=== PATIENT | male | born 1945 | race Caucasian/White ===

== ENCOUNTER 2023-08-30 08:31 | Outpatient (CLI) | payer OTHER, SELFPAY ==
--- OUTSIDE RECORDS SUMMARY | 2023-08-30 08:44 | XMS_ITS | Clinical Summary ---
Author Name Unknown Organization [facility] Address [address] [place] [address] Care Team Providers Care Boating Safety Officer Name Role Phone Ely Jones MD Primary Care Provider [phone] Ronny Gallo MD Unavailable [phone] Janine Cruz Unavailable [phone] Rodriguez Waters MD Unavailable [phone] Allergies Active Allergy Reactions Criticality Noted Date Comments Egg White (Egg Protein) Shortness Of Breath High Influenza Vaccines Hives High 03/27/2016 Metoprolol Other (See Comments) 07/04/2021 Low heart rate Medications Medication Sig Dispensed Refills Start Date End Date Status famotidine (PEPCID) 20 MG tablet Take 20 mg by mouth daily 0 Active finasteride (PROSCAR) 5 MG tablet Take 5 mg by mouth daily 0 Active sertraline (ZOLOFT) 100 MG tablet Take 100 mg by mouth daily 0 Active aspirin (ASA) 81 MG chewable tablet Take 81 mg by mouth daily 0 Active fish oil-omega-3 fatty acids 1000 MG capsule Take 1 g by mouth daily 0 Active multivitamin w/minerals (THERA-VIT-M) tablet Take 1 tablet by mouth daily 0 Active nitroGLYcerin (NITROSTAT) 0.4 MG sublingual tabletIndications:Pe rcutaneous transluminal coronary angioplasty status For chest pain place 1 tablet under the tongue every 5 minutes for 3 doses. If symptoms persist 5 minutes after 1st dose call 911. 25 tablet 1 07/04/2021 Active Additional Information Patient not taking.Reported on 03/25/2023 rosuvastatin (CRESTOR) 40 MG tabletIndications:Hy percholesteremia Take 1 tablet (40 mg) by mouth daily 90 tablet 3 07/04/2021 Active losartan (COZAAR) 50 MG tablet 25 mg 0 08/06/2021 Active Cholecalciferol 100 MCG (4000 UT) TABS TAKE ONE TABLET BY MOUTH EVERY DAY THIS IS VITAMIN DROP 0 09/01/2021 Active clopidogrel (PLAVIX) 300 MG TABS tabletIndications:At herosclerosis of council coronary artery of council heart without angina pectoris Take 2 tablets (600 mg) by mouth once for 1 dose 2 tablet 0 07/06/2022 Active clopidogrel (PLAVIX) 75 MG tabletIndications:At herosclerosis of council coronary artery of council heart without angina pectoris Take 1 tablet (75 mg) by mouth daily 90 tablet 3 07/06/2022 Active Active Problems Problem Noted Date Diagnosed Date Carpal tunnel syndrome of right wrist 10/30/2021 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 Overview: Jan 26, 2012 Entered By: GIDEON MARIEE Comment: Day time/Night time urinary urgency - no Voiding complaintsJul 2011 Entered By: GIDOEN MARIEE Comment: Over-Active Bladder Inguinal hernia 10/30/2021 Overview: Mar 07, 2013 Entered By: NAT MIR Comment: s/p repair, Personal history of tobacco use, presenting hazards to health 10/30/2021 Overview: Mar 07, 2013 Entered By: NAT MIR Comment: 10 pack year hxAug 2012 Entered By: NAT MIR Comment: Quit 1982 Presence of prosthetic heart valve 10/30/2021 Tinnitus 10/30/2021 Vitamin D deficiency 10/30/2021 Status post coronary angiogram 06/25/2021 S/P TAVR (transcatheter aortic valve replacement ) 03/11/2021 Overview: March 05, 2021 - right TF approach, #26 MILES 3 valve, + sentinel Aortic stenosis, severe 03/11/2021 Percutaneous transluminal coronary angioplasty s tatus 02/11/2021 Gastroesophageal reflux disease 2020 Irritability 2020 Nonrheumatic aortic valve stenosis 09/11/2019 Bilateral asymmetric sensorineural hearing loss 09/18/2015 CAD S/P percutaneous coronary angioplasty 2008 Overview: CAD S/p CO Hypertrophy of prostate without urinary obstruct ion 11/25/2007 Overview: BPH w/o Obstruction Osteoarthrosis 10/06/2004 Overview: LW Modifier: neck LW Onset: ; DJD 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/2004 Overview: LW Modifier: Left IOL LW Onset: 1999 ; Cataract Traumatic NOS Dyslipidemia, goal LDL below 70 Overview: Created by Conversion Hypertension Overview: Created by Conversion Replacement Utility updated for latest IMO load Coronary Artery Disease Overview: Created by Conversion Replacement Utility updated for latest IMO load Resolved Problems Problem Noted Date Diagnosed Date Resolved Date Obesity due to excess calories 02/24/2021 Overview: Created by Conversion Paroxysmal Atrial Fibrillation 06/11/2017 Overview: Created by Conversion Immunizations Name Administration Dates Next Due COVID-19 MONOVALENT 12+ (Pfizer) 05/12/2021,08/19,08/15/2020 Flu, Unspecified 05/08/2009 Influenza, seasonal, injectable, PF 05/08/2009 Pneumo Conj 13-V (2010&after) 03/18/2015 Pneumococcal 23 valent 04/17/2016,05/09/2009 Pneumococcal, Unspecified 10/17/2010 TDAP (Adacel,Boostrix) 04/19/2021,03/07/2013,04/2008 Td (Adult), Adsorbed 08/31/2002 Tdap (Adult) Unspecified Formulation 07/19/2007 Zoster recombinant adjuvanted (SHINGRIX) 022 Zoster vaccine, live 07/19/2013,01/26/2012 Family History Medical History Relation Comments Heart Disease Father Relation Status Comments Father Social History Tobacco Use Types Packs/Day Years Used Date Smoking Tobacco: Former Cigarettes Q uit: 07/19/1979 Smokeless Tobacco: Never Tobacco Cessation:Counseling Given: Not Answered Alcohol Use Standard Drinks/Week Comments Yes 0 (1 standard drink = 0.6 oz pur e alcohol) Alcoholic Drinks/day: rare PHQ-2 Answer Date Recorded PHQ-2 Score 0 10/30/2021 Adolescent Education Answer Date Record ed Getting School Help Needed Not on file 05/03 Sex and Gender Information Value Date Recorded Sex Assigned at Not on file Gender Identity Not on file Sexual Orientation Not on file Last Filed Vital Signs Vital Sign Reading Time Taken Comments Blood Pressure 148/80 03/25/2023 1:31 PM CDT Pulse 60 03/25/2023 1:31 PM CDT Temperature 36.6 ??C (97.9 ??F) 10/30/2021 9:51 AM CD T Respiratory Rate 16 03/25/2023 1:31 PM CDT Oxygen Saturation 98% 10/30/2021 9:51 AM CDT Inhaled Oxygen Concentration - - Weight 80.2 kg (176 lb 12.8 oz) 03/25/2023 1:31 PM CDT Height 174.8 cm (5' 8.8) 02/27/2022 1:17 PM CDT Body Mass Index 26.26 02/27/2022 1:17 PM CDT Plan of Treatment Health Maintenance Due Date Last Done Comments ADVANCE CARE PLANNING 1945 HF ACTION PLAN 1946 TSH W/FREE T4 REFLEX 1946 HEPATITIS C SCREENING 1964 RSV VACCINE ( & 60+) (1 - 1-dose 60+ series) 2006 FALL RISK ASSESSMENT 2011 MEDICARE ANNUAL WELLNESS VISIT 09/06/2021 09/06/2020, 08/30/2018, 03/27/2016, Additional history exists BMP 01/02/2022 07/04/2021, 12/0 02/2021, 04/18/2021, Additional history exists ALT 03/11/2022 03/11/2021, 02/17, 10/30/2020 CBC 06/25/2022 06/25/2021, 07/2020, 03/12/2021, Additional history exists LIPID 06/25/2022 06/25/2021, 01/17, 04/23/2009 ANNUAL REVIEW OF HM ORDERS 10/30/2022 10/30/2021 COVID-19 Vaccine ( season) 2023 06/08/2022, 05/12/2021, 09/05/2020, Additional history exists INFLUENZA VACCINE (#1) 2023 05/08/2009, 2008 PHQ-2 (once per calendar year) 2023 10/30/2021 GLUCOSE 07/04/2024 07/04/2021, 02/2021, 04/18/2021, Additional history exists DTAP/TDAP/TD IMMUNIZATION (5 - Td or Tdap) 04/19/2031 04/19/2021, 03/07/2013, 10/27/2007, Additional history exists Pneumococcal Vaccine: 65+ Years Completed 04/17/2016, 03/18/2015, 10/17/2010, Additional history exists LUNG CANCER SCREENING Discontinued 11/15/2020 ZOSTER IMMUNIZATION Completed 12/30/2021, 07/22/2021, 07/19/2013, Additional history exists HPV IMMUNIZATION Aged Out No longer e ligible based on patient's age to complete this topic IPV IMMUNIZATION Aged Out No longer e ligible based on patient's age to complete this topic MENINGITIS IMMUNIZATION Aged Out No l onger eligible based on patient's age to complete this topic RSV MONOCLONAL ANTIBODY Aged Out No l onger eligible based on patient's age to complete this topic Medical Devices Implanted Type Area Deputy Director Of Public Works Device Identifier Shelf Expiration Date Model / Serial / Lot Device Closure Vascular Manta 18fr 2115 - [id number] Implanted:Qty : 1 on 03/11/2021 by Ivett Arreguin MD at [facility] Occlusion Device Right: Groin [employer] 05/02/2022 [id number] / / [id number] Stent Coronary Lester Synergy Xd Mr Us [id number] - [id number] Implanted:Qty : 1 on 02/11/2021 by Rodriguez Waters MD at [facility] Stent Drug Eluting (LESTER) N/A: Coronary [employer] 09/24/2022 [id number] / / [id number] Stent Coronary Lester Synergy Xd Mr Us [id number] - [id number] Implanted:Qty : 1 on 06/25/2021 by Rodriguez Waters MD at [facility] Stent Drug Eluting (LESTER) [employer] 01/28/2023 [id number] / / [id number] Valve Aortic Sapein 3 Utlra Tavr 26mm [id number] - [id number] Implanted:Qty : 1 on 03/11/2021 by Ivett Arreguin MD at [facility] Valve N/A: Aorta [employer] 11/23/2022 [id number] / [id number] / Advance Directives For more information, please contact: [phone] Latest Code Status on File Code Status Date Activated Date Inactivated Comments Full Code 06/25/2021 9:19 AM 06/25/2021 4:13 PM All b asic and advanced life-sustaining interventions are performed as appropriate Question Answer Comments Code status determined by: Discussion with patient/ legal decision maker Code Status History Code Status Date Activated Date Inactivated Comments Full Code 03/11/2021 8:23 PM 03/12/2021 1:10 PM All b asic and advanced life-sustaining interventions are performed as appropriate Question Answer Comments Code status determined by: Discussion with patient/ legal decision maker Care Teams Boating Safety Officer Relationship Specialty Start Date End Date Ely Jones MD [facility] [place] [address] PCP - General Internal Medicine 02/24/21 Ronny Gallo MD [address] [place] [address] Assigned PCP 10/02/21 Janine Cruz AuD [address] [place] [phone] Garment Form Assembler Audiology 11/04/22 Rodriguez Waters MD [address] [facility] [address] [place], [place] [id number] Assigned Heart and Vascular Provider 12/19/22
--- OUTSIDE RECORDS SUMMARY | 2023-08-30 08:44 | XMS_ITS | Encounter Summary ---
Author Name Unknown Organization [facility] Address [address] [place] [address] Care Team Providers Care Pretzel Packer Name Role Phone Ely Jones MD Primary Care Provider [phone] Ronny Gallo MD Unavailable [phone] Janine Cruz Unavailable [phone] Rodriguez Waters MD Unavailable [phone] Encounter Details Date Type Department Care Team (Latest Contact Info) Description 03/25/2023 Travel Social History Tobacco Use Types Packs/Day Years Used Date Smoking Tobacco: Former Cigarettes Q uit: 07/19/1979 Smokeless Tobacco: Never Alcohol Use Standard Drinks/Week Comments Yes 0 (1 standard drink = 0.6 oz pur e alcohol) Alcoholic Drinks/day: rare PHQ-2 Answer Date Recorded PHQ-2 Score 0 10/30/2021 Sex and Gender Information Value Date Recorded Sex Assigned at Not on file Gender Identity Not on file Sexual Orientation Not on file COVID-19 Exposure Response Date Recorded In the last 10 days, have yo u been in contact with someone who was confirmed or suspected to have Coronavirus/COVID-19? No / Unsure 03/25/2023 12:43 PM CDT documented as of this encounter Plan of Treatment Not on file documented as of this encounter Visit Diagnoses Not on filedocumented in this encounter Care Teams Pretzel Packer Relationship Specialty Start Date End Date Ely Jones MD [facility] [address] [place] [address] PCP - General Internal Medicine 02/24/21 Ronny Gallo MD [address] [place] [address] Assigned PCP 10/02/21 Janine Cruz AuD [address] [place], [place] [id number] Dump Grounds Checker Audiology 11/04/22 Rodriguez Waters MD [address] [facility] [address] [place], [place] [id number] Assigned Heart and Vascular Provider 12/19/22 documented as of this encounter
--- OUTSIDE RECORDS SUMMARY | 2023-08-30 08:44 | XMS_ITS | Encounter Summary ---
Author Name Unknown Organization [facility] Address [address] [place] [address] Care Team Providers Care Collar Pointer Name Role Phone Ely Jones MD Primary Care Provider [phone] Ronny Gallo MD Unavailable [phone] Janine Cruz Unavailable [phone] Rodriguez Waters MD Unavailable Reason for Referral * Consultation (Routine: Next available opening) - Pending Review Specialty Diagnoses / Procedures Referred By Contac t Referred To Contact Cardiovascular Disease Diagnoses S/P TAVR (transcatheter aortic valve replacement) Rodriguez Waters MD [address] [facility] [address] [place] [address] Referral ID Status Reason Start Date Expiration Date V isits Requested Visits Authorized [id number] Pending Review 03/25/2023 03/24/2024 1 1 Question Answer Follow-up with: Self Scheduling Instructions: [employer] will call you to coordinate your care as prescribed by your provider. If you have concerns about scheduling, please call [phone]. Comments [employer] [facility] will call you to coordinate your care as prescribed by your provider. If you have concerns about scheduling, please call [phone]. Reason for Visit * Reason Comments Follow Up Encounter Details Date Type Department Care Team ([facility] st Contact Info) Description 03/25/2023 1:20 PM CDT Office Visit [facility] Heart [facility] [address] [facility] [address] [place] [phone] Rodriguez Waters MD [address] [facility] [address] [place] [address] S/P TAVR (transcatheter aortic valve replacement) (Primary Dx) Social History Tobacco Use Types Packs/Day Years [...] PM CDT documented as of this encounter Last Filed Vital Signs Vital Sign Reading Time Taken Comments Blood Pressure 148/80 03/25/2023 1:31 PM CDT Pulse 60 03/25/2023 1:31 PM CDT Temperature - - Respiratory Rate 16 03/25/2023 1:31 PM CDT Oxygen Saturation - - Inhaled Oxygen Concentration - - Weight 80.2 kg (176 lb 12.8 oz) 03/25/2023 1:31 PM CDT Height - - Body Mass Index 26.26 02/27/2022 1:17 PM CDT documented in this encounter Progress Notes * Rodriguez Waters MD - 03/25/2023 1:20 PM CDT Images from the original note were not included. HEART CARE ENCOUNTER CONSULTATON NOTE [facility] Heart [facility] [phone] Assessment/Recommendations Assessment/Plan: 77M w/ aortic stenosis s/p TAVR , CAD s/p PCI for STEMI in ' and known residual LAD/dRCA disease, HTN, HL, prior smoking, here for post- TAVR f/u. # Aortic stenosis - s/p # 26 S3 ', mean gradient still 13, no PVL - continue ASA/losartan # CAD - severe disease in mLAD s/p DESx1, then staged PCI to dRCA in the next 2- 3 weeks - continue ASA 81mg daily indefinitely, clopidogrel after re-load and continue indefinitely - continue rosuva 40 - continue aggressive risk factor modification Follow up in 1 years or as needed w/ annual TTE History of Present Illness/Subjective HPI: Lev Leon is a 77 year old male w/ aortic stenosis s/p TAVR , CAD s/p PCI for STEMIin and known residual LAD/dRCA disease, HTN, HL, prior smoking, here for post-TAVR f/u. He continues to do very well, still works. Denies CP/SOB/JACBOSEN/orthopnea/PND/edema/syncope/N/V/D/F/C/wt.changes. Recent Echocardiogram Results: Normal left ventricular size. Mild left ventricular hypertrophy. Normal left ventricular function. Left ventricular ejection fraction estimated 55 to 60%. Diastolic Doppler findings (E/E' ratio and/or other parameters) suggest left ventricular filling pressures are increased Normal right ventricular size with normal right ventricular systolic function. Mild left atrial enlargement Mild to moderate mitral regurgitation Mild tricuspid regurgitation. Estimate of RV systolic pressure is mildly elevated at 33 mmHg plus right atrial pressure Bioprosthetic valve in the aortic position. By report 26 mm ALLYSON 3 valve. Valve appears well-seated. Peak velocity of 2.4 m/s, mean gradient 13 mmHg no significant valvular insufficiency Mild enlargement of the ascending aorta Compared to the study dated August 2021 the peak velocity and mean gradient are similar across the prosthetic valve Recent Coronary Angiogram Results '07/08: tita Leon is a 75 year old old male with aortic stenosis s/p TAVR , CAD s/p PCI for STEMIin and known residual LAD/dRCA disease w/ LAD intervention pre-TAVR, HTN, HL, prior smoking, here for direct PCI to dRCA. - s/p DESx1 to dRCA today - continue ASA 81mg daily indefinitely, ticagrelor 90mg once now, then continue 90mg bid for 12 mos. After 12 mos go to ASA/clopidogrel after re-load and continue indefinitely - add losartan for BP control, re-check BMP in 3 days, f//u w/ JULISA in 1 week and possibly titrate anti-HTN agents. Did not start BB yet due to borderine low resting HR - continue rosuva 40 - continue aggressive risk factor modification Physical Examination Review of Systems Vitals: BP (!) 148/80 (BP Location: Left arm, Patient Position: Sitting, Cuff Size: Adult Large) Pulse 60 Resp 16 Wt 80.2 kg (176 lb 12.8 oz) BMI 26.26 kg/m?? BMI= Body mass index is 26.26 kg/m??. Wt Readings from Last 3 Encounters: 03/25/23 80.2 kg (176 lb 12.8 oz) 02/27/22 79.2 kg (174 lb 8 oz) 10/30/21 81.2 kg (179 lb) General Appearance: no distress, normal body habitus ENT/Mouth: membranes moist, no oral lesions or bleeding gums. EYES: no scleral icterus, normal conjunctivae Neck: no carotid bruits or thyromegaly Chest/Lungs: lungs are clear to auscultation, no rales or wheezing, no sternal scar, equal chest wall expansion Cardiovascular: Regular. Normal first and second heart sounds with no systolic murmurs, rubs, or gallops; the carotid, radial and posterior tibial pulses are intact, Jugular venous pressure 6, no edema bilaterally Abdomen: no organomegaly, masses, bruits, or tenderness; bowel sounds are present Extremities: no cyanosis or clubbing Skin: no xanthelasma, warm. Neurologic: normal associate loan officer bilateral, no tremors Psychiatric: alert and oriented x3, calm Please refer above for cardiac ROS details. Medical History Surgical History Family History Social History Past Medical History: Diagnosis Date Aortic valve stenosis Coronary artery disease Diverticulitis Hyperlipidemia Hypertension Past Surgical History: Procedure Laterality Date CARDIAC CATHETERIZATION 3 STENTS CATARACT EXTRACTION, BILATERAL CORONARY STENT PLACEMENT CV CORONARY ANGIOGRAM N/A 12/19/2020 Procedure: Coronary Angiogram; Surgeon: Rodriguez Waters MD; Location: [facility] Cardiac Claims Collector; Service: Cardiology CV LEFT HEART CATHETERIZATION WITHOUT LEFT VENTRICULOGRAM Left 12/19/2020 Procedure: Left Heart Catheterization Without Left Ventriculogram; Surgeon: Rodriguez Waters MD; Location: [facility] Cardiac Claims Collector; Service: Cardiology CV PCI N/A 02/11/2021 Procedure: Percutaneous Coronary Intervention; Surgeon: Rodriguez Waters MD; Location: [facility] DATABASE ENGINEER CV CV PCI N/A 06/25/2021 Procedure: Percutaneous Coronary Intervention; Surgeon: Rodriguez Waters MD; Location: [facility] DATABASE ENGINEER CV CV TRANSCATHETER AORTIC VALVE REPLACEMENT N/A 03/11/2021 Procedure: Transfemoral TRANSCATHETER AORTIC VALVE REPLACEMENT with 26 mm Cortez Allyson 3 Ultra Transcatheter Heart Valve, transthoracic echocardiogram per cardiology; Surgeon: Ivett Arreguin MD; Location: [facility] CARDIAC DATABASE ENGINEER HEART CATH FEMORAL CANNULIZATION WITH OPEN STANDBY REPAIR AORTIC VALVE N/A 03/11/2021 Procedure: cardiopulmonary bypass standby; Surgeon: Clive Plasencia MD; Location: [facility] CARDIAC DATABASE ENGINEER HERNIA REPAIR OPEN REDUCTION INTERNAL FIXATION RODDING INTRAMEDULLARY TIBIA ZZHC CORONARY STENT PERCUT, INITIAL VESSEL Description: Cath Stent Placement; Proc Date: 04/18/2009; Comments: x3 Family History Problem Relation Age of Onset Heart Disease Father Social History Socioeconomic History Marital status: Spouse name: Not on file Number of children: Not on file Years of education: Not on file Highest education level: Not on file Occupational History Not on file Tobacco Use Smoking status: Former Types: Cigarettes Quit date: 07/19/1979 Years since quittin.7 Smokeless tobacco: Never Vaping Use Vaping Use: Not on file Substance and Sexual Activity Alcohol use: Yes Comment: Alcoholic Drinks/day: rare Drug use: Not Currently Sexual activity: Not on file Other Topics Concern Not on file Social History Narrative Not on file Social Determinants of Health Financial Resource Strain: Not on file Food Insecurity: Not on file Transportation Needs: Not on file Physical Activity: Not on file Stress: Not on file Social Connections: Not on file Intimate Partner Violence: Not on file Housing Stability: Not on file Medications Allergies Current Outpatient Medications Medication Sig Dispense Refill aspirin (ASA) 81 MG chewable tablet Take 81 mg by mouth daily Cholecalciferol 100 MCG (4000 UT) TABS TAKE ONE TABLET BY MOUTH EVERY DAY THIS IS VITAMIN DROP clopidogrel (PLAVIX) 75 MG tablet Take 1 tablet (75 mg) by mouth daily 90 tablet 3 famotidine (PEPCID) 20 MG tablet Take 20 mg by mouth daily finasteride (PROSCAR) 5 MG tablet Take 5 mg by mouth daily fish oil-omega-3 fatty acids 1000 MG capsule Take 1 g by mouth daily losartan (COZAAR) 50 MG tablet 25 mg multivitamin w/minerals (THERA-VIT-M) tablet Take 1 tablet by mouth daily rosuvastatin (CRESTOR) 40 MG tablet Take 1 tablet (40 mg) by mouth daily 90 tablet 3 sertraline (ZOLOFT) 100 MG tablet Take 100 mg by mouth daily clopidogrel (PLAVIX) 300 MG TABS tablet Take 2 tablets (600 mg) by mouth once for 1 dose 2 tablet 0 nitroGLYcerin (NITROSTAT) 0.4 MG sublingual tablet For chest pain place 1 tablet under the tongue every 5 minutes for 3 doses. If symptoms persist 5 minutes after 1st dose call 911. (Patient not taking: Reported on 03/25/2023) 25 tablet 1 Allergies Allergen Reactions Egg White [Egg White (Egg Protein)] Shortness Of Breath Influenza Vaccines Hives Metoprolol Other (See Comments) Low heart rate Lab Results Chemistry/lipid CBC Cardiac Enzymes/BNP/TSH/INR Recent Labs Lab Test 06/25/21 1016 CHOL 131 HDL 56 LDL 68 TRIG 34 Recent Labs Lab Test 06/25/21 1016 02/11/21 0757 LDL 68 62 Recent Labs Lab Test 07/04/21 0829 NA 140 POTASSIUM 4.2 CHLORIDE 106 CO2 24 GLC 81 BUN 15 CR 0.79 GFRESTIMATED 88 XU 9.6 Recent Labs Lab Test 07/04/21 0829 06/25/21 0707 04/18/21 1012 CR 0.79 0.76 0.77 No results for input(s): A1C in the last 31953 hours. Recent Labs Lab Test 06/25/21 0707 WBC 6.2 HGB 13.5 HCT 40.6 MCV 91 PLT 207 Recent Labs Lab Test 06/25/21 0707 04/18/21 1012 03/12/21 0623 HGB 13.5 13.5 12.4* No results for input(s): TROPONINI in the last 39185 hours. Recent Labs Lab Test 03/10/21 0916 BNP 92* No results for input(s): TSH in the last 58111 hours. Recent Labs Lab Test 03/10/21 0916 INR 1.02 Rodriguez Waters MD documented in this encounter Plan of Treatment Scheduled Referrals Name Type Priority Associated Diagnoses Orde r Schedule Follow-Up with Cardiology Referral Routine: Next available opening S/P TAVR (transcatheter aortic valve replacement) Expected: 03/25/2024 (Approximate), Expires: 03/25/2024 documented as of this encounter Visit Diagnoses Diagnosis S/P TAVR (transcatheter aortic valve replacement)- Primary documented in this encounter Care Teams Collar Pointer Relationship Specialty Start Date End Date Ely Jones MD [facility] [address] PCP - General Internal Medicine 02/24/21 Ronny Gallo MD [address] [place] [address] Assigned PCP 10/02/21 Janine Cruz AuD [facility] [place] [address] Director On Air Audiology 11/04/22 Rodriguez Wtaers MD [address] [facility] [address] [place] [address] Assigned Heart and Vascular Provider 12/19/22 documented as of this encounter
--- OUTSIDE RECORDS SUMMARY | 2023-08-30 08:44 | XMS_ITS | Referral Summary ---
Author Name Unknown Organization [facility] Address [address] [place] [address] Care Team Providers Care Net Finisher Name Role Phone Ely Jones MD Primary Care Provider [phone] Ronny Gallo MD Unavailable [phone] Janine Cruz Unavailable [phone] Rodriguez Waters MD Unavailable [phone] Allergies Active Allergy Reactions Criticality Noted Date [...] (PLAVIX) 300 MG TABS tabletIndications:At herosclerosis of [place] 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 angina pectoris Take 2 tablets (600 mg) by mouth once for 1 dose 2 tablet 0 07/06/2022 Active clopidogrel (PLAVIX) 75 MG tabletIndications:At herosclerosis of [place] 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 angina pectoris Take 1 tablet (75 mg) by mouth daily 90 tablet 3 07/06/2022 Active Active Problems Problem Noted Date Diagnosed Date Carpal tunnel syndrome of right wrist 10/30/2021 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 Overview: Jan 26, 2012 Entered By: GIDEON MARIEE Comment: Day time/Night time urinary urgency - no Voiding complaintsJul 2011 Entered By: GIDEON MARIEE Comment: Over-Active Bladder Inguinal hernia 10/30/2021 [...] percutaneous coronary angioplasty 2008 Overview: CAD S/p [place] Hypertrophy of prostate without urinary obstruct ion [...] adjuvanted (SHINGRIX) 022 Zoster vaccine, live 07/19/2013,01/26/2012 Social History Tobacco Use Types Packs/Day Years [...] 02/27/2022 1:17 PM CDT Plan of Treatment Not on file Medical Devices Implanted Type Area Bed Operator Device Identifier Shelf Expiration Date Model / Serial / Lot Device Closure Vascular Manta 18fr 2115 - [id number] Implanted:Qty : 1 on 03/11/2021 by Ivett Arreguin MD at [facility] Occlusion Device Right: Groin [employer] 05/02/20225 / / [id number] Stent Coronary Lester Synergy Xd Mr Us [id number] - [id number] Implanted:Qty : 1 on 02/11/2021 by Rodriguez Waters MD at [facility] Stent Drug Eluting (LESTER) N/A: Coronary [employer] 09/24/2022 [id number] / / [id number] Stent Coronary Lester Synergy Xd Mr Us [id number] - [id number] Implanted:Qty : 1 on 06/25/2021 by Rodriguez Waters MD at [facility] Stent Drug Eluting (LESTER) [employer] 01/28/2023 [id number] / / [id number] Valve Aortic Sapein 3 Utlra Tavr 26mm [id number] - [id number] Implanted:Qty : 1 on 03/11/2021 by Ivett Arreguin MD at [facility] Valve N/A: Aorta [employer] 11/23/2022 [id number] / [id number] / Advance Directives For more information, please contact: [phone] Latest Code Status on File Code Status [...] with patient/ legal decision maker Care Teams Net Finisher Relationship Specialty Start Date End Date Ely Jones MD [facility] [place] [address] PCP - General Internal Medicine 02/24/21 Ronny Gallo MD [address] [place] [address] Assigned PCP 10/02/21 Janine Cruz, Tabitha [address] [place] [address] [phone] Mold Forms Builder Audiology 11/04/22 Rodriguez Waters MD [address] [facility] [address] [place] [address] Assigned Heart and Vascular Provider 12/19/22
--- OUTSIDE RECORDS SUMMARY | 2023-08-30 08:45 | XMS_ITS | Encounter Summary ---
Author Name [facility] Address [address] [place] [address] Support Name Relationship Address Phone ALYSSA HARDY Next of Kin [address] [place] [address] ALYSSA HARDY Emergency Contact [address] [place] [address] Insurance Providers: All historical and current Section Date Range: From patient's date of to the date document was created. This section includes the names of all active insurance providers for the patient. Insurance Provider Type of Coverage Plan Name Start of Policy Coverage End of Policy Coverage Group Number Member ID Insurance Provider's Telephone Number Policy Butts's Name Patient's Relationship to Policy Butts [facility] MEDICARE SUPPLEMEN NARCISA LISA R GOLD INDIV IDU Jul 19, 2016 [id number] Estrella HARDY PATIENT [facility] MEDICARE SUPPLEMEN NARCISA SENRUTH R GOLD INDIV IDU Jul 19, 2016 [id number] HAYLEY,R ICHARD PATIENT MEDICARE (WNR) MEDICARE (M) PART A Aug 19, 2011 PART A [id number] [phone] HAYLEYR ICHARD PATIENT MEDICARE (WNR) MEDICARE (M) PART B Aug 19, 2011 PART B [id number] [phone] Estrella HARDY PATIENT Selected Encounter This section includes the information on record at [facility] for the Encounter. Date/Time Encounter Type Encounter Description Reason Pro vider Source Feb 26, 2023 02:00 PM PSYTX W PT 45 MINUTES PSYCHOGERIATRIC - INDIVIDUAL ICD-10-CM F43.12 Post-traumati c stress disorder, chronic ALEJANDRO CANHI IHShelia Encounter Template Text not used by [facility] Assessments - Encounter Diagnoses This section includes the primary and secondary diagnoses documented for the Encounter. Date/Time Primary/Secondary Diagnosis Diagnosis Name Provider Source Mar 08, 2023 01:49 PM PRIMARY Post-traumatic stress disorder, chronic ALEJANDRO CANHI [facility] Plan of Treatment: Future Appointments (+ 6 months) and Future Tests (+/- 45 days) The Plan of Treatment section includes future care activities for the patient [facility] This section includes future appointments and future orders which are active, pending or scheduled. Future Appointments This section includes appointments that were scheduled to occur 6 months from the date of the Encounter, up to a maximum of 20 appointments. The data comes from all [place] treatment facilities. Appointment Date/Time Appointment Type Appointme nt Facility Name Mar 11, 2023 02:30 PM AMBULATORY - SURGERY [facility] Apr 01, 2023 01:45 PM AMBULATORY - MEDICINE [facility] Apr 15, 2023 02:30 PM AMBULATORY - SURGERY [facility] Apr 20, 2023 02:30 PM AMBULATORY - SURGERY [facility] May 25, 2023 09:40 AM AMBULATORY - SURGERY [facility] Aug 17, 2023 09:00 AM AMBULATORY - NONE [facility] Aug 17, 2023 10:00 AM AMBULATORY - MEDICINE [facility] Social History: Smoking Status (Most current) and Tobacco Use (All prior to encounter date) This section includes the most current, and the historical, smoking and tobacco- related health factors from the [facility] facility where the Encounter took place. Current Smoking Status This section includes the most current smoking, or tobacco-related health factor, from the [facility] facility where the Encounter took place. Date/Time Current Smoking Status Comment Armando ity Aug 20, 2022 03:30 PM VA-TOBACCO FORMER USER [facility] Tobacco Use History This section includes a history of the smoking, or tobacco-related health factors, that were collected on or before the date of the Encounter. The data comes from the [place] facility where the Encounter took place. Date/Time Smoking Status/Tobacco Use Comment F acility Aug 20, 2022 03:30 PM VA-TOBACCO QUIT [address] [facility] Jul 22, 2021 02:00 PM VA-TOBACCO FORMER USER [facility] Jul 22, 2021 02:00 PM VA-TOBACCO QUIT [address] [facility] Apr 05, 2019 09:50 AM VA-TOBACCO FORMER USER [facility] Apr 05, 2019 09:50 AM VA-TOBACCO QUIT [address] [facility] Apr 12, 2018 09:36 AM VA-TOBACCO FORMER USER [facility] Apr 12, 2018 09:36 AM VA-TOBACCO QUIT [address] [facility] Apr 19, 2017 01:40 PM FORMER TOBACCO USER 7Y OR GREATE R [facility] Apr 17, 2016 10:49 AM FORMER TOBACCO USER 7Y OR [facility] [facility] Mar 18, 2015 09:40 AM FORMER TOBACCO USER 7Y OR [facility] [facility] Mar 07, 2014 09:45 AM FORMER TOBACCO USER 7Y OR GRE[facility] R [facility] Jan 26, 2012 03:48 PM FORMER TOBACCO USER 7Y OR [facility] [facility] Encounter Notes: All associated encounter notes This section contains the clinical notes associated to the Encounter. Date/Time Encounter Note(s) Provider Source Feb 26, 2023 02:00 PM MENTAL HEALTH NOTE : LOCAL TITLE: MH PROGRESS NOTE STANDARD TITLE: MENTAL HEALTH NOTE DATE OF NOTE: FEB 26, 2023@14:00 ENTRY DATE: FEB 26, 2023@17:06:05 AUTHOR: ALEXANDER MILLER: URGENCY: STATUS: COMPLETED Team A Psychotherapy Session 4 Date/time: 02/26/2023; 1400 Visit Length: 50 minutes S/O: [place] returned for follow-up psychotherapy to address concerns regarding PAP adherence, PTSD, mood, and sleep, in context of the following treatment goals: 1. Optimize sleep, including wearing PAP more regularly 2. Manage reactions to intrusive thoughts, memories, and nightmares more effectively (less anger) 3. Enjoy more peace within myself Reviewed self-report measures and discussed interim changes and contributors. [place] reported stable interval, with improvements in managing anger (e.g., taking a moment to pause/reflect before expressing anger/frustration with family). Introduced abdominal breathing as additional strategy for regulating emotions and responding effectively. Engaged in in-session practice and discussed strategies for pairing abdominal breathing with reminders to pause. Revisited 's interest in individual CBT-based PAP adherence work, with eventual plan to transition to trauma processing. Reviewed PAP handout and PAP psychoeducation. Reviewed 's thoughts, including pros/cons, around either continuing with PAP nonadherence or taking steps toward wearing PAP. Reviewed cognitive-behavioral model and cognitive, emotional, physiological, and behavioral factors in the context of PAP adherence. Revisited thoughts around PAP adherence (e.g., Wearing a PAP will restrict me, I won't be able to keep myself safe, This isn't going to work, I can do it,) and connection with emotions, physiological sensations, and behaviors. Used Socratic Questioning to explore validity/helpfulness of thoughts, as well as alternative perspectives. Reviewed 's progress toward PAP adherence Behavioral Step 1 (wearing PAP during daytime, disconnected from machine) and associated thoughts/emotions. [place] reported attempting Step 1 several times between sessions but encountered interference from thoughts about being restricted and associated emotions/sensations. Collaboratively broke Step 1 into micro-step: Hold mask to face, not attached to machine, not strapped to face for up to 5 mins. Used SMART goals framework to further specify goals to include frequency of x2/week (more if tolerated). Invited [place] to practice behavioral Step 1A as described above, guided imagery, and monitoring of PAP- related thoughts between sessions. Invited to track progress between sessions and to bring mask with him to next session for in-session practice. Channel Account Manager and debriefed at conclusion of session, discussing 's reactions to session and next steps. asked clarifying questions, expressed willingness to proceed, and expressed commitment between-sessions practice. A: experiences posttraumatic stress characterized by intrusive thoughts, memories, and dreams of past stressful experiences, angry and depressed mood, and internal avoidance by distraction, in context of hx stressful experiences and life phase transitions. MSE: Grooming: WNL, good Dress: WNL, appropriate for weather Motor: WNL Eye contact: WNL, good Speech: rate/rhythm/volume WNL Affect: Euthymic, Full-range, mood-congruent Thought process: Goal Directed, grossly linear Thought content: Normal, absent evidence of paranoia/delusions/halluci nations; no Suicidal Ideation/Homicidal Ideation Insight: good Judgment: good Impulse control: good SELF-REPORT MEASURES: PHQ-9: 01/12 (mild depression symptoms) FALGUNI-7: 02/05 (mild anxiety symptoms) ALISTAIR: 8 (subthreshold clinical insomnia symptoms) PCL-5: 30 (moderate PTSD symptoms) PATIENT EDUCATION: [place] indicated readiness to learn for the education provided during this session as noted above. also indicated understanding by asking questions and making appropriate comments. DIAGNOSES treated in current encounter: Posttraumatic stress disorder, chronic RISK ASSESSMENT: Factors that may increase the risk of homicidal acts or suicidal acts/self- harm: Recent psychosocial stressors; Psychological conditions or symptoms; Medical conditions and health-related problems; Access to lethal means (firearms; stored unloaded in cabinets); Member of a group at increased risk for suicide (older White male/ status) Protective factors: Access to and engagement with health care; Reports motivation for medical treatment; Access to and engagement with mental health care; Reports motivation for mental health treatment; Meaningful family relationships; Significant other; Hope for the future; Protective personal traits or beliefs; Mandaeism or spiritual beliefs/connections; Connections to cultural group(s); Social support system; Strong desire to live/reasons for living; Coping skills Overall Assessment: Based on risk and protective factors, the patient is considered to be at low acute risk for committing harm-related acts and at low chronic/long-term risk. MH TREATMENT PLAN: Next RTC entered for approx. 4 weeks ([place]'s preference, due to schedule) in-clinic ([place]'s preferred modality). Treatment will target improving sleep, MH symptoms, and functioning via PAP adherence with eventual plan to shift to trauma processing. ++++++++++ Informed consent procedures reviewed at inception of psychotherapy course, including discussing the limits of confidentiality, expectations for therapy, graduate psychologist status, and associated supervision requirements, as well as potential risks, benefits, and complications associated with services. expressed understanding and consented to services. In today's session, indicated readiness to learn for the education provided during this session and indicated understanding by asking questions and making appropriate comments. ++++++++++ /yolande/ HI CAN PHD, Staff Psychologist Signed: 02/26/2023 17:[address] [facility]
--- OUTSIDE RECORDS SUMMARY | 2023-08-30 08:45 | XMS_ITS | Encounter Summary ---
Author Name Unknown Organization [facility] Address [address] [place] [address] Care Team Providers Care C Java Developer Name Role Phone Joel Lyle MD Unavailable [phone] Ely Jones MD Primary Care Provider [phone] Chinyere Faust APRN IRRIGATION TEACHER Unavailable [phone] Joel Lyle MD Unavailable [phone] Ronny Gallo MD Unavailable [phone] Chinyere Faust APRN IRRIGATION TEACHER Unavailable [phone] Rodriguez Waters MD Unavailable [phone] Janine Cruz AuD Unavailable [phone] Chinyere Faust APRN IRRIGATION TEACHER Unavailable [phone] Rodriguez Waters MD Unavailable [phone] Encounter Details Date Type Department Care Team (Late st Contact Info) Description 07/05/2021 Documentation Only INTERFACED REPORT Unknown, Provider Social History Tobacco Use Types Packs/Day Years Used Date Smoking Tobacco: Former Cigarettes Q uit: 07/19/1979 Smokeless Tobacco: Never Alcohol Use Standard Drinks/Week Comments Yes 0 (1 standard drink = 0.6 oz pur e alcohol) Alcoholic Drinks/day: rare Sex and Gender Information Value Date Recorded Sex Assigned at Not on file Gender Identity Not on file Sexual Orientation Not on file COVID-19 Exposure Response Date Recorded In the last month, have you been in contact with someone who was confirmed or suspected to have Coronavirus / COVID-19? No / Unsure 07/05/2021 12:53 AM TEACHER'S ASSISTANT documented as of this encounter Plan of Treatment Not on file documented as of this encounter Visit Diagnoses Not on filedocumented in this encounter Care Teams C Java Developer Relationship Specialty Start Date End Date Ely Jones MD [facility] [address] [facility] [place] [address] PCP - General Internal Medicine 02/24/21 Joel Lyle MD [address] [address] Assigned Heart and Vascular Provider 01/31/21 07/05/21 Chinyere Faust APRN IRRIGATION TEACHER [address] [place] [address] Assigned Heart and Vascular Provider 07/06/21 08/09/21 Joel Lyle MD [address] [address] Assigned Heart and Vascular Provider 08/10/21 02/13/22 Ronny Gallo MD [address] [place] [address] Assigned PCP 10/02/21 Chinyere Faust APRN IRRIGATION TEACHER [address] [address] Assigned Heart and Vascular Provider 02/14/22 08/28/22 Rodriguez Waters MD [address] [place] [address] Assigned Heart and Vascular Provider 08/29/22 10/16/22 Janine Cruz AuD [address] [place] [address] [facility] 11/04/22 Chinyere Faust APRN IRRIGATION TEACHER [address] [facility] [address] [place] [address] Assigned Heart and Vascular Provider 10/17/22 12/18/22 Rodriguez Waters MD [address] [facility] [address] [place] [address] Assigned Heart and Vascular Provider 12/19/22 documented as of this encounter
--- OUTSIDE RECORDS SUMMARY | 2023-08-30 08:45 | XMS_ITS | Continuity of Care Document ---
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 It does not include entries that were removed or entered in error. Problem Status Onset Date Problem Type Date of Resolution Comments Source Aortic stenosis Active Condition Jul 13, 2017 Entered By: SILVESTRE EDMONDS Comment: Echo (01/2017) EF 55-60%, JESÚS 1.1cm2, grad 24.7mmHgJan 2021 Entered By: LAI NGUYEN Comment: s/p TAVR done locally summer 2020 [facility] Arthritis * (ICD-9-CM 716.90) Active Condition [facility] Carpal tunnel syndrome Active Condition [facility] Carpal tunnel syndrome of right wrist Active Condition [facility] Co-managed Care Active Condition Mar 07, 2013 Entered By: NORM MIR Comment: Dr. Adan Eppersonlette [facility] Coronary arteriosclerosis (SNOMED CT 16270187) Active Condition Jul 13, 2017 Entered By: SILVESTRE EDMONDS Comment: S/P [place] in 2008.Jul 13, 2017 Entered By: SILVESTRE EDMONDS Comment: S/P PCI x 3 in 2008. 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 Jan 25 Entered By: GIDEON MARIEE Comment: Day time/Night time urinary urgency - no Voiding complaintsJul 2011 Entered By: GIDEON MARIEE Comment: Over-Active Bladder [facility] Irritability Active Condition [facility] Personal History of Tobacco Use Active Condition Mar 07, 2013 Entered By: NORM MIR Comment: 10 pack year hxAug 2012 Entered By: NORM MIR Comment: Quit 1982 [facility] Posttraumatic stress disorder Active Condition [facility] Prosthetic heart valve in situ Active Condition [facility] Right Inguinal Hernia Active Condition Mar 07, 2013 Entered By: NORM MIR Comment: s/p repair, [facility] Sensorineural hearing loss Active Condition [facility] Tinea corporis Active Condition [facility] Tinnitus Active Condition [facility] Vitamin D deficiency Active Condition [facility] Diagnosis: ICD-10-CM L82.1 Other seborrheic keratosis Active Diagnosis [facility] Diagnosis: ICD-10-CM L98.9 Disorder of the skin and subcutaneous tissue, unspecified Active Diagnosis [facility] BISHOPLILeigh Ann [facility] Diagnosis: ICD-10-CM I10 Essential (primary) hypertension Active Diagnosis [facility] Diagnosis: ICD-10-CM Z23 Encounter for immunization Active Diagnosis [facility] Diagnosis: ICD-10-CM L91.8 Other hypertrophic disorders of the skin Active Diagnosis [facility] Diagnosis: ICD-10-CM Z46.1 Encounter for fitting and adjustment of hearing aid Active Diagnosis [facility] Diagnosis: ICD-10-CM Z02.89 Encounter for other administrative examinations Active Diagnosis JENNIFER Buckner [facility] Diagnosis: ICD-10-CM D48.5 Neoplasm of uncertain behavior of skin Active Diagnosis [facility] Diagnosis: ICD-10-CM L98.491 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 Active Diagnosis [facility] Diagnosis: ICD-10-CM F43.12 Post-traumatic stress disorder, chronic Active Diagnosis [facility] Diagnosis: ICD-10-CM Z77.29 Contact with and exposure to other hazardous substances Active Diagnosis JENNIFER JOEL [facility] Diagnosis: ICD-10-CM G56.01 Carpal tunnel syndrome, right upper limb Active Diagnosis [facility] Diagnosis: ICD-10-CM Z71.81 Spiritual or evangelical counseling Active Diagnosis [facility] Diagnosis: ICD-10-CM F43.10 Post-traumatic stress disorder, unspecified Active Diagnosis [facility] Diagnosis: ICD-10-CM G47.33 Obstructive sleep apnea (adult) (pediatric) Active Diagnosis [facility] Diagnosis: ICD-10-CM 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.232 Symblepharon, left eye Active Diagnosis [facility] Diagnosis: ICD-10-CM M21.619 Bunion of unspecified foot Active Diagnosis [facility] Diagnosis: ICD-10-CM M21.612 Bunion of left foot Active Diagnosis [facility] Diagnosis: ICD-10-CM F32.9 Major depressive disorder, single episode, unspecified Active Diagnosis [facility] Diagnosis: ICD-10-CM I25.10 Athscl heart disease of [place] coronary artery w/o ang pctrs Active Diagnosis [facility] Medications Combined list of outpatient medications from Department of Defense and Veterans Affairs facilities.Medications provided include 1) outpatient medications from the last 15 months, and 2) patient-reported medications. Medication Details Route Status Patient Instructions Prescription Expires Prescription Number Last Dispense Date Ordering Provider Order Date Source AMLODIPINE BESYLATE 5MG TAB TAKE ONE TABLET BY MOUTH EVERY DAY FOR BLOOD PRESSURE ORALLY ACTIVE 11/15/2023 [id number] MARLA JEROME CO A 2023 [facility] ASPIRIN 81MG TAB,EC TAKE ONE TABLET BY MOUTH ORALLY ACTIVE Tino NGUYEN E 2022 [facility] CETIRIZINE HCL 10MG TAB TAKE ONE TABLET BY MOUTH EVERY DAY ALLERGIC CONJUNCT IVITIS ORALLY ACTIVE 10/01/2023 [id number] 3 SHERIF VANEGAS ITMINANN V 2022 [facility] CHOLECALCIF CAT 10MCG (400UNIT) TAB TAKE ONE TABLET BY MOUTH EVERY DAY THIS IS VITAMIN DROP ORALLY ACTIVE 10/04/2023 [id number] Tino NGUYEN E 2022 [facility] CHOLECALCIF CAT 10MCG (400UNIT) TAB TAKE ONE TABLET BY MOUTH EVERY DAY THIS IS VITAMIN DROP ORALLY DISCONT INUED 09/02/2022 [id number] 3 Tino NGUYEN E 2021 [facility] CHOLECALCIF CAT 10MCG (400UNIT) TAB TAKE ONE TABLET BY MOUTH EVERY DAY THIS IS VITAMIN DROP ORALLY DISCONT INUED (EDIT) 10/04/2023 [id number] 3 Tino NGUYEN E 2022 [facility] CLOPIDOGREL BISULFATE 75MG TAB TAKE ONE TABLET BY MOUTH EVERY DAY FOR HEART DISEASE ORALLY ACTIVE 07/21/2024 [id number] 4 [facility] A 2023 [facility] CLOPIDOGREL BISULFATE 75MG TAB TAKE EIGHT TABLETS BY MOUTH ONCE FOR 1 DAY, THEN TAKE ONE TABLET EVERY DAY FOR HEART DISEASE START LOADING DOSE OF 600MG THE FOLLOWIN G DAY AFTER FINISHIN G TICAGREL OR, THEN FOLLOWED BY 75MG DAILY INDEFINI TELY START LOADING DOSE OF 600MG THE FOLLOWIN G DAY AFTER FINISHIN G TICAGREL OR, THEN FOLLOWED BY 75MG DAILY INDEFINI TELY ORALLY DISCONT INUED 07/08/2023 [id number] JENNIFER BENITEZ T H 2021 [facility] CLOPIDOGREL BISULFATE 75MG TAB TAKE ONE TABLET BY MOUTH EVERY DAY FOR HEART DISEASE INDEFINI TELY ORALLY 07/08/2023 [id number] 3 ELISENAITShelia T H 2022 [facility] FAMOTIDINE 20MG TAB TAKE ONE TABLET BY MOUTH TWICE A DAY TO DECREASE STOMACH ACID ORALLY ACTIVE 07/21/2024 [id number] 4 [facility] A 2023 [facility] FAMOTIDINE 20MG TAB TAKE ONE TABLET BY MOUTH TWICE A DAY TO DECREASE STOMACH ACID ORALLY DISCONT INUED 04/29/2024 [id number] 3 [facility] A 2022 [facility] FAMOTIDINE 20MG TAB TAKE ONE TABLET BY MOUTH TWICE A DAY TO DECREASE STOMACH ACID ORALLY DISCONT INUED 04/27/2024 [id number] 3 [facility] A 2022 [facility] FAMOTIDINE 20MG TAB TAKE ONE TABLET BY MOUTH TWICE A DAY TO DECREASE STOMACH ACID ORALLY DISCONT INUED 04/21/2024 [id number] 3 [facility] A 2022 [facility] FAMOTIDINE 20MG TAB TAKE ONE TABLET BY MOUTH TWICE A DAY TO DECREASE STOMACH ACID ORALLY DISCONT INUED 02/22/2024 [id number] 3 TURNER POWER ON W 2022 [facility] FAMOTIDINE 20MG TAB TAKE ONE TABLET BY MOUTH TWICE A DAY TO DECREASE STOMACH ACID ORALLY DISCONT INUED 12/08/2023 [id number] STOCK,TYS ON W 2022 [facility] FAMOTIDINE 20MG TAB TAKE ONE TABLET BY MOUTH TWICE A DAY TO DECREASE STOMACH ACID ORALLY DISCONT INUED 10/04/2023 [id number] 3 Tino NGUYEN E 2022 [facility] FAMOTIDINE 20MG TAB TAKE ONE TABLET BY MOUTH TWICE A DAY TO DECREASE STOMACH ACID ORALLY DISCONT INUED 08/30/2023 [id number] 3 Tino NGUYEN E 2022 [facility] FAMOTIDINE 20MG TAB TAKE ONE TABLET BY MOUTH TWICE A DAY TO DECREASE STOMACH ACID ORALLY DISCONT INUED 06/29/2023 [id number] 3 Tino NGUYEN E 2021 [facility] FINASTERIDE 5MG TAB TAKE ONE TABLET BY MOUTH EVERY DAY FOR PROSTATE ORALLY ACTIVE 12/22/2023 [id number] 4 FANNY DHALIWAL E 2022 [facility] FINASTERIDE 5MG TAB TAKE ONE TABLET BY MOUTH EVERY DAY FOR PROSTATE ORALLY DISCONT INUED 11/27/2022 [id number] 3 Tino NGUYEN E 2022 [facility] FINASTERIDE 5MG TAB TAKE ONE TABLET BY MOUTH EVERY DAY FOR PROSTATE ORALLY DISCONT INUED 08/22/2022 [id number] 2 Tino NGUYEN E 2021 [facility] FLUOROMETHO LONE 0.1% SUSP,OPH INSTILL 1 DROP IN BOTH EYES FOUR TIMES A DAY FOR INFLAMMA TION BOTH EYES ACTIVE 2023 [id number] JESSICA OROZCO 2022 [facility] FLUTICASONE PROPIONATE 50MCG/SPRAY SOLN,NASAL, 16GM SPRAY 1 SPRAY IN EACH NOSTRIL AT BEDTIME NEEDED FOR NASAL CONGESTI ON NEEDED NASAL CONGESTI ON NASAL 11/12/2022 [id number] 3 CINTIA HARRISON ICA J 2022 [facility] KETOTIFEN 0.025% SOLN,OPH INSTILL 1 DROP IN BOTH EYES TWICE A DAY ALLERGIC CONJUNCT IVITIS BOTH EYES ACTIVE 10/01/2023 [id number] 3 SHERIF VANEGAS ITLYNN V 2022 [facility] MELATONIN 3MG CAP/TAB TAKE 1 TABLET BY MOUTH EVERY EVENING FOR RESTFUL SLEEP ONE HOUR BEFORE BEDTIME. MAY INCREASE TO 2 TABLETS AFTER ONE WEEK IF STILL HAVING RESTLESS SLEEP. ONE HOUR BEFORE BEDTIME. MAY INCREASE TO 2 TABLETS AFTER ONE WEEK IF STILL HAVING RESTLESS SLEEP. ORALLY ACTIVE 09/12/2023 [id number] 3 ALFIE VILLALTA 2022 [facility] MULTIVITAMI N/MINERALS SENIOR FORMULA TAB TAKE ONE TABLET BY MOUTH EVERY DAY ORALLY ACTIVE PAULA MARIEE 2011 [facility] ROSUVASTATI N CA 40MG TAB TAKE ONE TABLET BY MOUTH EVERY DAY FOR CHOLESTE ROL ORALLY ACTIVE 12/22/2023 [id number] 4 FANNY DHALIWAL E 2022 [facility] ROSUVASTATI N CA 40MG TAB TAKE ONE TABLET BY MOUTH EVERY DAY F CHOLESTE ROL ORALLY DISCONT INUED 02/18/2023 [id number] 3 MIGUEL ANGEL PERDOMO 2021 [facility] SERTRALINE HCL 100MG TAB TAKE ONE TABLET BY MOUTH EVERY DAY FOR ANGER/IR RITABILI TY ORALLY DISCONT INUED (EDIT) 04/21/2023 [id number] 3 Tino NGUYEN E 2021 [facility] SERTRALINE HCL 50MG TAB TAKE THREE TABLETS BY MOUTH EVERY DAY FOR ANGER/IR RITABILI TY NOTE CHANGE IN PILL STRENGTH /INSTRUC TIONS ORALLY ACTIVE 11/17/2023 [id number] 4 ALFIE VILLALTA 2022 [facility] Allergies, Adverse Reactions, Alerts Combined list of allergies from Department of Defense and Veterans Affairs facilities. It does not include entries that were removed or entered in error. Substance Category Reaction Severity Reaction type Status Date Reported Comments Source EGGS Propensity to adverse reactions to substance (finding) Eruption, Apnea active 6 [facility] Immunizations Combined list of available immunizations from the Department of Defense and Veterans Affairs facilities. Immunization Series Date Given Administered By Site Reaction Lot Number CVX Code Drug Pulp Drier Firer Status Comments Source COVID-19 (Chalkboard), MRNA, LNP-S, PF, ROSAS-SUCROSE, 30 MCG/0.3 ML (AGES 12+ YEARS) 1 2022 HASEEB DAVIES IE ZION LEFT DELTO ID [id number] 309 complet ed [facility] COVID-19 (PFIZER), MRNA, LNP-S, BIVALENT BOOSTER, PF, 30 MCG/0.3 ML DOSE 1 2021 300 complet ed PFR; [id number]; 3 [facility] ZOSTER RECOMBINANT 2 2021 187 complet ed [facility] ZOSTER RECOMBINANT 1 2021 187 complet ed [facility] COVID-19 (PFIZER), MRNA, LNP-S, PF, 30 MCG/0.3 ML DOSE 3 2020 208 complet ed PFR; [id number]; 2 [facility] TDAP 2020 115 complet ed [facility] COVID-19 (PFIZER), MRNA, LNP-S, PF, 30 MCG/0.3 ML DOSE 2 2020 208 complet ed PFR; [id number]; 1 [facility] COVID-19 (PFIZER), MRNA, LNP-S, PF, 30 MCG/0.3 ML DOSE 1 2020 208 complet ed PFR; [id number]; 1 [facility] PNEUMOCOCCAL POLYSACCHARID E PPV23 2015 33 complet ed [employer],[id number] 17 [facility] PNEUMOCOCCAL CONJUGATE PCV 13 2014 133 complet ed wyeth, [id number], [facility] ZOSTER LIVE 2013 121 complet ed [facility] TDAP 2012 115 complet ed [id number]/04/02 [facility] ZOSTER LIVE 2011 121 complet ed [employer], [id number], [id number] [facility] PNEUMOCOCCAL, UNSPECIFIED FORMULATION 2010 109 complet ed [facility] PNEUMOCOCCAL POLYSACCHARID E PPV23 2008 33 complet ed [facility] INFLUENZA, UNSPECIFIED FORMULATION 2008 88 complet ed [facility] TDAP 2007 115 complet ed [facility] TD(ADULT) UNSPECIFIED FORMULATION 2007 139 complet ed [facility] TD (ADULT), 2 LF TETANUS TOXOID, PRESERVATIVE FREE, ADSORBED 2002 09 complet ed [facility] Results Combined list of recent chemistry, hematology and other laboratory results from Department of Defense and Veterans Affairs, ranging from 15 months to all on record, depending upon the facility. Order Name Results Value Reference Range Date Interpretation Specimen Comments Source GLUCOSE GLUCOSE [MASS/VOLU ME] IN SERUM OR PLASMA 105 70 - 100 08/16 H Specimen Type: PLASMA No comment entered. Ordering Provider: LEIGHA NGUYEN Report Released Date/Time: Aug 23, 2022 03:30 PM Reporting Lab: [facility] [address] Performing Lab: [facility] [address] [facility] HEMOGLOB IN A1C HEMOGLOBIN A1C/HEMOGL OBIN.TOTAL IN BLOOD 5.4 4.0 - 6.0 08/16 Specimen Type: BLOOD Comment: Values obtained from A1C measurement s can vary. For typical A1C assays, a reported value of 7.0 could actually be between 6.7 and 7.3 if measured by a reference method. A reported value of 9.0 could actually be between 8.7 and 9.3. Ref: http://www. ngsp.org/[place] Pdata.asp Ordering Provider: LEIGHA NGUYEN Report Released Date/Time: Aug 23, 2022 03:30 PM Reporting Lab: [facility] [address] Performing Lab: [facility] [address] [facility] CBC LEUKOCYTES [#/VOLUME] IN BLOOD BY AUTOMATED COUNT 6.97 4.0 - 11.0 08/16 Specimen Type: BLOOD No comment entered. Ordering Provider: LEIGHA NGUYEN Report Released Date/Time: Aug 23, 2022 03:30 PM Reporting Lab: [facility] [address] Performing Lab: [facility] [address] [place] [facility] CBC ERYTHROCYT ES [#/VOLUME] IN BLOOD BY AUTOMATED COUNT 4.65 4.6 - 6.2 08/16 Specimen Type: BLOOD No comment entered. Ordering Provider: LEIGHA NGUYEN Report Released Date/Time: Aug 23, 2022 03:30 PM Reporting Lab: [facility] [address] Performing Lab: [facility] [address] [place] [facility] CBC HEMOGLOBIN [MASS/VOLU ME] IN BLOOD 14.3 13.5 - 17.9 08/16 Specimen Type: BLOOD No comment entered. Ordering Provider: LEIGHA NGUYEN Report Released Date/Time: Aug 23, 2022 03:30 PM Reporting Lab: [facility] [address] Performing Lab: [facility] [address] [place] [facility] CBC HEMATOCRIT [VOLUME FRACTION] OF BLOOD BY AUTOMATED COUNT 41.8 41 - 54 08/16 Specimen Type: BLOOD No comment entered. Ordering Provider: LEIGHA NGUYEN Report Released Date/Time: Aug 23, 2022 03:30 PM Reporting Lab: [facility] [address] Performing Lab: [facility] [address] [place] [facility] CBC MCV [ENTITIC VOLUME] BY AUTOMATED COUNT 89.9 80 - 100 08/16 Specimen Type: BLOOD No comment entered. Ordering Provider: LEIGHA NGUYEN Report Released Date/Time: Aug 23, 2022 03:30 PM Reporting Lab: [facility] [address] Performing Lab: [facility] [address] [place] [facility] CBC MCH [ENTITIC MASS] BY AUTOMATED COUNT 30.8 27 - 33 08/16 Specimen Type: BLOOD No comment entered. Ordering Provider: LEIGHA NGUYEN Report Released Date/Time: Aug 23, 2022 03:30 PM Reporting Lab: [facility] [address] Performing Lab: [facility] [address] [place] [facility] CBC MCHC [MASS/VOLU ME] BY AUTOMATED COUNT 34.2 32.0 - 37.5 08/16 Specimen Type: BLOOD No comment entered. Ordering Provider: LEIGHA NGUYEN Report Released Date/Time: Aug 23, 2022 03:30 PM Reporting Lab: [facility] [address] Performing Lab: [facility] [address] [place] [facility] CBC PLATELETS [#/VOLUME] IN BLOOD BY AUTOMATED COUNT 214 150 - 400 08/16 Specimen Type: BLOOD No comment entered. Ordering Provider: LEIGHA NGUYEN Report Released Date/Time: Aug 23, 2022 03:30 PM Reporting Lab: [facility] [address] Performing Lab: [facility] [address] [place] [facility] CBC PLATELET MEAN VOLUME [ENTITIC VOLUME] IN BLOOD BY AUTOMATED COUNT 9.4 7.4 - 10.4 08/16 Specimen Type: BLOOD No comment entered. Ordering Provider: LEIGHA NGUYEN Report Released Date/Time: Aug 23, 2022 03:30 PM Reporting Lab: [facility] [address] Performing Lab: [facility] [address] [place] [facility] CBC ERYTHROCYT E DISTRIBUTI ON WIDTH [RATIO] BY AUTOMATED COUNT 13.6 11.5 - 14.5 08/16 Specimen Type: BLOOD No comment entered. Ordering Provider: LEIGHA NGUYEN Report Released Date/Time: Aug 23, 2022 03:30 PM Reporting Lab: [facility] [address] Performing Lab: [facility] [address] [place] [facility] AST/SGOT ASPARTATE AMINOTRANS FERASE [ENZYMATIC ACTIVITY/V OLUME] IN SERUM OR PLASMA 22 <34 - 34 08/16 Specimen Type: PLASMA No comment entered. Ordering Provider: LEIGHA NGUYEN Report Released Date/Time: Aug 23, 2022 03:30 PM Reporting Lab: [facility] [address] Performing Lab: [facility] [address] [facility] ALT/SGPT ALANINE AMINOTRANS FERASE [ENZYMATIC ACTIVITY/V OLUME] IN SERUM OR PLASMA 24 <55 - 55 08/16 Specimen Type: PLASMA No comment entered. Ordering Provider: LEIGHA NGUYEN Report Released Date/Time: Aug 23, 2022 03:30 PM Reporting Lab: [facility] [address] Performing Lab: [facility] [address] [facility] TSH W/REFLEX TO FREE T4 THYROTROPI N [UNITS/VOL UME] IN SERUM OR PLASMA 1.09 0.35 - 4.94 08/16 Specimen Type: PLASMA No comment entered. Ordering Provider: LEIGHA NGUYEN Report Released Date/Time: Aug 23, 2022 03:30 PM Reporting Lab: [facility] [address] Performing Lab: [facility] [address] [facility] ANCA NEUTROPHIL CYTOPLASMI C AB.CLASSIC [PRESENCE] IN SERUM NEGATIVE 09/09 Specimen Type: SERUM No comment entered. Ordering Provider: Josefa OROZCO Report Released Date/Time: Sep 09, 2022 09:55 AM Reporting Lab: [facility] [address] Performing Lab: [facility] [address] [facility] ANCA NEUTROPHIL CYTOPLASMI C AB.PERINUC LEAR [PRESENCE] IN SERUM BY IMMUNOFLUO RESCENCE NEGATIVE 09/09 Specimen Type: SERUM No comment entered. Ordering Provider: Josefa OROZCO Report Released Date/Time: Sep 09, 2022 09:55 AM Reporting Lab: [facility] [address] Performing Lab: [facility] [address] [facility] Vital Signs Combined list of inpatient and outpatient Vital Signs from Department of Defense and Veterans Affairs, ranging from 12 months to all on record, depending upon the facility. Vital Sign Value Date Comments Source SYSTOLIC BLOOD PRESSURE 167 08/17/2023 10:02:31 [facility] DIASTOLIC BLOOD PRESSURE 89 08/17/2023 10:02:31 [facility] PULSE OXIMETRY 96% 08/17/2023 10:02:31 [place] [facility] WEIGHT 181.5 08/17/2023 10:02:31 [facility] [place] [facility] BMI 26kg/m2 08/17/2023 10:02:31 [facility] [place] [facility] PAIN 0 08/17/2023 10:02:31 [facility] [place] [facility] TEMPERATURE 98 08/17/2023 10:02:31 [place] [facility] PULSE 84 08/17/2023 10:02:31 [facility] [place] [facility] RESPIRATION 18 08/17/2023 10:02:31 [place] [facility] SYSTOLIC BLOOD PRESSURE 131 04/01/2023 13:40:37 [facility] DIASTOLIC BLOOD PRESSURE 83 04/01/2023 13:40:37 [facility] PULSE OXIMETRY 96% 04/01/2023 13:40:37 [facility] WEIGHT 174.5 04/01/2023 13:40:37 [facility] [place] [facility] BMI 25kg/m2 04/01/2023 13:40:37 [facility] [place] [facility] PAIN 5 04/01/2023 13:40:37 [facility] [place] [facility] TEMPERATURE 98.8 04/01/2023 13:40:37 [place] [facility] PULSE 91 04/01/2023 13:40:37 [facility] [place] [facility] RESPIRATION 16 04/01/2023 13:40:37 [place] [facility] SYSTOLIC BLOOD PRESSURE 151 10/12/2022 14:27:01 [facility] DIASTOLIC BLOOD PRESSURE 82 10/12/2022 14:27:01 [facility] PULSE OXIMETRY 96% 10/12/2022 14:27:01 [place] [facility] WEIGHT 181.9 10/12/2022 14:27:01 [facility] [place] [facility] BMI 27kg/m2 10/12/2022 14:27:01 [facility] PULSE 75 10/12/2022 14:27:01 [facility] RESPIRATION 18 10/12/2022 14:27:01 ARIEL MENDE[facility] Encounters Combined list of: 1) Encounters from Department of Veterans Affairs facilities going back up to thelast 18 months. 2) Encounters from the Department of Defense facilities going back up to 280 months. Location Location Details Encounter Type Encounter Number Reason For Visit Attending Provider ADM Date DC Date Status [facility] Outpatient Encounter [id number] 05/07 [facility] OFFICE O/P EST MINIMAL PROB [id number] Diagnos is: ICD-10- CM I10 Essenti al (primar y) hyperte nsion<b r/> Marcos ARAUJO 05/08 [facility] [place]IZAT[place] ADMIN [id number] Diagnos is: ICD-10- CM Z23 Encount er for immuniz ation<b r/> ALKA BIGGS 06/08 [facility] [place] [facility] Outpatient Encounter [id number] Diagnos is: ICD-10- CM I25.10 Athscl heart disease of [place] coronar y artery w/o ang pctrs<b r/> WENDY,LA INE E 06/17 [facility] [place] [facility] Outpatient Encounter [id number] 06/22 [facility] [place] [facility] Outpatient Encounter [id number] Diagnos is: ICD-10- CM I25.10 Athscl heart disease of [place] coronar y artery w/o ang pctrs<b r/> WENDY,LA INE E 07/01 [facility] [place] [facility] Outpatient Encounter [id number] 07/06 [facility] QNHP OL DIG ASSMT&MGMT 5-10 [id number] Diagnos is: ICD-10- CM I25.10 Athscl heart disease of [place] coronar y artery w/o ang pctrs<b r/> JUNITO SELLERS 07/10 [facility] [facility] Out[facility] Encounter [id number] Diagnos is: ICD-10- CM I25.10 Athscl heart disease of [place] coronar y artery w/o ang pctrs<b r/> WENDY,LA INE E 07/22 [place] [facility] ORTHOTIC MGMT&TRAIN G 1ST ENC [id number] Diagnos is: ICD-10- CM M21.612 Bunion of left foot
NUCKELS,LA URA JOSE FRANCISCO 07/31 [place] [facility] ORTH[facility]IC MGMT&TRAIN G 1ST ENC 02141-861 [id number] Diagnos is: ICD-10- CM M21.619 Bunion of unspeci fied foot
NUCKELS,LA URA JOSE FRANCISCO 08/20 [facility] OFFICE O/P EST MOD 30-39 MIN [id number] Diagnos is: ICD-10- CM I10 Essenti al (primar y) hyperte nsion<b r/> WENDY,LA INE E 08/20 [facility] Outpatient Encounter [id number] BREANA SALES 08/27 [place] [facility] Outpatient Encounter [id number] 08/28 [facility] PSYTX W PT 30 MINUTES [id number] Diagnos is: ICD-10- CM F32.9 Major depress kymberly disorde r, single episode , unspeci fied
HERMELINDA ROLDAN 09/01 [facility] Outpatient Encounter [id number] 09/02 [facility] OFFICE O/P EST MOD 30-39 MIN [id number] Diagnos is: ICD-10- CM H11.232 Symblep haron, left eye<br/ > COLIN SINCLAIR A 09/09 [facility] OFF/OP CNSLTJ NEW/EST LOW 30 [id number] Diagnos is: ICD-10- CM G56.01 Carpal tunnel syndrom e, right upper limb
GENE GONZALES H 09/09 [facility] Outpatient Encounter [id number] Diagnos is: ICD-10- CM F43.12 Post-tr aumatic stress disorde r, chronic
Rosamaria VILLALTA 09/11 [facility] ORTHC/PROS TC MGMT SBSQ ENC [id number] Diagnos is: ICD-10- CM M21.612 Bunion of left foot
YASIR ALMAZAN 09/11 [facility] Outpatient Encounter [id number] 09/11 [facility] ORTHC/PROS TC MGMT SBSQ ENC [id number] [id number] Diagnos is: ICD-10- CM M21.619 Bunion of unspeci fied foot
YASIR ALMAZAN 09/30 [facility] OFFICE O/P EST LOW 20-29 MIN [id number] Diagnos is: ICD-10- CM H11.232 Symblep haron, left eye<br/ > RAMIREZNORM Ladd AIXA L 09/30 [facility] OFF/OP CNSLTJ NEW/EST MOD 40 [id number] Diagnos is: ICD-10- CM G47.33 Obstruc tive sleep apnea (adult) (pediat josue)
EMI HARRISON 10/12 [facility] Outpatient Encounter [id number] 10/12 [facility] Outpatient Encounter [id number] [facility] 11/16 [facility] OFFICE O/P EST MOD 30-39 MIN [id number] Diagnos is: ICD-10- CM F43.10 Post-tr aumatic stress disorde r, unspeci fied
Ros[facility] 11/16 [facility] Outpatient Encounter [id number] 11/16 [facility] Outpatient Encounter [id number] 11/19 [facility] Outpatient Encounter [id number] 11/26 [facility] PSYTX W PT 45 MINUTES [id number] [id number] Diagnos is: ICD-10- CM F43.12 Post-tr aumatic stress disorde r, chronic
SOPHIE VALLE 11/27 [facility] Outpatient Encounter [id number] JASWANT MILLER EA 11/27 [facility] PSYTX W PT 45 MINUTES [id number] [id number] Diagnos is: ICD-10- CM F43.12 Post-tr aumatic stress disorde r, chronic
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<br/ > Marcos ARNETT 12/16 [facility] 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
Shelia CARUSO 12/29 [facility] Outpatient Encounter [id number] 12/29 [facility] Outpatient Encounter [id number] 01/01 [facility] Outpatient Encounter [id number] Diagnos is: ICD-10- CM Z77.29 Contact with and exposur e to other hazardo us substan mame<br/ > ANTONIATEAGAN 01/14 [facility] Outpatient Encounter [id number] Diagnos is: ICD-10- CM Z77.29 Contact with and exposur e to other hazardo us substan mame<br/ > ANTONIATEAGAN 01/14 [facility] PSYTX W PT 45 MINUTES [id number] [id number] Diagnos is: ICD-10- CM F43.12 Post-tr aumatic stress disorde r, chronic
ALEJANDRO CAN,ANDR EA E 01/14 [facility] Outpatient Encounter [id number] ALEJANDRO CANANDR EA E 01/14 [facility] OFFICE O/P EST MOD 30-39 MIN [id number] [id number] Diagnos is: ICD-10- CM F43.12 Post-tr aumatic stress disorde r, chronic
Rosamaria VILLALTA 02/03 [facility] Outpatient Encounter [id number] 02/04 [facility] PSYTX W PT 45 MINUTES [id number] [id number] Diagnos is: ICD-10- CM F43.12 Post-tr aumatic stress disorde r, chronic
ALEJANDRO CANANDR EA E 02/26 [facility] Outpatient Encounter [id number] ALEJANDRO CANANDR EA E 02/26 [facility] HEARING AID FITTING/CH ECKING [id number] Diagnos is: ICD-10- CM Z46.1 Encount er for fitting and adjustm ent of hearing aid<br/ > Zelalem PURVIS 03/11 [facility] Outpatient Encounter [id number] 03/26 [facility] Outpatient Encounter [id number] ALFIE INGRAM 03/31 [facility] OFFICE O/P EST LOW 20-29 MIN [id number] Diagnos is: ICD-10- CM L98.9 Disorde r of the skin and subcuta neous tissue, unspeci fied
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
MARLA FRANK 04/01 [facility] Outpatient Encounter [id number] Diagnos is: ICD-10- CM D48.5 Neoplas m of uncerta in behavio r of skin
Randall LUONG 04/02 [facility] Outpatient Encounter [id number] 04/06 [facility] Outpatient Encounter [id number] Diagnos is: ICD-10- CM Z02.89 Encount er for other adminis trative examina tions<b r/> Randall MAYO 04/15 [facility] CONFORMITY EVALUATION [id number] Diagnos is: ICD-10- CM Z46.1 Encount er for fitting and adjustm ent of hearing aid<br/ > Zelalem PURVIS 04/20 [facility] OFFICE O/P EST SF 10-19 MIN [id number] [id number] Diagnos is: ICD-10- CM L91.8 Other hypertr ophic disorde rs of the skin
ALISHA GARCÍA S 05/25 [facility] ADMN SARSCOV2 VACC 1 DOSE [id number] Diagnos is: ICD-10- CM Z23 Encount er for immuniz ation<b r/> YAMILMOIRAGLENN THOMAS ANN 05/25 [facility] Outpatient Encounter [id number] 05/27 [facility] OFFICE O/P EST HI 40 MIN [id number] Diagnos is: ICD-10- CM I10 Essenti al (primar y) hyperte nsion<b r/> JED JEROME O A 08/17 [facility] UNLISTED SPEC DERM SVC/PX [id number] Diagnos is: ICD-10- CM L98.9 Disorde r of the skin and subcuta neous tissue, unspeci fied
MARLA FRANK A 08/17 [facility] Outpatient Encounter [id number] Diagnos is: ICD-10- CM L82.1 Other seborrh eic keratos is
BERSHOW,AN HILARIO L 08/18 [facility] Social History Combined list of available smoking, tobacco, and other social history from Department of Defense and [facility] Affairs facilities. Social History Type Response Date Comment Sourc e Tobacco smoking status FLIS SD-TOBACCO FORMER USER 08/17/2023 [facility] History of tobacco use SD-TOBACCO QUIT 1 5 YRS OR MORE 08/17/2023 [facility] History of tobacco use SD-TOBACCO FORMER USER 08/20/2022 [facility] History of tobacco use SD-TOBACCO FORMER USER 07/22/2021 [facility] History of tobacco use VA-TOBACCO QUIT 1 5 YRS OR MORE 04/05/2019 [facility] History of tobacco use VA-TOBACCO QUIT 1 5 YRS OR MORE 04/12/2018 [facility] History of tobacco use FORMER TOBACCO US ER 7Y OR GREATER 04/19/2017 [facility] History of tobacco use FORMER TOBACCO US ER 7Y OR GREATER 04/17/2016 [facility] History of tobacco use FORMER TOBACCO US ER 7Y OR GREATER 03/18/2015 [facility] History of tobacco use FORMER TOBACCO US ER 7Y OR GREATER 03/07/2014 [facility] History of tobacco use FORMER TOBACCO US ER 7Y OR GREATER 01/26/2012 [facility] Plan of Care List of future care activities from Department of Veterans Affairs facilities. Additional future care activities may be listed in the Assessment and Plan section. Date/Time Care Activity Care Activity Detail Facili ty 09/27/2023 AMBULATORY - SURGERY AMBULATORY - SURGERY [facility]
--- OUTSIDE RECORDS SUMMARY | 2023-08-30 08:45 | XMS_ITS | Encounter Summary ---
Author Name Unknown Organization [facility] Address [address] [place] [address] Care Team Providers Care Reticle Printer Name Role Phone Cyril Mayo MD Primary Care Provider Unavail able Joel Lyle MD Unavailable [phone] Ely Jones MD Primary Care Provider [phone] Chinyere Faust APRN PRIMARY MONTESSORI TEACHER Unavailable +1-3 Joel Lyle MD Unavailable [phone] Ronny Gallo MD Unavailable [phone] Chinyere Faust APRN PRIMARY MONTESSORI TEACHER Unavailable +1-3 Rodriguez Waters MD Unavailable [phone] Janine Cruz Unavailable [phone] Chinyere Faust APRN PRIMARY MONTESSORI TEACHER Unavailable +-[phone] Rodriguez Waters MD Unavailable [phone] Encounter Details Date Type Department Care Team (Late st Contact Info) Description 12/19/2020 Records - [facility] CONVERSION Scan, Non-Provider Social History Tobacco Use Types Packs/Day Years Used Date Smoking Tobacco: Never Assessed Sex and Gender Information Value Date Recorded Sex Assigned at Not on file Gender Identity Not on file Sexual Orientation Not on file documented as of this encounter Plan of Treatment Not on file documented as of this encounter Visit Diagnoses Not on filedocumented in this encounter Care Teams Reticle Printer Relationship Specialty Start Date End Date Cyril Mayo MD PCP - General 02/11/15 02/23/21 Ely Jones MD [facility] [place] [address] PCP - General Internal Medicine 02/24/21 Joel Lyle MD [address] [facility] [address] [place] [address] Assigned Heart and Vascular Provider 01/31/21 07/05/21 Chinyere Faust APRN PRIMARY MONTESSORI TEACHER [address] [address] Assigned Heart and Vascular Provider 07/06/21 08/09/21 Joel Lyle MD [address] [address] Assigned Heart and Vascular Provider 08/10/21 02/13/22 Ronny Gallo MD [address] [place] [address] Assigned PCP 10/02/21 Chinyere Faust APRN PRIMARY MONTESSORI TEACHER [address] [place] [address] Assigned Heart and Vascular Provider 02/14/22 08/28/22 Rodriguez Waters MD [address] [place] [address] Assigned Heart and Vascular Provider 08/29/22 10/16/22 Janine Cruz, Tabitha [address] [place] [address] Cushion Installer Audiology 11/04/22 Chinyere Faust APRN CNP [address] [facility] [address] [place] [address] Assigned Heart and Vascular Provider 10/17/22 12/18/22 Rodriguez Waters MD [address] [facility] [address] [place] [address] Assigned Heart and Vascular Provider 12/19/22 documented as of this encounter
--- OUTSIDE RECORDS SUMMARY | 2023-08-30 08:45 | XMS_ITS | Encounter Summary ---
Author Name Unknown Organization [place] Address [address] [place] [address] Care Team Providers Care Personnel Placement Specialist Name Role Phone Ely Jones MD Primary Care Provider [phone] Ronny Gallo MD Unavailable [phone] Janine Cruz AuD Unavailable [phone] Chinyere Faust APRN REAL ESTATE ASSOCIATE ATTORNEY Unavailable [phone] Encounter Details Date Type Department Care Team (Latest Contact Info) Description 11/04/2022 Travel Social History Tobacco Use Types Packs/Day [...] was confirmed or suspected to have Coronavirus/COVID-19? Unable to assess 11/04/2022 1:14 PM CDT documented as of this encounter Plan of Treatment Not on file documented as of this encounter Visit Diagnoses Not on filedocumented in this encounter Care Teams Personnel Placement Specialist Relationship Specialty Start Date End Date Ely Jones MD [facility] [address] [place] [address] PCP - General Internal Medicine 02/24/21 Ronny Gallo MD [address] [place] [address] Assigned PCP 10/02/21 Janine Cruz AuD [address] [place], [place] [id number] Brewery Representative Audiology 11/04/22 Chinyere Faust APRN REAL ESTATE ASSOCIATE ATTORNEY [address] [facility] [address] [place], [place] [id number] Assigned Heart and Vascular Provider 10/17/22 12/18/22 documented as of this encounter
--- OUTSIDE RECORDS SUMMARY | 2023-08-30 08:45 | XMS_ITS | Encounter Summary ---
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 Address [address] [place] [address] Support Name Relationship Address Phone ALYSSA HARDY Next of Kin [address] [place] [address] ALYSSA HARDY Emergency Contact [address] [place] [address] Insurance Providers: All historical and [...] Butts's Name Patient's Relationship to Policy Butts [facility] MEDICARE SUPPLEMEN NARCISA TONIIO R GOLD INDIV IDU Jul 19, 2016 [id number] [phone] HAYLEYEstrella AYALA PATIENT [facility] MEDICARE SUPPLEMEN NARCISA SENIO R GOLD INDIV IDU Jul 19, 2016 [id number] [phone] HAYLEY,R ICHARD PATIENT MEDICARE (WNR) MEDICARE (M) PART A Aug 19, 2011 PART A [id number] [phone] HAYLEY,R ICHARD PATIENT MEDICARE (WNR) MEDICARE (M) PART B Aug 19, 2011 PART B [id number] [phone] HAYLEYR BREANNAARD PATIENT Selected Encounter This section includes the information on record at [place] for the Encounter. Date/Time Encounter Type Encounter Description Reason Pro vider Source Feb 26, 2023 02:28 PM Outpatient Encounter PSYCHOGERIATRIC - INDIVIDUAL REX HANSEN Encounter Template Text not used by [place] Plan of Treatment: Future Appointments (+ 6 months) and Future Tests (+/- 45 days) The Plan of Treatment section includes future care activities for the patient from all [place] [facility]. This section includes future appointments and future orders which are active, pending or scheduled. Future Appointments This section includes appointments that were scheduled to occur 6 months from the date of the Encounter, up to a maximum of 20 appointments. The data comes from all [place] treatment facilities. Appointment Date/Time Appointment Type Appointme nt Facility Name Mar 11, 2023 02:30 PM AMBULATORY - SURGERY [facility] Apr 01, 2023 01:45 PM AMBULATORY - MEDICINE [facility] Apr 15, 2023 02:30 PM AMBULATORY - SURGERY [facility] Apr 20, 2023 02:30 PM AMBULATORY - SURGERY [facility] May 25, 2023 09:40 AM AMBULATORY - SURGERY [facility] Aug 17, 2023 09:00 AM AMBULATORY - NONE [facility] Aug 17, 2023 10:00 AM AMBULATORY - MEDICINE [facility] Social History: Smoking Status (Most current) and Tobacco Use (All prior to encounter date) This section includes the most current, and the historical, smoking and tobacco- related health factors from the [place] facility where the Encounter took place. Current Smoking Status This section includes the most current smoking, or tobacco-related health factor, from the [place] facility where the Encounter took place. Date/Time Current Smoking Status Comment Armando ity Aug 20, 2022 03:30 PM VA-TOBACCO FORMER USER [facility] Tobacco Use History This section includes a history of the smoking, or tobacco-related health factors, that were collected on or before the date of the Encounter. The data comes from the [place] facility where the Encounter took place. Date/Time Smoking Status/Tobacco Use Comment F acility Aug 20, 2022 03:30 PM VA-TOBACCO QUIT 15 YRS OR MORE [facility] Jul 22, 2021 02:00 PM VA-TOBACCO FORMER USER [facility] Jul 22, 2021 02:00 PM VA-TOBACCO QUIT 15 YRS OR MORE [facility] Apr 05, 2019 09:50 AM VA-TOBACCO FORMER USER [facility] Apr 05, 2019 09:50 AM VA-TOBACCO QUIT 15 YRS OR MORE [facility] Apr 12, 2018 09:36 AM VA-TOBACCO FORMER USER [facility] Apr 12, 2018 09:36 AM VA-TOBACCO QUIT 15 YRS OR MORE [facility] Apr 19, 2017 01:40 PM FORMER TOBACCO USER 7Y OR GREATE R [facility] Apr 17, 2016 10:49 AM FORMER TOBACCO USER 7Y OR GREATE R [facility] Mar 18, 2015 09:40 AM FORMER TOBACCO USER 7Y OR GREATE R [facility] Mar 07, 2014 09:45 AM FORMER TOBACCO USER 7Y OR GREATE R [facility] Jan 26, 2012 03:48 PM FORMER TOBACCO USER 7Y OR GREATE R [facility] Encounter Notes: All associated encounter notes This section contains the clinical notes associated to the Encounter. Date/Time Encounter Note(s) Provider Source Feb 26, 2023 02:29 PM MENTAL HEALTH DIAG NOSTIC STUDY NOTE: LOCAL TITLE: MENTAL HEALTH DIAGNOSTIC STUDY NOTE STANDARD TITLE: MENTAL HEALTH DIAGNOSTIC STUDY NOTE DATE OF NOTE: FEB 26, 2023@14:29:16 ENTRY DATE: FEB 26, 2023@14:29:02 AUTHOR: ALEXANDER HANSEN COSIGNER: URGENCY: STATUS: COMPLETED PCL-5 WEEKLY Date Given: 02/26/2023 Clinician: Rex Hansen Location: [facility] [place] 1Z911e [place]: Lev Hardy SSN: [id number] : [birth year] ([birth year]) Gender: Male PCL-5 Weekly Score: 30 This measure assesses an individual's perception of the distress associated with possible PTSD symptoms. It is not used to diagnose PTSD. Symptoms are rated from 0-4 in terms of distress they cause the individual. Scores that are greater than or equal to 31-33 suggest that the may meet the criteria for a PTSD diagnosis. However, it is important to use caution when using this cutoff since it is possible for some Veterans with scores lower than 31-33 to meet criteria for PTSD. Additional testing using a structured diagnostic interview, such as the Clinician Administered PTSD Scale for DSM-5, is recommended to confirm diagnostic status. Values range from 0 to 80 with higher scores indicating more probable PTSD. Questions and Answers: 1. Repeated, disturbing, and unwanted memories of the stressful experience? Moderately 2. Repeated, disturbing dreams of the stressful experience? Moderately 3. Suddenly feeling or acting as if the stressful experience were actually happening again (as if you were actually back there reliving it)? Moderately 4. Feeling very upset when something reminded you of the stressful experience? Moderately 5. Having strong physical reactions when something reminded you of the stressful experience (for example, heart pounding, trouble breathing, sweating)? Moderately 6. Avoiding memories, thoughts, or feelings related to the stressful experience? Moderately 7. Avoiding external reminders of the stressful experience (for example, people, places, conversations, activities, objects, or situations)? Moderately 8. Trouble remembering important parts of the stressful experience? Moderately 9. Having strong negative beliefs about yourself, other people, or the world (for example, having thoughts such as: I am bad, there is something seriously wrong with me, no one can be trusted, the world is completely dangerous)? A little bit 10. Blaming yourself or someone else for the stressful experience or what happened after it? A little bit 11. Having strong negative feelings such as fear, horror, anger, guilt, or shame? Moderately 12. Loss of interest in activities that you used to enjoy? A little bit 13. Feeling distant or cut off from other people? A little bit 14. Trouble experiencing positive feelings (for example, being unable to feel happiness or have loving feelings for people close to you)? A little bit 15. Irritable behavior, angry outbursts, or acting aggressively? A little bit 16. Taking too many risks or doing things that could cause you harm? A little bit 17. Being superalert or watchful or on guard? Moderately 18. Feeling jumpy or easily startled? A little bit 19. Having difficulty concentrating? A little bit 20. Trouble falling or staying asleep? A little bit Information contained in this note is based on a self-report assessment and is not sufficient to use alone for diagnostic purposes. Assessment results should be verified for accuracy and used in conjunction with other diagnostic activities and procedures. Insomnia Severity Index Date Given: 02/26/2023 Clinician: Rex Hansen Location: [facility] [place] [id number] : Lev Hardy N: [id number] : [birth year] ([birth year]) Gender: Male ALISTAIR score: 8 Score categories: 0 - 7 No clinically significant insomnia 8 - 14 Subthreshold insomnia 15 - 21 Clinical insomnia (moderate severity) 22 - 28 Clinical insomnia (severe) Questions and Answers 1. Difficulty falling asleep. Mild 2. Difficulty staying asleep. Mild 3. Problems waking up too early. Mild 4. How SATISFIED/DISSATISFIED are you with your CURRENT sleep pattern? Moderately satisfied 5. How NOTICEABLE to others do you think your sleep problem is in terms of impairing the quality of your life? A little 6. How WORRIED/DISTRESSED are you about your current sleep problem? A little 7. To what extent do you consider your sleep problem to INTERFERE with your daily functioning (e.g. daytime fatigue, mood, ability to function at work/daily chores, concentration, memory, mood, etc.) CURRENTLY? A little Information contained in this note is based on a self-report assessment and is not sufficient to use alone for diagnostic purposes. Assessment results should be verified for accuracy and used in conjunction with other diagnostic activities and procedures. Generalized Anxiety Disorder, 7 items Date Given: 02/26/2023 Clinician: Rex Hansen Location: [facility] [place] [id number] : Lev Hardy N: [id number] : [birth year] ([birth year]) Gender: Male FALGUNI-7 score: 7 A low score indicates the absence of anxiety, a high score indicates the presence of anxiety symptoms; the range is 0 to 21. A score of 15 or greater is considered clinically significant, meriting active treatment for anxiety. A score of 10 to 14 indicates a condition that should be carefully evaluated. Questions and Answers 1. Feeling nervous, anxious or on edge Several days 2. Not being able to stop or control worrying Several days 3. Worrying too much about different things Several days 4. Trouble relaxing Several days 5. Being so restless that it is hard to sit still Several days 6. Becoming easily annoyed or irritable Several days 7. Feeling afraid as if something awful might happen Several days Information contained in this note is based on a self-report assessment and is not sufficient to use alone for diagnostic purposes. Assessment results should be verified for accuracy and used in conjunction with other diagnostic activities and procedures. Patient Health Questionnaire - 9 (PHQ-9) Date Given: 02/26/2023 Clinician: Rex Hansen Location: [facility] [place] [id number] : Lev Hardy Nazanin SSN: [id number] : [birth year] ([birth year]) Gender: Male PHQ-9 Depression Scale Score: 6 The total score may range from 0 to 27. Total Score Depression Severity 1-4 Minimal depression 5-9 Mild depression 10-14 Moderate depression 15-19 Moderately severe depression 20-27 Severe depression Questions and Answers Over the last 2 weeks, how often have you been bothered by any of the following problems? 1. Little interest or pleasure in doing things Not at all 2. Feeling down, depressed, or hopeless Several days 3. Trouble falling or staying asleep, or sleeping too much Several days 4. Feeling tired or having little energy Several days 5. Poor appetite or overeating Several days 6. Feeling bad about yourself or that you are a failure or have let yourself or your family down Not at all 7. Trouble concentrating on things, such as reading the newspaper or watching television Several days 8. Moving or speaking so slowly that other people could have noticed. Or the opposite being so fidgety or restless that you have been moving around a lot more than usual Several days 9. Thoughts that you would be better off or of hurting yourself in some way Not at all 10. If you checked off any problems, how DIFFICULT have these problems made it for you to do your work, take care of things at home or get along with other people? Somewhat difficult Information contained in this note is based on a self report assessment and is not sufficient to use alone for diagnostic purposes. Assessment results should be verified for accuracy and used in conjunction with other diagnostic activities. Copyright 2001 [employer] All rights reserved. Reproduced with permission of [employer]. YOVANI is a trademark of [employer] /yolande/ R[place]S PHD, Staff Psychologist Signed: 02/26/2023 17:07 REX HANSEN [facility]
--- OUTSIDE RECORDS SUMMARY | 2023-08-30 08:45 | XMS_ITS | Encounter Summary ---
Author Name Unknown Organization [facility] Address [address], [place] [address] Care Team Providers Care Solutions Delivery Consultant Name Role Phone Margarita Malone MD Primary Care Provider [phone] Reason for Visit * Procedure/Equipment (Routine) - Incomplete Specialty Diagnoses / Procedures Referred By Contac t Referred To Contact Diagnoses Injury of head, initial encounter Procedures CT Head WO IV Cont Margarita Malone MD [address] [place] [address] Referral ID Status Reason Start Date Expiration Date V isits Requested Visits Authorized [id number] Incomplete 08/02/2023 10/31/2024 1 1 Encounter Details Date Type Department Care Team Description 08/02/2023 1:00 PM DIE KEEPER Ancillary Procedure [place] [address] [address] Scan [address] [place] [address] Margarita Malone MD [address] [place] [address] Injury of head, initial encounter Social History Tobacco Use Types Packs/Day Years Used Date Smoking Tobacco: Former Smokeless Tobacco: Never Comments:Quit smoking: Alcohol Use Standard Drinks/Week Comments Yes 1 (1 standard drink = 0.6 oz pur e alcohol) PHQ-2 Answer Date Recorded PHQ-2 Score 0 09/06/2020 Sex and Gender Information Value Date Recorded Sex Assigned at Not on file Gender Identity Not on file Sexual Orientation Not on file documented as of this encounter Plan of Treatment Not on file documented as of this encounter Procedures Procedure Name Priority Date/Time Associated Diagnosis Comments CT HEAD WO IV CONT Routine 08/02/2023 12 :57 PM DIE KEEPER Injury of head, initial encounter documented in this encounter Results * CT Head WO IV Cont (08/02/2023 12:57 PM DIE KEEPER) Anatomical Region Laterality Modality Head Computed Tomogra phy 08/02/2023 12:4 2 PM DIE KEEPER Impressions 08/02/2023 1:21 PM DIE KEEPER CLINICAL HISTORY: ??head injury on 07/26; fell in garage and hit head on left forehead ? COMPARISON: ??None. ? TECHNIQUE: Images of the head were obtained without contrast. ? FINDINGS: ??There is no mass lesion, mass effect or midline shift. Volume loss and increase in ventricles and sulci. Minimal decreased attenuation of the periventricular white matter bilaterally. ??There is no abnormal extra-axial or intra-axial fluid collection. ??Coulter-white differentiation is intact throughout both cerebral hemispheres. ??The bony calvaria and the bones of the skull base are grossly unremarkable. ??The visualized paranasal sinuses and mastoid air cells are clear. ? IMPRESSION: ??No acute intracranial pathology. ?? Narrative Procedure Note Sam Stephens MD - 08/02/2023 IMPRESSION CLINICAL HISTORY: head injury on 07/26; fell in garage and hit head on leftforehead COMPARISON: None. TECHNIQUE: Images of the head were obtained without contrast. FINDINGS: There is no mass lesion, mass effect or midline shift. Volumeloss and increase in ventricles and sulci. Minimal decreased attenuationof the periventricular white matter bilaterally. There is no abnormalextra-axial or intra-axial fluid collection. Coulter-white differentiationis intact throughout both cerebral hemispheres. The bony calvaria and thebones of the skull base are grossly unremarkable. The visualizedparanasal sinuses and mastoid air cells are clear. IMPRESSION: No acute intracranial pathology. Margarita Malone MD RAD CT documented in this encounter Visit Diagnoses Diagnosis Injury of head, initial encounter documented in this encounter Care Teams Solutions Delivery Consultant Relationship Specialty Start Date End Date Margarita Malone MD [address] [place] [address] PCP - General Internal Medicine 08/02/23 documented as of this encounter
--- OUTSIDE RECORDS SUMMARY | 2023-08-30 08:45 | XMS_ITS | Encounter Summary ---
Author Name Unknown Organization [facility] Address [address], [place] [address] Care Team Providers Care Milk Drying Machine Operator Name Role Phone Margarita Malone MD Primary Care Provider [phone] Reason for Visit * Reason Comments FALL Head Injury INJURY, CHEST Encounter Details Date Type Department Care Team Description 08/02/2023 Nurse Triage [place] [address] [facility] [place] [address] Needs Pcp, [place] [address] FALL; Head Injury; INJURY, CHEST Social History Tobacco Use Types Packs/Day Years [...] on file documented as of this encounter Nursing Notes * Emerald Denny LPN - 08/02/2023 1:57 PM CST Pt notified of below info and understands SE AND RECYCLING WORKER * Emerald Denny LPN - 08/02/2023 1:57 PM CST ----- Message from Margarita Malone MD sent at 08/02/2023 1:34 PM REFUSE AND RECYCLING WORKER ----- Please call patient: The head CT looks fine - no fractures and no bleeding. No further testing is needed at this point; the head pain should resolve over the next several days. SE AND RECYCLING WORKER * Kennedi Henderson RN - 08/02/2023 8:30 AM CST Patient calling through the ER line with 2 falls with head strikes with both and continues to have a headache. One fall he strike the right side of his head two weeks ago 07/24, he broke the fall with his hand. He has slight pain on the right side of his chest in the rib area. When he broke his fall with his hand his elbow went into his rib area. He was walking back from the mail box and slipped on the ice. He fell again on 07/26, he was on the garage working, tripped on object and hit his head on the garage floor, he has a bruise above his left eye and there is an small laceration in the 1 by 1 inch bruise. Patient mild headache in the bruise area of his forehead Since covid hit patient has not been seen since here but [facility] Denies LOC, vision change, dizziness, weakness Reason for Disposition After 3 days and headache persists Protocols used: Head [id number] Problem list reviewed as related to this call. SE AND RECYCLING WORKER documented in this encounter Plan of Treatment Not on file documented as of this encounter Visit Diagnoses Not on filedocumented in this encounter Care Teams Milk Drying Machine Operator Relationship Specialty Start Date End Date Margarita Malone MD [address] [place], [place] [id number] PCP - General Internal Medicine 08/02/23 documented as of this encounter
--- OUTSIDE RECORDS SUMMARY | 2023-08-30 08:45 | XMS_ITS | Encounter Summary ---
Author Name Unknown Organization [facility] Address [address] [place] [address] Care Team Providers Care Lead Web Developer Name Role Phone Joel Lyle MD Unavailable [phone] Ely Jones MD Primary Care Provider [phone] Chinyere Faust APRN ONION FARMER Unavailable [phone] Joel Lyle MD Unavailable [phone] Ronny Gallo MD Unavailable [phone] Chinyere Faust APRN ONION FARMER Unavailable [phone] Rodriguez Waters MD Unavailable [phone] Janine Cruz AuD Unavailable [phone] Chinyere Faust APRN ONION FARMER Unavailable [phone] Rodriguez Waters MD Unavailable [phone] Encounter Details Date Type Department Care Team (Late st Contact Info) Description 04/19/2021 Documentation Only INTERFACED REPORT Unknown, Provider Social [...] have Coronavirus / COVID-19? No / Unsure 04/18/2021 9:47 AM CDT documented as of this encounter Plan of Treatment Not on file documented as of this encounter Visit Diagnoses Not on filedocumented in this encounter Care Teams Lead Web Developer Relationship Specialty Start Date End Date Ely Jones MD [facility] [address] [facility] [place] [address] PCP - General Internal Medicine 02/24/21 Joel Lyle MD [address] [address] Assigned Heart and Vascular Provider 01/31/21 07/05/21 Chinyere Faust APRN ONION FARMER [address] [place] [address] Assigned Heart and Vascular Provider 07/06/21 08/09/21 Joel Lyle MD [address] [address] Assigned Heart and Vascular Provider 08/10/21 02/13/22 Ronny Gallo MD [address] [place] [address] Assigned PCP 10/02/21 Chinyere Faust APRN ONION FARMER [address] [address] Assigned Heart and Vascular Provider 02/14/22 08/28/22 Rodriguez Waters MD [address] [place] [address] Assigned Heart and Vascular Provider 08/29/22 10/16/22 Janine Cruz AuD [address] [place] [address] [facility] 11/04/22 Chinyere Faust APRN ONION FARMER [address] [facility] [address] [place] [address] Assigned Heart and Vascular Provider 10/17/22 12/18/22 Rodriguez Waters MD [address] [facility] [address] [place] [address] Assigned Heart and Vascular Provider 12/19/22 documented as of this encounter
--- OUTSIDE RECORDS SUMMARY | 2023-08-30 08:45 | XMS_ITS | Encounter Summary ---
Author Name Unknown Organization [facility] Address [address], [place] [address] Care Team Providers Care End User Consultant Name Role Phone Margarita Malone MD Primary Care Provider Reason for Referral * Procedure/Equipment (Routine) - Incomplete Specialty Diagnoses / Procedures Referred By Contac t Referred To Contact Diagnoses Injury of head, initial encounter Procedures CT Head WO IV Cont Margarita Malone MD [address] [place] [address] Referral ID Status Reason Start Date Expiration Date V isits Requested Visits Authorized [id number] Incomplete 08/02/2023 10/31/2024 1 1 SSING TOOL SETTER Reason for Visit * Reason Comments FALL 07/24/23 & 07/26/23 Medicare Annual Wellness Encounter Details Date Type Department Care Team Description 08/02/2023 9:30 AM EMBOSSING TOOL SETTER Office Visit [facility] [address] [address] Margarita Malone MD [address] [phone] Encounter for Medicare annual wellness exam (Primary Dx); Injury of head, initial encounter Social History [...] on file documented as of this encounter Last Filed Vital Signs Vital Sign Reading Time Taken Comments Blood Pressure 147/86 08/02/2023 9:35 AM EMBOSSING TOOL SETTER Pulse 67 08/02/2023 9:34 AM EMBOSSING TOOL SETTER Temperature - - Respiratory Rate - - Oxygen Saturation - - Inhaled Oxygen Concentration - - Weight 82.1 kg (181 lb) 08/02/2023 9:34 AM EMBOSSING TOOL SETTER Height 176 cm (5' 9.29) 08/02/2023 9:34 AM EMBOSSING TOOL SETTER Body Mass Index 26.5 08/02/2023 9:34 AM EMBOSSING TOOL SETTER documented in this encounter Patient Instructions * Patient Instructions* Margarita Malone MD - 08/02/2023 9:30 AM EMBOSSING TOOL SETTER Annual Wellness Visit Summary Your care team is recommending the following tests, procedures or services. Some of these recommendations may not be fully covered by Medicare or your insurance. If you have questions, check with your insurance to determine coverage before completing these services. Health Maintenance Due Health Maintenance Due Topic Date Due ??? Hep C Screening (Preventive Services) Never done ??? Zoster/Shingles (3 of 3) 09/16/2021 ??? Influenza (1) 03/19/2023 If your Medicare Welcome or Annual Wellness Visit is showing you are due in the above list, this will be updated after this visit. You had this completed today and are not due for another year. SSING TOOL SETTER documented in this encounter Progress Notes * Margarita Malone MD - 08/02/2023 9:30 AM CST Medicare Annual Wellness Visit Subjective/Historical: Lev Leon is a 77 y.o. old male Chief Complaint Patient presents with FALL 07/24/23 & 07/26/23 Medicare Annual Wellness Current Concerns: Lev Leon is a 77 y.o. male here for evaluation after two falls that occurred last week. On 07/24, he was walking back from the mailbox and slipped on a little patch of snow and ice. He felland caught his fall with his left hand; his elbow went into his ribcage. He may have lightly bumpedhis head. No residual symptoms from that afll. On 07/26, he was working out in the garage. He had boots on, and they caught on a rug and he landed on his left side, striking his head. He has a bruise on the left side of his forehead. He has a mild headache in the back of the head and a little pain/tenderness over the forehead. He's on aspirin. No dizziness, no weakness in the arms or legs, no difficultly with speech. He gets most of his care through the [facility] (will be seeing them within the next couple of weeks for labs and meds) and through cardiology at [facility]. Advance Directives: No advance directives are on file. Plan future discussion of advance directives. Observed Vitals: BP (!) 147/86 (BP Location: Left Arm, BP Cuff Size: Regular) Pulse 67 Ht 1.76 m (5' 9.29) Wt 82.1 kg (181 lb) BMI 26.50 kg/m?? General: Alert, pleasant, no didstress HEENT: Bruising left forehead PERRL, EOMI, no nystagmus, no icterus or injection. Bilateral TMs, external canals, oropharynx normal. Neuro: CN II-XII grossly intact. Strength normal in upper and lower extremities. Normal gait. Skin: Warm, well-perfused, no rashes or lesions noted. Psychiatric: Alert with normal affect and insight. Assessment/Plan Encounter for Medicare annual wellness exam: Overall doing well despite recent falls; discussed fall prevention. He gets his routine care through the [facility] and [facility] cardiology. Injury of head, initial encounter: Given age and aspirin, will get head CT to rule out occult bleed. - CT Head WO IV Cont; Future Counseling and education provided today includes proper nutrition and health habits, fall prevention, and for those items ordered above. See plan for future preventive services in Patient Instructions. Margarita Malone MD 08/02/2023, 9:35 AM SSING TOOL SETTER documented in this encounter Plan of Treatment Not on file documented as of this encounter Results * CT Head WO IV Cont (08/02/2023 12:57 PM EMBOSSING TOOL SETTER) Anatomical Region Laterality Modality Head Computed Tomogra phy 08/02/2023 12:4 2 PM EMBOSSING TOOL SETTER Impressions 08/02/2023 1:21 PM EMBOSSING TOOL SETTER CLINICAL HISTORY: ??head injury on 07/26; fell [...] documented in this encounter Visit Diagnoses Diagnosis Encounter for Medicare annual wellness exam- Primary Injury of head, initial encounter Injury of head, initial encounter documented in this encounter Care Teams End User Consultant Relationship Specialty Start Date End Date Margarita Malone MD [address] [place] [address] PCP - General Internal Medicine 08/02/23 documented as of this encounter
--- OUTSIDE RECORDS SUMMARY | 2023-08-30 08:45 | XMS_ITS | Clinical Summary ---
Author Name Unknown Organization [facility] Address [address] [place] [address] Care Team Providers Care Dragline Mechanic Name Role Phone Margarita Malone MD Primary Care Provider [phone] Source Comments You are receiving this document as you are listed as the primary care provider,follow-up provider, or the patient has been referred to you for consultation.This is in compliance with the Medicare and[facility] EHR Incentive Program,which states Providers who transition their patient to another setting of careor provider of care or refers their patient to another provider of care shouldprovide summary care record for each transition of care or referral. [facility] Allergies Active Allergy Reactions Criticality Noted Date Comments Egg White (Egg Protein) Wheezing,Hives,R espira tory Distress High 06/19/2003 Egg Yolk Unknown,Hives,Wheezing High 05/04/2014 Influenza Vaccines Hives High 03/27/2016 Metoprolol Other, see comments 07/04/2021 Low heart rate Medications Medication Sig Dispensed Refills Start Date End Date Status Multiple Vitamins-Minerals (CENTRUM SILVER) Take 1 tablet by mouth daily (every 24 hours). 3 11/10/2010 Active Watrous-3 Fatty Acids ([employer] FISH OIL) 1200 MG CAPS Indications: PN: 0 11/10/2010 Active rosuvastatin (AKA CRESTOR) 40 MG tabletIndications:Other and unspecified hyperlipidemia (HRC),Coronary atherosclerosis of unspecified type of vessel, grindstone or graft (HRC) Take 1 tablet by mouth daily (every 24 hours). 90 tablet 2 06/22/2013 Active aspirin 81 MG tabletIndications:Other and unspecified hyperlipidemia (HRC),Coronary atherosclerosis of unspecified type of vessel, grindstone or graft (HRC) Take 1 tablet by mouth daily (every 24 hours). 3 06/22/2013 Active finasteride (AKA PROSCAR) 5 MG tablet TAKE ONE TABLET BY MOUTH NIGHTLY AT BEDTIME 90 tablet 2 09/26/2013 Active isosorbide mononitrate (AKA IMDUR) 30 MG 24 hour release tablet Take 30 mg by mouth daily (every 24 hours). 0 03/27/2014 Active cholecalciferol (VITAMIN D3) 1000 units tablet Take 1 Tablet (1,000 Units) by mouth daily. 0 Active guaiFENesin-codeine (ROBITUSSINAC) 100-10 MG/5ML solution Take 5 mL by mouth every 4 hours as needed for Other (cough). 118 mL 0 03/26/2021 Active sertraline (ZOLOFT) 100 MG tablet Take 1 Tablet (100 mg) by mouth. 0 Active famotidine (PEPCID) 20 MG tablet Take 1 Tablet (20 mg) by mouth. 0 Active finasteride (PROSCAR) 5 MG tablet Take 1 Tablet (5 mg) by mouth. 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 Overview: March 05, 2021 - right TF approach, #26 MILES 3 valve, + sentinel Gastroesophageal reflux disease 2020 Nonrheumatic aortic valve stenosis 09/11/2019 Bilateral asymmetric sensorineural hearing loss 09/18/2015 CAD S/P percutaneous coronary angioplasty 2008 Overview: PCI for STEMI in 2008, known residual LAD/dRCA disease Hypertrophy of prostate without urinary obstruct ion 11/25/2007 Overview: BPH w/o Obstruction Essential hypertension 12/23/2002 Hyperlipidemia 12/23/2002 Resolved Problems Problem Noted Date Diagnosed Date Resolved Date Inguinal hernia 10/13/2005 08/09/2014 Overview: LW Modifier: Right, asymptomatic LW Onset: ; Hernia Inguinal NOS Malignant neoplasm of skin 10/06/2004 0 08/09/2014 Overview: LW Modifier: Left Nasolabial fold LW Onset: 1994 ; Basal Cell Ca Skin NOS Carpal tunnel syndrome 10/06/200408/09 Overview: LW Modifier: Right LW Onset: 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, 1999 Closed fracture of tibia and fibula 10/06/2004 08/09/2014 Overview: LW Modifier: No sequellae LW Onset: 1967 ; Fx Fibula & Tibia NOS Closed Osteoarthritis 10/06/2004 08/05/2023 Overview: LW Modifier: neck LW Onset: ; DJD Encounters Date Type Department Care Team Description 08/10/2023 1:00 PM PULVERIZER FEEDER Office Visit [facility] [address] [place] [address] Chance Carson MD Excessive cerumen in right ear canal (Primary Dx) 08/02/2023 1:00 PM PULVERIZER FEEDER Ancillary Procedure [facility] [address] [address] Scan [address] [place] [id number] Margarita Malone MD Injury of head, initial encounter 08/02/2023 9:30 AM PULVERIZER FEEDER Office Visit [facility] [address] [place] [address] Margarita Malone MD Encounter for Medicare annual wellness exam (Primary Dx); Injury of head, initial encounter 08/02/2023 Nurse Triage [facility] [address] [facility] [place] [address] Needs Pcp, Assignment FALL; Head Injury; INJURY, CHEST from Last 3 Months Immunizations Name Administration Dates Next Due Flu Vac Preserv Free (3+yrs) 05/08/2009 Influenza, Unspecified Formulation 05/08/2009 PCV13 (Prevnar) 03/18/2015 PPSV23 (Pneumovax) 04/17/2016,05/09/2009 Pfizer 12+ 05/25/2023 Pfizer Monovalent 12+ Purple Top 05/12/2021,08/19,08/15/2020 Pneumococcal, Unspecified Formulation 10/17/2010 Refusal To Vaccinate 05/05/2006 TDAP (ADACEL) 10/27/2007 Td 08/31/2002 Td (7+ yrs) 07/19/2007 Tdap 04/19/2021,03/07/2013 Zoster (Zostavax) 07/19/2013,01/26/2012 Zoster RZV (Shingrix) 07/22/2021 Family History Medical History Relation Name Comments Heart Disease Father Cataract Mother Amblyopia/Strabismus Negative Family History Blindness Negative Family History Diabetes Negative Family History Glaucoma Negative Family History Macular Degeneration Negative Family History Retinal Detachment Negative Family History Relation Name Status Comments Father Mother Social History Tobacco Use Types Packs/Day Years [...] Sign Reading Time Taken Comments Blood Pressure 164/88 08/10/2023 1:11 PM PULVERIZER FEEDER Pulse 80 08/10/2023 1:11 PM PULVERIZER FEEDER Temperature 36.7 ??C (98 ??F) 03/26/2021 4:12 PM CDT Respiratory Rate 20 03/26/2021 4:12 PM CDT Oxygen Saturation 100% 03/26/2021 4:12 PM CDT Inhaled Oxygen Concentration - - Weight 81 kg (178 lb 9.6 oz) 08/10/2023 1:11 PM PULVERIZER FEEDER Height 175.3 cm (5' 9) 08/10/2023 1:11 PM PULVERIZER FEEDER Body Mass Index 26.37 08/10/2023 1:11 PM PULVERIZER FEEDER Plan of Treatment Health Maintenance Due Date Last Done Comments Hep C Screening (Preventive Services) 1945 Zoster/Shingles (3 of 3) 09/16/2021 022, 07/19/2013, 01/26/2012 Influenza (#1) 2023 05/08/2009, 05/08/2009 Medicare Annual Wellness Visit 08/02/2024 08/02/2023, 09/06/2020, 08/30/2018, Additional history exists DTaP/Tdap/Td (4 - Tdap) 04/19/2031 04/19/20 21, 03/07/2013, 10/27/2007, Additional history exists Abdominal Aortic Aneurysm (AAA) Screening Discontinued 10/15/2011 Cholesterol Discontinued 03/27/2016, 11/17, 10/19/2013, Additional history exists Pneumococcal 65+ Yrs Completed 04/17/2016, 03/18/2015, 06/01/2011 (Completed), Additional history exists COVID-19 Vaccine Completed 05/25/2023, , 09/05/2020, Additional history exists HepA Aged Out No longer eligi ble based on patient's age to complete this topic HepB Aged Out No longer eligi ble based on patient's age to complete this topic Hib Aged Out No longer eligi ble based on patient's age to complete this topic IPV (Polio) Aged Out No longer eligi ble based on patient's age to complete this topic MCV4 Aged Out No longer eligi ble based on patient's age to complete this topic Procedures Procedure Name Priority Date/Time Associated Diagnosis Comments CT HEAD WO IV CONT Routine 08/02/2023 12 :57 PM PULVERIZER FEEDER Injury of head, initial encounter from Last 3 Months Results * CT Head WO IV Cont (08/02/2023 12:57 PM PULVERIZER FEEDER) Anatomical Region Laterality Modality Head Computed Tomogra phy 08/02/2023 12:4 2 PM PULVERIZER FEEDER Impressions 08/02/2023 1:21 PM PULVERIZER FEEDER CLINICAL HISTORY: ??head injury on 07/26; fell [...] intracranial pathology. Margarita Malone MD RAD CT from Last 3 Months Care Teams Dragline Mechanic Relationship Specialty Start Date End Date Margarita Malone MD [address], [place] [id number] PCP - General Internal Medicine 08/02/23
--- OUTSIDE RECORDS SUMMARY | 2023-08-30 08:45 | XMS_ITS | Encounter Summary ---
Author Name Unknown Organization [facility] Address [address] [address] Care Team Providers Care Real Estate Management Specialist Name Role Phone Margarita Malone MD Primary Care Provider [phone] Reason for Visit * Reason Comments EAR,PLUGGED Encounter Details Date Type Department Care Team Description 08/10/2023 1:00 PM RANGE SCIENTIST Office Visit [facility] [address] [place], [place] [phone] Chance Carson MD [address] [place], [place] [phone] Excessive cerumen in right ear canal (Primary Dx) Social History Tobacco Use Types [...] Comments Blood Pressure 164/88 08/10/2023 1:11 PM RANGE SCIENTIST Pulse 80 08/10/2023 1:11 PM RANGE SCIENTIST Temperature - - Respiratory Rate - - Oxygen Saturation - - Inhaled Oxygen Concentration - - Weight 81 kg (178 lb 9.6 oz) 08/10/2023 1:11 PM RANGE SCIENTIST Height 175.3 cm (5' 9) 08/10/2023 1:11 PM RANGE SCIENTIST Body Mass Index 26.37 08/10/2023 1:11 PM RANGE SCIENTIST documented in this encounter Progress Notes * Chance Carson MD - 08/10/2023 1:00 PM CST CLINIC NOTE DATE: 08/10/2023 Chief Complaint: Ear check HPI: Comes in today mainly to get his ears checked to make sure there is not wax them as he has an appointment tomorrow at a hearing clinic. He goes to the [place] but they resource out there hearing assessments and hearing aids. Last time he went to a audiology clinic he had ear wax in his ears and they would not see him until it was cleared out. This time he came in preemptively. He has not having any problems. He wears hearing aids in both ears. PMH: As reviewed and noted in EPIC MEDS: As reviewed and noted in [facility] EXAM: BP (!) 164/88 (BP Location: Left Arm, BP Cuff Size: Regular) Pulse 80 Ht 1.753 m (5' 9) Wt 81 kg (178 lb 9.6 oz) BMI 26.37 kg/m?? His left auditory canal is clear of any cerumen and TM appears normal. His right auditory canal hada small amount of cerumen near the periphery which I removed with a ear cerumen loop. Rest of the canal was clear of any cerumen and TM was normal ASSESSMENT: Mild right ear cerumen PLAN: Removed as above Chance Carson MD INTERNAL MEDICINE [facility] E SCIENTIST documented in this encounter Plan of Treatment Not on file documented as of this encounter Visit Diagnoses Diagnosis Excessive cerumen in right ear canal- Primary documented in this encounter Care Teams Real Estate Management Specialist Relationship Specialty Start Date End Date Margarita Malone MD [address] [place] [address] PCP - General Internal Medicine 08/02/23 documented as of this encounter
--- OUTSIDE RECORDS SUMMARY | 2023-08-30 08:45 | XMS_ITS | Encounter Summary ---
Author Name Unknown Organization [facility] Address [address] [place] [address] Care Team Providers Care Integrated Specialist Name Role Phone Cyril Mayo MD Primary Care Provider Unavail able Joel Lyle MD Unavailable [phone] Ely Jones MD Primary Care Provider [phone] Chinyere Faust APRN GAS TRANSFER OPERATOR Unavailable +1-3 Joel Lyle MD Unavailable [phone] Ronny Gallo MD Unavailable [phone] Chinyere Faust APRN GAS TRANSFER OPERATOR Unavailable +1-3 Rodriguez Waters MD Unavailable [phone] Janine Cruz Unavailable [phone] Chinyere Faust APRN GAS TRANSFER OPERATOR Unavailable +-[phone] Rodriguez Waters MD Unavailable [phone] Encounter Details Date Type Department Care Team (Late st Contact Info) Description 10/31/2020 Records - [facility] CONVERSION Scan, Non-Provider [...] on filedocumented in this encounter Care Teams Integrated Specialist Relationship Specialty Start Date End Date Cyril Mayo MD PCP - General 02/11/15 02/23/21 Ely Jones MD [facility] [place] [address] PCP - General Internal Medicine 02/24/21 Joel Lyle MD [address] [facility] [address] [place] [address] Assigned Heart and Vascular Provider 01/31/21 07/05/21 Chinyere Faust APRN GAS TRANSFER OPERATOR [address] [address] Assigned Heart and Vascular Provider 07/06/21 08/09/21 Joel Lyle MD [address] [address] Assigned Heart and Vascular Provider 08/10/21 02/13/22 Ronny Gallo MD [address] [place] [address] Assigned PCP 10/02/21 Chinyere Faust APRN GAS TRANSFER OPERATOR [address] [place] [address] Assigned Heart and Vascular Provider 02/14/22 08/28/22 Rodriguez Waters MD [address] [place] [address] Assigned Heart and Vascular Provider 08/29/22 10/16/22 Janine Cruz, Tabitha [address] [place] [address] [facility] 11/04/22 Chinyere Faust APRN CNP [address] [facility] [address] [place] [address] Assigned Heart and Vascular Provider 10/17/22 12/18/22 Rodriguez Waters MD [address] [facility] [address] [place] [address] Assigned Heart and Vascular Provider 12/19/22 documented as of this encounter
--- OUTSIDE RECORDS SUMMARY | 2023-08-30 08:46 | XMS_ITS | Encounter Summary ---
Author Name Department of Vetera ns Affairs Organization Department of Veter[facility] ns Affairs Address [address] [place] [address] Support Name Relationship Address Phone ALYSSA HARDY Next of [place] [address] [place] [address] ALYSSA HARDY Emergency Contact [address] [place] [address] Insurance Providers: All historical and [...] Butts's Name Patient's Relationship to Policy Butts [facility] MEDICARE SUPPLEMEN NARCISA GONZALEZ R HIGINIO INDIV IDU Jul 19, 2016 [id number] [id number] [phone] Estrella HARDY PATIENT [facility] MEDICARE SUPPLEMEN NARCISA GONZALEZ R HIGINIO INDIV IDU Jul 19, 2016 [id number] [phone] Estrella HARDY PATIENT MEDICARE (WNR) MEDICARE (M) PART A Aug 19, 2011 PART A [id number] [phone] Estrella HARDY PATIENT MEDICARE (WNR) MEDICARE (M) PART B Aug 19, 2011 PART B [id number] [id number] [phone] Estrella HARDY PATIENT Selected Encounter This section includes the information on record at [place] for the Encounter. Date/Time Encounter Type Encounter Description Reason Provider Source Sep 09, 2022 10:40 AM OFF/OP CNSLTJ NEW/EST LOW 30 ORTHO/JOINT SURG ICD-10-CM G56.01 Carpal tunnel syndrome, right upper limb ALEJANDRA GONZALES [facility] Encounter Template Text not used by [facility] Assessments - Encounter Diagnoses This section includes the primary and secondary diagnoses documented for the Encounter. Date/Time Primary/Secondary Diagnosis Diagnosis Name Provider Source Sep 09, 2022 10:58 AM PRIMARY Carpal tunnel syndrome, right upper limb ALEJANDRA GONZALES [facility] Plan of Treatment: Future Appointments (+ 6 months) and Future Tests (+/- 45 days) The Plan of Treatment section includes future care activities for the patient from all [place] [facility]. This section includes future appointments and future orders which are active, pending or scheduled. Future Appointments This section includes appointments that were scheduled to occur 6 months from the date of the Encounter, up to a maximum of 20 appointments. The data comes from all [place] treatment facilities. Appointment Date/Time Appointment Type Appointme nt Facility Name Sep 11, 2022 10:00 AM [facility] [place] [facility] Sep 11, 2022 03:00 PM [facility] NONE [facility] Sep 30, 2022 11:30 AM AMBULATORY - [facility]UROLOGY [place] [facility] Sep 30, 2022 12:40 PM [facility] SURGERY [facility] Oct 12, 2022 02:30 PM [facility] Oct 12, 2022 03:30 PM [facility] [place] [facility] November 16, 2022 08:00 AM [facility] November 16, 2022 08:30 AM [facility] November 27, 2022 02:00 PM [facility] December 11, 2022 02:00 PM [facility] Dec 29, 2022 12:30 PM AMBULATORY - REHAB [facility]IC[facility] Jan 14, 2023 09:00 AM AMBULATORY - MEDICINE [facility] Jan 14, 2023 01:00 PM [facility] [place] [facility] Feb 03, 2023 02:00 PM [facility] [place] [facility] Feb 26, 2023 02:00 PM [place] [place] [facility] Lab Results: +/- 30 days of the encounter This section includes the Chemistry and Hematology Lab Results on record with [place] for the patient. Radiology Reports and Pathology Reports are provided separately, in subsequent sections. Lab Results This section contains the Chemistry/Hematology Results that were resulted 30 days before or 30 daysafter the date of the Encounter. Date/Time Source Result Type Result - Unit Interpretation Reference Range Comment Sep 09, 2022 10:15 AM [facility] ANCA Specimen Type: SERUM No comment entered. Ordering Provider: SAMIR OROZCO Report Released Date/Time: Sep 09, 2022 09:55 AM Reporting Lab: [facility] [id number] Performing Lab: [facility] [address] .CYTOPLASMIC ANCA NEGATIVE -neg .PERINUCLEAR ANCA NEGATIVE -neg Sep 09, 2022 10:15 AM [facility] MURAMIDASE,SERUM Specimen Type: SERUM Comment: This test was developed and its analytical performance characteristics have been determined by [facility], [place]. It has not been cleared or approved by the FDA. This assay has been validated pursuant to the CLIA regulations and is used for clinical purposes. Test Performed by [employer] [facility], [address] [place] [address] Joel Woodard M.D., Ph.D., Director of Laboratories , CLIA [id number] Ordering Provider: SAMIR OROZCO Report Released Date/Time: Sep 09, 2022 09:55 AM Reporting Lab: [facility] [id number] Performing Lab: [address] MURAMIDASE,S GEMINI 6.1 5.0-11.0 Sep 09, 2022 10:15 AM [facility] ANGIOTENSIN CONVERTING ENZYME Specimen Type: SERUM Comment: Test Performed by [facility] [place], [address] [place] [address] Joel Woodard M.D., Ph.D., Director of Laboratories , CLIA [id number] Ordering Provider: SAMIR OROZCO Report Released Date/Time: Sep 09, 2022 09:55 AM Reporting Lab: [facility] [id number] Performing Lab: [facility] [address] [facility] ANGIOTENSIN CONVERTING ENZYME 39.0 9-67 Aug 20, 2022 04:26 PM [facility] URINALYSIS Specimen Type: URINE No comment entered. Ordering Provider: LAI NGUYEN Report Released Date/Time: Aug 20, 2022 03:56 PM Reporting Lab: [facility] [id number] Performing Lab: [facility] [address] URINE COLOR LIGHT-YELLOW SPECIFIC GRAVITY 1.023 1.003-1.03 5 URINE BILIRUBIN NEGATIVE NEGATIVE URINE KETONES NEGATIVE NEGATIVE URINE GLUCOSE NEGATIVE <30 URINE PROTEIN NEGATIVE <20 URINE PH 5.5 5.0-8.0 URINE WBC/HPF 1 0-7 URINE BACTERIA NONE SEEN URINE RBC/HPF NONE SEEN 0-3 APPEARANCE CLEAR SQUAMOUS EPITHELIAL NONE SEEN URINE BLOOD NEGATIVE NEGATIVE URINE NITRITE NEGATIVE NEGATIVE LEUKOCYTE ESTERASE NEGATIVE NEGATIVE Social History: Smoking Status (Most current) and Tobacco Use (All prior to encounter date) This section includes the most current, and the historical, smoking and tobacco- related health factors from the [place] facility where the Encounter took place. Current Smoking Status This section includes the most current smoking, or tobacco-related health factor, from the [place] facility where the Encounter took place. Date/Time Current Smoking Status Comment Armando ity Aug 20, 2022 03:30 PM VA-TOBACCO FORMER USER [facility] Tobacco Use History This section includes a history of the smoking, or tobacco-related health factors, that were collected on or before the date of the Encounter. The data comes from the [place] facility where the Encounter took place. Date/Time Smoking Status/Tobacco Use Comment F acility Aug 20, 2022 03:30 PM VA-TOBACCO QUIT 15 YRS OR MORE [facility] Jul 22, 2021 02:00 PM VA-TOBACCO FORMER USER [facility] Jul 22, 2021 02:00 PM VA-TOBACCO QUIT 15 YRS OR MORE [facility] Apr 05, 2019 09:50 AM VA-TOBACCO FORMER USER [facility] Apr 05, 2019 09:50 AM VA-TOBACCO QUIT 15 YRS OR MORE [facility] Apr 12, 2018 09:36 AM VA-TOBACCO FORMER USER [facility] Apr 12, 2018 09:36 AM VA-TOBACCO QUIT 15 YRS OR MORE [facility] Apr 19, 2017 01:40 PM FORMER TOBACCO USER 7Y OR GREATE R [facility] Apr 17, 2016 10:49 AM FORMER TOBACCO USER 7Y OR GREATE R [facility] Mar 18, 2015 09:40 AM FORMER TOBACCO USER 7Y OR GREATE R [facility] Mar 07, 2014 09:45 AM FORMER TOBACCO USER 7Y OR GREATE R [facility] Jan 26, 2012 03:48 PM FORMER TOBACCO USER 7Y OR GREATE R [facility] Pathology Reports: +/- 30 days of the encounter Pathology Reports For cases when an order for pathology services may have been completed prior to the date of the Encounter, the report list includes the Pathology Reports that were completed up to 30 days before dateof the Encounter. For cases when an order for pathology services may have been completed after the date of the Encounter, the report list also includes the Pathology Reports that were completed up to30 days after date of the Encounter. The data comes from all [facility] facilities. Date/Time Pathology Report Provider Source Aug 20, 2022 06:23 PM LR MICROBIOLOGY RE PORT: Reporting Lab: [facility] [CLIA# [id number]] [place] [address] Accession [UID]: [id number] [[id number]] Received: Aug 20, 2022@18:23 Collection sample: URINE Collection date: Aug 20, 2022 18:23 Provider: LAI NGUYEN Comment on specimen: RECEIVED IN URINE PRESERVATIVE TUBE Test(s) ordered: CULTURE & SUSCEPTIBILITY...... completed: Aug 22, 2022 * BACTERIOLOGY FINAL REPORT => Aug 22, 2022 08:26 TECH CODE: [id number] CULTURE RESULTS: NO GROWTH 24 HOURS Bacteriology Remark(s): THIS REPORT IS FINAL =--=--=--=--=--=--=--=--=--=--=--=- -=--=--=--=--=--=--=--=--=--=--=--= --=--=-- Performing Laboratory: Bacteriology Report Performed By: [facility] [CLIA# [id number]] [place] [address] [facility] Encounter Notes: All associated encounter notes This section contains the clinical notes associated to the Encounter. Date/Time Encounter Note(s) Provider Source Sep 09, 2022 10:54 AM ORTHOPEDIC SURGERY CONSULT: LOCAL TITLE: ORTHOPEDIC CONSULT STANDARD TITLE: ORTHOPEDIC SURGERY CONSULT DATE OF NOTE: SEP 09, 2022@10:54 ENTRY DATE: SEP 09, 2022@10:54:35 AUTHOR: ALEJANDRA GONZALES COSIGNER: URGENCY: STATUS: COMPLETED CHIEF COMPLAINT: Numbness and tingling in the right hand. HPI: The patient has been dealing with numbness and tingling in his right hand for numerous years. The patient really denies much pain. He feels he is losing dexterity and fine motor skills. Mostly, the problem is with numbness and tingling. Distribution is all the digits of his hand. The patient has tried wearing wrist splints which really do not help anymore. No previous cortisone injection in his carpal tunnel. The patient is looking at any further intervention that may help. PAST MEDICAL HISTORY/ACTIVE PROBLEMS: Active Problems: Active problems - Computerized Problem List is the source for the followin. Hypertension 2. Hyperlipidemia (SNOMED CT 35275011) 3. Arthritis * 4. Coronary arteriosclerosis (SNOMED CT 87862718) - S/P [place] in 2008. - S/P PCI x 3 in 2008. 5. Hypertonicity of the Bladder - Day time/Night time urinary urgency - no Voiding complaints - Over-Active Bladder 6. Right Inguinal Hernia - s/p repair, 7. Personal History of Tobacco Use - 10 pack year hx - Quit 1982 8. Co-managed Care - Dr. Adan Vazquez 9. Sensorineural hearing loss 10. Tinnitus 11. Carpal tunnel syndrome 12. Aortic stenosis - Echo (01/2017) EF 55-60%, JESÚS 1.1cm2, grad 24.7mmHg - s/p TAVR done locally summer 2020 13. Irritability 14. Vitamin D deficiency 15. Gastroesophageal reflux disease 16. Tinea corporis 17. Carpal tunnel syndrome of right wrist 18. Prosthetic heart valve in situ ALLERGIES: EGGS (May 01, 2016) Active Outpatient Medications (including Supplies): Active Outpatient Medications Status 1) CLOPIDOGREL BISULFATE 75MG TAB TAKE EIGHT TABLETS BY ACTIVE MOUTH ONCE FOR 1 DAY, THEN TAKE ONE TABLET EVERY DAY FOR HEART DISEASE START LOADING DOSE OF 600MG THE FOLLOWING DAY AFTER FINISHING TICAGRELOR, THEN FOLLOWED BY 75MG DAILY INDEFINITELY 2) FAMOTIDINE 20MG TAB TAKE ONE TABLET BY MOUTH TWICE A ACTIVE DAY TO DECREASE STOMACH ACID 3) FINASTERIDE 5MG TAB TAKE ONE TABLET BY MOUTH EVERY ACTIVE DAY FOR PROSTATE 4) FLUOROMETHOLONE 0.1% OPH SUSP INSTILL 1 DROP IN BOTH ACTIVE EYES FOUR TIMES A DAY FOR INFLAMMATION 5) ROSUVASTATIN CA 40MG TAB TAKE ONE TABLET BY MOUTH ACTIVE EVERY DAY F CHOLESTEROL 6) SERTRALINE HCL 100MG TAB TAKE ONE TABLET BY MOUTH ACTIVE EVERY DAY FOR ANGER/IRRITABILITY Active Non-VA Medications Status 1) Non-VA ASPIRIN 81MG EC TAB 81MG MOUTH ACTIVE 2) Non-VA MULTIVITAMIN/MINERALS SENIOR FORMULA TAB 1 ACTIVE TABLET MOUTH EVERY DAY 8 Total Medications SOCIAL HISTORY: Current nicotine use -non-smoker REVIEW OF SYSTEMS: Constitutional: denies, fever Musculoskeletal: joint pain right hand PHYSICAL EXAM: General Appearance: Well Developed, Well Nourished Musculoskeletal: Exam of the right hand shows there is noted atrophy on the thenar eminence area. No interosseous muscle atrophy. Somewhat positive Tinel's sign. Positive scratch test. Road Mechanic strength is 5 out of 5. Slightly weaker on the right compared to the left. EMG: EMG of the right upper extremity shows moderate carpal tunnel syndrome. DIAGNOSIS/TREATMENT PLAN: Right-sided carpal tunnel syndrome. EMG was reviewed with the patient. Overall, there is a concern that the patient may have some type of ulnar neuropathy as well. This was not done when he had his EMG back in June 2018. After further discussion, recommendation is to get in a new EMG of his right upper extremity. When the results come in I will call the patient and we will go over surgery whether it would be a carpal tunnel release and/or an ulnar nerve decompression. The patient stated if he would be having surgery he would like to wait till next fall. I will call the patient when the results come in. /yolande/ ALEJANDRA GONZALES NP NURSE PRACTITIONER Signed: 09/09/2022 10:58 ALEJANDRA GONZALES [facility]
--- OUTSIDE RECORDS SUMMARY | 2023-08-30 08:46 | XMS_ITS | Encounter Summary ---
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 Address [address] [place] [address] Support Name Relationship Address Phone ALYSSA HARDY Next of Kin [address] [place] [address] ALYSSA HARDY Emergency Contact [address] [place] [address] Insurance Providers: All historical and [...] Name Patient's Relationship to Policy Butts [facility] MEDICARE SUPPLEMEN NARCISA GONZALEZ R GOLD INDIV IDU Jul 19, 2016 [id number] [phone] Estrella HARDY PATIENT [facility] MEDICARE SUPPLEMEN NARCISA LISA R GOLD INDIV IDU Jul 19, 2016 [id number] [phone] Estrella HARDYARD PATIENT MEDICARE (WNR) MEDICARE (M) PART A Aug 19, 2011 PART A [id number] Estrella HARDYARD PATIENT MEDICARE (WNR) MEDICARE (M) PART B Aug 19, 2011 PART B [id number] [id number] [phone] Estrella HARDY PATIENT Selected Encounter This section includes the information on record at [place] for the Encounter. Date/Time Encounter Type Encounter Description Reason Pro vider Source Sep 02, 2022 12:46 PM Outpatient Encounter TELEPHONE TRIAGE IHE Encounter Template Text not used by [place] Plan of Treatment: Future Appointments (+ 6 months) and Future Tests (+/- 45 days) The Plan of Treatment section includes future care activities for the patient [facility] [place] [facility]. This section includes future appointments and future orders which are active, pending or scheduled. Future Appointments This section includes appointments that were scheduled to occur 6 months from the date of the Encounter, up to a maximum of 20 appointments. The data comes from all [facility]. Appointment Date/Time Appointment Type Appointme nt Facility Name Sep 09, 2022 08:40 AM AMBULATORY - [facility] [place] [facility] [facility] Sep 09, 2022 10:30 AM [facility] Sep 09, 2022 10:40 AM AMBULATORY - SURGERY [facility] Sep 11, 2022 10:00 AM [place] [facility] Sep 11, 2022 03:00 PM [facility] - [facility] Sep 30, 2022 11:30 AM AMBULATORY - NEUROLOGY [facility] Sep 30, 2022 12:40 PM AMBULATORY - SURGERY [facility] Oct 12, 2022 02:30 PM [place] [facility] Oct 12, 2022 03:30 PM [facility] November 16, 2022 08:00 AM [place] [facility] November 16, 2022 08:30 AM [place] [facility] November 27, 2022 02:00 PM [facility] December 11, 2022 02:00 PM [facility] Dec 29, 2022 12:30 PM AMBULATORY - RE[facility]AB [facility] Jan 14, 2023 09:00 AM AMBULATORY - MEDICINE [facility] Jan 14, 2023 01:00 PM AMBUL[place] [facility] Feb 03, 2023 02:00 PM AM[place] [facility] Feb 26, 2023 02:00 PM [facility] Lab Results: +/- 30 days of the encounter This section includes the Chemistry and Hematology Lab Results on record with [place] for the patient. Radiology Reports and Pathology Reports are provided separately, in subsequent sections. Lab Results This section contains the Chemistry/Hematology Results that were resulted 30 days before or 30 daysafter the date of the Encounter. Date/Time Source Result Type Result - Unit Interpretation Reference Range Comment Sep 09, 2022 10:15 AM [facility] ANCA Specimen Type: SERUM No comment entered. Ordering Provider: SAMIR OROZCO Report Released Date/Time: Sep 09, 2022 09:55 AM Reporting Lab: [facility] [address] Performing Lab: [address] .CYTOPLASMIC ANCA NEGATIVE -neg .PERINUCLEAR ANCA NEGATIVE -neg Sep 09, 2022 10:15 AM [facility] MURAMIDASE,SERUM Specimen Type: SERUM Comment: This test was developed and its analytical performance characteristics have been determined by [employer] [place], [place]. It has not been cleared or approved by the FDA. This assay has been validated pursuant to the CLIA regulations and is used for clinical purposes. Test Performed by [employer], [address] [place] [address] Joel Woodard M.D., Ph.D., Director of Laboratories , CLIA [id number] Ordering Provider: SAMIR OROZCO Report Released Date/Time: Sep 09, 2022 09:55 AM Reporting Lab: [place] [id number] Performing Lab: [address] MURAMIDASE,S GEMINI 6.1 5.0-11.0 Sep 09, 2022 10:15 AM [facility] ANGIOTENSIN CONVERTING ENZYME Specimen Type: SERUM Comment: Test Performed by [facility], [employer] [facility], [address] [place] [address] Joel Woodard M.D., Ph.D., Director of Laboratories , CLIA [id number] Ordering Provider: SAMIR OROZCO Report Released Date/Time: Sep 09, 2022 09:55 AM Reporting Lab: [facility] [address] Performing Lab: [address] ANGIOTENSIN CONVERTING ENZYME 39.0 9-67 Aug 20, 2022 04:26 PM [facility] URINALYSIS Specimen Type: URINE No comment entered. Ordering Provider: LAI NGUYEN Report Released Date/Time: Aug 20, 2022 03:56 PM Reporting Lab: [facility] [address] Performing Lab: [facility] [address] URINE COLOR LIGHT-YELLOW SPECIFIC GRAVITY 1.023 1.003-1.03 [...] and tobacco- related health factors from the [place] facility where the Encounter took place. Current Smoking Status This section includes the most current smoking, or tobacco-related health factor, from the [place] facility where the Encounter took place. Date/Time Current Smoking Status Comment Armando itcarlos Aug 20, 2022 03:30 PM VA-TOBACCO FORMER USER [facility] Tobacco Use History This section includes a history of the smoking, or tobacco-related health factors, that were collected on or before the date of the Encounter. The data comes from the [place] facility where the Encounter took place. Date/Time Smoking Status/Tobacco Use Comment F acility Aug 20, 2022 03:30 PM VA-TOBACCO QUIT 15 YRS OR MORE [facility] Jul 22, 2021 02:00 PM VA-TOBACCO FORMER USER [facility] Jul 22, 2021 02:00 PM VA-TOBACCO QUIT 15 YRS OR MORE [facility] Apr 05, 2019 09:50 AM VA-TOBACCO FORMER USER [facility] Apr 05, 2019 09:50 AM VA-TOBACCO QUIT 15 YRS OR MORE [facility] Apr 12, 2018 09:36 AM VA-TOBACCO FORMER USER [facility] Apr 12, 2018 09:36 AM VA-TOBACCO QUIT 15 YRS OR MORE [facility] Apr 19, 2017 01:40 PM FORMER TOBACCO USER 7Y OR GREATE R [facility] Apr 17, 2016 10:49 AM FORMER TOBACCO USER 7Y OR GREATE R [facility] Mar 18, 2015 09:40 AM FORMER TOBACCO USER 7Y OR GREATE R [facility] Mar 07, 2014 09:45 AM FORMER TOBACCO USER 7Y OR GREATE R [facility] Jan 26, 2012 03:48 PM FORMER TOBACCO USER 7Y OR GREATE R [facility] Pathology Reports: +/- 30 days of [...] the Encounter. The data comes from all [facility] facilities. Date/Time Pathology Report Provider Source Aug 20, 2022 06:23 PM LR MICROBIOLOGY RE PORT: Reporting Lab: [facility] [CLIA# [id number]] [place] [address] Accession [UID]: [id number] [[id number]] Received: Aug 20, 2022@18:23 Collection sample: URINE Collection date: Aug 20, 2022 18:23 Provider: LAI NGUYEN Comment on specimen: RECEIVED IN URINE PRESERVATIVE TUBE Test(s) ordered: CULTURE & SUSCEPTIBILITY...... completed: Aug 22, 2022 * BACTERIOLOGY FINAL REPORT => Aug 22, 2022 08:26 TECH CODE: [id number] CULTURE RESULTS: NO GROWTH 24 HOURS Bacteriology Remark(s): THIS REPORT IS FINAL =--=--=--=--=--=--=--=--=--=--=--=- -=--=--=--=--=--=--=--=--=--=--=--= --=--=-- Performing Laboratory: Bacteriology Report Performed By: [facility] [CLIA# [id number]] [place] [address] [facility] Encounter Notes: All associated encounter notes This section contains the clinical notes associated to the Encounter. Date/Time Encounter Note(s) Provider Source Sep 02, 2022 12:46 PM REPORT OF CONTACT: LOCAL TITLE: PATIENT CONTACT NOTE STANDARD TITLE: REPORT OF CONTACT DATE OF NOTE: SEP 02, 2022@12:46 ENTRY DATE: SEP 02, 2022@12:46:36 AUTHOR: JUANITO BARAJAS EXP COSIGNER: URGENCY: STATUS: COMPLETED PATIENT CONTACT NOTE Has ADDENDA Primary Care Call Center Primary Care Provider Call. Patient/family called to discuss medical care. Please contact at the following number: [phone] [place] states he would like an increase of his SERTRALINE TAB 100MG. would like a call regarding this. /yolande/ JUANITO BARAJAS VISN23 [facility] Signed: 09/02/2022 12:50 Receipt Acknowledged By: 09/04/2022 15:22 /yolande/ LAI NGUYEN MD STAFF PHYSICIAN 09/04/2022 ADDENDUM STATUS: COMPLETED This engineering writer discussed above situation with Dr. Conner of [facility], who then spoke with patient and placed consult requesting psychiatric management of medications. Patient seems to have complex psychiatric needs - PTSD/anger/irritability and hoarding/potentially unrealistic expectations regarding his treasures. Patient was previously managed by psychiatry, appears lost to follow up during pandemic with PCP continuing rx of sertraline at stable dose. At this point seems prudent to reconnect with psychiatry; Dr. Conner in agreement and has placed consult. This engineering writer is appreciative. /yolande/ LAI NGUYEN MD STAFF PHYSICIAN Signed: 09/04/2022 15:25 Receipt Acknowledged By: 09/04/2022 15:31 /yolande/ LUCIO CONNER CONSUMER LOAN PROCESSOR JUANITO BARAJAS [facility]
--- OUTSIDE RECORDS SUMMARY | 2023-08-30 08:46 | XMS_ITS | Encounter Summary ---
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 Address [address] [place] [address] Support Name Relationship Address Phone ALYSSA HARDY Next of Kin [address] [place] [address] ALYSSA HARDY Emergency Contact [address] [place] [address] Insurance Providers: All historical and [...] Butts's Name Patient's Relationship to Policy Butts [facility] SUPPLEMEN NARCISA GONZALEZ R HIGINIO INDIV IDU Jul 19, 2016 [id number] Estrella HARDY PATIENT [facility]IC[facility] SUPPLEMEN NARCISA LISA R GOLD INDIV IDU Jul 19, 2016 [id number] [phone] Estrella HARDY PATIENT MEDICARE (WNR) MEDICARE (M) PART A Aug 19, 2011 PART A [id number] [phone] Estrella HARDY PATIENT MEDICARE (WNR) MEDICARE (M) PART B Aug 19, 2011 PART B [id number] [phone] Estrella HARDY PATIENT Selected Encounter This section includes the information on record at [place] for the Encounter. Date/Time Encounter Type Encounter Description Reason Provider Source Sep 11, 2022 10:00 AM Outpatient Encounter TELEPHONE/PSYCHOGE RIATRICS ICD-10-CM F43.12 Post-traumati c stress disorder, chronic ALFIE VILLALTA [facility] Encounter Template Text not used by [place] Assessments - Encounter Diagnoses This section includes the primary and secondary diagnoses documented for the Encounter. Date/Time Primary/Secondary Diagnosis Diagnosis Name Provider Source Sep 11, 2022 10:00 AM PRIMARY Post-traumatic stress disorder, chronic ALFIE VILLALTA [facility] Sep 11, 2022 10:00 AM SECONDARY Anxiety disorder, unspecified ALFIE VILLALTA [facility] Sep 11, 2022 10:00 AM SECONDARY Major depressive disorder, recurrent, moderate ALFIE VILLALTA [facility] Sep 11, 2022 10:00 AM SECONDARY Obstructive sleep apnea (adult) (pediatric) ALFIE VILLALTA [facility] Plan of Treatment: Future Appointments (+ 6 months) and Future Tests (+/- 45 days) The Plan of Treatment section includes future care activities for the patient [facility] [place] [facility] This section includes future appointments and future orders which are active, pending or scheduled. Future Appointments This section includes appointments that were scheduled to occur 6 months from the date of the Encounter, up to a maximum of 20 appointments. The data comes from all [place] treatment [facility]. Appointment Date/Time Appointment Type Appointme nt Facility Name Sep 30, 2022 11:30 AM AMBULATORY - NEUROLOGY [facility] Sep 30, 2022 12:40 PM [facility] Oct 12, 2022 02:30 PM [facility] - [facility] Oct 12, 2022 03:30 PM AMBULATORY [place]CHIATRY [facility] November 16, 2022 08:00 AM AMBULAT[facility] [place]IAT[place] [facility] November 16, 2022 08:30 AM AMBULAT[facility] [place]IAT[place] [facility] November 27, 2022 02:00 PM AMBULAT[facility] [place]IATRY [facility] December 11, 2022 02:00 PM AMBULATORY [place] [facility]IATRY [facility] Dec 29, 2022 12:30 PM AMBULATORY - REHAB MEDICIN [facility] Jan 14, 2023 09:00 AM AMBULATORY - MEDICINE [facility] Jan 14, 2023 01:00 PM AMBULATORY [place]IATRY [facility] Feb 03, 2023 02:00 PM AMBULATORY - PS[place]CHIATRY [facility] Feb 26, 2023 02:00 PM AMBULATORY - [facility]IATRY [facility] Mar 11, 2023 02:30 PM AMBULATORY - SURGERY [facility] Lab Results: +/- 30 days of the encounter This section includes the Chemistry and Hematology Lab Results on record with [place] for the patient. Radiology Reports and Pathology Reports are provided separately, in subsequent sections. Lab Results This section contains the Chemistry/Hematology Results that were resulted 30 days before or 30 daysafter the date of the Encounter. Date/Time Source Result Type Result - Unit Interpretation Reference Range Comment Sep 09, 2022 10:15 AM [facility] ANCA Specimen Type: SERUM No comment entered. Ordering Provider: SAMIR OROZCO Report Released Date/Time: Sep 09, 2022 09:55 AM Reporting Lab: [facility] [id number] Performing Lab: [facility] [id number] .CYTOPLASMIC ANCA NEGATIVE -neg .PERINUCLEAR ANCA NEGATIVE -neg Sep 09, 2022 10:15 AM [facility] MURAMIDASE,SERUM Specimen Type: SERUM Comment: This test was developed and its analytical performance characteristics have been determined by [employer] [place], [place]. It has not been cleared or approved by the FDA. This assay has been validated pursuant to the CLIA regulations and is used for clinical purposes. Test Performed by [employer] [place], [facility] [place], [address] [place] [address] Joel Woodard M.D., Ph.D., Director of Laboratories , CLIA [id number] Ordering Provider: SAMIR OROZCO Report Released Date/Time: Sep 09, 2022 09:55 AM Reporting Lab: [facility] [id number] Performing Lab: [address] MURAMIDASE,S GEMINI 6.1 5.0-11.0 Sep 09, 2022 10:15 AM [facility] ANGIOTENSIN CONVERTING ENZYME Specimen Type: SERUM Comment: [facility] Performed by [facility] [place], [address] [place] [address] Joel Woodard M.D., Ph.D., Director of Laboratories , [facility] [id number] Ordering Provider: SAMIR OROZCO Report Released Date/Time: Sep 09, 2022 09:55 AM Reporting Lab: [facility] [id number] Performing Lab: [facility] [id number] [facility] ANGIOTENSIN CONVERTING ENZYME 39.0 9-67 Aug 20, 2022 04:26 PM [facility] URINALYSIS Specimen Type: URINE No comment entered. Ordering Provider: LAI NGUYEN Report Released Date/Time: Aug 20, 2022 03:56 PM Reporting Lab: [facility] [id number] Performing Lab: [facility] [id number] URINE COLOR LIGHT-YELLOW SPECIFIC GRAVITY 1.023 1.003-1.03 [...] and tobacco- related health factors from the [place] facility where the Encounter took place. Current Smoking Status This section includes the most current smoking, or tobacco-related health factor, from the [place] facility where the Encounter took place. Date/Time Current Smoking Status Comment Armando lutz Aug 20, 2022 03:30 PM VA-TOBACCO FORMER USER [facility] Tobacco Use History This section includes a history of the smoking, or tobacco-related health factors, that were collected on or before the date of the Encounter. The data comes from the [place] facility where the Encounter took place. Date/Time Smoking Status/Tobacco Use Comment Masha actg Aug 20, 2022 03:30 PM VA-TOBACCO QUIT 15 YRS OR MORE [facility] Jul 22, 2021 02:00 PM VA-TOBACCO FORMER USER [facility] Jul 22, 2021 02:00 PM VA-TOBACCO QUIT 15 YRS OR MORE [facility] Apr 05, 2019 09:50 AM VA-TOBACCO FORMER USER [facility] Apr 05, 2019 09:50 AM VA-TOBACCO QUIT 15 YRS OR MORE [facility] Apr 12, 2018 09:36 AM VA-TOBACCO FORMER USER [facility] Apr 12, 2018 09:36 AM VA-TOBACCO QUIT 15 YRS OR MORE [facility] Apr 19, 2017 01:40 PM FORMER TOBACCO USER 7Y OR GREATE R [facility] Apr 17, 2016 10:49 AM FORMER TOBACCO USER 7Y OR GREATE R [facility] Mar 18, 2015 09:40 AM FORMER TOBACCO USER 7Y OR GREATE R [facility] Mar 07, 2014 09:45 AM FORMER TOBACCO USER 7Y OR GREATE R [facility] Jan 26, 2012 03:48 PM FORMER TOBACCO USER 7Y OR GREATE R [facility] Pathology Reports: +/- 30 days of the [...] the Encounter. The data comes from all [facility] facilities. Date/Time Pathology Report Provider Source Aug 20, 2022 06:23 PM LR MICROBIOLOGY RE PORT: Reporting Lab: [facility] [CLIA# [id number]] [place] [address] Accession [UID]: [id number] [[id number]] Received: Aug 20, 2022@18:23 Collection sample: URINE Collection date: Aug 20, 2022 18:23 Provider: LAI NGUYEN Comment on specimen: RECEIVED IN URINE PRESERVATIVE TUBE Test(s) ordered: CULTURE & SUSCEPTIBILITY...... completed: Aug 22, 2022 * BACTERIOLOGY FINAL REPORT => Aug 22, 2022 08:26 TECH CODE: [id number] CULTURE RESULTS: NO GROWTH 24 HOURS Bacteriology Remark(s): THIS REPORT IS FINAL =--=--=--=--=--=--=--=--=--=--=--=- -=--=--=--=--=--=--=--=--=--=--=--= --=--=-- Performing Laboratory: Bacteriology Report Performed By: [facility] [CLIA# [id number]] [place] [address] [facility] Encounter Notes: All associated encounter notes This section contains the clinical notes associated to the Encounter. Date/Time Encounter Note(s) Provider Source Sep 11, 2022 11:30 AM SUICIDE PREVENTION RISK ASSESSMENT SCREENING NOTE: LOCAL TITLE: COLUMBIA SCREENING NOTE STANDARD TITLE: SUICIDE PREVENTION RISK ASSESSMENT SCREENING NOT DATE OF NOTE: SEP 11, 2022@11:30 ENTRY DATE: SEP 12, 2022@06:29:43 AUTHOR: ALFIE VILLALTA EXP COSIGNER: URGENCY: STATUS: COMPLETED C-SSRS Screening [place]-Suicide Severity Rating Scale (C-SSRS Screener) 1. Over the past month, have you wished you were or wished you could go to sleep and not wake up? No 2. Over the past month, have you had any actual thoughts of killing yourself? No 3. Over the past month, have you been thinking about how you might do this? Response not required due to responses to other questions. 4. Over the past month, have you had these thoughts and had some intention of acting on them? Response not required due to responses to other questions. 5. Over the past month, have you started to work out or worked out the details of how to kill yourself? Response not required due to responses to other questions. 6. If yes, at any time in the past month did you intend to carry out this plan? Response not required due to responses to other questions. 7. In your lifetime, have you ever done anything, started to do anything, or prepared to do anything to end your life (for example, collected pills, obtained a gun, gave away valuables, went to the roof but didn't jump)? No 8. If YES, was this within the past 3 months? Response not required due to responses to other questions. /yolande/ ALFIE VILLALTA MD Staff Psychiatrist Signed: 09/12/2022 06:30 ALFIE VILLALTA [facility] Sep 11, 2022 11:30 AM MENTAL HEALTH CONS ULT: LOCAL TITLE: MH CONSULT STANDARD TITLE: MENTAL HEALTH CONSULT DATE OF NOTE: SEP 11, 2022@11:30 ENTRY DATE: SEP 12, 2022@06:30:36 AUTHOR: ALFIE VILLALTA EXP COSIGNER: URGENCY: STATUS: COMPLETED See 09/11/22 MH notes for details of this completed consult. /yolande/ ALFIE VILLALTA MD Staff Psychiatrist Signed: 09/12/2022 06:30 ALFIE VILLALTA [facility] Sep 11, 2022 10:49 AM MENTAL HEALTH ADMINISTRATIVE NOTE: LOCAL TITLE: MHTC ASSIGNMENT/REASSIGNMENT NOTE STANDARD TITLE: MENTAL HEALTH ADMINISTRATIVE NOTE DATE OF NOTE: SEP 11, 2022@10:49 ENTRY DATE: SEP 11, 2022@10:50:04 AUTHOR: ALFIE VILLALTA EXP COSIGNER: URGENCY: STATUS: COMPLETED MHTC Initial Assignment This note documents the initial assignment of the 's Mental Health Property Custodian (MHTC) on Aug. The 's new Mental Health Property Custodian is: MHTC Name: Alfie Villalta MHTC Contact information: Office Other contact: The assignment of the MHTC and education on the role of the MHTC in the 's mental health care was discussed with the [place], who verbally concurred with the new assignment. The MHTC's contact information was provided to the . The [place]'s CPRS chart (i.e., PCMM) and MH Treatment Plan have been updated to reflect the new MHTC Assignment. The [place]'s new MHTC, along with the previous MHTC if applicable, are included as additional signers on this note. /yolande/ ALFIE VILLALTA MD Staff Psychiatrist Signed: 09/11/2022 10:53 Receipt Acknowledged By: * AWAITING SIGNATURE * EMMETT MAC DAVID KRUNAL [facility] Sep 11, 2022 10:36 AM MENTAL HEALTH NOTE : LOCAL TITLE: MH DATA BASE UPDATE STANDARD TITLE: MENTAL HEALTH NOTE DATE OF NOTE: SEP 11, 2022@10:36 ENTRY DATE: SEP 11, 2022@10:36:18 AUTHOR: NIURKA GOLDMAN EXP COSIGNER: URGENCY: STATUS: COMPLETED MH DATA BASE UPDATE Has ADDENDA Mental Health (MH) Data Base Update Total length of session: 65 minutes, with >20 minutes spent in psychotherapy, including psychoeducation. Identifying Information/Reason for Appearin yo [employer] [place] with history of MDD, anxiety, MAE, c/f PTSD, nightmares, hoarding, and agent orange exposure presenting via phone visit today for ongoing chronic PTSD symptoms causing impairment in his daily functioning and relationships. Goals for treatment as identified by patient today: 1) Irritability/angry outbursts, open to increasing sertraline or other medication changes 2) Psychologically wants help with more cognitive flexibility/distress tolerance 3) Nightmares, overall are better than they were 50 years ago, but continue to disrupt his sleep on a daily to weekly basis MH Data Base report by resident Ayleen Dickinson and staff psychiatrist Dr. Margarita Lemon, dated 06/23/2022 was reviewed in preparation for today's visit. Interval History: Mr. Hardy presents to [facility] for ongoing issues with hypervigilance, anger/irritability outbursts, and ongoing nightmares. These symptoms have been longstanding since he discharged from the in 1971 at the age of 26. Reports these symptoms were much worse for the first 20 years after the service, but have marginally improved over the last 30 years. However, these symptoms continue to disrupt his daily functioning and negatively impact his interpersonal relationships, specifically with family members. 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 This helps keep him occuppied during the day and he enjoys his work. Expresses distress about symptoms and desire to be less emotionally reactive and on edge. [place] reports Sertraline 100mg daily has significantly helped irritability, depression, and anxiety since 04/2017. No proffered adverse side effects to Sertraline. He has done some group therapy in the past but never individual psychotherapy. ROS: Positives: He endorses hypervigilance at all times, increased startle response, checking the locks on the home once every night before bed, checking out the windows periodically during the day to make sure there is no one suspicious around the house. Endorses nightmares that awaken him a few times a week, but may be having more fragmented sleep than he realizes. Sleeps 9-10 hours/night and shares the bed with him. Does wake to use the bathroom 2 times per night. 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 Does report occasional unsteadiness on his feet/wooziness that occurs primarily in the mornings consistent with likely orthostasis. Reports significant agent orange exposure in [place]. Negatives: Denies obsessions/compulsions consistent with OCD, any recent dream enactments or accidental harm to self or others while dreaming (had 2 episodes last year, last occurred 6-8 months ago), SH/SI, HI/, AVH. Denies anosmia, hypomimia, tremors, gait disturbance, psychomotor slowing, constipation, vision changes, or memory issues consistent with Parkinson's disease symptoms. Safety: Collects guns and has multiple in the home, but denies having ammunition and has not shot a gun for the last 20 years. Denies he would use a gun as a modality for SH/SA. Has [employer] crisis numbers, knows to call 911 if feeling unsafe, would tell his if feeling unsafe, and has the clinic phone #. Updated Psychosocial Information:(be sure to include relevant changes) Employment: Continues to work as a [employer] load dispatcher local. Does not work in the winter months. Is his own boss. Financial: stable. Living Situation/Housing: [place], [place]. Lives in a house with his , Alyssa, of 53 years. Family/Support System: , Alyssa, children, and grandchildren. [employer] at [employer]. Recreation/Leisure: Collecting varoius items including rifles/guns; member of the [employer] in [place] Current Stressors: ongoing PTSD symptoms, needing to clean out basement Strengths: Open to different modalities of treatment, help-seeking. CURRENT MEDICATIONS: Active Outpatient Medications (excluding Supplies): Outpatient Medications Status 1) CLOPIDOGREL BISULFATE 75MG [...] FOUR TIMES A DAY FOR INFLAMMATION 5) MELATONIN 3MG CAP/TAB TAKE 1 TABLET BY MOUTH EVERY PENDING EVENING 6) ROSUVASTATIN CA 40MG TAB TAKE ONE TABLET BY MOUTH ACTIVE EVERY DAY F CHOLESTEROL 7) SERTRALINE HCL 100MG TAB TAKE ONE TABLET BY MOUTH ACTIVE EVERY DAY FOR ANGER/IRRITABILITY Non-VA Medications Status 1) Non-VA ASPIRIN 81MG EC TAB 81MG MOUTH ACTIVE 2) Non-VA MULTIVITAMIN/MINERALS SENIOR FORMULA TAB 1 ACTIVE TABLET MOUTH EVERY DAY 9 Total Medications ALLERGIES: EGGS (May 01, 2016) VITALS: Blood Pressure: 128/66 (08/20/2022 15:51) Weight: 176 lb [79.83 kg] (08/20/2022 15:51) BMI: 25.7 MENTAL STATUS EXAM: MSE for phone encounter: cooperative, animated, engaged, polite, and appropriately socially reactive throughout the interview. No acute distress discernable. Language is fluent and intact to Indonesian with speech regular in manjit, rhythm, volume, rate. No abnormal pauses in speech or appreciable word finding difficulties. No vocal tics noted. Mood noted to be okay and affect is mood congruent, neutral, appropriate, full in range and normal motility. Thought process overall was linear and goal-oriented, however he was perseverative/repetitive about past service often. Thought content without SI/SH/HI/. Did often divert from the topic at hand to discuss past experiences. No expressed delusional content evidence and denied hallucinations. [place] was able to maintain concentration/attention for the duration of the 60 minute interview. LABS: LAB RESULTS LAST 48 HRS - NONE FOUND SCREENING: Laura Cognitive Assessment (MoCA) Performed on 06/07/19 Total Score: 21/30 Visuospatial/Executive: 5/5 Comment: Namin/3 Comment: Memory: No Points Words correct on 1st trial: 4 Words correct on 2nd trial: 5 Attention: Digit Span: 2/2 Comment: Vigilance: 1/1 Number of errors: 0 Serial 7s: 2/3 Number of errors: 2 Language Repetition: 1/2 Fluency: 0/1 Number of words: 8 Number of intrusions/repetitions: 0/2 Abstraction: 0/2 Comment: have wheels, have numbers Delayed Recall: 05 Additional recall with semantic cue: 2 (08/23) Additional recall with multiple choice cue: 3 (11/20) Orientation: 12/22 Comment: Education: 11th grade (point added for </= 12 years education) Diagnoses: - PTSD, chronic - History of MDD, moderate, recurrent - History of anxiety - Obstructive sleep apnea, not currently on CPAP Assessment/Plan/Dispositio n: DOMINGA HARDY is a 77 y/o [employer] with a past psychiatric history significant for MDD, anxiety, MAE, c/f PTSD, nightmares, hoarding, and agent orange exposure presenting today to re-establish MH care. Primary symptoms at this time include marked hypervigilence, disrupted sleep related to nightmares 1-3x per week, and emotional reactivity impairing daily functioning and relationships. Primary MH diagnosis at this time seems most appriopriate and consistent with chronic PTSD. Currently, his nighttime symptoms do not seem consistent with REM sleep behavior d/o given last dream enactments were isolated to 2 episodes 6-8 months ago. and him are back to sharing their bed without issues. Also, given his h/o agent orange exposure, a brief screening for Parkinson's symptoms was performed today and was negative. No obvious deficits in memory were apparent during interview today, thus MOCA/SLUMS deferred for now. Discussed starting individual psychotherapy to help with tolerance to wearing CPAP, mitigating emotional reactivity, and distress tolerance/coping skills. [place] is open to trying individual psychotherapy. He is also open to starting melatonin 3mg HS for sleep. deferred prazosin for nightmares at this time due to concern for potential lowered BP as a side effect given he experiences some orthostasis in the mornings. [place] is happy with current Sertraline dose and its effect on his mood. Provided psychoeducation about PTSD, psythotherapy, orthostasis counselling, and medications. Emphasized importance of sleep medicine referral and treating his MAE. Currently denies concerns with his memory and deferred NPT in the past. Last MOCA in 05/2019 (has GED). Discussed repeating a MOCA or SLUMS at his next visit. Medications: - Continue Sertraline 100mg daily for mood. Discussed increasing the dose can worsen agitation/insomnia. - START Melatonin 3mg HS for sleep (take one hour before bed). Counselled he may take 2 tablets (6mg) if he tolerates the 3mg. Non-pharmacologic treatments: - [facility] Psychotherapy referral for emotional reactivity, distress tolerance, and CPAP tolerance. - Sleep medicine referral; discussed importance of this appointment Return to Clinic: 2 months; consider in-person visit to assess for motor/gait disturbance and consider performing MOCA/SLUMS. INFORMED MED CONSENT & COLLABORATIVE DECISION MAKING: We have discussed the risks/ benefits/ side effects of above treatment plan including alternative treatments and no treatment, and answered the questions of and family. [place] participated in the discussion and agreed to the treatment plan as above. Provided contact information, and crisis information, instructing [place] to call with any interim concerns. SUICIDE RISK ASSESSMENT: Risk factors: Age, race, chronic MH diagnoses, medical comorbidities, ongoing mental health symptoms, disrupted sleep. Protective factors: to of 53yrs, taking medications, help-seeking, no prior SA/SH, no current SH/SI, is able to make a plan for safety, no problematic substance use, employed/financially stable, adequate social support. Suicide Risk Level Impression: Acute Risk: ( ) High - unlikely to survive as outpatient. Immediate intervention is needed. ( ) Intermediate - has identified many risk factors but protective factors have influence to keep from imminent risk. (X) Low - can survive and function as outpatient. Protective factors and coping strategies are present. *[facility] [place] Screening Note is being completed on intake [place] was seen by this provider, (Niurka Goldman MD, PGY2), and plan discussed with Dr. Villalta. /es/ NIURKA GOLDMAN Signed: 09/11/2022 12:23 Receipt Acknowledged By: 09/11/2022 17:15 /yolande/ ALFIE VILLALTA MD Staff Psychiatrist 09/11/2022 ADDENDUM STATUS: COMPLETED I reviewed the above note by Dr. Goldman, provided supervision, evaluated patient via phone and agree with assessment and plan EDUCATION / SAFETY / MH TREATMENT PLAN: Treatment goals include minimizing and managing medication side effects, decreasing problematic symptoms and optimizing wellness. Patient's overall Mental Health Treatment reviewed. Patient continues to benefit from psychiatric medications as documented. Medication reconciliation for all medications managed by this prescriber was conducted at current visit. The patient has been told the purpose and side effects of the prescribed psychiatric medications. Informed consent obtained from patient and/or substitute medical decision maker where appropriate. Supportive therapy to optimize wellness, including medications, will be done as indicated during visits by MD, and RN. Patient agrees to contact this clinic with any concerns prior to next appointment. Patient is aware of additional MH services that are available, including emergency room and [facility] options. This plan will be reviewed yearly with patient, or sooner if needs change. This plan was discussed with the patient who acknowledges agreement and understanding. Total time, including time spent preparing to see patient, performing appropriate examination/evaluation, counseling and education of patient/family/caregiver, documenting clinical information in medical record, and care coordination: 60 min. = Alerting Aug 2022 Team A therapy treatment coordinator for discussion at next team meeting. /yolande/ ALFIE VILLALTA MD Staff Psychiatrist Signed: 09/12/2022 06:26 Receipt Acknowledged By: 09/15/2022 11:43 /es/ KEYUR GARCIA, [facility] TEAM A ENVIRONMENTAL TECHNICIAN 09/15/2022 ADDENDUM STATUS: COMPLETED Case discussed in team meeting. Clarified with patient that he prefers in- person individual therapy to focus on PTSD. Consult entered. He also elects to hold off improving CPAP adherence at this time. If down the road he is interested, could consider CPAP group. /yolande/ ALFIE VILLALTA MD Staff Psychiatrist Signed: 09/15/2022 16:07 NIURKA GOLDMAN [facility]
--- OUTSIDE RECORDS SUMMARY | 2023-08-30 08:46 | XMS_ITS | Encounter Summary ---
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 Address [address] [place] [address] Support Name Relationship Address Phone ALYSSA HARDY Next of Kin [address] [place] [address] ALYSSA HARDY Emergency Contact [address] [place] [address] Insurance Providers: All historical and [...] Butts's Name Patient's Relationship to Policy Butts [facility] MEDICARE SUPPLEMEN NARCISA SENIO R GOLD INDIV IDU Jul 19, 2016 [id number] Estrella HARDY PATIENT [facility] MEDICARE SUPPLEMEN NARCISA SENIO R GOLD INDIV IDU Jul 19, 2016 [id number] [phone] Estrella HARDYARD PATIENT MEDICARE (WNR) MEDICARE (M) PART B Aug 19, 2011 PART B [id number] Estrella HARDY PATIENT MEDICARE (WNR) MEDICARE (M) PART A Aug 19, 2011 PART A [id number] [phone] Estrella HARDY PATIENT Selected Encounter This section includes the information on record at [place] for the Encounter. Date/Time Encounter Type Encounter Description Reason Provider Source Sep 01, 2022 02:00 PM PSYTX W PT 30 MINUTES MH INTGRTD CARE IND ICD-10-CM F32.9 Major depressive disorder, single episode, unspecified HERMELINDA FLOYD IHShelia Encounter Template Text not used by [place] Assessments - Encounter Diagnoses This section includes the primary and secondary diagnoses documented for the Encounter. Date/Time Primary/Secondary Diagnosis Diagnosis Name Provider Source Sep 09, 2022 11:12 AM PRIMARY Major depressive disorder, single episode, unspecified NELSON CANAS [facility] Sep 09, 2022 11:12 AM SECONDARY Obstructive sleep apnea (adult) (pediatric) NELSON CANAS [facility] Plan of Treatment: Future Appointments (+ 6 months) and Future Tests (+/- 45 days) The Plan of Treatment section includes future care activities for the [facility] This section includes future appointments and future orders which are active, pending or scheduled. Future Appointments This section includes appointments that were scheduled to occur 6 months from the date of the Encounter, up to a maximum of 20 appointments. The data comes from all [facility]. Appointment Date/Time Appointment Type Appointme nt Facility Name Sep 09, 2022 08:40 AM AMBULATORY - SURGERY [facility] Sep 09, 2022 10:30 AM AMBULATORY - NONE [facility] Sep 09, 2022 10:40 AM AMBULATORY - SURGERY [facility] Sep 11, 2022 10:00 AM AMBULATORY - PSYCHIATRY [facility] Sep 11, 2022 03:00 PM AMBULATORY - NONE [facility] Sep 30, 2022 11:30 AM AMBULATORY - NEUROLOGY [facility] Sep 30, 2022 12:40 PM AMBULATORY - SURGERY [facility] Oct 12, 2022 02:30 PM [facility] Oct 12, 2022 03:30 PM AMBULATORY - PSYCHIATRY [facility] November 16, 2022 08:00 AM AMBULATORY - PSYCHIATRY [facility] November 16, 2022 08:30 AM AMBULATORY - PSYCHIATRY [facility] November 27, 2022 02:00 PM AMBULATORY - PSYCHIATRY [facility] December 11, 2022 02:00 PM AMBULATORY - PSYCHIATRY [facility] Dec 29, 2022 12:30 PM [facility] Jan 14, 2023 09:00 AM AM[facility]ULAT[facility] - MEDICINE [facility] Jan 14, 2023 01:00 PM AMBULATORY - PSYCHIATRY [facility] Feb 03, 2023 02:00 PM AMBULATORY - PSYCHIATRY [facility] Feb 26, 2023 02:00 PM AMBULATORY - PSYCHIATRY [facility] Lab Results: +/- 30 days of the encounter This section includes the Chemistry and Hematology Lab Results on record with MA for the patient. Radiology Reports and Pathology Reports are provided separately, in subsequent sections. Lab Results This section contains the Chemistry/Hematology Results that were resulted 30 days before or 30 daysafter the date of the Encounter. Date/Time Source Result Type Result - Unit Interpretation Reference Range Comment Sep 09, 2022 10:15 AM [facility] ANCA Specimen Type: SERUM No comment entered. Ordering Provider: SAMIR OROZCO Report Released Date/Time: Sep 09, 2022 09:55 AM Reporting Lab: [facility] [id number] Performing Lab: [facility] [id number] .CYTOPLASMIC ANCA NEGATIVE See_Commen t .PERINUCLEAR ANCA NEGATIVE See_Commen t Sep 09, 2022 10:15 AM [facility] MURAMIDASE,SERUM Specimen Type: SERUM Comment: This test was developed and its analytical performance characteristics have been determined by [employer] [place], [place]. It has not been cleared or approved by the FDA. This assay has been validated pursuant to the CLIA regulations and is used for clinical purposes. Test Performed by [employer] [place], [address] [place] [address] Joel Woodard M.D., Ph.D., Director of Laboratories , CLIA [id number] Ordering Provider: SAMIR OROZCO Report Released Date/Time: Sep 09, 2022 09:55 AM Reporting Lab: [facility] [id number] Performing Lab: [address] MURAMIDASE,S GEMINI 6.1 5.0-11.0 Sep 09, 2022 10:15 AM [facility] ANGIOTENSIN CONVERTING ENZYME Specimen Type: SERUM Comment: Test Performed by [employer] [facility], [address] [place], [place] Joel Woodard M.D., Ph.D., Director of Laboratories , [facility] [id number] Ordering Provider: SAMIR OROZCO Report Released Date/Time: Sep 09, 2022 09:55 AM Reporting Lab: [facility] [id number] Performing Lab: [address] ANGIOTENSIN CONVERTING ENZYME 39.0 9-67 Aug 20, 2022 04:26 PM [facility] URINALYSIS Specimen Type: URINE No comment entered. Ordering Provider: LAI NGUYEN Report Released Date/Time: Aug 20, 2022 03:56 PM Reporting Lab: [facility] [id number] Performing Lab: [facility] [id number] URINE COLOR LIGHT-YELLOW SPECIFIC GRAVITY 1.023 1.003-1.03 [...] and tobacco- related health factors from the [place] facility where the Encounter took place. Current Smoking Status This section includes the most current smoking, or tobacco-related health factor, from the [place] facility where the Encounter took place. Date/Time Current Smoking Status Comment Facil ity Aug 20, 2022 03:30 PM VA-TOBACCO FORMER USER [facility] Tobacco Use History This section includes a history of the smoking, or tobacco-related health factors, that were collected on or before the date of the Encounter. The data comes from the [place] facility where the Encounter took place. Date/Time Smoking Status/Tobacco Use Comment F acility Aug 20, 2022 03:30 PM VA-TOBACCO QUIT 15 YRS OR MORE [facility] Jul 22, 2021 02:00 PM VA-TOBACCO FORMER USER [facility] Jul 22, 2021 02:00 PM VA-TOBACCO QUIT 15 YRS OR MORE [facility] Apr 05, 2019 09:50 AM VA-TOBACCO FORMER USER [facility] Apr 05, 2019 09:50 AM VA-TOBACCO QUIT 15 YRS OR MORE [facility] Apr 12, 2018 09:36 AM VA-TOBACCO FORMER USER [facility] Apr 12, 2018 09:36 AM VA-TOBACCO QUIT 15 YRS OR MORE [facility] Apr 19, 2017 01:40 PM FORMER TOBACCO USER 7Y OR GREATE R [facility] Apr 17, 2016 10:49 AM FORMER TOBACCO USER 7Y OR GREATE R [facility] Mar 18, 2015 09:40 AM FORMER TOBACCO USER 7Y OR GREATE R [facility] Mar 07, 2014 09:45 AM FORMER TOBACCO USER 7Y OR GREATE R [facility] Jan 26, 2012 03:48 PM FORMER TOBACCO USER 7Y OR GREATE R [facility] Pathology Reports: +/- 30 days of the [...] the Encounter. The data comes from all [facility] facilities. Date/Time Pathology Report Provider Source Aug 20, 2022 06:23 PM LR MICROBIOLOGY RE PORT: Reporting Lab: [facility] [CLIA# [id number]] [place] [address] Accession [UID]: [id number] [[id number]] Received: Aug 20, 2022@18:23 Collection sample: URINE Collection date: Aug 20, 2022 18:23 Provider: LAI NGUYEN Comment on specimen: RECEIVED IN URINE PRESERVATIVE TUBE Test(s) ordered: CULTURE & SUSCEPTIBILITY...... completed: Aug 22, 2022 * BACTERIOLOGY FINAL REPORT => Aug 22, 2022 08:26 TECH CODE: [id number] CULTURE RESULTS: NO GROWTH 24 HOURS Bacteriology Remark(s): THIS REPORT IS FINAL =--=--=--=--=--=--=--=--=--=--=--=- -=--=--=--=--=--=--=--=--=--=--=--= --=--=-- Performing Laboratory: Bacteriology Report Performed By: [facility] [CLIA# [id number]] [place] [address] [facility] Encounter Notes: All associated encounter notes This section contains the clinical notes associated to the Encounter. Date/Time Encounter Note(s) Provider Source Sep 01, 2022 02:00 PM MENTAL HEALTH CONS ULT: LOCAL TITLE: PRIMARY CARE-MH INTEGRATION CONSULT STANDARD TITLE: MENTAL HEALTH CONSULT DATE OF NOTE: SEP 01, 2022@14:00 ENTRY DATE: SEP 02, 2022@11:57:16 AUTHOR: LUCIO CANAS EXP COSIGNER: HERMELINDA FLOYD URGENCY: STATUS: COMPLETED PRIMARY CARE-MH INTEGRATION CONSULT Has ADDENDA PRIMARY CARE-MENTAL HEALTH INTEGRATION (PCMHI) PROGRESS NOTE Name: jaswinder Ohara (he/him) PROCEDURES: 30-minute behavioral health provider evaluation and treatment for irritability/anger, and nightmares Date and time of intake: 09/01/22, 14:00 SELF-REPORT/REASON FOR REFERRAL: problems with anger and nightmares TREATMENT PLAN: 1. Sleep medicine consult for movement during nightmares and untreated MAE (not using C-Pap). 2. Medication management with PCP, Dr. Lia Nguyen to increase dose of Sertraline or consider other medication changes. 3. PCMHI follow-up with following sleep medicine consult and medication management to consider behavioral interventions if problems do not improve. Treatment goals negotiated with patient include: 1. Follow-up with PCP for medication management. 2. Sleep Medicine consult & CPAP adherence. INTEGRATED SUMMARY: [place] is 76-year-old white, , cisgender male [place]. Presented with a history of hypervigilance, anger/irritability, and nightmares since discharged from the in 1967. Reported two instances of acting out dreams in last two months and hit his once. Diagnosis of MAE, which is untreated. Subthreshold insomnia, moderate depression and anxiety symptoms endorsed. [place] reported Sertraline has significantly helped irritability, depression, and anxiety. Discussed following up with PCP to consider dosage/medication changes. Nightmares and recent movement at night may be exacerbated by untreated MAE or other sleep disorder. Consult to sleep medicine for further evaluation. was given direct line and encouraged to explore behavioral therapy if problems do not improve with medication and sleep medicine evaluation. [place]ant may benefit from IRT for nightmares or trauma-informed therapy if he decides to engage in behavioral therapy. DIAGNOSTIC IMPRESSIONS: Obstructive sleep apnea (adult) (pediatric) (ICD-10-CM G47.33) Major depressive disorder, single episode, unspecified (ICD-10-CM F32.9) R/O Posttraumatic Stress Disorder Presenting Problem History (Duration/Frequency/Intens ity): Reported nightmares have occurred for many years at least once a month and have intensified in severity/frequency over time (now once a week). Stated he has dreams that the enemy is trying to kill, him and his . Reported he woke up and hit his after having one very distressing nightmare and has woken up screaming. now does not sleep in the same bed. Reported concern that he would act out in more violence in the middle of the night. Reported a history of anger outbursts in which he tells people things [he] shouldn't be saying, hypervigilance, and hyperarousal since 1967. Reported these problems were worse many years ago, but wants to address these problems now with medication changes if possible. Treatment History of Presenting Problem: In 2017, had 3 [facility] follow-up sessions. Then prescribed Sertraline, which he reported helped with depression, anger/irritability, and anxiety. Still on medication. Sleep medicine- diagnosed with MAE. Untreated due to physical discomfort of CPAP. IMPACT OF PRESENTING PROBLEM ON FUNCTIONING/DAILY LIFE Sleep: Nightmares at least once a week, occasionally wakes up in the middle of the night with nightmares and can go back to sleep, sometimes has difficulty going back to sleep. Gets up 3x a night to go to the bathroom and can go back to sleep easily. Denied excessive daytime sleepiness, though he reported hypervigilance and hyperarousal often. Physical/Nutrition/Exercis e: Diet is good. Exercises most mornings. 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 Alcohol: occasional, no dependence issues Tobacco: none Drugs: none Caffeine: A couple cups in the morning Risk Assessment: Pt denied current passive wishes, hopelessness, suicidal ideation, suicidal plan, or suicidal intent. Pt denied h/o suicidal ideation or self-directed violence. Pt denied current homicidal ideation. Pt denied recent impulsivity or violence toward others. Pt endorsed access to firearms. Pt reported they are safely stored. Pt denied concern of having access to weapons. Risk Factors: anxiety; chronic pain; some sleep difficulty; race; gender. Protective Factors: spiritual connection; absence of suicidal/homicidal ideation, plan, intent, or behaviors; absence of current substance use problems; connected to strong support system; perceived social support/connection; responsibility for family; future oriented/hopeful for the future; help-seeking. Based on risk and protective factors, pt is considered to be at lower risk for committing suicidal acts/self-harm at this time (i.e., pt can survive and function as an outpatient, protective factors and coping strategies are present). ADDITIONAL ASSESSMENT: PHQ-9: 11 (moderate depression) FALGUNI-7: 13 (moderate anxiety) Insomnia severity index: 11 (subthreshold insomnia) AUDIT-C: 2 Pain Screen: (0=none; 10=bad as you can imagine) Pain on the average past week= 8 Pain interference with enjoyment in life= 7 Pain inference with general activity= 5 PCL-5: 46 Criterion A Event: Witnessing killings in [place] (Could not identify single event that elicits the most distress) Informed Consent: Information was reviewed with the patient regarding the role and services of the behavioral health provider, documentation procedures, and limits to confidentiality; consent obtained. If email or [facility] were utilized, use and confidentiality were discussed; consent obtained. My status as a trainee under the supervision of Dr. Hermelinda Floyd was also reviewed at onset of care and patient provided consent. Patient was provided with the show card writer's contact information in addition to instructions on how to access emergency services if the symptoms escalate: Mental health crisis [phone], National suicide prevention hotline: , Life threatening emergency: 911. STATEMENT OF SUPERVISION: During the initial appointment the [place] was informed of show card writer's training status and was informed that the writers work is being supervised by Hermelinda Floyd Psy.D., L.P. Dr. Floyd was not present during today's appointment but was available for immediate consultation. /yolande/ LUCIO CANAS SOIL CONSERVATIONIST Signed: 09/03/2022 08:38 /yolande/ Hermelinda Floyd Psy.D., L.P. [facility] Psychologist Cosigned: 09/03/2022 08:47 Receipt Acknowledged By: * AWAITING SIGNATURE * LAI NGUYEN 09/03/2022 ADDENDUM STATUS: COMPLETED Level of Supervision: Available supervision Nature of encounter: [facility] intake for treatment and recommendations for anger/irritability and disordered sleep. [employer] Math Teacher Concurrence: I have reviewed and concur with Splitter Hand Henry Canas note above. I meet weekly for supervision with the trainee to review cases. I was not present for the session, but was available for consultation. /yolande/ Hermelinda Floyd Psy.D., LLeeannPLeeann [facility] Psychologist Signed: 09/03/2022 08:49 LUCIO CANAS [facility]
--- OUTSIDE RECORDS SUMMARY | 2023-08-30 08:46 | XMS_ITS | Encounter Summary ---
Author Name [facility] Organization [facility] Address [address] [place] [address] Support Name Relationship Address Phone ALYSSA HARDY Next of Kin [address] [place] [address] ALYSSA HARDY Emergency Contact [phone] [place] [address] Insurance Providers: All historical and [...] Butts's Name Patient's Relationship to Policy Butts [facility] MEDICARE SUPPLEMEN NARCISA GONZALEZ R GOLD INDIV IDU Jul 19, 2016 [id number] P [id number] Estrella HARDY PATIENT [facility] MEDICARE SUPPLEMEN NARCISA LISA R GOLD INDIV IDU Jul 19, 2016 [id number] [phone] Estrella HARDY PATIENT MEDICARE (WNR) MEDICARE (M) PART A Aug 19, 2011 PART A [id number] [phone] Estrella HARDY PATIENT MEDICARE (WN) MEDICARE (M) PART B Aug 19, 2011 PART B [id number] [phone] Estrella HARDY PATIENT Selected Encounter This section includes the information on record at [place] for the Encounter. Date/Time Encounter Type Encounter Description Reason Provider Source Sep 11, 2022 03:00 PM ORTHC/PROSTC MGMT SBSQ ENC PROSTHETICS/ORTHOT ICS ICD-10-CM M21.612 Bunion of left foot THA,CHARL YOLANDE PHILLIPS E Encounter Template Text not used by ND Assessments - Encounter Diagnoses This section includes the primary and secondary diagnoses documented for the Encounter. Date/Time Primary/Secondary Diagnosis Diagnosis Name Provider Source Sep 14, 2022 09:07 AM PRIMARY Bunion of left foot THA,JOSH DANTE PHILLIPS [facility] Plan of Treatment: Future Appointments (+ 6 months) and Future Tests (+/- 45 days) The Plan of Treatment section includes future care activities for the patient from [facility] This section includes future appointments and future orders which are active, pending or scheduled. Future Appointments This section includes appointments that were scheduled to occur 6 months from the date of the Encounter, up to a maximum of 20 appointments. The data comes from all [place] treatment facilities. Appointment Date/Time Appointment Type Appointme nt Facility Name Sep 30, 2022 11:30 AM AMBULATORY [facility]Y [facility] Sep 30, 2022 12:40 PM AMBULATORY - SURGERY [facility] Oct 12, 2022 02:30 PM [facility] Oct 12, 2022 03:30 PM AMBULAT[facility] November 16, 2022 08:00 AM AMBULATORY [facility] November 16, 2022 08:30 AM AMBULATORY - PS[facility]ATRY [facility] November 27, 2022 02:00 PM AMBULATORY - PS[facility]CHIATRY [facility] December 11, 2022 02:00 PM AMBULATORY - [facility]RY [facility] Dec 29, 2022 12:30 PM AMBULATORY - REHAB [facility] Jan 14, 2023 09:00 AM AMBULATORY - MEDICINE [facility] Jan 14, 2023 01:00 PM AMBULATORY - [facility]RY [facility] Feb 03, 2023 02:00 PM AMBULATORY - PS[facility]CHIATRY [facility] Feb 26, 2023 02:00 PM AMBULATORY - PS[facility]CHIATRY [facility] Mar 11, 2023 02:30 PM AMBULATORY - SURGERY [facility] Lab Results: +/- 30 days of the encounter This section includes the Chemistry and Hematology Lab Results on record with ND for the patient. Radiology Reports and Pathology Reports are provided separately, in subsequent sections. Lab Results This section contains the Chemistry/Hematology Results that were resulted 30 days before or 30 daysafter the date of the Encounter. Date/Time Source Result Type Result - Unit Interpretation Reference Range Comment Sep 09, 2022 10:15 AM [facility] ANCA Specimen Type: SERUM No comment entered. Ordering Provider: SAMIR OROZCO Report Released Date/Time: Sep 09, 2022 09:55 AM Reporting Lab: [facility] [id number] Performing Lab: [address] .CYTOPLASMIC ANCA NEGATIVE -neg .PERINUCLEAR ANCA NEGATIVE -neg Sep 09, 2022 10:15 AM [facility] MURAMIDASE,SERUM Specimen Type: SERUM Comment: This test was developed and its analytical performance characteristics have been determined by [facility]. It has not been cleared or approved by the FDA. This assay has been validated pursuant to the CLIA regulations and is used for clinical purposes. Test Performed by [facility], [address] [place] [address] Joel Woodard M.D., Ph.D., Director of Laboratories , CLIA [id number] Ordering Provider: SAMIR OROZCO Report Released Date/Time: Sep 09, 2022 09:55 AM Reporting Lab: [facility] [id number] Performing Lab: [address] MURAMIDASE,S GEMINI 6.1 5.0-11.0 Sep 09, 2022 10:15 AM [facility] ANGIOTENSIN CONVERTING ENZYME Specimen Type: SERUM Comment: Test Performed by [facility], [address] [place] [address] Joel Woodard M.D., Ph.D., Director of Laboratories , CLIA [id number] Ordering Provider: SAMIR OROZCO Report Released Date/Time: Sep 09, 2022 09:55 AM Reporting Lab: [facility] [id number] Performing Lab: [address] ANGIOTENSIN CONVERTING ENZYME 39.0 9-67 Aug 20, 2022 04:26 PM [facility] URINALYSIS Specimen Type: URINE No comment entered. Ordering Provider: LAI NGUYEN Report Released Date/Time: Aug 20, 2022 03:56 PM Reporting Lab: [facility] [address] [facility] [address] Performing Lab: [facility] [address] URINE COLOR LIGHT-YELLOW SPECIFIC GRAVITY 1.023 1.003-1.03 [...] and tobacco- related health factors from the [place] facility where the Encounter took place. Current Smoking Status This section includes the most current smoking, or tobacco-related health factor, from the [place] facility where the Encounter took place. Date/Time Current Smoking Status Comment Facil ity Aug 20, 2022 03:30 PM VA-TOBACCO FORMER USER [facility] Tobacco Use History This section includes a history of the smoking, or tobacco-related health factors, that were collected on or before the date of the Encounter. The data comes from the [place] facility where the Encounter took place. Date/Time Smoking Status/Tobacco Use Comment F acility Aug 20, 2022 03:30 PM VA-TOBACCO QUIT 15 YRS OR MORE [facility] Jul 22, 2021 02:00 PM VA-TOBACCO FORMER USER [facility] Jul 22, 2021 02:00 PM VA-TOBACCO QUIT 15 YRS OR MORE [facility] Apr 05, 2019 09:50 AM VA-TOBACCO FORMER USER [facility] Apr 05, 2019 09:50 AM VA-TOBACCO QUIT 15 YRS OR MORE [facility] Apr 12, 2018 09:36 AM VA-TOBACCO FORMER USER [facility] Apr 12, 2018 09:36 AM VA-TOBACCO QUIT 15 YRS OR MORE [facility] Apr 19, 2017 01:40 PM FORMER TOBACCO USER 7Y OR GREATE R [facility] Apr 17, 2016 10:49 AM FORMER TOBACCO USER 7Y OR GREATE R [facility] Mar 18, 2015 09:40 AM FORMER TOBACCO USER 7Y OR GREATE R [facility] Mar 07, 2014 09:45 AM FORMER TOBACCO USER 7Y OR GREATE R [facility] Jan 26, 2012 03:48 PM FORMER TOBACCO USER 7Y OR GREATE R [facility] Pathology Reports: +/- 30 days of the [...] the Encounter. The data comes from all [facility] facilities. Date/Time Pathology Report Provider Source Aug 20, 2022 06:23 PM LR MICROBIOLOGY RE PORT: Reporting Lab: [facility] [CLIA# [id number]] [place] [address] Accession [UID]: [id number] [[id number]] Received: Aug 20, 2022@18:23 Collection sample: URINE Collection date: Aug 20, 2022 18:23 Provider: LAI NGUYEN Comment on specimen: RECEIVED IN URINE PRESERVATIVE TUBE Test(s) ordered: CULTURE & SUSCEPTIBILITY...... completed: Aug 22, 2022 * BACTERIOLOGY FINAL REPORT => Aug 22, 2022 08:26 TECH CODE: [id number] CULTURE RESULTS: NO GROWTH 24 HOURS Bacteriology Remark(s): THIS REPORT IS FINAL =--=--=--=--=--=--=--=--=--=--=--=- -=--=--=--=--=--=--=--=--=--=--=--= --=--=-- Performing Laboratory: Bacteriology Report Performed By: [facility] [CLIA# [id number]] [place] [address] [facility] Encounter Notes: All associated encounter notes This section contains the clinical notes associated to the Encounter. Date/Time Encounter Note(s) Provider Source Sep 11, 2022 03:44 PM ORTHOTICS PROSTHET ICS CONSULT: LOCAL TITLE: PROSTHETICS CONSULT STANDARD TITLE: ORTHOTICS PROSTHETICS CONSULT DATE OF NOTE: SEP 11, 2022@15:44 ENTRY DATE: SEP 11, 2022@15:44:36 AUTHOR: SIENA KING EXP COSIGNER: URGENCY: STATUS: COMPLETED Provisional Diagnosis: Bunion of unspecified foot (ICD-10-CM M21.619) Custom functional foot EDS: DELIVERY The insert is to provide uniform plantar surface contact and support of the foot within appropriate footwear. Patient was seen in the prosthetics department for delivery of EDS. Patient donned pair of 9.5 D New Balance walking sneakers. Fit of shoes were too tight, patient will require 9.5 wide to be ordered, requested same style. Return to [facility]: [id number] x 2 1 pair of EDS New Balance 928 9.5 D Lace Black [id number] Please create PO and order from [facility]: [id number] x 2 1 pair of EDS New Balance 928 9.5 W Lace Black [id number] Deliver to: [facility]/Prosthetics Department [phone] Call patient when New Balance shoes are in. EDUCATION: Education was provided to patient during this encounter. Patient indicated readiness to learn about educational information re: the following topics: donning/doffing, wash/care instructions, how to report a concern. Additional education training is not indicated. Patient denies further questions. /yolande/ SIENA KING MYSQL DEVELOPER Signed: 09/11/2022 15:53 Receipt Acknowledged By: * AWAITING SIGNATURE * YASIR ALMAZAN KARISSA P [facility]
--- OUTSIDE RECORDS SUMMARY | 2023-08-30 08:46 | XMS_ITS | Encounter Summary ---
Author Name [facility] Organization Department of Veter[facility] Affairs Address [address] [place] [address] Support Name Relationship Address Phone ALYSSA HARDY Next of Kin [address] [place] [address] ALYSSA HARDY Emergency Contact [phone] [place] [address] Insurance Providers: All historical and [...] Butts's Name Patient's Relationship to Policy Butts [facility] MEDICARE SUPPLEMEN NARCISA LISA R GOLD INDIV IDU Jul 19, 2016 [id number] Estrella HARDY PATIENT [facility] MEDICARE SUPPLEMEN NARCISA SENIO R GOLD INDIV IDU Jul 19, 2016 [id number] [phone] HAYLEYR ICHARD PATIENT MEDICARE (WNR) MEDICARE (M) PART B Aug 19, 2011 PART B [id number] [phone] Estrella HARDYARD PATIENT MEDICARE (WNR) MEDICARE (M) PART A Aug 19, 2011 PART A [id number] Estrella HARDY PATIENT Selected Encounter This section includes the information on record at [place] for the Encounter. Date/Time Encounter Type Encounter Description Reason Pro vider Source Sep 11, 2022 03:34 PM Outpatient Encounter CLINICAL PHARMACY IHE Encounter Template Text not used by ND Plan of Treatment: Future Appointments (+ 6 months) and Future Tests (+/- 45 days) The Plan of Treatment section includes future care activities for the patient [facility] This section includes future appointments and future orders which are active, pending or scheduled. Future Appointments This section includes appointments that were scheduled to occur 6 months from the date of the Encounter, up to a maximum of 20 appointments. The data comes from all [facility] facilities. Appointment Date/Time Appointment Type Appointme nt Facility Name Sep 30, 2022 11:30 AM AMBULATORY - NEUROLOGY [facility] Sep 30, 2022 12:40 PM AMBULATORY - SURGERY [facility] Oct 12, 2022 02:30 PM AMBULATORY - MEDICINE [facility] Oct 12, 2022 03:30 PM AMB[facility]ATORY [facility] [place] [facility] November 16, 2022 08:00 AM AMBULATORY [place] [facility] November 16, 2022 08:30 AM AMBULATORY [place] [facility] November 27, 2022 02:00 PM AMBULATORY [place] [facility] December 11, 2022 02:00 PM AMBULATORY [facility] [place] [facility] Dec 29, 2022 12:30 PM AMBULATORY - REHAB MEDICIN [facility] Jan 14, 2023 09:00 AM AMBULATORY - MEDICINE [facility] Jan 14, 2023 01:00 PM AMBULATORY [place] [facility] Feb 03, 2023 02:00 PM AMBULATORY [place] [facility] Feb 26, 2023 02:00 PM AMBULATORY [place] [facility] Mar 11, 2023 02:30 PM AMBULATORY - SURGERY [facility] Lab Results: +/- 30 days [...] Sep 09, 2022 09:55 AM Reporting Lab: [facility] [id number] Performing Lab: [facility] [address] .CYTOPLASMIC ANCA NEGATIVE -neg .PERINUCLEAR ANCA NEGATIVE -neg Sep 09, 2022 10:15 AM [facility] MURAMIDASE,SERUM Specimen Type: SERUM Comment: This test was developed and its analytical performance characteristics have been determined by [employer] [place]. It has not been cleared or approved by the FDA. This assay has been validated pursuant to the CLIA regulations and is used for clinical purposes. Test Performed by [facility], [employer] [place], [address] [place] [address] Joel Woodard M.D., Ph.D., Director of Laboratories , CLIA [id number] Ordering Provider: SAMIR OROZCO Report Released Date/Time: Sep 09, 2022 09:55 AM Reporting Lab: [facility] [id number] Performing Lab: [address] MURAMIDASE,S GEMINI 6.1 5.0-11.0 Sep 09, 2022 10:15 AM [facility] ANGIOTENSIN CONVERTING ENZYME Specimen Type: SERUM Comment: Test Performed by [facility], [address] [place] [address] Joel Woodard M.D., Ph.D., Director of Laboratories , CLIA [id number] Ordering Provider: SAMIR OROZCO Report Released Date/Time: Sep 09, 2022 09:55 AM Reporting Lab: [facility] [id number] Performing Lab: [address] ANGIOTENSIN CONVERTING ENZYME 39.0 9-67 Aug 20, 2022 04:26 PM [facility] URINALYSIS Specimen Type: URINE No comment entered. Ordering Provider: LAI NGUYEN Report Released Date/Time: Aug 20, 2022 03:56 PM Reporting Lab: [facility] [address] Performing Lab: [facility] [address] URINE COLOR LIGHT-YELLOW SPECIFIC GRAVITY 1.023 1.003-1.03 5 URINE BILIRUBIN NEGATIVE See_Commen t URINE KETONES NEGATIVE See_Commen t URINE GLUCOSE NEGATIVE See_Commen t URINE PROTEIN NEGATIVE See_Commen t URINE PH 5.5 5.0-8.0 URINE WBC/HPF 1 0-7 URINE BACTERIA NONE SEEN URINE RBC/HPF NONE SEEN 0-3 APPEARANCE CLEAR SQUAMOUS EPITHELIAL NONE SEEN URINE BLOOD NEGATIVE See_Comm en t URINE NITRITE NEGATIVE See_Commen t LEUKOCYTE ESTERASE NEGATIVE See_Commen t Social History: Smoking Status (Most current) and [...] ity Aug 20, 2022 03:30 PM VA-TOBACCO QUIT 15 YRS OR MORE [facility] Tobacco Use History [...] the Encounter. The data comes from all [place] treatment facilities. Date/Time Pathology Report Provider Source Aug 20, 2022 06:23 PM LR MICROBIOLOGY RE PORT: Reporting Lab: [facility] [CLIA# [id number]] [place] [address] Accession [UID]: [id number] [[id number]] Received: Aug 20, 2022@18:23 Collection sample: URINE Collection date: Aug 20, 2022 18:23 Provider: LAI NGUYEN Comment on specimen: RECEIVED IN URINE PRESERVATIVE TUBE Test(s) ordered: CULTURE & SUSCEPTIBILITY...... completed: Aug 22, 2022 * BACTERIOLOGY FINAL REPORT => Aug 22, 2022 08:26 TECH CODE: [id number] CULTURE RESULTS: NO GROWTH 24 HOURS Bacteriology Remark(s): THIS REPORT IS FINAL =--=--=--=--=--=--=--=--=--=--=--=- -=--=--=--=--=--=--=--=--=--=--=--= --=--=-- Performing Laboratory: Bacteriology Report Performed By: [facility] [CLIA# [id number]] [place] [address] [facility] Encounter Notes: All associated encounter notes This section contains the clinical notes associated to the Encounter. Date/Time Encounter Note(s) Provider Source Sep 11, 2022 03:34 PM EDUCATION NOTE: LOCAL TITLE: EDUCATION MEDICATION INSTRUCTION STANDARD TITLE: EDUCATION NOTE DATE OF NOTE: SEP 11, 2022@15:34 ENTRY DATE: SEP 11, 2022@15:34:08 AUTHOR: ADRIÁN LEÓN COSIGNER: URGENCY: STATUS: COMPLETED MEDICATION EDUCATION PARTICIPANTS: Patient TEACHING STRATEGY: Face to Face READINESS TO LEARN: No barriers identified LEARNING NEEDS/OBJECTIVES Participant(s) indicates readiness to learn and has been instructed on indications, side effects, and directions for use. Participant(s) will receive medication information sheets for medications filled. Education included discussion of the following: New medication(s): melatonin PATIENT/FAMILY RESPONSE (OUTCOME): Verbalizes critical information about the topic FOLLOW-UP RECOMMENDED: None needed /es/ ADRIÁN LEÓN Pharmacist Signed: 09/11/2022 15:34 ADRIÁN LEÓN [facility]
--- OUTSIDE RECORDS SUMMARY | 2023-08-30 08:46 | XMS_ITS | Encounter Summary ---
Author Name [facility] Organization [facility] Address [address] [place] [address] Support Name Relationship Address Phone ALYSSA HARDY Next of Kin [address] [place] [address] ALYSSA HARDY Emergency Contact [address] [place] [address] Insurance Providers: All historical and [...] Butts [facility] MEDICARE SUPPLEMEN NARCISA GONZALEZ R HIGINIO INDIV IDU Jul 19, 2016 [id number] Estrella HARDY PATIENT [facility] MEDICARE SUPPLEMEN NARCISA MUÑOZRUTH R GOLD INDIV IDU Jul 19, 2016 [id number] Estrella HARDY PATIENT MEDICARE (WNR) MEDICARE (M) PART B Aug 19, 2011 PART B [id number] [phone] Estrella HARDY PATIENT MEDICARE (WNR) MEDICARE (M) PART A Aug 19, 2011 PART A [id number] [phone] Estrella HARDY PATIENT Selected Encounter This section includes the information on record at [place] for the Encounter. 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 Date/Time Primary/Secondary Diagnosis Diagnosis Name Provider Source Sep 09, 2022 11:46 AM PRIMARY Symblepharon, left eye [place] Sep 09, 2022 11:46 AM SECONDARY Meibomian gland dysfunction of unsp, unspecified eyelid [facility] Sep 09, 2022 11:46 AM SECONDARY Presence of intraocular lens [facility] Sep 09, 2022 11:46 AM SECONDARY Unspecified blepharitis left eye, unspecified eyelid [facility] Sep 09, 2022 11:46 AM SECONDARY Unspecified blepharitis right eye, unspecified eyelid [facility] Plan of Treatment: Future Appointments (+ 6 months) and Future Tests (+/- 45 days) The Plan of Treatment section includes future care activities for the [facility] [place] [facility] This section includes future appointments and future orders which are active, pending or scheduled. Future Appointments This section includes appointments that were scheduled to occur 6 months from the date of the Encounter, up to a maximum of 20 appointments. The data comes from all [place] treatment facilities. Appointment Date/Time Appointment Type Appointme nt Facility Name Sep 11, 2022 10:00 AM [facility] Sep 11, 2022 03:00 PM [facility]ONE [place] [facility] Sep 30, 2022 11:30 AM [place] [facility] Sep 30, 2022 12:40 PM [place] [place] [facility] Oct 12, 2022 02:30 PM [place] [place]IC[place] [facility] Oct 12, 2022 03:30 PM [facility] November 16, 2022 08:00 AM [facility] [place] [facility] November 16, 2022 08:30 AM [facility] November 27, 2022 02:00 PM [facility] December 11, 2022 02:00 PM AMBULATORY - PSYCHIATRY [facility] Dec 29, 2022 12:30 PM AMBULATORY - REHAB MEDICIN E [facility] Jan 14, 2023 09:00 AM AMBULATORY - MEDICINE [facility] Jan 14, 2023 01:00 PM AMBULATORY - PSYCHIATRY [facility] Feb 03, 2023 02:00 PM AMBULATORY - PSYCHIATRY [facility] Feb 26, 2023 02:00 PM AMBULATORY - PSYCHIATRY [facility] Lab Results: +/- 30 days of the encounter This section includes the Chemistry and Hematology Lab Results on record with [place] for the patient. Radiology Reports and Pathology Reports are provided separately, in subsequent sections. Lab Results This section contains the Chemistry/Hematology Results that were resulted 30 days before or 30 daysafter the date of the Encounter. Date/Time Source Result Type Result - Unit Interpretation Reference Range Comment Sep 09, 2022 10:15 AM [facility] ANCA Specimen Type: SERUM No comment entered. Ordering Provider: SAMIR OROZCO Report Released Date/Time: Sep 09, 2022 09:55 AM Reporting Lab: [facility] [address] Performing Lab: [facility] [address] .CYTOPLASMIC ANCA NEGATIVE -neg .PERINUCLEAR ANCA NEGATIVE -neg Sep 09, 2022 10:15 AM [facility] MURAMIDASE,SERUM Specimen Type: SERUM Comment: This test was developed and its analytical performance characteristics have been determined by [facility] [place], [place]. It has not been cleared or approved by the FDA. This assay has been validated pursuant to the CLIA regulations and is used for clinical purposes. Test Performed by [facility], [facility], [address] [place] [address] Joel Woodard M.D., Ph.D., Director of [employer] , CLIA [id number] Ordering Provider: SAMIR OROZCO Report Released Date/Time: Sep 09, 2022 09:55 AM Reporting Lab: [facility] [address] Performing Lab: [address] MURAMIDASE,S GEMINI 6.1 5.0-11.0 Sep 09, 2022 10:15 AM [facility] ANGIOTENSIN CONVERTING ENZYME Specimen Type: SERUM Comment: Test Performed by [facility], [facility], [address] [place] [address] Joel Woodard M.D., Ph.D., Director of Laboratories , [place] [id number] Ordering Provider: SAMIR OROZCO Report Released Date/Time: Sep 09, 2022 09:55 AM Reporting Lab: [facility] [address] Performing Lab: [address] ANGIOTENSIN CONVERTING ENZYME 39.0 9-67 Aug 20, 2022 04:26 PM [facility] URINALYSIS Specimen Type: URINE No comment entered. Ordering Provider: LAI NGUYEN Report Released Date/Time: Aug 20, 2022 03:56 PM Reporting Lab: [facility] [address] Performing Lab: [facility] [address] URINE COLOR LIGHT-YELLOW SPECIFIC GRAVITY 1.023 1.003-1.03 [...] and tobacco- related health factors from the [facility] where the Encounter took place. Current Smoking Status This section includes the most current smoking, or tobacco-related health factor, from the [facility] where the Encounter took place. Date/Time Current Smoking Status Comment Armando lutz Aug 20, 2022 03:30 PM VA-TOBACCO FORMER USER [facility] Tobacco Use History This section includes a history of the smoking, or tobacco-related health factors, that were collected on or before the date of the Encounter. The data comes from the [place] facility where the Encounter took place. Date/Time Smoking Status/Tobacco Use Comment F acility Aug 20, 2022 03:30 PM VA-TOBACCO QUIT 15 YRS OR MORE [facility] Jul 22, 2021 02:00 PM VA-TOBACCO FORMER USER [facility] Jul 22, 2021 02:00 PM VA-TOBACCO QUIT 15 YRS OR MORE [facility] Apr 05, 2019 09:50 AM VA-TOBACCO FORMER USER [facility] Apr 05, 2019 09:50 AM VA-TOBACCO QUIT 15 YRS OR MORE [facility] Apr 12, 2018 09:36 AM VA-TOBACCO FORMER USER [facility] Apr 12, 2018 09:36 AM VA-TOBACCO QUIT 15 YRS OR MORE [facility] Apr 19, 2017 01:40 PM FORMER TOBACCO USER 7Y OR GREATE R [facility] Apr 17, 2016 10:49 AM FORMER TOBACCO USER 7Y OR GREATE R [facility] Mar 18, 2015 09:40 AM FORMER TOBACCO USER 7Y OR GREATE R [facility] Mar 07, 2014 09:45 AM FORMER TOBACCO USER 7Y OR GREATE R [facility] Jan 26, 2012 03:48 PM FORMER TOBACCO USER 7Y OR GREATE R [facility] Pathology Reports: +/- 30 days of the [...] Encounter. The data comes from all [facility] facilities. Date/Time Pathology Report Provider Source Aug 20, 2022 06:23 PM LR MICROBIOLOGY RE PORT: Reporting Lab: [facility] [CLIA# [id number]] [place] [address] Accession [UID]: [id number] [[id number]] Received: Aug 20, 2022@18:23 Collection sample: URINE Collection date: Aug 20, 2022 18:23 Provider: LAI NGUYEN Comment on specimen: RECEIVED IN URINE PRESERVATIVE TUBE Test(s) ordered: CULTURE & SUSCEPTIBILITY...... completed: Aug 22, 2022 * BACTERIOLOGY FINAL REPORT => Aug 22, 2022 08:26 TECH CODE: [id number] CULTURE RESULTS: NO GROWTH 24 HOURS Bacteriology Remark(s): THIS REPORT IS FINAL =--=--=--=--=--=--=--=--=--=--=--=- -=--=--=--=--=--=--=--=--=--=--=--= --=--=-- Performing Laboratory: Bacteriology Report Performed By: [facility] [CLIA# [id number]] [place] [address] [facility] Encounter Notes: All associated encounter notes This section contains the clinical notes associated to the Encounter. Date/Time Encounter Note(s) Provider Source Sep 09, 2022 10:26 AM OPHTHALMOLOGY CONSULT: LOCAL TITLE: OPHTHALMOLOGY IMAGING [facility] OUTPT CONSULT STANDARD TITLE: OPHTHALMOLOGY CONSULT DATE OF NOTE: SEP 09, 2022@10:26 ENTRY DATE: SEP 09, 2022@10:26:51 AUTHOR: VANESA HAIRSTON EXP COSIGNER: URGENCY: STATUS: COMPLETED Requested test(s) done, slitlamp photos taken OU results uploaded to gravity prospecting observer helper for review. /yolande/ ESTHELA KRUEGER CRA Architectural Inspector Signed: 09/09/2022 10:27 VANESA HAIRSTON [facility] Sep 09, 2022 09:20 AM OPHTHALMOLOGY ATTENDING NOTE: LOCAL TITLE: OPHTHALMOLOGY CLINIC NOTE STANDARD TITLE: OPHTHALMOLOGY ATTENDING NOTE DATE OF NOTE: SEP 09, 2022@09:20 ENTRY DATE: SEP 09, 2022@09:20:19 AUTHOR: JESSICA OROZCO EXP COSIGNER: URGENCY: STATUS: COMPLETED Eye Clinic Progress Note HPI: Presents with 6 months of watery eyes, burning, foreign body sensation and on and off itching. Using artificial tears without much improvement, and a hot compress washcloth in the morning. ROS negative for mouth sores or sores elsewhere. No history of SJS, chemical/thermal burn, no history of BMT. Had some surgery in right eye when he was a child, does not remember what it was for. POH: See Impression -- Tech exam today: Vision: OD:CC(with glasses) OD: 20/25+2 Pinhole: 20/ Vision: OS:CC(with glasses) 0S: 20/25-3 Pinhole: 20/ IOP: 15/16 [facility] Pupils: see tech note I have reviewed the greenhouse technician's note and agree with their findings. -- My EXAM Patient is alert and oriented x 3. SLE, right : L/L: MGD, thickened eyelid margin and inspissated glands C/S: LL papillae, no abnormality on UL eversion K: clear AC: deep and quiet I: round and flat L: clear Ant Vit: clear SLE, left : L/L: MGD, thickened eyelid margin and inspissated glands C/S: LL papillae, no abnormality on UL eversion, nasal lower fornix with small symblepharon (not well appreciated on photos unfortunately) K: clear AC: deep and quiet I: round and flat L: clear Ant Vit: clear Impression/Plan: #Symblepharon, OS Presents with 6 months eye irritation, watering, fbs Lower eyelid papillae and small left IN symblepharon Hx: No history of SJS, chemical/thermal burn, trauma, GVH + history chronic allergy, mid-facial erythema suspicious for rosacea, hx of eye surgery thinks right eye as a kid Ddx etiology includes chronic allergic inflammation, rosacea, OCP lower on the differential given no history of other systemic symptoms but keep this in mind if patient's inflammation worsens/not improving with medical management -Start FML QID ou -Labs SCOTT, ANCA, Lysozyme -RTC 2-3 weeks -Slit lamp photos today #Blepharitis, OU #MGD, ou #Pseudophakia, ou RTC: 2 weeks VTD mrx Staff of record Dr. Newberry /yolande/ JESSICA OROZCO MD RESIDENT Signed: 09/09/2022 11:46 JESSICA OROZCO [facility] Sep 09, 2022 08:44 AM TUTORING CLINICIAN NOTE: LOCAL TITLE: TUTORING CLINICIAN NOTE STANDARD TITLE: TUTORING CLINICIAN NOTE DATE OF NOTE: SEP 09, 2022@08:44 ENTRY DATE: SEP 09, 2022@08:44:10 AUTHOR: LAST MCKEON COSIGNER: URGENCY: STATUS: COMPLETED Eye Start Exam Patient: DOMINGA HARDY Sex: MALE SSN: [id number] Birthdate: [birth year] Chief complaint: pt states that OU are watering and itchy and burn at times. For about the last 6 months and progressivly getting worse. Taking drops and thinks that they are not helping.No floaters or flashing lights. History of Present Illness: Location: Intensity: Duration: Active problems - Computerized Problem List is the source for the followin. Hypertension 2. Hyperlipidemia (SNOMED CT 51814073) 3. Arthritis * 4. Coronary arteriosclerosis (SNOMED CT 70435150) - S/P AR in 2008. - S/P PCI x 3 [...] wrist 18. Prosthetic heart valve in situ Surgeries: SURGERIES - NONE FOUND Follow Up Exam Eye Medications taking drops but not sure if they are working Allergies: EGGS (May 01, 2016) No new Allergies. Last refraction: Vision: OD:CC(with glasses) OD: 20/25+2 Pinhole: 20/ Near: 20/ Vision: OS:CC(with glasses) 0S: 20/25-3 Pinhole: 20/ Near: 20/ Confrontational Michele: Full to finger counting: Right: Left: Extra Ocular Movement: Pupils: Right: Left: Size: Right: Left: React to light: Right: Left: Afferent pupil defect: Right: Grade: Left: Grade: Note: Intra-ocular pressure (IOP): OD: 15 OS: 16 [facility] /yolande/ LAST MCKEON, OPHTHALMOL TECH OPHTHALMOLOGY TECH Signed: 09/09/2022 08:53 LAST MCKEON [facility]
--- OUTSIDE RECORDS SUMMARY | 2023-08-30 08:47 | XMS_ITS | Encounter Summary ---
Author Name Department of Veter[facility] Affairs Organization [facility] of [facility] Affairs Address [address] [place] [address] Support Name Relationship Address Phone ALYSSA HARDY Next of [place] [address] [place] [address] ALYSSA HARDY Emergency Contact [address] [place] [address] Insurance Providers: All historical and [...] Patient's Relationship to Policy Butts [facility] MEDICARE SUPPLEMEN NARCISA MUÑOZRUTH Estrella HIGINIO INDIV IDU Jul 19, 2016 [id number] [phone] Estrella HARDY PATIENT [facility] MEDICARE SUPPLEMEN NARCISA GONZALEZ Estrella HIGINIO INDIV IDU Jul 19, 2016 [id number] Estrella HARDY PATIENT MEDICARE (WNR) MEDICARE (M) PART A Aug 19, 2011 PART A [id number] Estrella HARDY PATIENT MEDICARE (WNR) MEDICARE (M) PART B Aug 19, 2011 PART B [id number] [phone] Estrella HARDY PATIENT Selected Encounter This section includes the information on record at [place] for the Encounter. Date/Time Encounter Type Encounter Description Reason Provider Source Oct 12, 2022 02:30 PM OFF/OP CNSLTJ NEW/EST MOD 40 SLEEP MEDICINE ICD-10-CM G47.33 Obstructive sleep apnea (adult) (pediatric) PEDRO HARRISON [facility] Encounter Template Text not used by [place] Assessments - Encounter Diagnoses This section includes the primary and secondary diagnoses documented for the Encounter. Date/Time Primary/Secondary Diagnosis Diagnosis Name Provider Source Oct 13, 2022 10:38 PM PRIMARY Obstructive sleep apnea (adult) (pediatric) PEDRO HARRISON [facility] Oct 13, 2022 10:38 PM SECONDARY Nasal congestion HUNTERPEDRO Marcos [facility] Oct 13, 2022 10:38 PM SECONDARY Nightmare disorder HUNTERPEDRO [facility] Oct 13, 2022 10:38 PM SECONDARY Parasomnia, unspecified HUNTERPEDRO [facility] Plan of Treatment: Future Appointments (+ 6 months) and Future Tests (+/- 45 days) The Plan of Treatment section includes future care activities for the patient from all [facility]. This section includes future appointments and future orders which are active, pending or scheduled. Future Appointments This section includes appointments that were scheduled to occur 6 months from the date of the Encounter, up to a maximum of 20 appointments. The data comes from all [place] treatment facilities. Appointment Date/Time Appointment Type Appointme nt Facility Name November 16, 2022 08:00 AM AMBULATORY - PSYCHIATRY [facility] November 16, 2022 08:30 AM AMBULATORY - PSYCHIATRY [facility] November 27, 2022 02:00 PM AMBULATORY [facility]RY [facility] December 11, 2022 02:00 PM AMBULATORY - PSYCHIATRY [facility] Dec 29, 2022 12:30 PM AMBULATORY - REHAB [facility] Jan 14, 2023 09:00 AM AMBULATORY - MEDICINE [facility] Jan 14, 2023 01:00 PM AMBULATORY - PSYCHIATRY [facility] Feb 03, 2023 02:00 PM AMBULATORY - PSYCHIATRY [facility] Feb 26, 2023 02:00 PM AMBULATORY - PSYCHIATRY [facility] Mar 11, 2023 02:30 PM AMBULATORY - SURGERY [facility] Apr 01, 2023 01:45 PM AMBULATORY - MEDICINE [facility] Vital Signs: All taken on the encounter date This section contains inpatient and outpatient Vital Signs collected on the date of the Encounter. Date/Time Temperature Pulse Blood Pressure Respiratory Rate SP02 Pain Height Weight Body Mass Index Source Oct 12, 2022 02:27 PM 75 /min 151/82 mm[Hg] 18 /min 96 % 181.9 lb 27 [facility] Social History: Smoking Status (Most current) and Tobacco Use (All prior to encounter date) This section includes the most current, and the historical, smoking and tobacco- related health factors from the [facility] where the Encounter took place. Current Smoking Status This section includes the most current smoking, or tobacco-related health factor, from the [place] facility where the Encounter took place. Date/Time Current Smoking Status Comment Facil ity Aug 20, 2022 03:30 PM VA-TOBACCO FORMER USER [facility] Tobacco Use History This section includes a history of the smoking, or tobacco-related health factors, that were collected on or before the date of the Encounter. The data comes from the [facility] where the Encounter took place. Date/Time Smoking Status/Tobacco Use Comment F acility Aug 20, 2022 03:30 PM VA-TOBACCO QUIT 15 YRS OR MORE [facility] Jul 22, 2021 02:00 PM VA-TOBACCO FORMER USER [facility] Jul 22, 2021 02:00 PM VA-TOBACCO QUIT 15 YRS OR MORE [facility] Apr 05, 2019 09:50 AM VA-TOBACCO FORMER USER [facility] Apr 05, 2019 09:50 AM VA-TOBACCO QUIT 15 YRS OR MORE [facility] Apr 12, 2018 09:36 AM VA-TOBACCO FORMER USER [facility] Apr 12, 2018 09:36 AM VA-TOBACCO QUIT 15 YRS OR MORE [facility] Apr 19, 2017 01:40 PM FORMER TOBACCO USER 7Y OR GREATE R [facility] Apr 17, 2016 10:49 AM FORMER TOBACCO USER 7Y OR GREATE R [facility] Mar 18, 2015 09:40 AM FORMER TOBACCO USER 7Y OR GREATE R [facility] Mar 07, 2014 09:45 AM FORMER TOBACCO USER 7Y OR GREATE R [facility] Jan 26, 2012 03:48 PM FORMER TOBACCO USER 7Y OR GREATE R [facility] Encounter Notes: All associated encounter notes This section contains the clinical notes associated to the Encounter. Date/Time Encounter Note(s) Provider Source Oct 12, 2022 02:33 PM SLEEP MEDICINE CON SULT: LOCAL TITLE: SLEEP MEDICINE CONSULT STANDARD TITLE: SLEEP MEDICINE CONSULT DATE OF NOTE: OCT 12, 2022@14:33 ENTRY DATE: OCT 12, 2022@14:33:13 AUTHOR: PEDRO HARRISON COSIGNER: URGENCY: STATUS: COMPLETED Sleep medicine evaluation History of Present Illness: -Lev is a 77y/o male with a significant PMH for HTN, HLD, CAD (s/p NE 2008), (s/p TAVR 2020), PTSD, and GERD. Sleep medicine was consulted for evaluation of dream enactment behavior. Lev reports symptoms started 6mo ago. He woke has he hit his as he was sleeping. He does not recall dream content at the time but his stated he was vocalizing statements in his sleep that he would have said during combat. There have been a total of three episodes in the past 6mo occurring between the hours of 12am-4am. There have been no symptoms in the past month. -Lev also has a history of sleep apnea that was diagnosed in 2019 with a pAHI: 57. He was prescribed APAP following his sleep study but never trailed the device. He also received a replacement machine and has not turned it on. He reports a history of claustrophobia and he had concerns about his ability to tolerate PAP. Nightmares -Onset: 1967 -Hasn't remembered dream content in the past 6mo -Previous content was dreams of persecution Sleep Schedule -Bedtime: 10pm -Sleep latency: <5min -Nocturnal awakenings: 2-3x (nocturia), back asleep w/in <5min -Rise time: 5:30am (takes 5min to get going) -Naps: none -Rx: melatonin 3mg (x 1mo), feels more rested Past medication trials for sleep: none 09/27/2019 - WPAT sleep study 56.9 PAT Apnea Hypopnea Index (AHI) 43.7 Oxygen Desaturation Index (ROZINA) 75.0 Supine pAHI 41.5 Non-Supine pAHI 24.7 pAHIc 30.3 % [employer] 27.8 patient's body mass index 94 mean SpO2 % 85 minimum SpO2 % 10.6 %Omega 1.1% of time SpO2 < 90% Total Study Time: 8 hours 55 minutes PAT Valid Sleep Time (PVST): 6 hours 48 minutes [place] Sleepiness Scale Using the scale: 0=Never 1=Slight chance of dozing 2=Moderate chance of dozing 3=High chance of dozing, how often are you likely to doze off in the following situations? 1. Sitting and reading 1 2. Watching TV 2 3. Sitting inactive in a public place 0 4. As a passenger in a car for an hour without a break 0 5. Lying down to rest in the afternoon as circumstances permit 0 6. Sitting and talking to someone 0 7. Sitting quietly after lunch without alcohol 0 8. In a car while stopped for a few minutes in traffic 0 TOTAL: 3 INSOMNIA SEVERITY INDEX: none: 0, mild: 1, moderate: 2, severe: 3, very: 4 1. Difficulty falling asleep (1) 2. Difficulty staying asleep (2) 3. Problem waking up too early (1) 4. How satisfied/dissatisfied are you with your current sleep (1) 5. To what extent do you consider your sleep problem to interfere with your daily functioning (1) 6. How noticeable to others do you think your sleep problem is in terms of impairing the quality of your life (1) 7. How worried/distressed are you about your current sleep problem (2) Total: 9 0-7: No clinically significant insomnia 8-14: Subthreshold insomnia 15-21: Clinical insomnia (moderate severity) 22-28: Clinical insomnia (severe) Review of Systems: The confirms or denies the following symptoms as noted: Non-restorative sleep: + Snoring: + Witnessed apneas: - Gasping: - Nocturia: + Morning headaches: - Difficulty initiating sleep: - Difficulty maintaining sleep: + Sleep Walking: - Somniloquy: - Sleep paralysis: - Hypnagogic hallucinations: - Hypnopompic hallucinations: + (visual 2x/mo) Dry mouth: + Nocturnal limb movements: Nightmares: + RLS: - Nasal congestion: + Past Medical History Active problems - Computerized Problem List is the source for the followin. Hypertension 2. Hyperlipidemia 3. Arthritis 4. Coronary arteriosclerosis - S/P NE in 2008. - S/P PCI x 3 [...] Aortic stenosis - Echo (01/2017) EF 55-60%, JESSÚ 1.1cm2, grad 24.7mmHg - s/p TAVR done locally summer 2020 13. Irritability 14. Vitamin D deficiency 15. Gastroesophageal reflux disease 16. Tinea corporis 17. Carpal tunnel syndrome of right wrist 18. Prosthetic heart valve in situ 19. Posttraumatic stress disorder Medications: Active Outpatient Medications (including Supplies): Outpatient Medications Status 1) CETIRIZINE HCL 10MG TAB TAKE ONE TABLET BY MOUTH ACTIVE EVERY DAY ALLERGIC CONJUNCTIVITIS 2) CHOLECALCIF 10MCG (D3-400UNIT) TAB TAKE ONE TABLET BY ACTIVE MOUTH EVERY DAY THIS IS VITAMIN DROP 3) CLOPIDOGREL BISULFATE 75MG TAB TAKE ONE TABLET BY ACTIVE (S) MOUTH EVERY DAY FOR HEART DISEASE INDEFINITELY 4) FAMOTIDINE 20MG TAB TAKE ONE TABLET BY MOUTH TWICE A ACTIVE DAY TO DECREASE STOMACH ACID 5) FINASTERIDE 5MG TAB TAKE ONE TABLET BY MOUTH EVERY ACTIVE DAY FOR PROSTATE 6) FLUOROMETHOLONE 0.1% OPH SUSP INSTILL 1 DROP IN BOTH ACTIVE EYES FOUR TIMES A DAY FOR INFLAMMATION 7) KETOTIFEN 0.025% OPH SOLN INSTILL 1 DROP IN BOTH EYES ACTIVE TWICE A DAY ALLERGIC CONJUNCTIVITIS 8) MELATONIN 3MG CAP/TAB TAKE 1 TABLET BY MOUTH EVERY ACTIVE EVENING FOR RESTFUL SLEEP ONE HOUR BEFORE BEDTIME. MAY INCREASE TO 2 TABLETS AFTER ONE WEEK IF STILL HAVING RESTLESS SLEEP. 9) ROSUVASTATIN CA 40MG TAB TAKE ONE TABLET BY MOUTH ACTIVE EVERY DAY F CHOLESTEROL 10) SERTRALINE HCL 100MG TAB TAKE ONE TABLET BY MOUTH ACTIVE EVERY DAY FOR ANGER/IRRITABILITY Non-VA Medications Status 1) Non-VA ASPIRIN 81MG EC TAB 81MG MOUTH ACTIVE 2) Non-VA MULTIVITAMIN/MINERALS SENIOR FORMULA TAB 1 ACTIVE TABLET MOUTH EVERY DAY 12 Total Medications Allergies: EGGS (May 01, 2016) Physical Exam: Vitals: BP: 151/82 (10/12/2022 14:27) P: 75 (10/12/2022 14:27) R: 18 (10/12/2022 14:) T: 98.3 F [36.8 C] (08/20/2022 15:51) WT: 181.9 lb [82.51 kg] (10/12/2022 14:27) Pain: 0 (08/20/2022 15:51) ECHO 01/22/2017 1. Normal left ventricular size and systolic function with an estimated ejection fraction between 55%-65% and no regional wall motion abnormalities. 2. Moderate aortic valve stenosis. Impression: 1. Sleep apnea: risks of untreated MAE discussed with 2. 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 Nasal congestion 4. Nightmares: improved in the past 6mo Recommendation: 1. is willing to trial PAP. Rx set in care rn bariatric for APAP 6- [id number]. Okay would like to trial the N30i nasal mask. Alerting RN to mail to . 2. Reassessment of symptoms of RBD once MAE treatment has been optimized 3. Flonase to take as needed for nasal congestion 4. RTC in 2-3mo 60 minutes spent on chart review, examining the , and documentation of the note /es/ GREG HARRIS PHYSICIAN HYPERBARIC NURSE Signed: 10/13/2022 22:40 Receipt Acknowledged By: * AWAITING SIGNATURE * AALIYAH PINA JESSICA J [facility] Oct 12, 2022 02:28 PM INTERNAL MEDICINE OUTPATIENT NOTE: LOCAL TITLE: MEDICINE CLINIC NURSING NOTE STANDARD TITLE: INTERNAL MEDICINE OUTPATIENT NOTE DATE OF NOTE: OCT 12, 2022@14:28 ENTRY DATE: OCT 12, 2022@14:28:17 AUTHOR: MO HAYWOOD COSIGNER: URGENCY: STATUS: COMPLETED TYPE OF VISIT: Appointment Check In Type of appointment: In-person appointment REASON FOR VISIT: follow up ALLERGIES: WILY (May 01, 2016) VITAL SIGNS: Blood Pressure: 151/82 (10/12/2022 14:27)rechecked:143/76 no symptoms Pulse: 75 (10/12/2022 14:27) Respiration: 18 (10/12/2022 14:27) Temperature: 98.3 F [36.8 C] (08/20/2022 15:51) Weight: 181.9 lb [82.51 kg] (10/12/2022 14:) Height: 69.5 in [176.5 cm] (08/20/2022 15:51) BMI: 26.5 O2 Sat: 96% (10/12/2022 14:27) Pain: 0 (08/20/2022 15:51) PAIN SCREEN: Patient is not having significant pain that they wish to discuss with their provider today. MEDICATION Over the Counter/Herbal Medications: The patient denies taking any outside medications or herbals. Sleep Clinic C-SSRS Screening [place] Suicide Severity Rating Scale (C-SSRS) screener 1. Over the past month, have you [...] due to responses to other questions. /yolande/ MO HAYWOOD LPN LPN Signed: 10/12/2022 14:29 MO HAYWOOD [facility]
--- OUTSIDE RECORDS SUMMARY | 2023-08-30 08:47 | XMS_ITS | Encounter Summary ---
Author Name [facility] Organization Department of Veter[facility] ns Affairs Address [address] [place] [address] Support Name Relationship Address Phone ALYSSA HARDY Next of [place] [address] [place] [address] ALYSSA HARDY Emergency Contact [address] [place] [address] Insurance Providers: All historical and [...] Butts's Name Patient's Relationship to Policy Butts [facility] MEDICARE SUPPLEMEN NARCISA LISA R HIGINIO INDIV IDU Jul 19, 2016 [id number] Estrella HARDY PATIENT [facility] MEDICARE SUPPLEMEN NARCISA LISA R GOLD INDIV IDU Jul 19, 2016 [id number] [phone] Estrella HARDY PATIENT MEDICARE (WNR) MEDICARE (M) PART A Aug 19, 2011 PART A [id number] Estrella HARDY PATIENT MEDICARE (WN) MEDICARE (M) PART B Aug 19, 2011 PART B [id number] [phone] Estrella HARDY PATIENT Selected Encounter This section includes the information on record at [place] for the Encounter. Date/Time Encounter Type Encounter Description Reason Provider Source Sep 30, 2022 11:30 AM ORTHC/PROSTC MGMT SBSQ ENC PROSTHETICS/ORTHO TICS ICD-10-CM M21.619 Bunion of unspecified foot THA,JOSH LES JACQUELINE E Encounter Template Text not used by [facility] Assessments - Encounter Diagnoses This section includes the primary and secondary diagnoses documented for the Encounter. Date/Time Primary/Secondary Diagnosis Diagnosis Name Provider Source Oct 01, 2022 02:41 PM PRIMARY Bunion of unspecified foot THA,JOSH DANTE RAMN [facility] Plan of Treatment: Future Appointments (+ 6 months) and Future Tests (+/- 45 days) The Plan of Treatment section includes future care activities for the patient [facility] [place] [facility] This section includes future appointments and future orders which are active, pending or scheduled. Future Appointments This section includes appointments that were scheduled to occur 6 months from the date of the Encounter, up to a maximum of 20 appointments. The data comes from all [place] treatment facilities. Appointment Date/Time Appointment Type Appointme nt Facility Name Oct 12, 2022 02:30 PM AMBULATORY - MEDICINE [facility] Oct 12, 2022 03:30 PM AMBULATORY [facility]ATRY [facility] November 16, 2022 08:00 AM AMBULATORY [facility]AT[facility] November 16, 2022 08:30 AM AMBULATORY [facility] November 27, 2022 02:00 PM AMBULATORY [facility]ATRY [facility] December 11, 2022 02:00 PM AMBULATORY [facility]ATRY [facility] Dec 29, 2022 12:30 PM AMBULATORY - REHAB [facility] Jan 14, 2023 09:00 AM AMBULATORY - MEDICINE [facility] Jan 14, 2023 01:00 PM AMBULATORY - PS[facility]CHIATRY [facility] Feb 03, 2023 02:00 PM AMBULATORY [facility] Feb 26, 2023 02:00 PM AMBULATORY [facility]AT[facility] Mar 11, 2023 02:30 PM AMBULATORY - SURGERY [facility] Apr 01, 2023 01:45 PM AMBULATORY - MEDICINE [facility] Lab Results: +/- 30 days of the encounter This section includes the Chemistry and Hematology Lab Results on record with [place] for the patient. Radiology Reports and Pathology Reports are provided separately, in subsequent sections. Lab Results This section contains the Chemistry/Hematology Results that were resulted 30 days before or 30 daysafter the date of the Encounter. Date/Time Source Result Type Result - Unit Interpretation Reference Range Comment Sep 09, 2022 10:15 AM [facility] ANCA Specimen Type: SERUM No comment entered. Ordering Provider: SAMIR OROZCO Report Released Date/Time: Sep 09, 2022 09:55 AM Reporting Lab: [facility] [id number] Performing Lab: [address] .CYTOPLASMIC ANCA NEGATIVE -neg .PERINUCLEAR ANCA NEGATIVE -neg Sep 09, 2022 10:15 AM [facility] ANGIOTENSIN CONVERTING ENZYME Specimen Type: SERUM Comment: Test Performed by [employer] [place], [address] [place] [address] Joel Woodard M.D., Ph.D., Director of Laboratories , CLIA [id number] Ordering Provider: SAMIR OROZCO Report Released Date/Time: Sep 09, 2022 09:55 AM Reporting Lab: [facility] [id number] Performing Lab: [address] ANGIOTENSIN CONVERTING ENZYME 39.0 9-67 Sep 09, 2022 10:15 AM [facility] MURAMIDASE,SERUM Specimen Type: SERUM Comment: This test was developed and its analytical performance characteristics have been determined by [facility] [place], [place]. It has not been cleared or approved by the FDA. This assay has been validated pursuant to the CLIA regulations and is used for clinical purposes. Test Performed by [employer] [place], [address] [place] [address] Joel Woodard M.D., Ph.D., Director of Laboratories , CLIA [id number] Ordering Provider: SAMIR OROZCO Report Released Date/Time: Sep 09, 2022 09:55 AM Reporting Lab: [facility] [id number] Performing Lab: [address] MURAMIDASE,S GEMINI 6.1 5.0-11.0 Social History: Smoking Status (Most current) and Tobacco Use (All prior to encounter date) This section includes the most current, and the historical, smoking and tobacco- related health factors from the [facility] where the Encounter took place. Current Smoking Status This section includes the most current smoking, or tobacco-related health factor, from the [facility] where the Encounter took place. Date/Time Current Smoking Status Comment Facil ity Aug 20, 2022 03:30 PM VA-TOBACCO FORMER USER [facility] Tobacco Use History This section includes a history of the smoking, or tobacco-related health factors, that were collected on or before the date of the Encounter. The data comes from the [facility] where the Encounter took place. Date/Time Smoking Status/Tobacco Use Comment F acility Aug 20, 2022 03:30 PM VA-TOBACCO QUIT 15 YRS OR MORE [facility] Jul 22, 2021 02:00 PM VA-TOBACCO FORMER USER [facility] Jul 22, 2021 02:00 PM VA-TOBACCO QUIT 15 YRS OR MORE [facility] Apr 05, 2019 09:50 AM VA-TOBACCO FORMER USER [facility] Apr 05, 2019 09:50 AM VA-TOBACCO QUIT 15 YRS OR MORE [facility] Apr 12, 2018 09:36 AM VA-TOBACCO FORMER USER [facility] Apr 12, 2018 09:36 AM VA-TOBACCO QUIT 15 YRS OR MORE [facility] Apr 19, 2017 01:40 PM FORMER TOBACCO USER 7Y OR GREATE R [facility] Apr 17, 2016 10:49 AM FORMER TOBACCO USER 7Y OR GREATE R [facility] Mar 18, 2015 09:40 AM FORMER TOBACCO USER 7Y OR GREATE R [facility] Mar 07, 2014 09:45 AM FORMER TOBACCO USER 7Y OR GREATE R [facility] Jan 26, 2012 03:48 PM FORMER TOBACCO USER 7Y OR GREATE R [facility] Encounter Notes: All associated encounter notes This section contains the clinical notes associated to the Encounter. Date/Time Encounter Note(s) Provider Source Oct 01, 2022 02:33 PM ORTHOTICS PROSTHET ICS CONSULT: LOCAL TITLE: PROSTHETICS CONSULT STANDARD TITLE: ORTHOTICS PROSTHETICS CONSULT DATE OF NOTE: OCT 01, 2022@14:33 ENTRY DATE: OCT 01, 2022@14:33:31 AUTHOR: YASIR ALMAZAN COSIGNER: URGENCY: STATUS: COMPLETED Provisional Diagnosis: Bunion of unspecified Foot(ICD-10-CM M21.619) Shoe size: (9.5 (4E) Patient was seen in the prosthetics department for delivery of shoes. Patient states that he has been experiencing plantar foot pain in left 1st met head which was prominant. Depth shoes provided. EDUCATION: Education was provided to patient during this encounter. Patient indicated readiness to learn about educational information re: the following topics: donning/doffing, wash/care instructions, how to report a concern. Additional education training is not indicated. Patient denies further questions. Follow up as needed. /yolande/ YASIR PHILLIPS [employer] Signed: 10/01/2022 14:41 YASIR ALMAZAN [facility]
--- OUTSIDE RECORDS SUMMARY | 2023-08-30 08:47 | XMS_ITS | Encounter Summary ---
Author Name [facility] Organization Department of Veter[facility] Affairs Address [address] [place] [address] Support Name Relationship Address Phone ALYSSA HARDY Next of Kin [address] [place] [address] ALYSSA HARDY Emergency Contact [address] [place] [address] Insurance Providers: All historical and [...] Policy Butts [facility] MEDICARE SUPPLEMEN NARCISA TONIRUTH R GOLD INDIV IDU Jul 19, 2016 [id number] [phone] Estrella HARDY PATIENT [facility] MEDICARE SUPPLEMEN NARCISA SENIO R GOLD INDIV IDU Jul 19, 2016 [id number] Estrella HARDY ICHARD PATIENT MEDICARE (WNR) MEDICARE (M) PART A Aug 19, 2011 PART A [id number] [phone] Estrella HARDYARD PATIENT MEDICARE (WNR) MEDICARE (M) PART B Aug 19, 2011 PART B [id number] Estrella HARDY PATIENT Selected Encounter This section includes the information on record at [place] for the Encounter. Date/Time Encounter Type Encounter Description Reason Pro vider Source Oct 12, 2022 03:30 PM Outpatient Encounter PSYCHOGERIATRIC - INDIVIDUAL IHE Encounter Template Text not used by [place] Plan of Treatment: Future Appointments (+ 6 months) and Future Tests (+/- 45 days) The Plan of Treatment section includes future care activities for the patient from all [facility]. This section includes future appointments and future orders which are active, pending or scheduled. Future Appointments This section includes appointments that were scheduled to occur 6 months from the date of the Encounter, up to a maximum of 20 appointments. The data comes from all [facility] facilities. Appointment Date/Time Appointment Type Appointme nt Facility Name November 16, 2022 08:00 AM AMBULATORY [place] [facility] November 16, 2022 08:30 AM AMBULATORY - PSYCHIATRY [facility] November 27, 2022 02:00 PM AMBULATORY - PSYCHIATRY [facility] December 11, 2022 02:00 PM AMBUL[place] [facility] Dec 29, 2022 12:30 PM [facility] Jan 14, 2023 09:00 AM AMBULATORY - MEDICINE [facility] Jan 14, 2023 01:00 PM AMBULATORY - PSYCHIATRY [facility] Feb 03, 2023 02:00 PM AMBULATORY - PSYCHIATRY [facility] Feb 26, 2023 02:00 PM AMBULATORY - PSYCHIATRY [facility] Mar 11, 2023 02:30 PM AMBULATORY - SURGERY [facility] Apr 01, 2023 01:45 PM AMBULATORY - MEDICINE [facility] Vital Signs: All taken on the encounter date This section contains inpatient and outpatient Vital Signs collected on the date of the Encounter. Date/Time Temperature Pulse Blood Pressure Respiratory Rate SP02 Pain Height Weight Body Mass Index Source Oct 12, 2022 02:27 PM 75 /min 151/82 mm[Hg] 18 /min 96 % 181.[address] [facility] Social History: Smoking Status (Most current) and Tobacco Use (All prior to encounter date) This section includes the most current, and the historical, smoking and tobacco- related health factors from the [place] facility where the Encounter took place. Current Smoking Status This section includes the most current smoking, or tobacco-related health factor, from the [place] facility where the Encounter took place. Date/Time Current Smoking Status Deon lutz Aug 20, 2022 03:30 PM VA-TOBACCO FORMER USER [facility] Tobacco Use History This section includes a history of the smoking, or tobacco-related health factors, that were collected on or before the date of the Encounter. The data comes from the [place] facility where the Encounter took place. Date/Time Smoking Status/Tobacco Use Comment F acility Aug 20, 2022 03:30 PM VA-TOBACCO QUIT 15 YRS OR MORE [facility] Jul 22, 2021 02:00 PM VA-TOBACCO FORMER USER [facility] Jul 22, 2021 02:00 PM VA-TOBACCO QUIT 15 YRS OR MORE [facility] Apr 05, 2019 09:50 AM VA-TOBACCO FORMER USER [facility] Apr 05, 2019 09:50 AM VA-TOBACCO QUIT 15 YRS OR MORE [facility] Apr 12, 2018 09:36 AM VA-TOBACCO FORMER USER [facility] Apr 12, 2018 09:36 AM VA-TOBACCO QUIT 15 YRS OR MORE [facility] Apr 19, 2017 01:40 PM FORMER TOBACCO USER 7Y OR GREATE R [facility] Apr 17, 2016 10:49 AM FORMER TOBACCO USER 7Y OR GREATE R [facility] Mar 18, 2015 09:40 AM FORMER TOBACCO USER 7Y OR GREATE R [facility] Mar 07, 2014 09:45 AM FORMER TOBACCO USER 7Y OR GREATE R [facility] Jan 26, 2012 03:48 PM FORMER TOBACCO USER 7Y OR GREATE R [facility] Encounter Notes: All associated encounter notes This section contains the clinical notes associated to the Encounter. Date/Time Encounter Note(s) Provider Source Oct 12, 2022 03:30 PM NO SHOW NOTE: LOCAL TITLE: NO SHOW NOTE STANDARD TITLE: NO SHOW NOTE DATE OF NOTE: OCT 12, 2022@15:30 ENTRY DATE: OCT 12, 2022@16:29:43 AUTHOR: ALEXANDER MILLER COSIGNER: BOBBI VALLE URGENCY: STATUS: COMPLETED Patient did not appear for scheduled appointment. Risk Factors: per Data Base Update dated 09/11/2022: Age, race, chronic MH diagnoses, medical comorbidities, ongoing mental health symptoms, disrupted sleep Protective Factors: per Data Base Update dated 09/11/2022: to of 54yrs, taking medications, help-seeking, no prior SA/SH, no current SH/SI, is able to make a plan for safety, no problematic substance use, employed/financially stable, adequate social support C-SSRS Screening completed today, documented in [facility] Nursing Note dated 10/12/2022: negative Clinician Judgment of Risk: Based on risk and protective factors, the patient is considered to be at low acute risk for committing harm-related acts and at low chronic/long-term risk. Plan Based on Clinician Judgment of Risk: Based on clinical judgment of risk, is clinically appropriate to return to clinic as scheduled. [place] has contact information for food writer, outpatient MH, local emergency services, and crisis hotline. First outreach initiated 10/12/2022 by food writer via telephone; did not answer, so brief VM left with food writer's contact information and inviting return call. Will cosign air support operations operator to alert for need for additional follow-up. /yolande/ [place] CAN PHD Graduate Psychologist Signed: 10/12/2022 16:32 /yolande/ BOBBI VALLE, PHD, LP, ABPP STAFF NEUROPSYCHOLOGIST Cosigned: 10/13/2022 08:26 Receipt Acknowledged By: * AWAITING SIGNATURE * ADAMA BROWN ANDREA E [facility]
--- OUTSIDE RECORDS SUMMARY | 2023-08-30 08:48 | XMS_ITS | Encounter Summary ---
Author Name [facility] Organization Department of Vetera Affairs Address [address] [place] [address] Support Name Relationship Address Phone ALYSSA HARDY Next of Kin [address] [place] [address] ALYSSA HARDY Emergency Contact [address] [place] [address] Insurance Providers: All historical and [...] Butts's Name Patient's Relationship to Policy Butts [facility] MEDICARE SUPPLEMEN NARCISA LISA R GOLD INDIV IDU Jul 19, 2016 [id number] [phone] Estrella HARDY PATIENT [facility] MEDICARE SUPPLEMEN NARCISA SENIO R GOLD INDIV IDU Jul 19, 2016 [id number] Estrella HARDY ICHARD PATIENT MEDICARE (WNR) MEDICARE (M) PART A Aug 19, 2011 PART A [id number] [phone] Estrella HARDYARD PATIENT MEDICARE (WNR) MEDICARE (M) PART B Aug 19, 2011 PART B [id number] [phone] Estrella HARDY PATIENT Selected Encounter This section includes the information on record at [place] for the Encounter. Date/Time Encounter Type Encounter Description Reason Pro vider Source November 16, 2022 11:00 AM Outpatient Encounter PSYCHOGERIATRIC - INDIVIDUAL IHE Encounter Template Text not used by [place] Plan of Treatment: Future Appointments (+ 6 months) and Future Tests (+/- 45 days) The Plan of Treatment section includes future care activities for the patient from all [facility]. This section includes future appointments and future orders which are active, pending or scheduled. Future Appointments This section includes appointments that were scheduled to occur 6 months from the date of the Encounter, up to a maximum of 20 appointments. The data comes from all [facility]. Appointment Date/Time Appointment Type Appointme nt Facility Name November 27, 2022 02:00 PM AMBULATORY - PS[facility]CHIATRY [facility] December 11, 2022 02:00 PM AMBULATORY - PSYCHIATRY [facility] Dec 29, 2022 12:30 PM AMBULATORY - REHAB MEDICIN E [facility] Jan 14, 2023 09:00 AM AMBULATORY - MEDICINE [facility] Jan 14, 2023 01:00 PM AMBULATORY - PSYCHIATRY [facility] Feb 03, 2023 02:00 PM AMBULATORY - PSYCHIATRY [facility] Feb 26, 2023 02:00 PM AMBULATORY - PSYCHIATRY [facility] Mar 11, 2023 02:30 PM AMBULATORY - SURGERY [facility] Apr 01, 2023 01:45 PM AMBULATORY - MEDICINE [facility] Apr 15, 2023 02:30 PM AMBULATORY - SURGERY [facility] Apr 20, 2023 02:30 PM AMBULATORY - SURGERY [facility] Social History: Smoking Status (Most current) and Tobacco Use (All prior to encounter date) This section includes the most current, and the historical, smoking and tobacco- related health factors from the [place] facility where the Encounter took place. Current Smoking Status This section includes the most current smoking, or tobacco-related health factor, from the [place] facility where the Encounter took place. Date/Time Current Smoking Status Comment Facil ity Aug 20, 2022 03:30 PM VA-TOBACCO FORMER USER [facility] Tobacco Use History This section includes a history of the smoking, or tobacco-related health factors, that were collected on or before the date of the Encounter. The data comes from the [place] facility where the Encounter took place. Date/Time Smoking Status/Tobacco Use Comment F acility Aug 20, 2022 03:30 PM VA-TOBACCO QUIT 15 YRS OR MORE [facility] Jul 22, 2021 02:00 PM VA-TOBACCO FORMER USER [facility] Jul 22, 2021 02:00 PM VA-TOBACCO QUIT 15 YRS OR MORE [facility] Apr 05, 2019 09:50 AM VA-TOBACCO FORMER USER [facility] Apr 05, 2019 09:50 AM VA-TOBACCO QUIT 15 YRS OR MORE [facility] Apr 12, 2018 09:36 AM VA-TOBACCO FORMER USER [facility] Apr 12, 2018 09:36 AM VA-TOBACCO QUIT 15 YRS OR MORE [facility] Apr 19, 2017 01:40 PM FORMER TOBACCO USER 7Y OR GREATE R [facility] Apr 17, 2016 10:49 AM FORMER TOBACCO USER 7Y OR GREATE R [facility] Mar 18, 2015 09:40 AM FORMER TOBACCO USER 7Y OR GREATE R [facility] Mar 07, 2014 09:45 AM FORMER TOBACCO USER 7Y OR GREATE R [facility] Jan 26, 2012 03:48 PM FORMER TOBACCO USER 7Y OR GREATE R [facility] Encounter Notes: All associated encounter notes This section contains the clinical notes associated to the Encounter. Date/Time Encounter Note(s) Provider Source November 16, 2022 08:35 AM NO SHOW NOTE: LOCAL TITLE: NO SHOW/CANCELLATION CLINIC NOTE STANDARD TITLE: NO SHOW NOTE DATE OF NOTE: NOVEMBER 16, 2022@08:35 ENTRY DATE: NOVEMBER 16, 2022@08:51:10 AUTHOR: ALEXANDER MILLER COSIGNER: BOBBI VALLE URGENCY: STATUS: COMPLETED not seen for scheduled appointment due to: [place] cancelled seen briefly (~5 minutes) as part of a warm handoff with Team A RN Castillo Pink and Team A Psychiatrist Joaquín Rasmussen MD, in context of [place]'s request to reschedule today's session. Briefly introduced self, provided card/contact information, and assissted in canceling/rescheduling today's session. Appointment Rescheduled: Yes RTC order entered for approx 1.5 weeks, given [place]'s scheduling preferences. There were no inidcators of acute distress in current encounter. No indicators of change from previously outlined risk and protective factors, or judgments of acute and chronic risk levels. Risk Factors: older White male, chronic MH diagnoses, medical comorbidities, ongoing mental health symptoms, disrupted sleep Protective Factors: connected with physical/medical providers, expresses motivation to engage in physical/mental health care, partnered, taking medications, help-seeking, no prior SA/SH, no current SH/SI,is able to make a plan for safety, no problematic substance use, employed/financially stable, adequate social support C-SSRS Screening completed today (see [place] Screening note dated 11/16/2022): negative Clinician Judgment of Risk: Based on risk and protective factors, the patient is considered to be at low acute risk for committing harm-related acts and at low chronic/long-term risk. Plan Based on Clinician Judgment of Risk: Based on clinical judgment of risk, is clinically appropriate to return to clinic as scheduled. has contact information for magnetic tape typewriter operator, outpatient MH, local emergency services, and crisis hotline. /yolande/ [place] CAN PHD Graduate Psychologist Signed: 11/16/2022 08:57 /yolande/ BOBBI VALLE, PHD, LP, ABPP STAFF NEUROPSYCHOLOGIST Cosigned: 11/16/2022 09:01 HI MILLER [facility]
--- OUTSIDE RECORDS SUMMARY | 2023-08-30 08:48 | XMS_ITS | Encounter Summary ---
Author Name [facility] of [facility] Organization [facility] Address [address] [place] [address] Support Name Relationship Address Phone ALYSSA HARDY Next of Kin [address] [place] [address] ALYSSA HARDY Emergency Contact [address] [place] [address] Insurance Providers: All historical and [...] Name Patient's Relationship to Policy Butts [facility] MEDICARE SUPPLEMEN NARCISA MUÑOZRUTH R HIGINIO INDIV IDU Jul 19, 2016 [id number] 1A Estrella HARDY PATIENT [facility] MEDICARE SUPPLEMEN NARCISA LISA R GOLD INDIV IDU Jul 19, 2016 [id number] Estrella HARDY PATIENT MEDICARE (WNR) MEDICARE (M) PART B Aug 19, 2011 PART B [id number] [phone] Estrella HARDY PATIENT MEDICARE (WNR) MEDICARE (M) PART A Aug 19, 2011 PART A [id number] Estrella HARDY PATIENT Selected Encounter This section includes the information on record at [place] for the Encounter. Date/Time Encounter Type Encounter Description Reason Provider Source November 16, 2022 08:30 AM OFFICE O/P EST MOD 30-39 MIN PSYCHOGERIATRIC - INDIVIDUAL ICD-10-CM F43.10 Post-traumatic stress disorder, unspecified AMBARCARLEE D KRUNAL Shelia Encounter Template Text not used by [place] Assessments - Encounter Diagnoses This section includes the primary and secondary diagnoses documented for the Encounter. Date/Time Primary/Secondary Diagnosis Diagnosis Name Provider Source November 16, 2022 12:34 PM PRIMARY Post-traumatic stress disorder, unspecified ALFIE RASMUSSEN [facility] Plan of Treatment: Future Appointments (+ 6 months) and Future Tests (+/- 45 days) The Plan of Treatment section includes future care activities for the patient from all [facility] This section includes future appointments and future orders which are active, pending or scheduled. Future Appointments This section includes appointments that were scheduled to occur 6 months from the date of the Encounter, up to a maximum of 20 appointments. The data comes from all [place] treatment facilities. Appointment Date/Time Appointment Type Appointme nt Facility Name November 27, 2022 02:00 PM AMBULATORY - PSYCHIATRY [facility] December 11, 2022 02:00 PM AMBULATORY - PSYCHIATRY [facility] Dec 29, 2022 12:30 PM AMBULATORY - REHAB MEDICIN E [facility] Jan 14, 2023 09:00 AM AMBULATORY - MEDICINE [facility] Jan 14, 2023 01:00 PM AMBULATORY - PSYCHIATRY [facility] Feb 03, 2023 02:00 PM AMBULATORY - PSYCHIATRY [facility] Feb 26, 2023 02:00 PM AMBULATORY - PSYCHIATRY [facility] Mar 11, 2023 02:30 PM AMBULATORY - SURGERY [facility] Apr 01, 2023 01:45 PM AMBULATORY - MEDICINE [facility] Apr 15, 2023 02:30 PM AMBULATORY - SURGERY [facility] Apr 20, 2023 02:30 PM AMBULATORY - SURGERY [facility] Social History: Smoking Status (Most current) and Tobacco Use (All prior to encounter date) This section includes the most current, and the historical, smoking and tobacco- related health factors from the NE facility where the Encounter took place. Current Smoking Status This section includes the most current smoking, or tobacco-related health factor, from the NE facility where the Encounter took place. Date/Time Current Smoking Status Deon lutz Aug 20, 2022 03:30 PM VA-TOBACCO FORMER USER [facility] Tobacco Use History This section includes a history of the smoking, or tobacco-related health factors, that were collected on or before the date of the Encounter. The data comes from the NE facility where the Encounter took place. Date/Time Smoking Status/Tobacco Use Comment F acility Aug 20, 2022 03:30 PM VA-TOBACCO QUIT 15 YRS OR MORE [facility] Jul 22, 2021 02:00 PM VA-TOBACCO FORMER USER [facility] Jul 22, 2021 02:00 PM VA-TOBACCO QUIT 15 YRS OR MORE [facility] Apr 05, 2019 09:50 AM VA-TOBACCO FORMER USER [facility] Apr 05, 2019 09:50 AM VA-TOBACCO QUIT 15 YRS OR MORE [facility] Apr 12, 2018 09:36 AM VA-TOBACCO FORMER USER [facility] Apr 12, 2018 09:36 AM VA-TOBACCO QUIT 15 YRS OR MORE [facility] Apr 19, 2017 01:40 PM FORMER TOBACCO USER 7Y OR GREATE R [facility] Apr 17, 2016 10:49 AM FORMER TOBACCO USER 7Y OR GREATE R [facility] Mar 18, 2015 09:40 AM FORMER TOBACCO USER 7Y OR GREATE R [facility] Mar 07, 2014 09:45 AM FORMER TOBACCO USER 7Y OR GREATE R [facility] Jan 26, 2012 03:48 PM FORMER TOBACCO USER 7Y OR GREATE R [facility] Encounter Notes: All associated encounter notes This section contains the clinical notes associated to the Encounter. Date/Time Encounter Note(s) Provider Source November 16, 2022 12:18 PM PSYCHIATRY E & M N OTE: LOCAL TITLE: PSYCHIATRIC EVALUATION & MANAGEMENT STANDARD TITLE: PSYCHIATRY E & M NOTE DATE OF NOTE: NOVEMBER 16, 2022@12:18 ENTRY DATE: NOVEMBER 16, 2022@12:18:22 AUTHOR: ALFIE RASMUSSEN EXP COSIGNER: URGENCY: STATUS: COMPLETED PSYCHIATRIC EVALUATION & MANAGEMENT Has ADDENDA PSYCHIATRIC EVALUATION AND MANAGEMENT FOLLOW UP VISIT Patient presents for mental health followup, appropriate PPE worn throughout. His nightmares have decreased in frequency since our intake visit 09/11, down from 1-3x per week to just 3 total in the past month. Only one in which he was physically acting out, unintentionally hit his while asleep. Feels that during the day, he is generally getting along with and interacting well with others. At the same time, reports continued elevated startle, need for things to be a certain way, no room for error, which he associates to his training and experiences. Primary MH symptoms targets at this time: anger, be less of a boss, have better relationships with people. MENTAL STATUS EXAM: Adult male appearing recorded age. Dressed casually and appropriately for weather. Alert, attentive, well-engaged in interview. Speech is fluent with no word-finding difficulties. Comprehension intact. Mood is better, but still some anger, with pleasant, reactive, warm affect. Logical and organized. No SI or HI. No delusions or obsessions. Insight into relationship between current MH symptoms and history of experience is good. Judgment intact. 11/16/22 MoCA: (+1). 06/07/19 MoCA: SUICIDE RISK ASSESSMENT: Low acute and chronic risk. Risk factors: Age, race, chronic MH diagnoses, medical comorbidities, ongoing mental health symptoms, disrupted sleep. Protective factors: , taking medications, help-seeking, no prior SA/SH, no current SH/SI, able to make plan for safety, no problematic substance use, employed/financially stable, adequate social support. ASSESSMENT: 77 yo [employer] with PTSD, history of MDD, MAE (restarting PAP), history of Agent [place] exposure. Compared to intake visit 09/11, interval reduction in nightmare frequency and associated dream enactment, since starting Melatonin. Continues to endorse hypervigilance, elevated startle, increase emotional reactivity impacting daily interactions. Cognitively intact on basis of interview and screening eval today. No acute safety concerns. Engages in treatment planning outlined below. 1) Increase Sertraline to 150 mg po daily for mood, irritability. 2) Increase Melatonin to 6 mg po one hour before bed. helps manage meds and pt unsure if he yet made this increase; will ask RN to call and check. 3) Scheduled for individual therapy with Dr. Young. 4) Use PAP for MAE, followup with sleep clinic as needed. 5) RTC 2 months. Informed of this providers anticipated move later this year and plan to transition to new provider at that time. Call with any questions or concerns. Aware of clinic contact info and crisis/emergency services to utilize if needed. EDUCATION / SAFETY / MH TREATMENT PLAN: [...] information in medical record, and care coordination: 30min /yolande/ ALFIE RASMUSSEN MD Staff Psychiatrist Signed: 11/16/2022 12:34 11/16/2022 ADDENDUM STATUS: COMPLETED Request Mr. Wilcox please reach out to patient's to review medication changes below, as she helps manage his medications: Increase Sertraline 100 mg tablet to ONE and ONE-HALF tablets by mouth daily (for total daily dose of 150 mg). Please ask how many tabs of Melatonin he is taking at night. If he is not yet taking Melatonin 3 mg tabs at a dose of TWO tablets po one hour before bed, please increase it to this amount (total of 6 mg per night). /yolande/ ALFIE RASMUSSEN MD Staff Psychiatrist Signed: 11/16/2022 12:41 Receipt Acknowledged By: 11/16/2022 14:46 /yolande/ KATHI WILCOX RN-BSN, HIRAM RUSSELL-BSN, HIRAM 11/16/2022 ADDENDUM STATUS: COMPLETED Further regarding Sertraline: When contacting , please also clarify that when the new prescription of Sertraline arrives in the mail, it will be 50 mg (NOT 100 mg) tablets, as [place] has moved away from splitting pills. Therefore, with the new prescription, instructions will be to take THREE of the 50 mg tabs daily, for total dose of 150 mg. /yolande/ ALFIE RASMUSSEN MD Staff Psychiatrist Signed: 11/16/2022 12:43 Receipt Acknowledged By: 11/16/2022 14:45 /es/ LORRIE KERN, HIRAM ANDREW, HIRAM 11/16/2022 ADDENDUM STATUS: COMPLETED Call placed to the 's , Ms. Cardenas at phone number: [phone] to update her of the new medication increase per Dr. Rasmussen's recommendations following the 's F2F appointment today at 0830. 1) Increase Sertraline 100 mg tablet to ONE and ONE-HALF tablets by mouth daily for total daily dose of 150 mg. 2) Please ask how many tabs of Melatonin he is taking at night. If he is not yet taking Melatonin 3 mg tabs at a dose of TWO tablets po one hour before bed, please increase it to this amount (total of 6 mg per night). ASSESSMENT: 1) The reported that the is taking Melatonin 1 Tablet. She will increase the dose to 6 mg. 2) The reported that when the was started on 50 mg, he was good for a while. He was still a little easily annoyed but he was manageable. When the dose was increased to 100mg it was like a switch turned on. He started excessive spending with no control. The garage is full of stuff. She is not in agreement with increasing Sertraline. She is asking if there is a possibility of an alternate medication PLAN: 1) The is not in agreement with increasing the Sertraline dose as it would potentially increase his already bad excessive spending situation. Will wait for Dr. Rasmussen's recommendations moving forward. 2) Alert Dr. Rasmussen to the 's response regarding Sertraline increase for recommendation and then update her. /yolande/ LORRIE KERN, HIRAM ANDREW, HIRAM Signed: 11/16/2022 15:05 Receipt Acknowledged By: 11/17/2022 16:54 /es/ ALFIE RASMUSSEN MD Staff Psychiatrist 11/17/2022 ADDENDUM STATUS: COMPLETED Appreciate the above information provided by patient's . Spending concerns have not come up in my visits thus far with patient, he has not referred to any concerns along these lines in our discussion of MH treatment goals. Reviewing chart, concerns by of Sertraline contributing to excess spending were noted by PCP and MH providers back towards end of 2018, prompting referral to specialty MH at that time. However, on evaluation 06/23/19, by Drs. Lemon and Teena, It appears that it is very low liklihood of Sertraline propogating these concerns and he is not describing hypomania or mark type symptoms that could have been brought on by using an SSRI. Furthermore, with his own increased awareness by talking with his , he has been able to not spend money on such items over the last few weeks. Since he has had tremendous benefit from being on Sertraline 100 mg qd with controlling anxiety/irritability/anger , he was advised to continue on this dose. Then at at 08/21/19 visit: He is still collecting his treasures, again alluding to his childhood with few possessions, in the basement and is now enlisting the help of his grandson, promising 30% profit, to categorize it in a spreadsheet with plans to sell it once the weather gets nicer. Maybe online but not in a garage sale because thats too cheap for these items. He's hoping to finance a trip to [place] for his family with the earnings and anticipates thousands of dollars for the items. He reports that his hasn't bugged him about his spending habits or treasures lately and he spends maybe a couple minutes checking them once a day. And three years later, prior to referral back to clinic, from 09/04/22 note: Patient seems to have complex psychiatric needs - PTSD/anger/irritability and hoarding/potentially unrealistic expectations regarding his treasures. Though this was not discussed in the initial intake visit held by phone. No mention of the word spending in chart until most recent phone contact with on 11/16/22. Patient has remained on Sertraline 100 mg po daily throughout this entire time. RECOMMENDATIONS: OK to hold off on increasing Sertraline. Pt/ should be informed that new rx, however, was already written with higher dose, will come as 50 mg tabs. Instructions are to take THREE daily (for 150 mg), but if he prefers to remain at 100 mg, he can do this by taking TWO daily. If patient is open to this, I think it would be helpful for to join at our next visit, so that we can all collaboratively discuss these concerns, as they impact our treatment planning. Please call patient/ back to see if they would be open to this. Will also alert Dr. Carlos Can to the above, as FYI prior to upcoming therapy visit scheduled for 11/27/22. /es/ ALFIE RASMUSSEN MD Staff Psychiatrist Signed: 11/17/2022 17:07 Receipt Acknowledged By: 11/19/2022 14:53 /es/ KATHI WILCOX RN-BSN, HIRAM RN-BSN, MA 11/18/2022 08:30 /yolande/ HI CAN PHD Graduate Psychologist 11/19/2022 ADDENDUM STATUS: COMPLETED Darrian placed to the 's Ms. Cardenas at phone number [phone] Rasmussen's request to see if they would be open to the plan below. 1) OK to hold off on increasing Sertraline. New prescription will come as 50 mg tabs with instructions to take 3 daily for a total of 150 mg. But if he prefers to remain at 100 mg, he can do this by taking 2 daily. 2) If patient is open to this, it would be helpful for to join at the next visit, so that all can collaboratively discuss his concerns, as they impact his treatment planning. PLAN: 1) The has agreed to hold off on increasing Sertraline to 150mg until the next visit to see if needed. 2) The has agreed to attend the next visit for collaborative discussion of the 's concerns on 01/20/2023 at 13:30. 3) Alert Dr. Rasmussen to this correspondence for record. 4) Alert Dr. Gonzalez to this correspondence for continuity of care purposes. /yolande/ KATHI WILCOX RN-BSN, HIRAM RN-BSN, HIRAM Signed: 11/19/2022 15:06 Receipt Acknowledged By: * AWAITING SIGNATURE * ALFIE RASMUSSEN * AWAITING SIGNATURE * [facility]
--- OUTSIDE RECORDS SUMMARY | 2023-08-30 08:48 | XMS_ITS | Encounter Summary ---
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 Address [address] [place] [address] Support Name Relationship Address Phone ALYSSA HARDY Next of Kin [address] [place] [address] ALYSSA HARDY Emergency Contact [address] [place] [address] Insurance Providers: All historical and [...] Butts's Name Patient's Relationship to Policy Butts [facility] MEDICARE SUPPLEMEN NARCISA TONIIO R GOLD INDIV IDU Jul 19, 2016 [id number] 1A Estrella HARDY PATIENT [facility] MEDICARE SUPPLEMEN NARCISA SENIO R GOLD INDIV IDU Jul 19, 2016 [id number] [phone] HAYLEY,R ICHARD PATIENT MEDICARE (WNR) MEDICARE (M) PART A Aug 19, 2011 PART A [id number] [id number] [phone] HAYLEY,R ICHARD PATIENT MEDICARE (WNR) MEDICARE (M) PART B Aug 19, 2011 PART B [id number] [id number] [phone] Estrella HARDY PATIENT Selected Encounter This section includes the information on record at [place] for the Encounter. Date/Time Encounter Type Encounter Description Reason Pro vider Source IHE Encounter Template Text not used by [facility]
--- OUTSIDE RECORDS SUMMARY | 2023-08-30 08:48 | XMS_ITS | Encounter Summary ---
Author Name [facility] Organization Department of Vetera Affairs Address [address] [place] [address] Support Name Relationship Address Phone ALYSSA HARDY Next of Kin [address] [place] [address] ALYSSA HARDY Emergency Contact [address] [place] [address] Insurance Providers: All historical and [...] Patient's Relationship to Policy Butts [facility] MEDICARE SUPPLEMEN NARCISA LISA R GOLD INDIV IDU Jul 19, 2016 [id number] 1A Estrella HARDY PATIENT [facility] MEDICARE SUPPLEMEN NARCISA SENIO R GOLD INDIV IDU Jul 19, 2016 [id number] [phone] HAYLEYR BREANNAARD PATIENT MEDICARE (WNR) MEDICARE (M) PART A Aug 19, 2011 PART A [id number] [id number] [phone] Estrella HARDYARD PATIENT MEDICARE (WNR) MEDICARE (M) PART B Aug 19, 2011 PART B [id number] [phone] Estrella HARDY PATIENT Selected Encounter This section includes the information on record at MD for the Encounter. Date/Time Encounter Type Encounter Description Reason Pro vider Source November 16, 2022 08:15 AM Outpatient Encounter PSYCHOGERIATRIC - INDIVIDUAL ALFIE VILLALTA Shelia Encounter Template Text not used by MD Plan of Treatment: Future Appointments (+ 6 months) and Future Tests (+/- 45 days) The Plan of Treatment section includes future care activities for the patient from all [facility]. This section includes future appointments and future orders which are active, pending or scheduled. Future Appointments This section includes appointments that were scheduled to occur 6 months from the date of the Encounter, up to a maximum of 20 appointments. The data comes from all [facility] facilities. Appointment Date/Time Appointment Type Appointme nt Facility Name November 27, 2022 02:00 PM AMBULATORY - PSYCHIATRY [facility] December 11, 2022 02:00 PM AMBULATORY - PSYCHIATRY [facility] Dec 29, 2022 12:30 PM AMBULATORY - REHAB [facility] Jan 14, 2023 09:00 AM AMBULATORY - MEDICINE [facility] Jan 14, 2023 01:00 PM AMBULATORY - PSYCHIATRY [facility] Feb 03, 2023 02:00 PM AMBULATORY - PSYCHIATRY [facility] Feb 26, 2023 02:00 PM AMBULATORY - PSYCHIATRY [facility] Mar 11, 2023 02:30 PM AMBULATORY - SURGERY [facility] Apr 01, 2023 01:45 PM AMBULATORY - MEDICINE [facility] Apr 15, 2023 02:30 PM AMBULATORY - SURGERY [facility] Apr 20, 2023 02:30 PM AMBULATORY - SURGERY [facility] Social History: Smoking Status (Most current) and Tobacco Use (All prior to encounter date) This section includes the most current, and the historical, smoking and tobacco- related health factors from the MD facility where the Encounter took place. Current Smoking Status This section includes the most current smoking, or tobacco-related health factor, from the MD facility where the Encounter took place. Date/Time Current Smoking Status Comment Facil ity Aug 20, 2022 03:30 PM VA-TOBACCO QUIT 15 YRS OR MORE [facility] Tobacco Use History This section includes a history of the smoking, or tobacco-related health factors, that were collected on or before the date of the Encounter. The data comes from the MD facility where the Encounter took place. Date/Time Smoking Status/Tobacco Use Comment F acility Aug 20, 2022 03:30 PM MD-TOBACCO QUIT 15 YRS OR MORE [facility] Jul 22, 2021 02:00 PM VA-TOBACCO FORMER USER [facility] Jul 22, 2021 02:00 PM VA-TOBACCO QUIT 15 YRS OR MORE [facility] Apr 05, 2019 09:50 AM VA-TOBACCO FORMER USER [facility] Apr 05, 2019 09:50 AM VA-TOBACCO QUIT 15 YRS OR MORE [facility] Apr 12, 2018 09:36 AM VA-TOBACCO FORMER USER [facility] Apr 12, 2018 09:36 AM VA-TOBACCO QUIT 15 YRS OR MORE [facility] Apr 19, 2017 01:40 PM FORMER TOBACCO USER 7Y OR GREATE R [facility] Apr 17, 2016 10:49 AM FORMER TOBACCO USER 7Y OR GREATE R [facility] Mar 18, 2015 09:40 AM FORMER TOBACCO USER 7Y OR GREATE R [facility] Mar 07, 2014 09:45 AM FORMER TOBACCO USER 7Y OR GREATE R [facility] Jan 26, 2012 03:48 PM FORMER TOBACCO USER 7Y OR GREATE R [facility] Encounter Notes: All associated encounter notes This section contains the clinical notes associated to the Encounter. Date/Time Encounter Note(s) Provider Source November 16, 2022 08:17 AM MENTAL HEALTH NOTE : LOCAL TITLE: MH PROGRESS NOTE STANDARD TITLE: MENTAL HEALTH NOTE DATE OF NOTE: NOVEMBER 16, 2022@08:17 ENTRY DATE: NOVEMBER 16, 2022@08:17:38 AUTHOR: KATHI WILCOX COSIGNER: URGENCY: STATUS: COMPLETED SUBJECT: MOCA MoCA Total Score: 28/30 (+1). Education: One point if [place]'s education < or = to 12. One extra point added for education. Obtained a GED. MoCA Subtest Scores: Visuospatial/Executive: 5/5 Error Comments: N/A Namin/3 Error Comments: N/A Memory: No points 5/5 first trial 5/5 second trial Attention: Digit Span 2/2 Error Comments: N/A Vigilance: 1/1 Number of errors: N/A Serial 7s: 3/3 Number of errors: N/A Language: Repetition: 2/2 Error Comments: N/A Fluency: 07/19 Number of Words: 11 Number of Intrusions/Repetitions: 0 Abstraction: 2/2 Error Comments: N/A Delayed Recall: 3/5 Correct with semantic cue: 0 Correct with multiple choice: 2 Orientation: 6/6 Error Comments: N/A /es/ LORRIE KERN, HIRAM ANDREW MA Signed: 11/16/2022 08:22 Receipt Acknowledged By: * AWAITING SIGNATURE * AMBARALFIE KRUNAL BRENDENKATHI Fly [facility] November 16, 2022 08:15 AM SUICIDE PREVENTION RISK ASSESSMENT SCREENING NOTE: LOCAL TITLE: [place]UMBIA SCREENING NOTE STANDARD TITLE: SUICIDE PREVENTION RISK ASSESSMENT SCREENING NOT DATE OF NOTE: NOVEMBER 16, 2022@08:15 ENTRY DATE: NOVEMBER 16, 2022@08:15:52 AUTHOR: KATHI WILCOX EXP COSIGNER: URGENCY: STATUS: COMPLETED SUBJECT: C-SSRS Screening C-SSRS Screening [place] Suicide Severity Rating Scale (C-SSRS) screener 1. [...] due to responses to other questions. /yolande/ LORRIE KERN, HIRAM ANDREW MA Signed: 11/16/2022 08:17 KATHI WILCOX [facility]
--- OUTSIDE RECORDS SUMMARY | 2023-08-30 08:49 | XMS_ITS | Encounter Summary ---
Author Name [facility] Organization [facility] Address [address] [place] [address] Support Name Relationship Address Phone ALYSSA HARDY Next of [place] [address] [place] [address] ALYSSA HARDY Emergency Contact [address] [place] [address] Insurance Providers: All historical and [...] Patient's Relationship to Policy Butts [facility] MEDICARE SUPPLEMEN NARCISA LISA R GOLD INDIV IDU Jul 19, 2016 [id number] P [id number] [phone] Estrella HARDY PATIENT [facility] MEDICARE SUPPLEMEN NARCISA SENRUTH R GOLD INDIV IDU Jul 19, 2016 [id number] HAYLEYR ICHARD PATIENT MEDICARE (WNR) MEDICARE (M) PART A Aug 19, 2011 PART A [id number] HAYLEYR BREANNAARD PATIENT MEDICARE (WNR) MEDICARE (M) PART B Aug 19, 2011 PART B [id number] [phone] Estrella HARDY PATIENT Selected Encounter This section includes the information on record at CT for the Encounter. Date/Time Encounter Type Encounter Description Reason Pro vider Source November 27, 2022 02:00 PM PSYTX W PT 45 MINUTES PSYCHOGERIATRIC - INDIVIDUAL ICD-10-CM F43.12 Post-traumati c stress disorder, chronic BOBBI VALLE IHE Encounter Template Text not used by CT Assessments - Encounter Diagnoses This section includes the primary and secondary diagnoses documented for the Encounter. Date/Time Primary/Secondary Diagnosis Diagnosis Name Provider Source December 07, 2022 01:25 PM PRIMARY Post-traumatic stress disorder, chronic REX MILLER [facility] Plan of Treatment: Future Appointments (+ 6 months) and Future Tests (+/- 45 days) The Plan of Treatment section includes future care activities for the [facility]. This section includes future appointments and future orders which are active, pending or scheduled. Future Appointments This section includes appointments that were scheduled to occur 6 months from the date of the Encounter, up to a maximum of 20 appointments. The data comes from all [facility] facilities. Appointment Date/Time Appointment Type Appointme nt Facility Name December 11, 2022 02:00 PM AMBULATORY - [place]CHIATRY [place] [facility] Dec 29, 2022 12:30 PM AMBULATORY - REHAB MEDICIN E [facility] Jan 14, 2023 09:00 AM AMBULATORY - MEDICINE [facility] Jan 14, 2023 01:00 PM AMBULATORY - PS[place]CHIATRY [place] [facility] Feb 03, 2023 02:00 PM AMBULATORY - PSYCHIATRY [facility] Feb 26, 2023 02:00 PM AMBULATORY - PSYCHIATRY [facility] Mar 11, 2023 02:30 PM AMBULATORY - SURGERY [facility] Apr 01, 2023 01:45 PM AMBULATORY - MEDICINE [facility] Apr 15, 2023 02:30 PM AMBULATORY - SURGERY [facility] Apr 20, 2023 02:30 PM AMBULATORY - SURGERY [facility] May 25, 2023 09:40 AM AMBULATORY - SURGERY [facility] Social History: Smoking Status (Most current) and Tobacco Use (All prior to encounter date) This section includes the most current, and the historical, smoking and tobacco- related health factors from the [place] facility where the Encounter took place. Current Smoking Status This section includes the most current smoking, or tobacco-related health factor, from the [place] facility where the Encounter took place. Date/Time Current Smoking Status Deon lutz Aug 20, 2022 03:30 PM VA-TOBACCO QUIT 15 YRS OR MORE [facility] Tobacco Use History This section includes a history of the smoking, or tobacco-related health factors, that were collected on or before the date of the Encounter. The data comes from the [place] facility where the Encounter took place. Date/Time [...] Encounter. Date/Time Encounter Note(s) Provider Source November 27, 2022 02:00 PM MENTAL HEALTH CONSULT: [facility] TITLE: MH CONSULT STANDARD TITLE: MENTAL HEALTH CONSULT DATE OF NOTE: NOVEMBER 27, 2022@14:00 ENTRY DATE: NOVEMBER 27, 2022@16:35:20 AUTHOR: ALEXANDER MILLER COSIGNER: BOBBI VALLE URGENCY: STATUS: COMPLETED MH CONSULT Has ADDENDA Team A Psychotherapy Session 1 Date/time: 11/27/2022; 1400 Visit Length: 50 minutes Informed consent procedures were completed at today's session. Online Merchandiser discussed the limits of confidentiality, expectations for therapy, graduate psychologist status, and associated supervision requirements, as well as potential risks, benefits, and complications associated with services. expressed understanding and consented to services. In today's session, [place] indicated readiness to learn for the education provided during this session and indicated understanding by asking questions and making appropriate comments. [place] was seen under the supervision of Bobbi Valle, PhD, ABPP, LP, with whom I discussed the case. S/O: referred from Team A Psychiatrist Joaquín Rasmussen MD, in context of concerns regarding PTSD, mood, and sleep. At today's encounter, provided clarifying information regarding presenting problems and treatment goals. Online Merchandiser and [place] collaboratively identified the following treatment goals for current episode of care: 1. Improve management of anger 2. Manage reactions to intrusive thoughts, memories, and nightmares 3. Enjoy more peace within myself At present encounter, endorsed ongoing experience of reminders (including intrusive thoughts, memories, and nightmares) of stressful experiences, anger, and urges to react to anger. [place] reported ongoing efforts to remain busy, in part due to values-congruent activation and in part to distract from PTSD symptoms. [place] reported some improvements in mood, sleep, and management of anger, which he attributed to medication management and building rapport with providers. expressed strong interest in psychotherapy episode of care. Collaborated with [place] in generating treatment goals. Began dissecting the problem form collaboratively in session to facilitate reflection on internal experiences (e.g., anger, anxiety, frustration) and behavior (e.g., overscheduling), and monitoring between sessions. Online Merchandiser and discussed behavioral, cognitive, and values-based aspects of [place]'s presentation. Reviewed relevant psychoeducation and treatment options. Online Merchandiser and [place] collaboratively decided to initiate an episode of care comprising individual psychotherapy targeting the above goals. Collaboratively decided CPT would offer good fit for [place]'s presenting problems. Online Merchandiser oriented [place] to active, collaborative, time-limited nature of treatment, as well as the utility of between-sessions practice, to which Kimberly was agreeable. A: [place] presents with posttraumatic stress characterized by intrusive thoughts, memories, [...] linear Thought content: Normal, absent evidence of paranoia/delusions/hallucina tions; no Suicidal Ideation/Homicidal Ideation Insight: good Judgment: good Impulse control: good SELF-REPORT MEASURES: PHQ-9: 9 (mild depression symptoms) FALGUNI-7: 8 (mild anxiety symptoms) ALISTAIR: 03/15 (subthreshold clinical insomnia symptoms) PCL-5: (moderate PTSD symptoms) PATIENT EDUCATION: indicated readiness to learn for the education provided during this session as noted above. [place] also indicated understanding by asking questions and making appropriate comments. DIAGNOSES treated in current encounter: Posttraumatic stress disorder, chronic RISK ASSESSMENT: Patient reported the following factors that may increase the risk of homicidal acts or suicidal acts/self-harm: Recent psychosocial stressors; Psychological conditions or symptoms; Medical conditions and health-related problems; Access to lethal means (firearms; stored unloaded in cabinets); Member of a group at increased risk for suicide (older White male/[place] status) Patient reported the following protective factors: Access to and engagement with health care; Reports motivation for medical treatment; Access to and engagement with mental health care; Reports motivation for mental health treatment; Meaningful family relationships; Significant other; Hope for the future; Protective personal traits or beliefs; Muslim or spiritual beliefs/connections; Connections to cultural group(s); Social support system; Strong desire to live/reasons for living; Coping skills Overall Assessment: Based on risk and protective factors, the patient is considered to be at low acute risk for committing harm-related acts and at low chronic/long-term risk. Safety Plan: Based on clinical judgment of risk, is clinically appropriate to return to clinic as scheduled. [place] has contact information for procedure writer, outpatient , local emergency services, and crisis hotline and voiced understanding and willingness to contact above resources, should need arise. MH TREATMENT PLAN: CPT-oriented psychotherapy with procedure writer biweekly. Next RTC entered for approx. 2 weeks in-clinic ([place]'s preferred modality). Treatment will target balanced processing of past stressful events and effective management of intrusive thoughts/memories and strong emotions (e.g., anger). CLINICAL REMINDERS: [facility] Treatment Plan Update: Patient had [facility] Treatment Plan updated at this encounter. /yolande/ REX H[place]S PHD Graduate Psychologist Signed: 11/27/2022 16:36 /jimmy VALLE, PHD, LP, ABPP STAFF NEUROPSYCHOLOGIST Cosigned: 11/27/2022 16:47 11/27/2022 ADDENDUM STATUS: COMPLETED I have reviewed and concur with the graduate psychologist's note. I meet twice weekly with the graduate psychologist to review this and other Veterans' care. I was not present for today's session, but I was available for immediate consultation. was seen today for initial appointment in an episode of care focusing on improving PTSD, mood, and sleep symptoms. Today's session focused on completing informed consent procedures as stated above, reviewing initial treatment goals, discussing history of mental health care, measurement based care, rapport building, and additional assessment of symptoms to inform treatment planning. The [place] actively engaged in discussion in today's session and treatment planning. Initiation of CBT-oriented psychotherapy episode of care. will RTC in 2 weeks. /yolande/ BOBBI VALLE, PHD, LP, ABPP STAFF NEUROPSYCHOLOGIST Signed: 11/27/2022 16:49 REX MILLER [facility] November 27, 2022 02:00 PM MENTAL HEALTH TREATMENT PLAN NOTE: LOCAL TITLE: MH TREATMENT PLAN STANDARD TITLE: MENTAL HEALTH TREATMENT PLAN NOTE DATE OF NOTE: NOVEMBER 27, 2022@14:00 ENTRY DATE: NOVEMBER 27, 2022@16:30:54 AUTHOR: ALEXANDER MILLER COSIGNER: BOBBI VALLE URGENCY: STATUS: COMPLETED TREATMENT PLAN TYPE: Initial MENTAL HEALTH TEAM ASSIGNMENT: Team A MENTAL HEALTH ENGRAVER STEEL PLATE (MHTC): Joaquín Rasmussen MD TEAM MEMBERS & OTHER COLLABORATORS CONTRIBUTING TO THE 'S CARE AND TREATMENT PLAN: Team A Psychology/[place], (supervisor sintering plant: Bobbi Valle, PhD, ABPP, LP); Team A Psychiatry/Joaquín Rasmussen MD; Team A RN/Castillo Pink RN PARTICIPATION IN TREATMENT PLANNING: Met with provider and agreed to plan as discussed FAMILY INVOLVEMENT: Yes; family member invited as appropriate DIAGNOSIS: Posttraumatic stress disorder, chronic SUICIDE RISK ASSESSMENT: Acute low Chronic low Risk factors: Recent psychosocial stressors; Psychological conditions or symptoms; Medical conditions and health-related problems; Access to lethal means (firearms; stored unloaded in cabinets); Member of a group at increased risk for suicide (older White male/ status) Protective Factors: Access to and engagement with health care; Reports motivation for medical treatment; Access to and engagement with mental health care; Reports motivation for mental health treatment; Meaningful family relationships; Significant other; Hope for the future; Protective personal traits or beliefs; Muslim or spiritual beliefs/connections; Connections to cultural group(s); Social support system; Strong desire to live/reasons for living; Coping skills Clinician judgement of risk: Based on risk and protective factors, the patient is considered to be at low acute risk for committing harm-related acts and at low chronic/long-term risk. IDENTIFIED PROBLEMS: [place] presents with posttraumatic stress characterized by intrusive thoughts, memories, and dreams of past stressful experiences, angry and depressed mood, and internal avoidance by distraction, in context of hx stressful experiences and life phase transitions. STRENGTHS: zachary, knowledge of different things/experiences, comradery with fellow humans, support in family BARRIERS: if people dont share same beliefs, if they blow me off because of my age GOAL #1: Enjoy more peace within myself: Manage anger and other reactions to intrusive thoughts, memories, and nightmares INTERVENTION(S)/OBJECTIVE METHODS TO ACCOMPLISH GOAL #1: Individual Psychotherapy with: [place] Hills, PhD (Machine Set Up Technician: Bobbi Valle, PhD, [facility], ) The therapist will assess symptoms at each visit and provide psychoeducation regarding diagnoses and specific interventional strategies. The agrees to ask questions if they have concerns or do not fully understand content or expectations of therapy. [place] will regularly attend appointments and complete agreed upon out-of- session assignments. The frequency of individual appointments will be reassessed by the provider and with each appointment and documented in the progress note. Clinician will provide information regarding available [facility] MH treatment options. Overall MH treatment needs will be periodically assessed at visits. [place] will be encouraged to involve supportive people (e.g., family/friends) in their treatment as applicable. [place] will contact provider as needed for nonemergent MH concerns between appointments; responsible staff will return contact to in timely manner. [place] will use emergency MH options as agreed upon with provider (1, Emergency Department, [facility] Crisis Line). Different evidence-based treatment options were considered and discussed with as part of current treatment planning. Psychiatric Evaluation & Medication Management with: Joaquín Rasmussen MD (RN: Castillo Pink RN) will attend periodic MH appointments with Licensed Independent Provider and/drop forger for monitoring effectiveness of medications, assessing for side-effects, reviewing relevant labs, safety assessments, and screening exams. The frequency of appointments will be reassessed by staff and with each visit and documented in the progress note. Overall MH treatment needs will be periodically reassessed at visits. Staff will provide education regarding conditions, medications, and treatment options. The agrees to ask questions if they have concerns or do not fully understand. Staff will provide supportive therapy to optimize wellness, including education related to symptom management skills, life coping skills, general health/wellness, safety planning and the role of medications. will be encouraged to involve supportive people (e.g., family/friends) in their treatment as applicable will contact staff as needed for nonemergent MH concerns between appointments; responsible staff will return contact to in timely manner. [place] will use emergency MH options as agreed upon with provider (1, Emergency Department, [facility] Crisis Line). Different evidence-based treatment options were considered and discussed with as part of current treatment planning. PROGRESS TOWARD GOAL #1 WILL BE MEASURED BY: self-report, provider(s) observations in progress notes, medication refill history, regular attendance at MH appointments/groups, completion of [id number] assignments, and completion of measurement scale(s). DATE OF NEXT TREATMENT PLAN REVIEW: November /yolande/ REX H[place]S PHD Graduate Psychologist Signed: 11/27/2022 16:36 /yolande/ BOBBI VALLE, PHD, LP, ABPP STAFF NEUROPSYCHOLOGIST Cosigned: 11/27/2022 16:44 REX MILLER [facility]
--- OUTSIDE RECORDS SUMMARY | 2023-08-30 08:49 | XMS_ITS | Encounter Summary ---
Author Name [facility] Organization Department of Veter[facility] Affairs Address [address] [place] [address] Support Name Relationship Address Phone ALYSSA HARDY Next of [place] [address] [place] [address] ALYSSA HARDY Emergency Contact [address] [place] [address] Insurance Providers: All historical and [...] Butts [facility] MEDICARE SUPPLEMEN NARCISA GONZALEZ R HIGINIO INDIV IDU Jul 19, 2016 [id number] P [id number] [phone] Estrella HARDY PATIENT [facility] MEDICARE SUPPLEMEN NARCISA LISA R GOLD INDIV IDU Jul 19, 2016 [id number] Estrella HARDYARD PATIENT MEDICARE (WNR) MEDICARE (M) PART B Aug 19, 2011 PART B [id number] Estrella HARDY PATIENT MEDICARE (WNR) MEDICARE (M) PART A Aug 19, 2011 PART A [id number] [id number] [phone] Estrella HARDY PATIENT Selected Encounter This section includes the information on record at [place] for the Encounter. Date/Time Encounter Type Encounter Description Reason Pro vider Source November 19, 2022 10:09 AM Outpatient Encounter SLEEP MEDICINE IHE Encounter Template Text not used by [place] Plan of Treatment: Future Appointments (+ 6 months) and Future Tests (+/- 45 days) The Plan of Treatment section includes future care activities for the patient [facility] [place] [facility] This section includes future appointments and future orders which are active, pending or scheduled. Future Appointments This section includes appointments that were scheduled to occur 6 months from the date of the Encounter, up to a maximum of 20 appointments. The data comes from all [facility]. Appointment Date/Time Appointment Type Appointme nt Facility Name November 27, 2022 02:00 PM AMBULATORY [place]ATRY [place] [facility] December 11, 2022 02:00 PM AMBULATORY [place]IATRY [place] [facility] Dec 29, 2022 12:30 PM AMBULATORY - REHAB MEDICIN E [facility] Jan 14, 2023 09:00 AM AMBULATORY - MEDICINE [facility] Jan 14, 2023 01:00 PM AMBULATORY - PSYCHIATRY [facility] Feb 03, 2023 02:00 PM AMBULATORY - PSYCHIATRY [facility] Feb 26, 2023 02:00 PM AMBULATORY - PSYCHIATRY [facility] Mar 11, 2023 02:30 PM AMBULATORY - SURGERY [facility] Apr 01, 2023 01:45 PM AMBULATORY - MEDICINE [facility] Apr 15, 2023 02:30 PM AMBULATORY - SURGERY [facility] Apr 20, 2023 02:30 PM AMBULATORY - SURGERY [facility] Social History: Smoking Status (Most current) and Tobacco Use (All prior to encounter date) This section includes the most current, and the historical, smoking and tobacco- related health factors from the [place] facility where the Encounter took place. Current Smoking Status This section includes the most current smoking, or tobacco-related health factor, from the [place] facility where the Encounter took place. Date/Time Current Smoking Status Comment Facil ity Aug 20, 2022 03:30 PM VA-TOBACCO FORMER USER [facility] Tobacco Use History This section includes a history of the smoking, or tobacco-related health factors, that were collected on or before the date of the Encounter. The data comes from the [place] facility where the Encounter took place. Date/Time Smoking Status/Tobacco Use Comment F acility Aug 20, 2022 03:30 PM VA-TOBACCO QUIT 15 YRS OR MORE [facility] Jul 22, 2021 02:00 PM VA-TOBACCO FORMER USER [facility] Jul 22, 2021 02:00 PM VA-TOBACCO QUIT 15 YRS OR MORE [facility] Apr 05, 2019 09:50 AM VA-TOBACCO FORMER USER [facility] Apr 05, 2019 09:50 AM VA-TOBACCO QUIT 15 YRS OR MORE [facility] Apr 12, 2018 09:36 AM VA-TOBACCO FORMER USER [facility] Apr 12, 2018 09:36 AM VA-TOBACCO QUIT 15 YRS OR MORE [facility] Apr 19, 2017 01:40 PM FORMER TOBACCO USER 7Y OR GREATE R [facility] Apr 17, 2016 10:49 AM FORMER TOBACCO USER 7Y OR GREATE R [facility] Mar 18, 2015 09:40 AM FORMER TOBACCO USER 7Y OR GREATE R [facility] Mar 07, 2014 09:45 AM FORMER TOBACCO USER 7Y OR GREATE R [facility] Jan 26, 2012 03:48 PM FORMER TOBACCO USER 7Y OR GREATE R [facility] Encounter Notes: All associated encounter notes This section contains the clinical notes associated to the Encounter. Date/Time Encounter Note(s) Provider Source November 19, 2022 10:09 AM REPORT OF CONTACT: LOCAL TITLE: APPOINTMENT SCHEDULING NOTE STANDARD TITLE: REPORT OF CONTACT DATE OF NOTE: NOVEMBER 19, 2022@10:09 ENTRY DATE: NOVEMBER 19, 2022@10:09:44 AUTHOR: ZAK TSAI EXP COSIGNER: URGENCY: STATUS: COMPLETED Attempted to schedule Return to clinic (RTC) Contact attempt made to 1st attempt Telephone 2nd attempt Letter Other: bad connection with and call was lost. MSA called back and did nto receive an answer. If Rattan calls back, schedule appt for: Return to [facility] SLEEP [facility] on or around ( November 16, 2022 ) for a total of 1 appointment(s) /es/ ZAK TSAI AMSA Signed: 11/19/2022 10:11 ZAK TSAI [facility]
--- OUTSIDE RECORDS SUMMARY | 2023-08-30 08:49 | XMS_ITS | Encounter Summary ---
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 Address [address] [place] [address] Support Name Relationship Address Phone ALYSSA HARDY Next of Kin [address] [place] [address] ALYSSA HARDY Emergency Contact [address] [place] [address] Insurance Providers: All historical and [...] Butts's Name Patient's Relationship to Policy Butts [place] SUPP[place] NARCISA MUÑOZRUTH R GOLD INDIV IDU Jul 19, 2016 [id number] Estrella HARDY PATIENT [place] NARCISA LISA R GOLD INDIV IDU Jul 19, 2016 [id number] Estrella HARDYARD PATIENT MEDICARE (WNR) MEDICARE (M) PART A Aug 19, 2011 PART A [id number] Estrella HARDY PATIENT MEDICARE (WNR) MEDICARE (M) PART B Aug 19, 2011 PART B [id number] [phone] Estrella HARDY PATIENT Selected Encounter This section includes the information on record at [facility] for the Encounter. Date/Time Encounter Type Encounter Description Reason Pro vider Source November 26, 2022 11:50 AM Outpatient Encounter SLEEP MEDICINE IHE Encounter Template Text not used by [facility] Plan of Treatment: Future Appointments (+ 6 months) and Future Tests (+/- 45 days) The Plan of Treatment section includes future care activities for the patient from all [facility]. This section includes future appointments and future orders which are active, pending or scheduled. Future Appointments This section includes appointments that were scheduled to occur 6 months from the date of the Encounter, up to a maximum of 20 appointments. The data comes from all [facility]. Appointment Date/Time Appointment Type Appointme nt Facility Name November 27, 2022 02:00 PM AMBULATORY - [place]RY [facility] December 11, 2022 02:00 PM AMBULATORY - [facility]IATRY [facility] Dec 29, 2022 12:30 PM AMBULATORY - REHAB MEDICIN E [facility] Jan 14, 2023 09:00 AM AMBULATORY - MEDICINE [facility] Jan 14, 2023 01:00 PM AMBULATORY - [facility]CHIATRY [facility] Feb 03, 2023 02:00 PM AMBULATORY - PSYCHIATRY [facility] Feb 26, 2023 02:00 PM AMBULATORY - PSYCHIATRY [facility] Mar 11, 2023 02:30 PM AMBULATORY - SURGERY [facility] Apr 01, 2023 01:45 PM AMBULATORY - MEDICINE [facility] Apr 15, 2023 02:30 PM AMBULATORY - SURGERY [facility] Apr 20, 2023 02:30 PM AMBULATORY - SURGERY [facility] May 25, 2023 09:40 AM AMBULATORY - SURGERY [facility] Social History: Smoking Status (Most current) and Tobacco Use (All prior to encounter date) This section includes the most current, and the historical, smoking and tobacco- related health factors from the [facility] facility where the Encounter took place. Current Smoking Status This section includes the most current smoking, or tobacco-related health factor, from the [facility] facility where the Encounter took place. Date/Time Current Smoking Status Comment Armando ity Aug 20, 2022 03:30 PM VA-TOBACCO FORMER USER [facility] Tobacco Use History This section includes a history of the smoking, or tobacco-related health factors, that were collected on or before the date of the Encounter. The data comes from the [place] facility where the Encounter took place. Date/Time Smoking Status/Tobacco Use Comment F acility Aug 20, 2022 03:30 PM VA-TOBACCO QUIT 15 YRS OR MORE [facility] Jul 22, 2021 02:00 PM VA-TOBACCO FORMER USER [facility] Jul 22, 2021 02:00 PM VA-TOBACCO QUIT 15 YRS OR MORE [facility] Apr 05, 2019 09:50 AM VA-TOBACCO FORMER USER [facility] Apr 05, 2019 09:50 AM VA-TOBACCO QUIT 15 YRS OR MORE [facility] Apr 12, 2018 09:36 AM VA-TOBACCO FORMER USER [facility] Apr 12, 2018 09:36 AM VA-TOBACCO QUIT 15 YRS OR MORE [facility] Apr 19, 2017 01:40 PM FORMER TOBACCO USER 7Y OR GREATE R [facility] Apr 17, 2016 10:49 AM FORMER TOBACCO USER 7Y OR GREATE R [facility] Mar 18, 2015 09:40 AM FORMER TOBACCO USER 7Y OR GREATE R [facility] Mar 07, 2014 09:45 AM FORMER TOBACCO USER 7Y OR GREATE R [facility] Jan 26, 2012 03:48 PM FORMER TOBACCO USER 7Y OR GREATE R [facility] Encounter Notes: All associated encounter notes This section contains the clinical notes associated to the Encounter. Date/Time Encounter Note(s) Provider Source November 26, 2022 11:50 AM REPORT OF CONTACT: LOCAL TITLE: APPOINTMENT SCHEDULING NOTE STANDARD TITLE: REPORT OF CONTACT DATE OF NOTE: NOVEMBER 26, 2022@11:50 ENTRY DATE: NOVEMBER 26, 2022@11:50:12 AUTHOR: ZAK TSAI EXP COSIGNER: URGENCY: STATUS: COMPLETED Attempted to schedule Return to clinic (RTC) Contact attempt made to 1st attempt Telephone 2nd attempt Letter Disposition order request after November Unable to leave voice mail If calls back, schedule appt for: Return to [facility] on or around ( November 16, 2022 ) for a total of 1 appointment(s) /es/ ZAK TSAI AMSA Signed: 11/26/2022 11:51 ZAK TSAI [facility]
--- OUTSIDE RECORDS SUMMARY | 2023-08-30 08:49 | XMS_ITS | Encounter Summary ---
Author Name [facility] Organization Department of Vetera Affairs Address [address] [place] [address] Support Name Relationship Address Phone ALYSSA HARDY Next of Kin [address] [place] [address] ALYSSA HADRY Emergency Contact [address] [place] [address] Insurance Providers: All historical and [...] Butts's Name Patient's Relationship to Policy Butts [facility] MEDICARE SUPPLEMEN NARCISA TONIIO R GOLD INDIV IDU Jul 19, 2016 [id number] [phone] HAYLEYEstrella AYLAAASHLEY PATIENT [place] NARCISA SENIO R GOLD INDIV IDU Jul 19, 2016 [id number] HAYLEY,R ICHARD PATIENT MEDICARE (WNR) MEDICARE (M) PART A Aug 19, 2011 PART A [id number] HAYLEY,R ICHARD PATIENT MEDICARE (WNR) MEDICARE (M) PART B Aug 19, 2011 PART B [id number] [phone] HAYLEYR BREANNAARD PATIENT Selected Encounter This section includes the information on record at [facility] for the Encounter. Date/Time Encounter Type Encounter Description Reason Pro vider Source December 11, 2022 02:00 PM PSYTX W PT 45 MINUTES PSYCHOGERIATRIC - INDIVIDUAL ICD-10-CM F43.12 Post-traumati c stress disorder, chronic MARIA L JULES Shelia Encounter Template Text not used by [facility] Assessments - Encounter Diagnoses This section includes the primary and secondary diagnoses documented for the Encounter. Date/Time Primary/Secondary Diagnosis Diagnosis Name Provider Source Dec 21, 2022 01:48 PM PRIMARY Post-traumatic stress disorder, chronic [facility] Plan of Treatment: Future Appointments (+ 6 months) and Future Tests (+/- 45 days) The Plan of Treatment section includes future care activities for the patient from all [facility]. This section includes future appointments and future orders which are active, pending or scheduled. Future Appointments This section includes appointments that were scheduled to occur 6 months from the date of the Encounter, up to a maximum of 20 appointments. The data comes from all [facility] facilities. Appointment Date/Time Appointment Type Appointme nt Facility Name Dec 29, 2022 12:30 PM AMBULATORY - REHAB MEDICIN E [facility] Jan 14, 2023 09:00 AM AMBULATORY - MEDICINE [facility] Jan 14, 2023 01:00 PM AMBULATORY - PSYCHIATRY [facility] Feb 03, 2023 02:00 PM AMBULATORY - PSYCHIATRY [facility] Feb 26, 2023 02:00 PM AMBULATORY - PSYCHIATRY [facility] Mar 11, 2023 02:30 PM AMBULATORY - SURGERY [facility] Apr 01, 2023 01:45 PM AMBULATORY - MEDICINE [facility] Apr 15, 2023 02:30 PM AMBULATORY - SURGERY [facility] Apr 20, 2023 02:30 PM AMBULATORY - SURGERY [facility] May 25, 2023 09:40 AM AMBULATORY - SURGERY [facility] Social History: Smoking Status (Most current) and Tobacco Use (All prior to encounter date) This section includes the most current, and the historical, smoking and tobacco- related health factors from the [facility] facility where the Encounter took place. Current Smoking Status This section includes the most current smoking, or tobacco-related health factor, from the [facility] facility where the Encounter took place. Date/Time Current Smoking Status Deon lutz Aug 20, 2022 03:30 PM VA-TOBACCO FORMER USER [facility] Tobacco Use History This section includes a history of the smoking, or tobacco-related health factors, that were collected on or before the date of the Encounter. The data comes from the [facility] facility where the Encounter took place. Date/Time Smoking Status/Tobacco Use Comment F acility Aug 20, 2022 03:30 PM VA-TOBACCO QUIT 15 YRS OR MORE [facility] Jul 22, 2021 02:00 PM VA-TOBACCO FORMER USER [facility] Jul 22, 2021 02:00 PM VA-TOBACCO QUIT 15 YRS OR MORE [facility] Apr 05, 2019 09:50 AM VA-TOBACCO FORMER USER [facility] Apr 05, 2019 09:50 AM VA-TOBACCO QUIT 15 YRS OR MORE [facility] Apr 12, 2018 09:36 AM VA-TOBACCO FORMER USER [facility] Apr 12, 2018 09:36 AM VA-TOBACCO QUIT 15 YRS OR MORE [facility] Apr 19, 2017 01:40 PM FORMER TOBACCO USER 7Y OR GREATE R [facility] Apr 17, 2016 10:49 AM FORMER TOBACCO USER 7Y OR GREATE R [facility] Mar 18, 2015 09:40 AM FORMER TOBACCO USER 7Y OR GREATE R [facility] Mar 07, 2014 09:45 AM FORMER TOBACCO USER 7Y OR GREATE R [facility] Jan 26, 2012 03:48 PM FORMER TOBACCO USER 7Y OR GREATE R [facility] Encounter Notes: All associated encounter notes This section contains the clinical notes associated to the Encounter. Date/Time Encounter Note(s) Provider Source December 11, 2022 02:00 PM MENTAL HEALTH NOTE : LOCAL TITLE: MH PROGRESS NOTE STANDARD TITLE: MENTAL HEALTH NOTE DATE OF NOTE: DECEMBER 11, 2022@14:00 ENTRY DATE: DECEMBER 11, 2022@14:09:38 AUTHOR: ALEXANDER MILLER COSIGNER: MARIA L JULES URGENCY: STATUS: COMPLETED MH PROGRESS NOTE Has ADDENDA Team A Psychotherapy Session 2 Date/time: 12/10/2022; 1400 Visit Length: 50 minutes S/O: Melrose returned for follow-up psychotherapy to address concerns regarding PTSD, mood, and sleep. Service Desk Agent and reviewed the following treatment goals: 1. Improve management of anger 2. Manage reactions to intrusive thoughts, memories, and nightmares 3. Enjoy more peace within myself Reviewed self-report measures and discussed interim changes and contributors. reported ongoing anxiety, which he described as long-standing and improved compared to years ago. Melrose also reported angry reactions that have decreased some in interval and which reported responding to more effectively (e.g., acknowledging and letting go vs. engaging/exacting revenge). Affirmed Melrose's awareness of emotions and engagement in effective responses. Offered validation and normalization of emotions and psychoeducation regarding natural vs. manufactured emotions and short-term vs. long-term relief. reported ongoing fatigue and sleep disruption which he thought may be related to untreated sleep apnea. shared fears around wearing PAP, including concerns about ability to tolerate PAP and respond to environment when he feels so closed in. Offered information regarding PAP adherence group, and Melrose was agreeable to referral. Melrose also inquired about availability of [facility] fish cake maker, and medical underwriter will refer. Reviewed Melrose's between-sessions monitoring using dissecting the problem form. Melrose had not completed between-sessions practice. Engaged Melrose in [place]-based discussion, including rationale and importance of between-sessions practice and problem-solving. Reviewed rationale for initiating course of CPT, including empowering Melrose in present, vs. being so affected by past memories, intrusive thoughts, and avoidance. Reviewed psychoeducation and orientation to treatment, and medical underwriter provided handouts. expressed interest in CPT approach and agreed with psychoeducation/formulatio n. He expressed concerns about his ability to commit to regular attendance and between-sessions practice, given work schedule, volunteer schedule, and desire to prioritize medical conditions (e.g., PAP adherence group). Service Desk Agent and discussed options, including (1) trialing course of CPT now, (2) engaging in brief skill building (e.g., distress tolerance) or IRT for nightmares, (3) prioritizing PAP adherence/other medical conditions at present and meeting to check in/re-orient in one month, or (4) concluding current episode of care and inviting to contact medical underwriter/clinic to re-engage when his schedule allows for commitment to evidence-based treatment. elected option (3). Service Desk Agent and debriefed at conclusion of session, discussing 's reactions to session and next steps. asked clarifying questions, expressed willingness to proceed, and expressed commitment to reviewing materials between sessions and contacting medical underwriter with interim needs. A: experiences posttraumatic stress characterized by intrusive [...] good Impulse control: good SELF-REPORT MEASURES: PHQ-9: 02/11 (mild depression symptoms) FALGUNI-7: 07/08 (moderate anxiety symptoms) ALISTAIR: 03/15 (subthreshold clinical insomnia symptoms) PCL-5: 39/ (moderate PTSD symptoms) PATIENT EDUCATION: Melrose indicated readiness to learn for the education [...] the future; Protective personal traits or beliefs; Confucianist or spiritual beliefs/connections; Connections to cultural group(s); Social support system; Strong desire to live/reasons for living; Coping skills Overall Assessment: Based on risk and protective factors, the patient is considered to be at low acute risk for committing harm-related acts and at low chronic/long-term risk. MH TREATMENT PLAN: Next RTC entered for approx. 1 month in-clinic (Melrose's preferred modality) to re-evaluate readiness for treatment and treatment approach (e.g., CPT vs. skill building vs. IRT), in consideration of 's schedule and competing priorities at this time. Alerting Dr. Scott to 's interest in PAP adherence group. Consult placed for Airplane Flight Attendant Supervisor outreach per Melrose's request. ++++++++++ Informed consent procedures reviewed at inception [...] by asking questions and making appropriate comments. Melrose was seen under the supervision of Maria L Jules, PhD, , with whom I discussed the case. ++++++++++ CLINICAL REMINDERS: Relationship Health & Safety Screen: RELATIONSHIP HEALTH & SAFETY SCREEN ENVIRONMENTAL SAFETY CHECK: Environment is safe to proceed INFORMED CONSENT TO SCREEN & DOCUMENT: Individual consents to documentation? Yes Individual consents to proceed with screening? Yes PRIMARY SCREEN: In the past 12 months, how often did a current or former intimate partner (e.g., boyfriend, girlfriend, , , sexual partner): Scream or curse at you: Rarely Insult or talk down to you: Rarely Threaten you with harm: Never Physically hurt you: Never In the past 12 months, how often did a current or former intimate partner force or pressure you to have sexual contact against your will, or when you were unable to say no? Never PRIMARY SCREEN RESULTS: The individual endorsed at least one form of IPV (i.e., endorsed at least one of the 5 items above). SECONDARY SCREEN (Risk Assessment - 3 Questions): Has the IPV behavior increased in frequency/severity in the past 6 months? No Has your partner ever choked or strangled you? No Do you believe your partner may kill you? No SECONDARY SCREEN RESULTS: Secondary Risk Screen is negative (i.e., answered no to all 3 items above) ??The HITS tool is [place] copyright protected by Lee Villa MD, and the user has full rights to use it throughout the [facility] system. DISPOSITION: Provided general IPV education. ADV DIR Notification and Screening: ADVANCE DIRECTIVE NOTIFICATION: Patient was given written notification of the following rights: 1. Accept or refuse any medical treatment. 2. Complete a durable power of attorney at law for health care. 3. Complete a living will. ADVANCE DIRECTIVE SCREENING: Does patient have an Advance Directive? The patient does not have an Advance Directive. The patient does not wish to create an Advance Directive for health care. Comment: Melrose wishes to review materials and discuss with spouse Sexual Orientation: The patient thinks of their sexual orientation as: Choose not to answer /yolande/ HI CAN PHD Graduate Psychologist Signed: 12/11/2022 15:35 /jimmy JULES, PHD, STAFF PSYCHOLOGIST Cosigned: 12/11/2022 15:44 Receipt Acknowledged By: 12/15/2022 07:50 /jimmy SCOTT Psychologist 12/11/2022 ADDENDUM STATUS: COMPLETED I have reviewed this graduate psychologist's note and its content. I concur with this documentation. I meet weekly with this graduate psychologist via telesupervision to review the care of this and other patients. Per the graduated level of responsibility, I provided available supervision for this session. The 's appointment centered discussion about different evidence-based psychotherapy approaches to addressing his MH symptoms and helping him achieve related goals. He was provided with psychoeducation about CPT for trauma, briefer skill-building approaches for MH symptoms, and IRT for nightmares. He and the graduate psychologist agreed to focus on supporting his efforts to manage medical issues/conditions through more limited engagement in care in the near term. There was no evidence of immediate threat of harm to self or others during the session, and he will return for his next appointment in approximately one month (date/time to be arranged by clerical staff). /jimmy JULES, PHD, STAFF PSYCHOLOGIST Signed: 12/11/2022 15:51 12/17/2022 ADDENDUM STATUS: COMPLETED Called once. Someone answered, but provider could not hear anyone on the line. Will make subsequent attempts at outreach. /jimmy SCOTT Psychologist Signed: 12/17/2022 11:08 12/21/2022 ADDENDUM STATUS: COMPLETED 2nd attempt: No answer. Unable to leave vm. Please send letter asking them to call [phone] if they wish to schedule. /jimmy SCOTT Psychologist Signed: 12/21/2022 14:02 Receipt Acknowledged By: 12/22/2022 14:25 /yolande/ GERRY Pereira [facility] ADVANCED CEO & BOARD DIRECTOR 12/22/2022 ADDENDUM STATUS: COMPLETED Spoke to Melrose. He said he is too busy to make the PAP group time work right now but is interested. 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 He prefers not to work with another provider 1:1 at this time, but is open to working with Dr. Gonzalez on some desensitization if possible. Provider will alert Dr. Gonzalez and call [facility] in April as requested. He did not report SI/ HI or sound to be in distress. /yolande/ JORGE SCOTT Psychologist Signed: 12/22/2022 09:29 Receipt Acknowledged By: 12/22/2022 10:11 /yolande/ [place] CAN PHD Graduate Psychologist 04/09/2023 ADDENDUM STATUS: COMPLETED Called Melrose. Spoke briefly to him. He said he is too busy to do PAP group at this time; however, may be interested later fall. He said he would call provider when ready to join. He did not report SI/ HI or sound to be in distress. /yolande/ JORGE SCOTT Psychologist Signed: 04/09/2023 14:39 HI [facility]
--- OUTSIDE RECORDS SUMMARY | 2023-08-30 08:49 | XMS_ITS | Encounter Summary ---
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 Address [address] [place] [address] Support Name Relationship Address Phone ALYSSA HARDY Next of [place] [address] [place] [address] ALYSSA HARDY Emergency Contact [address] [place] [address] Insurance Providers: All historical and [...] Butts's Name Patient's Relationship to Policy Butts [facility] MEDICARE SUPPLEMEN NARCISA SENIO R GOLD INDIV IDU Jul 19, 2016 [id number] P [id number] 1A HAYLEYEstrella AYALA PATIENT [facility] MEDICARE SUPPLEMEN NARCISA SENIO R GOLD INDIV IDU Jul 19, 2016 [id number] HAYLEY,R ICHARD PATIENT MEDICARE (WNR) MEDICARE (M) PART A Aug 19, 2011 PART A [id number] [phone] HAYLEY,R ICHARD PATIENT MEDICARE (WNR) MEDICARE (M) PART B Aug 19, 2011 PART B [id number] [phone] Estrella HARDYARD PATIENT Selected Encounter This section includes the information on record at [place] for the Encounter. Date/Time Encounter Type Encounter Description Reason Pro vider Source November 27, 2022 02:29 PM Outpatient Encounter PSYCHOGERIATRIC - INDIVIDUAL REX MILLER Encounter Template Text not used by [place] Plan of Treatment: Future Appointments (+ 6 months) and Future Tests (+/- 45 days) The Plan of Treatment section includes future care activities for the patient from all [place] [facility] This section includes future appointments and future orders which are active, pending or scheduled. Future Appointments This section includes appointments that were scheduled to occur 6 months from the date of the Encounter, up to a maximum of 20 appointments. The data comes from all [facility] facilities. Appointment Date/Time Appointment Type Appointme nt Facility Name December 11, 2022 02:00 PM AMBULATORY - PSYCHIATRY [facility] Dec 29, 2022 12:30 PM AMBULATORY - REHAB MEDICIN E [facility] Jan 14, 2023 09:00 AM AMBULATORY - MEDICINE [facility] Jan 14, 2023 01:00 PM AMBULATORY - PSYCHIATRY [facility] Feb 03, 2023 02:00 PM AMBULATORY - PSYCHIATRY [facility] Feb 26, 2023 02:00 PM AMBULATORY - PSYCHIATRY [facility] Mar 11, 2023 02:30 PM AMBULATORY - SURGERY [facility] Apr 01, 2023 01:45 PM AMBULATORY - MEDICINE [facility] Apr 15, 2023 02:30 PM AMBULATORY - SURGERY [facility] Apr 20, 2023 02:30 PM AMBULATORY - SURGERY [facility] May 25, 2023 09:40 AM AMBULATORY - SURGERY [facility] Social History: Smoking Status (Most current) [...] 20, 2022 03:30 PM VA-TOBACCO FORMER USER [facility] Tobacco Use History This section includes a history of the smoking, or tobacco-related health factors, that were collected on or before the date of the Encounter. The data comes from the [place] facility where the Encounter took place. Date/Time Smoking Status/Tobacco Use Comment F acility Aug 20, 2022 03:30 PM VA-TOBACCO QUIT 15 YRS OR MORE [facility] Jul 22, 2021 02:00 PM VA-TOBACCO FORMER USER [facility] Jul 22, 2021 02:00 PM VA-TOBACCO QUIT 15 YRS OR MORE [facility] Apr 05, 2019 09:50 AM VA-TOBACCO FORMER USER [facility] Apr 05, 2019 09:50 AM VA-TOBACCO QUIT 15 YRS OR MORE [facility] Apr 12, 2018 09:36 AM VA-TOBACCO FORMER USER [facility] Apr 12, 2018 09:36 AM VA-TOBACCO QUIT 15 YRS OR MORE [facility] Apr 19, 2017 01:40 PM FORMER TOBACCO USER 7Y OR GREATE R [facility] Apr 17, 2016 10:49 AM FORMER TOBACCO USER 7Y OR GREATE R [facility] Mar 18, 2015 09:40 AM FORMER TOBACCO USER 7Y OR GREATE R [facility] Mar 07, 2014 09:45 AM FORMER TOBACCO USER 7Y OR GREATE R [facility] Jan 26, 2012 03:48 PM FORMER TOBACCO USER 7Y OR GREATE R [facility] Encounter Notes: All associated encounter notes This section contains the clinical notes associated to the Encounter. Date/Time Encounter Note(s) Provider Source November 27, 2022 02:29 PM MENTAL HEALTH DIAGNOSTIC STUDY NOTE: LOCAL TITLE: MENTAL HEALTH DIAGNOSTIC STUDY NOTE STANDARD TITLE: MENTAL HEALTH DIAGNOSTIC STUDY NOTE DATE OF NOTE: NOVEMBER 27, 2022@14:29:34 ENTRY DATE: NOVEMBER 27, 2022@14:29:20 AUTHOR: ALEXANDER MILLER COSIGNER: BOBBI VALLE URGENCY: STATUS: COMPLETED PCL-5 WEEKLY Date Given: 11/27/2022 Clinician: Rex Miller Location: [facility] [place] [id number] : Lev Hardy SSN: [id number] : [birth year] ([birth year]) Gender: Male PCL-5 Weekly Score: 24 This measure assesses an individual's perception of [...] and unwanted memories of the stressful experience? Quite a bit 2. Repeated, disturbing dreams of the stressful experience? Quite a bit 3. Suddenly feeling or acting as if the stressful experience were actually happening again (as if you were actually back there reliving it)? Moderately 4. Feeling very upset when something reminded you of the stressful experience? A little bit 5. Having strong physical reactions when something reminded you of the stressful experience (for example, heart pounding, trouble breathing, sweating)? A little bit 6. Avoiding memories, thoughts, or feelings related to the stressful experience? Moderately 7. Avoiding external reminders of the stressful experience (for example, people, places, conversations, activities, objects, or situations)? A little bit 8. Trouble remembering important parts of the stressful experience? A little bit 9. Having strong negative beliefs about yourself, [...] as fear, horror, anger, guilt, or shame? A little bit 12. Loss of interest in activities that you used to enjoy? Not at all 13. Feeling distant or cut off from other people? Not at all 14. Trouble experiencing positive feelings (for example, being unable to feel happiness or have loving feelings for people close to you)? Not at all 15. Irritable behavior, angry outbursts, or acting aggressively? Moderately 16. Taking too many risks or doing things that could cause you harm? Not at all 17. Being superalert or watchful or on [...] and procedures. Insomnia Severity Index Date Given: 11/27/2022 Clinician: Rex Miller Location: [facility] [place] [id number] [place]: Lev Hardy N: [id number] : [birth year] ([birth year]) Gender: Male ALISTAIR score: 8 Score categories: 0 - 7 No clinically significant insomnia 8 - 14 Subthreshold insomnia 15 - 21 Clinical insomnia (moderate severity) 22 - 28 Clinical insomnia (severe) Questions and Answers 1. Difficulty falling asleep. Mild 2. Difficulty staying asleep. Mild 3. Problems waking up too early. Moderate 4. How SATISFIED/DISSATISFIED are you with your CURRENT sleep pattern? Satisfied 5. How NOTICEABLE to others do you [...] Generalized Anxiety Disorder, 7 items Date Given: 11/27/2022 Clinician: Rex Miller Location: [facility] [place] [id number] [place]: Lev Hardy N: [id number] : [birth year] ([birth year]) Gender: Male FALGUNI-7 score: 8 A low score indicates the absence of [...] afraid as if something awful might happen More than half the days Information contained in this note is based on a self-report assessment and is not sufficient to use alone for diagnostic purposes. Assessment results should be verified for accuracy and used in conjunction with other diagnostic activities and procedures. Patient Health Questionnaire - 9 (PHQ-9) Date Given: 11/27/2022 Clinician: Rex Miller Location: [facility] [place] [id number] [place]: Lev Hardy SSN: [id number] : [birth year] ([birth year]) Gender: Male PHQ-9 Depression Scale Score: 9 The total score may range from 0 [...] or staying asleep, or sleeping too much More than half the days 4. Feeling tired or having little energy Several days 5. Poor appetite or overeating Several days 6. Feeling bad about yourself or that you are a failure or have let yourself or your family down Several days 7. Trouble concentrating on things, such as reading the newspaper or watching television More than half the days 8. Moving or speaking so slowly [...] conjunction with other diagnostic activities. Copyright 2001 [employer]. All rights reserved. Reproduced with permission of [employer]. YOVANI is a trademark of [employer] /yolande/ REX HILLS PHD Graduate Psychologist Signed: 11/27/2022 16:36 /yolande/ BOBBI VALLE, PHD, LP, ABPP STAFF NEUROPSYCHOLOGIST Cosigned: 11/27/2022 16:43 REX MILLER [facility]
--- OUTSIDE RECORDS SUMMARY | 2023-08-30 08:50 | XMS_ITS | Encounter Summary ---
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 Address [address] [place] [address] Support Name Relationship Address Phone ALYSSA HARDY Next of Kin [address] [place] [address] ALYSSA HARDY Emergency Contact [address] [place] [address] Insurance Providers: All historical and [...] Name Patient's Relationship to Policy Butts [facility] MEDICARE SUPPLEMEN NARCISA GONZALEZ R HIGINIO MEDRANOIV IDU Jul 19, 2016 [id number] P [id number] 1A Estrella HARDY PATIENT [facility] MEDICARE SUPPLEMEN NARCISA LISA R GOLD INDIV IDU Jul 19, 2016 [id number] [phone] Estrella HARDY PATIENT MEDICARE (WNR) MEDICARE (M) PART A Aug 19, 2011 PART A [id number] [id number] [phone] Estrella HARDY PATIENT MEDICARE (WNR) MEDICARE (M) PART B Aug 19, 2011 PART B [id number] [phone] Estrella HARDY PATIENT Selected Encounter This section includes the information on record at [place] for the Encounter. Date/Time Encounter Type Encounter Description Reason Provider Source Dec 25, 2022 01:00 PM RN CVICU CRUST SORTER INDIVIDU RN CVICU SERVICE - INDIVIDUAL ICD-10-CM Z71.81 Spiritual or mandaen counseling MASOOD ARNETTEstrella PAMELA [facility] Encounter Template Text not used by CT Assessments - Encounter Diagnoses This section includes the primary and secondary diagnoses documented for the Encounter. Date/Time Primary/Secondary Diagnosis Diagnosis Name Provider Source Dec 25, 2022 02:18 PM PRIMARY Spiritual or mandaen counseling ABILIOELINENA VILLATORO [facility] Plan of Treatment: Future Appointments (+ 6 months) and Future Tests (+/- 45 days) The Plan of Treatment section includes future care activities for the patient from all [place] [facility] This section includes future appointments and future orders which are active, pending or scheduled. Future Appointments This section includes appointments that were scheduled to occur 6 months from the date of the Encounter, up to a maximum of 20 appointments. The data comes from all [place] treatment facilities. Appointment Date/Time Appointment Type Appointme nt Facility Name Dec 29, 2022 12:30 PM AMBULATORY - REHAB MEDICIN E [facility] Jan 14, 2023 09:00 AM AMBULATORY - MEDICINE [facility] Jan 14, 2023 01:00 PM AMBULATORY - PSYCHIATRY [facility] Feb 03, 2023 02:00 PM AMBULATORY - PSYCHIATRY [facility] Feb 26, 2023 02:00 PM AMBULATORY - PSYCHIATRY [facility] Mar 11, 2023 02:30 PM AMBULATORY - SURGERY [facility] Apr 01, 2023 01:45 PM AMBULATORY - MEDICINE [facility] Apr 15, 2023 02:30 PM AMBULATORY - SURGERY [facility] Apr 20, 2023 02:30 PM AMBULATORY - SURGERY [facility] May 25, 2023 09:40 AM AMBULATORY - SURGERY [facility] Social History: Smoking Status (Most [...] 20, 2022 03:30 PM VA-TOBACCO FORMER USER [facility] Tobacco Use History This section [...] the Encounter. Date/Time Encounter Note(s) Provider Source Dec 25, 2022 02:18 PM PASTORAL CARE NOTE : LOCAL TITLE: RN CVICU-VISITATION NOTE STANDARD TITLE: PASTORAL CARE NOTE DATE OF NOTE: DEC 25, 2022@14:18 ENTRY DATE: DEC 25, 2022@14:18:16 AUTHOR: MANUELA ARNETT EXP COSIGNER: URGENCY: STATUS: COMPLETED Electronic Components Assembler Visitation Note Patient requested an outpatient visit with knotter hand. The senior consumer insights consultant visited the in the knotter hand department to assess their current spiritual needs, offer spiritual or mandaen support, and provide pastoral care. Summary: Job shared the story of his upbringing, wedding, and service in the . Job began with a story of trauma from his service. 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 Job described other times when he witnessed violence but not to the degree of the initial incident. Job described a persistent anger within him and voiced the desire to be less angry. He recognized and named sources of his anger. 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 Job shared what could be described as a conservative/traditional view of scripture and theology. He is optimistic about their current protestant home as one which will meet his spiritual needs. Job shared he has a daily prayer routine with his and alone. He recognized he does not usually pray for himself. We spoke about that and the possibility of a meditative prayer when faced with surfacing anger - one example is a simple mantra of God is love, in love is God. Business Services Sales Agent provided a listening presence, affirmation of feelings, and prayer. oJb expressed appreciation for the visit and inquired about meeting again. He will contact science writer to schedule an appointment. /yolande/ MANUELA ARNETT Staff Electronic Components Assembler Signed: 12/25/2022 14:43 MANUELA ARNETT [facility]
--- OUTSIDE RECORDS SUMMARY | 2023-08-30 08:50 | XMS_ITS | Encounter Summary ---
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 Address [address] [place] [address] Support Name Relationship Address Phone ALYSSA HARDY Next of Kin [address] [place] [address] ALYSSA HARDY Emergency Contact [address] [place] [address] Insurance Providers: All historical and [...] Patient's Relationship to Policy Butts [facility] MEDICARE SUPPLEMEN NARCISA SENIO R GOLD INDIV IDU Jul 19, 2016 [id number] P [id number] [phone] HAYLEYEstrella AYALA PATIENT [facility] MEDICARE SUPPLEMEN NARCISA SENIO R GOLD INDIV IDU Jul 19, 2016 [id number] [phone] HAYLEY,R ICHARD PATIENT MEDICARE (WNR) MEDICARE (M) PART B Aug 19, 2011 PART B [id number] HAYLEY,R ICHARD PATIENT MEDICARE (WNR) MEDICARE (M) PART A Aug 19, 2011 PART A [id number] [phone] Estrella HARDY PATIENT Selected Encounter This section includes the information on record at [place] for the Encounter. Date/Time Encounter Type Encounter Description Reason Pro vider Source December 11, 2022 03:13 PM Outpatient Encounter PSYCHOGERIATRIC - INDIVIDUAL REX HANSEN Encounter Template Text not used by [place] Plan of Treatment: Future Appointments (+ 6 months) and Future Tests (+/- 45 days) The Plan of Treatment section includes future care activities for the patient from all [place] [facility]. This section includes future appointments and future orders which are active, pending or scheduled. Future Appointments This section includes appointments that were scheduled to occur 6 months from the date of the Encounter, up to a maximum of 20 appointments. The data comes from all [facility] facilities. Appointment Date/Time Appointment Type Appointme nt Facility Name Dec 29, 2022 12:30 PM AMBULATORY - REHAB MEDICIN E [facility] Jan 14, 2023 09:00 AM AMBULATORY - MEDICINE [facility] Jan 14, 2023 01:00 PM AMBULATORY - PSYCHIATRY [facility] Feb 03, 2023 02:00 PM AMBULATORY - PSYCHIATRY [facility] Feb 26, 2023 02:00 PM AMBULATORY - PSYCHIATRY [facility] Mar 11, 2023 02:30 PM AMBULATORY - SURGERY [facility] Apr 01, 2023 01:45 PM AMBULATORY - MEDICINE [facility] Apr 15, 2023 02:30 PM AMBULATORY - SURGERY [facility] Apr 20, 2023 02:30 PM AMBULATORY - SURGERY [facility] May 25, 2023 09:40 AM AMBULATORY - SURGERY [facility] Social History: Smoking Status (Most current) and Tobacco Use (All prior to encounter date) This section includes the most current, and the historical, smoking and tobacco- related health factors from the [place] facility where the Encounter took place. Current Smoking Status This section includes the most current smoking, or tobacco-related health factor, from the [place] facility where the Encounter took place. Date/Time Current Smoking Status Comment Armando lutz Aug 20, 2022 03:30 PM VA-TOBACCO FORMER USER [facility] Tobacco Use History This section includes a history of the smoking, or tobacco-related health factors, that were collected on or before the date of the Encounter. The data comes from the [place] facility where the Encounter took place. Date/Time Smoking Status/Tobacco Use Comment F actg Aug 20, 2022 03:30 PM VA-TOBACCO QUIT 15 YRS OR MORE [facility] Jul 22, 2021 02:00 PM VA-TOBACCO FORMER USER [facility] Jul 22, 2021 02:00 PM VA-TOBACCO QUIT 15 YRS OR MORE [facility] Apr 05, 2019 09:50 AM VA-TOBACCO FORMER USER [facility] Apr 05, 2019 09:50 AM VA-TOBACCO QUIT 15 YRS OR MORE [facility] Apr 12, 2018 09:36 AM VA-TOBACCO FORMER USER [facility] Apr 12, 2018 09:36 AM VA-TOBACCO QUIT 15 YRS OR MORE [facility] Apr 19, 2017 01:40 PM FORMER TOBACCO USER 7Y OR GREATE R [facility] Apr 17, 2016 10:49 AM FORMER TOBACCO USER 7Y OR GREATE R [facility] Mar 18, 2015 09:40 AM FORMER TOBACCO USER 7Y OR GREATE R [facility] Mar 07, 2014 09:45 AM FORMER TOBACCO USER 7Y OR GREATE R [facility] Jan 26, 2012 03:48 PM FORMER TOBACCO USER 7Y OR GREATE R [facility] Encounter Notes: All associated encounter notes This section contains the clinical notes associated to the Encounter. Date/Time Encounter Note(s) Provider Source December 11, 2022 03:13 PM MENTAL HEALTH DIAG NOSTIC STUDY NOTE: LOCAL TITLE: MENTAL HEALTH DIAGNOSTIC STUDY NOTE STANDARD TITLE: MENTAL HEALTH DIAGNOSTIC STUDY NOTE DATE OF NOTE: DECEMBER 11, 2022@15:13:32 ENTRY DATE: DECEMBER 11, 2022@15:13:26 AUTHOR: ALEXANDER HANSEN COSIGNER: MARIA L JULES URGENCY: STATUS: COMPLETED PCL-5 WEEKLY Date Given: 12/11/2022 Clinician: Rex Hansen Location: [facility] [place] [id number] Mcfarlan: Lev Hardy SSN: [id number] : [birth year] ([birth year]) Gender: Male PCL-5 Weekly Score: 39 This measure assesses an individual's perception of [...] something reminded you of the stressful experience? Quite a bit 5. Having strong physical reactions when [...] stressful experience or what happened after it? Moderately 11. Having strong negative feelings such as fear, horror, anger, guilt, or shame? Quite a bit 12. Loss of interest in activities [...] Being superalert or watchful or on guard? Quite a bit 18. Feeling jumpy or easily startled? Moderately 19. Having difficulty concentrating? Moderately 20. Trouble falling or staying asleep? Moderately Information contained in this note is based on a self-report assessment and is not sufficient to use alone for diagnostic purposes. Assessment results should be verified for accuracy and used in conjunction with other diagnostic activities and procedures. Insomnia Severity Index Date Given: 12/11/2022 Clinician: Rex Hansen Location: [facility] [place] [id number] Mcfarlan: Lev Hardy N: [id number] : [birth year] ([birth year]) Gender: Male ALISTAIR score: 8 Score categories: 0 - 7 No clinically significant insomnia 8 - 14 Subthreshold insomnia 15 - 21 Clinical insomnia (moderate severity) 22 - 28 Clinical insomnia (severe) Questions and Answers 1. Difficulty falling asleep. Mild 2. Difficulty staying asleep. Mild 3. Problems waking up too early. None 4. How SATISFIED/DISSATISFIED are you with your [...] work/daily chores, concentration, memory, mood, etc.) CURRENTLY? Somewhat Information contained in this note is based on a self-report assessment and is not sufficient to use alone for diagnostic purposes. Assessment results should be verified for accuracy and used in conjunction with other diagnostic activities and procedures. Generalized Anxiety Disorder, 7 items Date Given: 12/11/2022 Clinician: Rex Hansen Location: [facility] [place] [id number] : HayleyLev Back N: [id number] : [birth year] ([birth year]) Gender: Male FALGUNI-7 score: 12 A low score indicates the absence of [...] 3. Worrying too much about different things More than half the days 4. Trouble relaxing More than half the days 5. Being so restless that it is hard to sit still More than half the days 6. Becoming easily annoyed or irritable More than half the days 7. Feeling afraid as if something awful might happen More than half the days Information contained in this note is based on a self-report assessment and is not sufficient to use alone for diagnostic purposes. Assessment results should be verified for accuracy and used in conjunction with other diagnostic activities and procedures. Patient Health Questionnaire - 9 (PHQ-9) Date Given: 12/11/2022 Clinician: Rex Hansen Location: [facility] [place] [id number] Mcfarlan: Lev Hardy SSN: [id number] : [birth year] ([birth year]) Gender: Male PHQ-9 Depression Scale Score: 7 The total score may range from 0 [...] conjunction with other diagnostic activities. Copyright 2001 [employer]. All rights reserved. Reproduced with permission of [employer]. YOVANI is a trademark of [employer] Sharmin /yolande/ REX [place] PHD Graduate Psychologist Signed: 12/11/2022 15:39 /yolande/ MARIA L JULES, PHD, STAFF PSYCHOLOGIST Cosigned: 12/11/2022 15:51 REX HANSEN [facility]
--- OUTSIDE RECORDS SUMMARY | 2023-08-30 08:50 | XMS_ITS | Encounter Summary ---
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 Address [address] [place] [address] Support Name Relationship Address Phone ALYSSA HARDY Next of Kin [address] [place] [address] ALYSSA HARDY Emergency Contact [address] [place] [address] Insurance Providers: All historical and [...] Butts's Name Patient's Relationship to Policy Butts [facility] MEDICARE SUPPLEMEN NARCISA LISA R GOLD INDIV IDU Jul 19, 2016 [id number] [phone] Estrella HARDY PATIENT [facility] MEDICARE SUPPLEMEN NARCISA LISA R GOLD INDIV IDU Jul 19, 2016 [id number] P [id number] Estrella HARDYARD PATIENT MEDICARE (WNR) MEDICARE (M) PART A Aug 19, 2011 PART A [id number] [phone] Estrella HARDY PATIENT MEDICARE (WNR) MEDICARE (M) PART B Aug 19, 2011 PART B [id number] [id number] [phone] Estrella HARDY PATIENT Selected Encounter This section includes the information on record at [place] for the Encounter. 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 Date/Time Primary/Secondary Diagnosis Diagnosis Name Provider Source Dec 21, 2022 06:36 PM PRIMARY Spiritual or samaritan counseling ABILIOELINENA VILLATORO [facility] Plan of Treatment: Future Appointments (+ 6 months) and Future Tests (+/- 45 days) The Plan of Treatment section includes future care activities for the patient from all [place] [facility]. This section includes future appointments and future orders which are active, pending or scheduled. Future Appointments This section includes appointments that were scheduled to occur 6 months from the date of the Encounter, up to a maximum of 20 appointments. The data comes from all [place] treatment facilities. Appointment Date/Time Appointment Type Appointme nt Facility Name Dec 29, 2022 12:30 PM AMBULATORY - REHAB MEDICIN E [facility] Jan 14, 2023 09:00 AM AMBULATORY - MEDICINE [facility] Jan 14, 2023 01:00 PM AMBUL[place]ORY [place] [facility] Feb 03, 2023 02:00 PM AMBULATORY - PSYCHIATRY [facility] Feb 26, 2023 02:00 PM AMBULATORY - PSYCHIATRY [facility] Mar 11, 2023 02:30 PM AMBULATORY - SURGERY [facility] Apr 01, 2023 01:45 PM AMBULATORY - MEDICINE [facility] Apr 15, 2023 02:30 PM AMBULATORY - SURGERY [facility] Apr 20, 2023 02:30 PM AMBULATORY - SURGERY [facility] May 25, 2023 09:40 AM AMBULATORY - SURGERY [facility] Social History: Smoking Status (Most current) and Tobacco Use (All prior to encounter date) This section includes the most current, and the historical, smoking and tobacco- related health factors from the [place] facility where the Encounter took place. Current Smoking Status This section includes the most current smoking, or tobacco-related health factor, from the [place] facility where the Encounter took place. Date/Time Current Smoking Status Deon lutz Aug 20, 2022 03:30 PM VA-TOBACCO FORMER USER [facility] Tobacco Use History This section includes a history of the smoking, or tobacco-related health factors, that were collected on or before the date of the Encounter. The data comes from the [place] facility where the Encounter took place. Date/Time [...] Encounter. Date/Time Encounter Note(s) Provider Source Dec 21, 2022 06:35 PM PASTORAL CARE NOTE : LOCAL TITLE: INWARD TOLL OPERATOR-VISITATION NOTE STANDARD TITLE: PASTORAL CARE NOTE DATE OF NOTE: DEC 21, 2022@18:35 ENTRY DATE: DEC 21, 2022@18:35:30 AUTHOR: MANUELA ARNETT EXP COSIGNER: URGENCY: STATUS: COMPLETED Client Services Specialist telephone call with patient to schedule an outpatient formula technician's visit. Visit scheduled for Sunday, December 25, 2022, 1300, at the [facility]. /yolande/ MANUELA ARNETT Staff Client Services Specialist Signed: 12/21/2022 18:37 MANUELA ARNETT [facility]
--- OUTSIDE RECORDS SUMMARY | 2023-08-30 08:50 | XMS_ITS | Encounter Summary ---
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 Address [address] [place] [address] Support Name Relationship Address Phone ALYSSA HARDY Next of Kin [address] [place] [address] ALYSSA HARDY Emergency Contact [address] [place] [address] Insurance Providers: All historical and [...] Policy Butts [place] MED[place] SUPPLEMEN NARCISA MUÑOZIO R GOLD INDIV IDU Jul 19, 2016 [id number] [phone] HAYLEY,R ICHARD PATIENT [facility] MEDICARE SUPPLEMEN NARCISA SENIO R GOLD INDIV IDU Jul 19, 2016 [id number] P [id number] HAYLEY,R ICHARD PATIENT MEDICARE (WNR) MEDICARE (M) PART A Aug 19, 2011 PART A [id number] [id number] [phone] HAYLEY,R ICHARD PATIENT MEDICARE (WNR) MEDICARE (M) PART B Aug 19, 2011 PART B [id number] [id number] [phone] HAYLEY,R ICHARD PATIENT Selected Encounter This section includes the information on record at [place] for the Encounter. Date/Time Encounter Type Encounter Description Reason Provider Source Dec 29, 2022 12:30 PM NRV CNDJ TST 5-6 STUDIES EMG - ELECTROMYOGRAM ICD-10-CM G56.01 Carpal tunnel syndrome, right upper limb DAHIANA CARUSO Shelia Encounter Template Text not used by [place] Assessments - Encounter Diagnoses This section includes the primary and secondary diagnoses documented for the Encounter. Date/Time Primary/Secondary Diagnosis Diagnosis Name Provider Source Dec 29, 2022 01:44 PM PRIMARY Carpal tunnel syndrome, right upper limb PEDRO WADSWORTH [facility] Plan of Treatment: Future Appointments (+ 6 months) and Future Tests (+/- 45 days) The Plan of Treatment section includes future care activities for the patient [facility] [place] [facility] This section includes future appointments and future orders which are active, pending or scheduled. Future Appointments This section includes appointments that were scheduled to occur 6 months from the date of the Encounter, up to a maximum of 20 appointments. The data comes from all [facility] facilities. Appointment Date/Time Appointment Type Appointme nt Facility Name Jan 14, 2023 09:00 AM AMBULATORY - MEDICINE [facility] Jan 14, 2023 01:00 PM AMBULATORY - PSYCHIATRY [facility] Feb 03, 2023 02:00 PM AMBULATORY - PSYCHIATRY [facility] Feb 26, 2023 02:00 PM AMBULATORY - PSYCHIATRY [facility] Mar 11, 2023 02:30 PM AMBULATORY - SURGERY [facility] Apr 01, 2023 01:45 PM AMBULATORY - MEDICINE [facility] Apr 15, 2023 02:30 PM AMBULATORY - SURGERY [facility] Apr 20, 2023 02:30 PM AMBULATORY - SURGERY [facility] May 25, 2023 09:40 AM AMBULATORY - SURGERY [facility] Social History: Smoking Status (Most [...] 20, 2022 03:30 PM VA-TOBACCO FORMER USER [facility] Tobacco Use History This section includes a history of the smoking, or tobacco-related health factors, that were collected on or before the date of the Encounter. The data comes from the [facility] facility where the Encounter took place. Date/Time Smoking Status/Tobacco Use Comment F acility Aug 20, 2022 03:30 PM VA-TOBACCO QUIT 15 YRS OR MORE [facility] Jul 22, 2021 02:00 PM VA-TOBACCO FORMER USER [facility] Jul 22, 2021 02:00 PM VA-TOBACCO QUIT 15 YRS OR MORE [facility] Apr 05, 2019 09:50 AM VA-TOBACCO FORMER USER [facility] Apr 05, 2019 09:50 AM VA-TOBACCO QUIT 15 YRS OR MORE [facility] Apr 12, 2018 09:36 AM VA-TOBACCO FORMER USER [facility] Apr 12, 2018 09:36 AM VA-TOBACCO QUIT 15 YRS OR MORE [facility] Apr 19, 2017 01:40 PM FORMER TOBACCO USER 7Y OR GREATE R [facility] Apr 17, 2016 10:49 AM FORMER TOBACCO USER 7Y OR GREATE R [facility] Mar 18, 2015 09:40 AM FORMER TOBACCO USER 7Y OR GREATE R [facility] Mar 07, 2014 09:45 AM FORMER TOBACCO USER 7Y OR GREATE R [facility] Jan 26, 2012 03:48 PM FORMER TOBACCO USER 7Y OR GREATE R [facility] Encounter Notes: All associated encounter notes This section contains the clinical notes associated to the Encounter. 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 The patient reports the symptoms occur in all his hand and wrist. He also has trouble buttoning shirts and frequently drops items with his right hand. He denies having neck pain or pain radiating down either arm from his neck. A brief general examination was remarkable for moderate atrophy of his thenar muscle on his RUE. A brief neurological examination demonstrated normal strength in his bilateral upper extremities, except in his right wrist flexion, wrist extension, and internal controls manager which were all 3/5. He had normal sensation to light touch in his BUE. Sensation to pinprick was diminished throughout his right hand, but otherwise unremarkable in his BUE. Deep tendon reflexes in both upper extremities were intact and normal. Spurling's test was negative bilaterally. Prior EMG from 04/2014 and 06/2018 were notable for right CTS and R ulnar mononeuropathy, and right moderate CTS respectively. Imaging of his right hand from 11/2020 shows OA changes, most prominent in the 3rd MCP joint. The electrodiagnostic studies were performed to evaluate for a right median mononeuropathy. Risks and benefits of testing explained to the patient including risk of bleeding, bruising and discomfort. Verbal consent obtained prior to testing. --- Nerve Conduction Studies (NCS) Examination: For sensory NCS, the amplitude is measured [id number], the latency reported is the distal peak latency, and the conduction velocity, if measured, is determined from onset latencies and is over the forearm. For motor NCS, the amplitude is measured baseline to peak, the latency reported is the distal onset latency, the conduction velocity is calculated over the forearm for median studies and over the forearm and elbow segment for ulnar studies, and the F wave latency is the minimum latency. Unless otherwise noted, the hand temperature was monitored continuously and remained between 32- 36 degrees C during the performance of the nerve conduction studies. For tabular NCS data, please see scanned study in [employer]. ------ EMG Examination: The study was performed with a concentric needle electrode. Fibrillation and fasciculation activity is graded from none (0) to continuous (4+). The configuration and recruitment pattern of motor unit action potentials under voluntary control, if not normal, are described below. For tabular EMG data, please see scanned study in [employer]. --------- Findings: MNCS: 1. Right median motor nerve demonstrated a reduced amplitude and prolonged latency. 2. Right ulnar motor nerve was normal. 3. Right median/ulnar (lumb/int) motor nerve comparison study was unable to be completed as the median nerve was non-recordable. SNCS: 1. Right median sensory nerve was non-recordable. 2. Right ulnar sensory nerve was normal. 3. Right radial sensory nerve was normal. EMG: Concentric needle exam of the following muscles was performed on the right upper extremity: 1. Abductor pollicis brevis (Median C8-T1)- 1+ polyphasia IMPRESSION: 1. Abnormal study. 2. 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 This is consistent with severe carpal tunnel syndrome. There is no active denervation. 3. There is no evidence of other focal mononeuropathies in the right upper extremity. Notes: Compared to previous study from 04/2014, today's exam did not show a right ulnar mononeuropathy at the elbow. Compared to previous study from 06/2018, today's exam showed progression of carpal tunnel syndrome from moderate to severe. Results were discussed with the patient. Please see [facility] for complete study data. Thank you for the consult. Pedro Wadsworth MD PGY3 PM&R Resident The above patient was seen and discussed with my attending, Dr. Caruso. /yolande/ PEDRO WADSWORTH MD RESIDENT Signed: 12/30/2022 15:22 Receipt Acknowledged By: 12/31/2022 09:03 /yolande/ MIGUEL ANGEL CARUSO DO PHYSICIAN, PM&R 12/31/2022 ADDENDUM STATUS: COMPLETED - Patient seen with the resident. I reviewed with the resident the nerve conduction study and was present for the EMG portion of the study. Agree with the findings and impression as described in the resident note. - Medication list was reviewed by PACK TRAIN DRIVER. - Patient indicated readiness to learn about NCS/EMG. Education was provided to patient during this encounter. /yolande/ MIGUEL ANGEL CARUSO DO PHYSICIAN, PM&R Signed: 12/31/2022 09:04 PEDRO WADSWORTH [facility] Dec 29, 2022 12:47 PM NEUROLOGY NURSING OUTPATIENT NOTE: LOCAL TITLE: NEUROLOGY CLINIC NURSING NOTE STANDARD TITLE: NEUROLOGY NURSING OUTPATIENT NOTE DATE OF NOTE: DEC 29, 2022@12:47 ENTRY DATE: DEC 29, 2022@12:47:43 AUTHOR: ANDRIE,MARK ANTHONY R EXP COSIGNER: URGENCY: STATUS: COMPLETED Type of visit: Appointment Check In Reason for Visit: EMG REHAB DR CARUSO Vital Signs: Blood Pressure: 151/82 (10/12/2022 14:27) Pulse: 75 (10/12/2022 14:27) Respiration: 18 (10/12/2022 14:27) Temperature: 98.3 F [36.8 C] (08/20/2022 15:51) Weight: 181.9 lb [82.51 kg] (10/12/2022 14:27) Height: 69.5 in [176.5 cm] (08/20/2022 15:51) BMI: 26.5 Pain: 0 (08/20/2022 15:51) Allergies: EGGS (May 01, 2016) Medications: Active Outpatient Medications and Supplies: Active Outpatient Medications (including Supplies): Active Outpatient Medications Status 1) CETIRIZINE HCL 10MG TAB TAKE ONE TABLET BY MOUTH ACTIVE EVERY DAY ALLERGIC CONJUNCTIVITIS 2) CHOLECALCIF 10MCG (D3-400UNIT) TAB TAKE ONE TABLET BY ACTIVE MOUTH EVERY DAY THIS IS VITAMIN DROP 3) CLOPIDOGREL BISULFATE 75MG TAB TAKE ONE TABLET BY ACTIVE MOUTH EVERY DAY FOR HEART DISEASE INDEFINITELY [...] TAB TAKE ONE TABLET BY MOUTH ACTIVE (S) EVERY DAY FOR CHOLESTEROL 10) SERTRALINE HCL 50MG TAB TAKE THREE TABLETS BY MOUTH ACTIVE EVERY DAY FOR ANGER/IRRITABILITY NOTE CHANGE IN PILL STRENGTH/INSTRUCTIONS Active Non-VA Medications Status 1) Non-VA ASPIRIN 81MG EC TAB 81MG MOUTH ACTIVE 2) Non-VA MULTIVITAMIN/MINERALS SENIOR FORMULA TAB 1 ACTIVE TABLET MOUTH EVERY DAY 12 Total Medications Patient reports the following changes regarding the current pharmacy list of medications: The above medication list confirmed with patient. A copy of the above medication list given to the MD for review and update. Provider will give printed copy of medication list to patient with any changes documented on printed medication list. /yolande/ MARK ANTHONY WALTERS LPN LPN Signed: 12/29/2022 12:48 MARK ANTHOYN WALTERS [facility]
--- OUTSIDE RECORDS SUMMARY | 2023-08-30 08:50 | XMS_ITS | Encounter Summary ---
Author Name [facility] Organization [facility] of Veter[facility] Affairs Address [address] [place] [address] Support Name Relationship Address Phone ALYSSA HARDY Next of Kin [address] [place] [address] ALYSSA HARDY Emergency Contact [address] [place] [address] Insurance Providers: All historical and [...] Butts's Name Patient's Relationship to Policy Butts [facility] MEDICARE SUPPLEMEN NARCISA GONZALEZ R HIGINIO MEDRANOIV IDU Jul 19, 2016 [id number] [phone] Estrella HARDY PATIENT [facility] MEDICARE SUPPLEMEN NARCISA LISA R HIGINIO INDIV IDU Jul 19, 2016 [id number] [phone] Estrella HARDY PATIENT MEDICARE (WNR) MEDICARE (M) PART A Aug 19, 2011 PART A [id number] [phone] Estrella HARDY PATIENT MEDICARE (WNR) MEDICARE (M) PART B Aug 19, 2011 PART B [id number] [phone] Estrella HARDY PATIENT Selected Encounter This section includes the information on record at [place] for the Encounter. Date/Time Encounter Type Encounter Description Reason Provider Source December 16, 2022 05:08 PM HC PRO PHONE CALL 5-10 MIN TELEPHONE/CHAPLAI N ICD-10-CM Z71.81 Spiritual or sikh counseling ABILIOELINENA PAMELA VILLATORO [facility] Encounter Template Text not used by [place] Assessments - Encounter Diagnoses This section includes the primary and secondary diagnoses documented for the Encounter. Date/Time Primary/Secondary Diagnosis Diagnosis Name Provider Source December 16, 2022 05:08 PM PRIMARY Spiritual or sikh counseling ABILIOELINENA [facility] Plan of Treatment: Future Appointments (+ 6 months) and Future Tests (+/- 45 days) The Plan of Treatment section includes future care activities for the patient from all [place] [facility]. This section includes future appointments and future orders which are active, pending or scheduled. Future Appointments This section includes appointments that were scheduled to occur 6 months from the date of the Encounter, up to a maximum of 20 appointments. The data comes from all [place] treatment facilities. Appointment Date/Time Appointment Type Appointme nt Facility Name Dec 29, 2022 12:30 PM AMBULATORY - REHAB MEDICIN E [facility] Jan 14, 2023 09:00 AM AMBULATORY - MEDICINE [facility] Jan 14, 2023 01:00 PM AMBULATORY [place] [facility] Feb 03, 2023 02:00 PM AMBULATORY - PSYCHIATRY [facility] Feb 26, 2023 02:00 PM AMBULATORY - PSYCHIATRY [facility] Mar 11, 2023 02:30 PM AMBULATORY - SURGERY [facility] Apr 01, 2023 01:45 PM AMBULATORY - MEDICINE [facility] Apr 15, 2023 02:30 PM AMBULATORY - SURGERY [facility] Apr 20, 2023 02:30 PM AMBULATORY - SURGERY [facility] May 25, 2023 09:40 AM AMBULATORY - SURGERY [facility] Social History: Smoking Status (Most [...] 20, 2022 03:30 PM VA-TOBACCO FORMER USER [facility] Tobacco Use History This section includes a history of the smoking, or tobacco-related health factors, that were collected on or before the date of the Encounter. The data comes from the [place] facility where the Encounter took place. Date/Time Smoking Status/Tobacco Use Comment F acility Aug 20, 2022 03:30 PM VA-TOBACCO QUIT 15 YRS OR MORE [facility] Jul 22, 2021 02:00 PM VA-TOBACCO FORMER USER [facility] Jul 22, 2021 02:00 PM VA-TOBACCO QUIT 15 YRS OR MORE [facility] Apr 05, 2019 09:50 AM VA-TOBACCO FORMER USER [facility] Apr 05, 2019 09:50 AM VA-TOBACCO QUIT 15 YRS OR MORE [facility] Apr 12, 2018 09:36 AM VA-TOBACCO FORMER USER [facility] Apr 12, 2018 09:36 AM VA-TOBACCO QUIT 15 YRS OR MORE [facility] Apr 19, 2017 01:40 PM FORMER TOBACCO USER 7Y OR GREATE R [facility] Apr 17, 2016 10:49 AM FORMER TOBACCO USER 7Y OR GREATE R [facility] Mar 18, 2015 09:40 AM FORMER TOBACCO USER 7Y OR GREATE R [facility] Mar 07, 2014 09:45 AM FORMER TOBACCO USER 7Y OR GREATE R [facility] Jan 26, 2012 03:48 PM FORMER TOBACCO USER 7Y OR GREATE R [facility] Encounter Notes: All associated encounter notes This section contains the clinical notes associated to the Encounter. Date/Time Encounter Note(s) Provider Source December 16, 2022 05:08 PM PASTORAL CARE NOTE : LOCAL TITLE: PERMIT TECHNICIAN-VISITATION NOTE STANDARD TITLE: PASTORAL CARE NOTE DATE OF NOTE: DECEMBER 16, 2022@17:08 ENTRY DATE: DECEMBER 16, 2022@17:09:08 AUTHOR: MANUELA ARNETT EXP COSIGNER: URGENCY: STATUS: COMPLETED Unsuccessful attempt to connect with to schedule an in-person visit. Cutting And Boning Supervisor left voicemail with contact information. /yolande/ MANUELA ARNETT Staff Teradata Developer Signed: 12/16/2022 17:10 MANUELA ARNETT [facility]
--- OUTSIDE RECORDS SUMMARY | 2023-08-30 08:50 | XMS_ITS | Encounter Summary ---
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 ns Affairs Address [address] [place] [address] Support Name Relationship Address Phone ALYSSA HARDY Next of Kin [address] [place] [address] ALYSSA HARDY Emergency Contact [address] [place] [address] Insurance Providers: All historical and [...] Name Patient's Relationship to Policy Butts [facility] MEDICARE SUPPLEMEN NACRISA GONZALEZ R HIGINIO INDIV IDU Jul 19, 2016 [id number] Estrella HARDY PATIENT [facility] MEDICARE SUPPLEMEN NARCISA GONZALEZ R GOLD INDIV IDU Jul 19, 2016 [id number] P [id number] Estrella HARDYARD PATIENT MEDICARE (WNR) MEDICARE (M) PART A Aug 19, 2011 PART A [id number] [phone] Estrella HARDY PATIENT MEDICARE (WNR) MEDICARE (M) PART B Aug 19, 2011 PART B [id number] Estrella HARDY PATIENT Selected Encounter This section includes the information on record at [place] for the Encounter. Date/Time Encounter Type Encounter Description Reason Provider Source December 11, 2022 03:54 PM HC PRO PHONE CALL 5-10 MIN TELEPHONE/CHAPLAI N ICD-10-CM Z71.81 Spiritual or hoahaoism counseling ABILIOELINENA PAMELA VILLATORO [facility] Encounter Template Text not used by [place] Assessments - Encounter Diagnoses This section includes the primary and secondary diagnoses documented for the Encounter. Date/Time Primary/Secondary Diagnosis Diagnosis Name Provider Source December 11, 2022 03:54 PM PRIMARY Spiritual or hoahaoism counseling NENA ARNETT [facility] Plan of Treatment: Future Appointments (+ 6 months) and Future Tests (+/- 45 days) The Plan of Treatment section includes future care activities for the patient from all [place] [facility]. This section includes future appointments and future orders which are active, pending or scheduled. Future Appointments This section includes appointments that were scheduled to occur 6 months from the date of the Encounter, up to a maximum of 20 appointments. The data comes from all [place] treatment facilities. Appointment Date/Time Appointment Type Appointme nt Facility Name Dec 29, 2022 12:30 PM AMBULATORY - REHAB MEDICIN [facility] Jan 14, 2023 09:00 AM AMBULATORY - MEDICINE [facility] Jan 14, 2023 01:00 PM AMBULATORY [facility] Feb 03, 2023 02:00 PM AMBULATORY - PSYCHIATRY [facility] Feb 26, 2023 02:00 PM AMBULATORY - PSYCHIATRY [facility] Mar 11, 2023 02:30 PM AMBULATORY - SURGERY [facility] Apr 01, 2023 01:45 PM AMBULATORY - MEDICINE [facility] Apr 15, 2023 02:30 PM AMBULATORY - SURGERY [facility] Apr 20, 2023 02:30 PM AMBULATORY - SURGERY [facility] May 25, 2023 09:40 AM AMBULATORY - SURGERY [facility] Social History: Smoking Status (Most current) and Tobacco Use (All prior to encounter date) This section includes the most current, and the historical, smoking and tobacco- related health factors from the [place] facility where the Encounter took place. Current Smoking Status This section includes the most current smoking, or tobacco-related health factor, from the [place] facility where the Encounter took place. Date/Time Current Smoking Status Deon lutz Aug 20, 2022 03:30 PM VA-TOBACCO FORMER USER [facility] Tobacco Use History This section includes a history of the smoking, or tobacco-related health factors, that were collected on or before the date of the Encounter. The data comes from the [place] facility where the Encounter took place. Date/Time Smoking Status/Tobacco Use Comment F acility Aug 20, 2022 03:30 PM VA-TOBACCO QUIT [address] [facility] Jul 22, 2021 02:00 PM VA-TOBACCO FORMER USER [facility] Jul 22, 2021 02:00 PM VA-TOBACCO QUIT [address] [facility] Apr 05, 2019 09:50 AM VA-TOBACCO FORMER USER [facility] Apr 05, 2019 09:50 AM VA-TOBACCO QUIT [address] [facility] Apr 12, 2018 09:36 AM VA-TOBACCO FORMER USER [facility] Apr 12, 2018 09:36 AM VA-TOBACCO QUIT [address] [facility] Apr 19, 2017 01:40 PM FORMER TOBACCO USER 7Y OR GRE[address] R [facility] Apr 17, 2016 10:49 AM FORMER TOBACCO USER 7Y OR [facility] [facility] Mar 18, 2015 09:40 AM FORMER TOBACCO USER 7Y OR [facility] [facility] Mar 07, 2014 09:45 AM FORMER TOBACCO USER 7Y OR GRE[address] R [facility] Jan 26, 2012 03:48 PM FORMER TOBACCO USER 7Y OR [facility] [facility] Encounter Notes: All associated encounter notes This section contains the clinical notes associated to the Encounter. Date/Time Encounter Note(s) Provider Source December 11, 2022 03:54 PM PASTORAL CARE CONS ULT: LOCAL TITLE: SPEECH LANGUAGE SPECIALIST CONSULT STANDARD TITLE: PASTORAL CARE CONSULT DATE OF NOTE: DECEMBER 11, 2022@15:54 ENTRY DATE: DECEMBER 11, 2022@15:54:40 AUTHOR: MANUELA ARNETT EXP COSIGNER: URGENCY: STATUS: COMPLETED Retention Representative Consult Consult received with patient request for spiritual support. Door Tender spoke with Dominga and will contact him again following the to schedule a time to meet, tentatively towards the end of the week. /yolande/ MANUELA ARNETT Staff Retention Representative Signed: 12/11/2022 15:57 Receipt Acknowledged By: * AWAITING SIGNATURE * HI MILLER JEFFREY ALAN [facility]
--- OUTSIDE RECORDS SUMMARY | 2023-08-30 08:51 | XMS_ITS | Encounter Summary ---
Author Name [facility] of [facility] Organization Department of Vetera [facility] Address [address] [place] [address] Support Name Relationship Address Phone ALYSSA HARDY Next of Kin [address] [place] [address] ALYSSA HARDY Emergency Contact [address] [place] [address] Insurance Providers: All historical and [...] Patient's Relationship to Policy Butts [facility] MEDICARE SUPPLEMEN NARCISA GONZALEZ R GOLD INDIV IDU Jul 19, 2016 [id number] P [id number] Estrella HARDY PATIENT [facility] MEDICARE SUPPLEMEN NARCISA LISA R GOLD INDIV IDU Jul 19, 2016 [id number] [phone] Estrella HARDYARD PATIENT MEDICARE (WNR) MEDICARE (M) PART A Aug 19, 2011 PART A [id number] [phone] Estrella HARDYARD PATIENT MEDICARE (WNR) MEDICARE (M) PART B Aug 19, 2011 PART B [id number] Estrella HARDY PATIENT Selected Encounter This section includes the information on record at [place] for the Encounter. Date/Time Encounter Type Encounter Description Reason Pro vider Source Dec 29, 2022 01:23 PM Outpatient Encounter EVENT (HISTORICAL) IHE Encounter Template Text not used by [place] Plan of Treatment: Future Appointments (+ 6 months) and Future Tests (+/- 45 days) The Plan of Treatment section includes future care activities for the patient from all [place] [facility]. This section includes future appointments and future orders which are active, pending or scheduled. Future Appointments This section includes appointments that were scheduled to occur 6 months from the date of the Encounter, up to a maximum of 20 appointments. The data comes from all [facility]. Appointment Date/Time Appointment Type Appointme nt Facility Name Jan 14, 2023 09:00 AM AMBULATORY - MEDICINE [facility] Jan 14, 2023 01:00 PM AMBULATORY - PSYCHIATRY [facility] Feb 03, 2023 02:00 PM AMBULATORY - PSYCHIATRY [facility] Feb 26, 2023 02:00 PM AMBULATORY - PSYCHIATRY [facility] Mar 11, 2023 02:30 PM AMBULATORY - SURGERY [facility] Apr 01, 2023 01:45 PM AMBULATORY - MEDICINE [facility] Apr 15, 2023 02:30 PM AMBULATORY - SURGERY [facility] Apr 20, 2023 02:30 PM AMBULATORY - SURGERY [facility] May 25, 2023 09:40 AM AMBULATORY - SURGERY [facility] Social History: Smoking Status (Most current) and Tobacco Use (All prior to encounter date) This section includes the most current, and the historical, smoking and tobacco- related health factors from the [place] facility where the Encounter took place. Current Smoking Status This section includes the most current smoking, or tobacco-related health factor, from the [place] facility where the Encounter took place. Date/Time Current Smoking Status Comment Armando lutz Aug 20, 2022 03:30 PM VA-TOBACCO QUIT 15 YRS OR MORE [facility] Tobacco Use History This section includes a history of the smoking, or tobacco-related health factors, that were collected on or before the date of the Encounter. The data comes from the [place] facility where the Encounter took place. Date/Time Smoking Status/Tobacco Use Comment Masha diallo Aug 20, 2022 03:30 PM VA-TOBACCO QUIT 15 YRS OR MORE [facility] Jul 22, 2021 02:00 PM VA-TOBACCO FORMER USER [facility] Jul 22, 2021 02:00 PM VA-TOBACCO QUIT 15 YRS OR MORE [facility] Apr 05, 2019 09:50 AM VA-TOBACCO FORMER USER [facility] Apr 05, 2019 09:50 AM VA-TOBACCO QUIT 15 YRS OR MORE [facility] Apr 12, 2018 09:36 AM VA-TOBACCO FORMER USER [facility] Apr 12, 2018 09:36 AM VA-TOBACCO QUIT 15 YRS OR MORE [facility] Apr 19, 2017 01:40 PM FORMER TOBACCO USER 7Y OR GREATE R [facility] Apr 17, 2016 10:49 AM FORMER TOBACCO USER 7Y OR GREATE R [facility] Mar 18, 2015 09:40 AM FORMER TOBACCO USER 7Y OR GREATE R [facility] Mar 07, 2014 09:45 AM FORMER TOBACCO USER 7Y OR GREATE R [facility] Jan 26, 2012 03:48 PM FORMER TOBACCO USER 7Y OR GREATE R [facility]
--- OUTSIDE RECORDS SUMMARY | 2023-08-30 08:51 | XMS_ITS | Encounter Summary ---
Author Name [facility] Organization Department of Vetera Affairs Address [address] [place] [address] Support Name Relationship Address Phone ALYSSA HARDY Next of Kin [address] [place] [address] ALYSSA HARDY Emergency Contact [address] [place] [address] Insurance Providers: All historical and [...] [facility] MED[facility] SUPPLEMEN NARCISA LISA R GOLD INDIV IDU Jul 19, 2016 [id number] P [id number] Estrella HARDY PATIENT [facility] MEDICARE SUPPLEMEN NARCISA SENRUTH R GOLD INDIV IDU Jul 19, 2016 [id number] [phone] Estrella HARDY PATIENT MEDICARE (WNR) MEDICARE (M) PART A Aug 19, 2011 PART A [id number] [id number] [phone] Estrella HARDY PATIENT MEDICARE (WNR) MEDICARE (M) PART B Aug 19, 2011 PART B [id number] Estrella HARDY PATIENT Selected Encounter This section includes the information on record at [place] for the Encounter. Date/Time Encounter Type Encounter Description Reason Pro vider Source Feb 04, 2023 01:00 PM Outpatient Encounter PSYCHOGERIATRIC - INDIVIDUAL IHE Encounter Template Text not used by [place] Plan of Treatment: Future Appointments (+ 6 months) and Future Tests (+/- 45 days) The Plan of Treatment section includes future care activities for the patient from [facility] [place] [facility]. This section includes future appointments and future orders which are active, pending or scheduled. Future Appointments This section includes appointments that were scheduled to occur 6 months from the date of the Encounter, up to a maximum of 20 appointments. The data comes from all [facility] facilities. Appointment Date/Time Appointment Type Appointme nt Facility Name Feb 26, 2023 02:00 PM [facility] Mar 11, 2023 02:30 PM AMBULATORY - SURGERY [facility] Apr 01, 2023 01:45 PM [facility] Apr 15, 2023 02:30 PM [facility] Apr 20, 2023 02:30 PM AMBULATORY - SURGERY [facility] May 25, 2023 09:40 AM AMBULATORY - SURGERY [facility] Social History: Smoking Status (Most current) and Tobacco Use (All prior to encounter date) This section includes the most current, and the historical, smoking and tobacco- related health factors from the [place] facility where the Encounter took place. Current Smoking Status This section includes the most current smoking, or tobacco-related health factor, from the [place] facility where the Encounter took place. Date/Time Current Smoking Status Comment Armando lutz Aug 20, 2022 03:30 PM VA-TOBACCO QUIT 15 YRS OR MORE [facility] Tobacco Use History This section includes a history of the smoking, or tobacco-related health factors, that were collected on or before the date of the Encounter. The data comes from the [place] facility where the Encounter took place. Date/Time Smoking Status/Tobacco Use Comment F actg Aug 20, 2022 03:30 PM VA-TOBACCO QUIT 15 YRS OR MORE [facility] Jul 22, 2021 02:00 PM VA-TOBACCO FORMER USER [facility] Jul 22, 2021 02:00 PM VA-TOBACCO QUIT 15 YRS OR MORE [facility] Apr 05, 2019 09:50 AM VA-TOBACCO FORMER USER [facility] Apr 05, 2019 09:50 AM VA-TOBACCO QUIT 15 YRS OR MORE [facility] Apr 12, 2018 09:36 AM VA-TOBACCO FORMER USER [facility] Apr 12, 2018 09:36 AM VA-TOBACCO QUIT 15 YRS OR MORE [facility] Apr 19, 2017 01:40 PM FORMER TOBACCO USER 7Y OR GREATE R [facility] Apr 17, 2016 10:49 AM FORMER TOBACCO USER 7Y OR GREATE R [facility] Mar 18, 2015 09:40 AM FORMER TOBACCO USER 7Y OR GREATE R [facility] Mar 07, 2014 09:45 AM FORMER TOBACCO USER 7Y OR GREATE R [facility] Jan 26, 2012 03:48 PM FORMER TOBACCO USER 7Y OR GREATE R [facility] Encounter Notes: All associated encounter notes This section contains the clinical notes associated to the Encounter. Date/Time Encounter Note(s) Provider Source Feb 05, 2023 09:51 AM REPORT OF CONTACT: LOCAL TITLE: APPOINTMENT SCHEDULING NOTE STANDARD TITLE: REPORT OF CONTACT DATE OF NOTE: FEB 05, 2023@09:51 ENTRY DATE: FEB 05, 2023@09:51:47 AUTHOR: ESTER GLOVER EXP COSIGNER: URGENCY: STATUS: COMPLETED Attempted to schedule Return to clinic (RTC) Left [facility] for pt to call [phone]. Sent letter. /yolande/ ESTER GLOVER CHEST PAINTING LEADER Signed: 02/05/2023 09:52 [facility] Feb 04, 2023 01:45 PM REPORT OF CONTACT: LOCAL TITLE: APPOINTMENT SCHEDULING NOTE STANDARD TITLE: REPORT OF CONTACT DATE OF NOTE: FEB 04, 2023@13:45 ENTRY DATE: FEB 04, 2023@13:45:23 AUTHOR: ESTER GLOVER EXP COSIGNER: URGENCY: STATUS: COMPLETED Attempted to schedule Return to clinic (RTC) No answer. Keeps ringing. Sent letter. /yolande/ ESTER GLOVER CHEST PAINTING LEADER Signed: 02/04/2023 13:45 [facility] Feb 04, 2023 01:00 PM NO SHOW NOTE: LOCAL TITLE: NO SHOW/CANCELLATION CLINIC NOTE STANDARD TITLE: NO SHOW NOTE DATE OF NOTE: FEB 04, 2023@13:00 ENTRY DATE: FEB 04, 2023@13:23:47 AUTHOR: ALEXANDER MILLER EXP COSIGNER: URGENCY: STATUS: COMPLETED not seen for scheduled appointment due to: cancelled Spoke with Sieper via telephone. Sieper stated he had called office this morning to cancel session, as he is unable to attend session as scheduled, to to unexpected work conflict. Sieper was agreeable to RTC to reschedule session. Appointment Rescheduled: Yes RTC entered to r/s session. There were no inidcators of acute distress in current encounter. No indicators of change from previously outlined risk and protective factors, or judgments of acute and chronic risk levels. Factors that may increase the risk of homicidal acts or suicidal acts/self-harm: Recent psychosocial stressors; Psychological conditions or symptoms; Medical conditions and health-related problems; Access to lethal means (firearms; stored unloaded in cabinets); Member of a group at increased risk for suicide (older White male/Sieper status) Protective factors: Access to and engagement with health care; Reports motivation for medical treatment; Access to and engagement with mental health care; Reports motivation for mental health treatment; Meaningful family relationships; Significant other; Hope for the future; Protective personal traits or beliefs; Sikh or spiritual beliefs/connections; Connections to cultural group(s); Social support system; Strong desire to live/reasons for living; Coping skills Clinical judgment of risk: Based on risk and protective factors, the patient is considered to be at low acute risk for committing harm-related acts and at low chronic/long-term risk. /yolande/ HI CAN PHD, Staff Psychologist Signed: 02/04/2023 13:26 HI MILLER [facility]
--- OUTSIDE RECORDS SUMMARY | 2023-08-30 08:51 | XMS_ITS | Encounter Summary ---
Author Name Department of [facility] Organization [facility] Address [address] [place] [address] Support Name Relationship Address Phone ALYSSA HARDY Next of Kin [address] [place] [address] ALYSSA HARDY Emergency Contact [address] [place] [address] Insurance Providers: All historical and [...] Butts's Name Patient's Relationship to Policy Butts [facility] MEDICARE SUPPLEMEN NARCISA De La Rosa HIGINIO INDIV IDU Jul 19, 2016 [id number] [phone] [facility] MEDICARE SUPPLEMEN NARCISA MUÑOZRUTH R GOLD INDIV IDU Jul 19, 2016 [id number] P [id number] Estrella HARDY PATIENT MEDICARE (WNR) MEDICARE (M) PART A Aug 19, 2011 PART A [id number] Estrella HARDY PATIENT MEDICARE (WNR) MEDICARE (M) PART B Aug 19, 2011 PART B [id number] Estrella HARDY PATIENT Selected Encounter This section includes the information on record at [place] for the Encounter. Date/Time Encounter Type Encounter Description Reason Pro vider Source Feb 03, 2023 02:00 PM OFFICE O/P EST MOD 30-39 MIN PSYCHOGERIATRIC - INDIVIDUAL ICD-10-CM F43.12 Post-traumati c stress disorder, chronic ALFIE VILLALTA [facility] Encounter Template Text not used by [place] Assessments - Encounter Diagnoses This section includes the primary and secondary diagnoses documented for the Encounter. Date/Time Primary/Secondary Diagnosis Diagnosis Name Provider Source Feb 05, 2023 12:29 PM PRIMARY Post-traumatic stress disorder, chronic ALFIE VILLALTA [facility] Feb 05, 2023 12:29 PM SECONDARY Major depressive disorder, recurrent, moderate VILLALTAALFIE AMARO [facility] Plan of Treatment: Future Appointments (+ 6 months) and Future Tests (+/- 45 days) The Plan of Treatment section includes future care activities for the patient from all [place] [facility] This section includes future appointments and future orders which are active, pending or scheduled. Future Appointments This section includes appointments that were scheduled to occur 6 months from the date of the Encounter, up to a maximum of 20 appointments. The data comes from all [place] treatment facilities. Appointment Date/Time Appointment Type Appointme nt Facility Name Feb 26, 2023 02:00 PM AMBULATORY - PSYCHIATRY [facility] Mar 11, 2023 02:30 PM AMBULATORY - SURGERY [facility] Apr 01, 2023 01:45 PM [facility] Apr 15, 2023 02:30 PM AMBULATORY - SURGERY [facility] Apr 20, 2023 02:30 PM AMBULATORY - SURGERY [facility] May 25, 2023 09:40 AM AMBULATORY - SURGERY [facility] Social History: Smoking Status (Most current) and Tobacco Use (All prior to encounter date) This section includes the most current, and the historical, smoking and tobacco- related health factors from the [place] facility where the Encounter took place. Current Smoking Status This section includes the most current smoking, or tobacco-related health factor, from the [place] facility where the Encounter took place. Date/Time Current Smoking Status Comment Armando lutz Aug 20, 2022 03:30 PM VA-TOBACCO FORMER USER [facility] Tobacco Use History This section includes a history of the smoking, or tobacco-related health factors, that were collected on or before the date of the Encounter. The data comes from the [place] facility where the Encounter took place. Date/Time [...] GREATE R [facility] Encounter Notes: All associated encounter notes This section contains the clinical notes associated to the Encounter. Date/Time Encounter Note(s) Provider Source Feb 10, 2023 03:43 PM MENTAL HEALTH ADMINISTRATIVE NOTE: LOCAL TITLE: MHTC ASSIGNMENT/REASSIGNMENT NOTE STANDARD TITLE: MENTAL HEALTH ADMINISTRATIVE NOTE DATE OF NOTE: FEB 10, 2023@15:43 ENTRY DATE: FEB 10, 2023@15:43:36 AUTHOR: ALFIE VILLALTA EXP COSIGNER: URGENCY: STATUS: COMPLETED MHTC Reassignment This note documents the reassignment of the [place] Mental Health Photo Stylist (MHTC) on Jan. The [place] new Mental Health Photo Stylist is: MHTC Name: [place] [facility] Contact information: Office Other contact: This [place] existing MHTC was reassigned due to: Dr. Villalta leaving [facility] The assignment of the MHTC and education on the role of the MHTC in the [place] mental health care was discussed with the [place], who verbally concurred with the reassignment. The new MHTC's contact information was provided in writing to [place]. The [place]'s CPRS chart (i.e., PCMM) and MH Treatment Plan have been updated to reflect the new MHTC Assignment. The 's new MHTC, along with the previous MHTC if applicable, are included as additional signers on this note. /yolande/ ALFIE VILLALTA MD Staff Psychiatrist Signed: 02/10/2023 15:44 Receipt Acknowledged By: 02/11/2023 21:45 /yolande/ EMMETT MAC BACK TUFTER ALFIE VILLALTA [facility] Feb 03, 2023 04:39 PM PSYCHIATRY E & M N OTE: LOCAL TITLE: MH PSYCHIATRIC EVALUATION & MANAGEMENT STANDARD TITLE: PSYCHIATRY E & M NOTE DATE OF NOTE: FEB 03, 2023@16:39 ENTRY DATE: FEB 03, 2023@16:39:44 AUTHOR: ALFIE VILLALTA EXP COSIGNER: URGENCY: STATUS: COMPLETED PSYCHIATRIC EVALUATION AND MANAGEMENT FOLLOW UP VISIT Presents for mental health followup, unaccompanied. 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 Works hard at keeping busy, so that his mind doesn't dwell on past experiences which continue to intrude. We reviewed that after last visit, although our plan was to increase Sertraline from 100 mg to 150 mg daily, subsequent converation between RN and (who helps manage patient's medication) raised concern that the medication has contributed to increased spending/hoarding over the years. Discussed this in more detail today. For many years, he's enjoyed buying items at [employer] stores for low prices, which he feels will accumulate accounts collector value, such that someday he can sell for a profit. He continues to enjoy going to [employer] stores, finding items such as old [employer] books, stores them in the basement. Keeps all of this in basement, out of the way of the main living space of their house. Denies impulsive/excessive spending or financial strain. Does not refer to any of these items as treasures, today, which was noted previously by providers. He does not think that Sertraline has had any impact on this behavior. 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 At the same time, he continues to struggle with these symptoms, albeit to a lesser degree, and wonders whether a higher dose of Sertraline may help further. As with last visit, he would like to trial a dose increase to 150 mg daily, monitoring closely for side effects. Discussed this as a resonable next step which he will discuss with his later today. Denies any issues with sleep, consistently getting 8 hrs per night, 10PM-6AM. Feels that the increase in Melatonin to 6 mg qhs has also helped keep him calmer, and reduced his sleep onset delay. Does not exhibit or endorse any symptoms of mark or psychosis. MENTAL STATUS EXAM: Adult male appearing recorded age. Dressed casually and appropriately for weather. Alert, attentive, well-engaged in interview. Speech is fluent with no word-finding difficulties. Loquacious but non-pressured, open to interruption and redirection. Comprehension intact. Logical and organized. Mood is good, keeping busy, but I still have to work hard to keep memories out of my head, I still get angry sometimes, with pleasant, reactive, warm affect. No SI or HI. No delusions or [...] MDD, MAE (restarting PAP), history of Agent [place] exposure. Compared to intake visit 09/11, interval reduction in nightmare frequency and associated dream enactment, since starting Melatonin. Mood has also improved, describes himself as less irritable and reactive, though also continues to endorse hypervigilance, elevated startle, has to keep himself busy as way of coping with intrusive memories. Cognitively intact on basis of interview and screening eval 11/16. has raised concern about spending/hoarding behavior and has attributed this to Sertraline, which he's been on for several years, currently 100 mg daily. He describes this behavior above today, denies any associated distress or dysfunction, and does not exhibit or endorse any other symptoms or behaviors indicating that it is part of a larger MH syndrome (e.g. mark) or precipitated by SSRI. I agree with previous providers' assessments that Sertraline is unlikely to be contributing. On the other hand, he feels the medication has helped with chronic PTSD symptoms, expressed an informed desire to try a higher dose, which I think is reasonable. He will discuss this with who helps manage his medications. Engages in treatment planning outlined below. No acute safety concerns. 1) Increase Sertraline to 150 mg po daily for mood, irritability. Current prescription is already written for this; patient will discuss with who helps manage medications; we discussed she also reach out to speak with me if she has questions about this, and/or accompany him to visits. Discussed symptoms to monitor for with dose change. 2) Continue Melatonin 6 mg po one hour before bed. 3) Therapy per Dr. Carlos Hills. 4) Use PAP for MAE, followup with sleep clinic as needed. 5) RTC [address] Sienna Mcmillan, 60min. Informed of my departure from [facility] at end of January. Call clinic with any questions or concerns. Aware of [...] information in medical record, and care coordination: >30min /es/ ALFIE VILLALTA MD Staff Psychiatrist Signed: 02/05/2023 12:29 ALFIE VILLALTA [facility]
--- OUTSIDE RECORDS SUMMARY | 2023-08-30 08:51 | XMS_ITS ---
Author Name Department of [facility] Organization Department of [facility] Address [address] [place] [address] Support Name Relationship Address Phone ALYSSA HARDY Next of [place] [address] [place] [address] ALYSSA HARDY Emergency Contact [address] [place] [address] Insurance Providers: All historical and [...] Name Patient's Relationship to Policy Butts [facility] MEDICARE SUPPLEMEN NARCISA GONZALEZ R HIGINIO INDIV IDU Jul 19, 2016 [id number] P [id number] Estrella HARDY PATIENT [facility] MEDICARE SUPPLEMEN NARCISA LISA R GOLD INDIV IDU Jul 19, 2016 [id number] [phone] Estrella HARDY PATIENT MEDICARE (WNR) MEDICARE (M) PART A Aug 19, 2011 PART A [id number] [phone] Estrella HARDY PATIENT MEDICARE (WNR) MEDICARE (M) PART B Aug 19, 2011 PART B [id number] [phone] Estrella HARDY PATIENT Selected Encounter This section includes the information on record at [place] for the Encounter. Date/Time Encounter Type Encounter Description Reason Provider Source Jan 14, 2023 12:21 PM Outpatient Encounter TELEPHONE/MEDICIN E ICD-10-CM Z77.29 Contact with and exposure to other hazardous substances AMY KNIGHT E Encounter Template Text not used by [place] Assessments - Encounter Diagnoses This section includes the primary and secondary diagnoses documented for the Encounter. Date/Time Primary/Secondary Diagnosis Diagnosis Name Provider Source Jan 14, 2023 12:21 PM PRIMARY Contact with and exposure to other hazardous substances AMY KNIGHT [facility] Plan of Treatment: Future Appointments (+ 6 months) and Future Tests (+/- 45 days) The Plan of Treatment section includes future care activities for the patient from all [facility]. This section includes future appointments and future orders which are active, pending or scheduled. Future Appointments This section includes appointments that were scheduled to occur 6 months from the date of the Encounter, up to a maximum of 20 appointments. The [facility]. Appointment Date/Time Appointment Type Appointme nt Facility Name Feb 03, 2023 02:00 PM AMBULATORY - PSYCHIATRY [facility] Feb 26, 2023 02:00 PM AMBULATORY - PSYCHIATRY [facility] Mar 11, 2023 02:30 PM AMBULATORY - SURGERY [facility] Apr 01, 2023 01:45 PM AMBULATORY - MEDICINE [facility] Apr 15, 2023 02:30 PM AMBULATORY - SURGERY [facility] Apr 20, 2023 02:30 PM AMBULATORY - SURGERY [facility] May 25, 2023 09:40 AM AMBULATORY - SURGERY [facility] Encounter Notes: All associated encounter notes This section contains the clinical notes associated to the Encounter. Date/Time Encounter Note(s) Provider Source Jan 14, 2023 12:22 PM REPORT OF CONTACT: LOCAL TITLE: PATIENT CONTACT NOTE STANDARD TITLE: REPORT OF CONTACT DATE OF NOTE: JAN 14, 2023@12:22 ENTRY DATE: JAN 14, 2023@12:22:07 AUTHOR: AMY KNIGHT EXP COSIGNER: URGENCY: STATUS: COMPLETED Patient contact Name of [place]: DOMINGA HARDY Name/Relationship of Contact if other than : Date & Time of Contact: Dec@12:22 Type of Contact: Telephone Reason for Contact: toxic exposure screening Toxic Exposure Screening Follow-Up: Exposure Concern(s): 08/20/2022 Agent [place] - Toxic Exposure Concern Follow-up Question(s): 08/20/2022 Benefits/Claims Questions - Toxic Exposure Concern Registry Questions - Toxic Exposure Concern /caregiver has health or medical concerns related to their concern of environmental exposure. Concern: coronary artery disease Additional information: states that he served in the [employer] and was in [place] [facility] from 03/[place]-03/[place] and was exposed heavily to Agent [place] The following connections were provided to the /caregiver: Veterans Benefits Administration (VBA) for Benefits/claims: [place] Social Insurance Adviser/Organization (VSO) [email or web address] /es/ AMY KNIGHT Nurse Practitioner Signed: 01/14/2023 12:25 AMY KNIGHT [facility]
--- OUTSIDE RECORDS SUMMARY | 2023-08-30 08:51 | XMS_ITS | Encounter Summary ---
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 Address [address] [place] [address] Support Name Relationship Address Phone ALYSSA HARDY Next of Kin [address] [place] [address] ALYSSA HARDY Emergency Contact [address] [place] [address] Insurance Providers: All historical and [...] Butts's Name Patient's Relationship to Policy Butts [facility] MEDICARE SUPPLEMEN NARCISA TONIIO R GOLD INDIV IDU Jul 19, 2016 [id number] P [id number] 1A HAYLEYEstrella AYALA PATIENT [facility] MEDICARE SUPPLEMEN NARCISA SENIO R GOLD INDIV IDU Jul 19, 2016 [id number] [phone] HAYLEY,R ICHARD PATIENT MEDICARE (WNR) MEDICARE (M) PART A Aug 19, 2011 PART A [id number] [phone] HAYLEY,R ICHARD PATIENT MEDICARE (WNR) MEDICARE (M) PART B Aug 19, 2011 PART B [id number] [id number] [phone] Estrella HARDYARD PATIENT Selected Encounter This section includes the information on record at [place] for the Encounter. Date/Time Encounter Type Encounter Description Reason Pro vider Source Jan 14, 2023 01:14 PM Outpatient Encounter PSYCHOGERIATRIC - INDIVIDUAL REX HANSEN Encounter Template Text not used by [place] Plan of Treatment: Future Appointments (+ 6 months) and Future Tests (+/- 45 days) The Plan of Treatment section includes future care activities for the patient [facility] [place] [facility]. This section includes future appointments and future orders which are active, pending or scheduled. Future Appointments This section includes appointments that were scheduled to occur 6 months from the date of the Encounter, up to a maximum of 20 appointments. The data comes from all [facility] facilities. Appointment Date/Time Appointment Type Appointme nt Facility Name Feb 03, 2023 02:00 PM AMBULATORY - PSYCHIATRY [facility] Feb 26, 2023 02:00 PM AMBULATORY - PSYCHIATRY [facility] Mar 11, 2023 02:30 PM AMBULATORY - SURGERY [facility] Apr 01, 2023 01:45 PM AMBULATORY - MEDICINE [facility] Apr 15, 2023 02:30 PM AMBULATORY - SURGERY [facility] Apr 20, 2023 02:30 PM AMBULATORY - SURGERY [facility] May 25, 2023 09:40 AM AMBULATORY - SURGERY [facility] Social History: Smoking Status (Most current) and Tobacco Use (All prior to encounter date) This section includes the most current, and the historical, smoking and tobacco- related health factors from the [place] facility where the Encounter took place. Current Smoking Status This section includes the most current smoking, or tobacco-related health factor, from the [place] facility where the Encounter took place. Date/Time Current Smoking Status Comment Armando ity Aug 20, 2022 03:30 PM VA-TOBACCO QUIT 15 YRS OR MORE [facility] Tobacco Use History This section includes a history of the smoking, or tobacco-related health factors, that were collected on or before the date of the Encounter. The data comes from the [place] facility where the Encounter took place. Date/Time Smoking Status/Tobacco Use Comment F acility Aug 20, 2022 03:30 PM VA-TOBACCO QUIT 15 YRS OR MORE [facility] Jul 22, 2021 02:00 PM VA-TOBACCO FORMER USER [facility] Jul 22, 2021 02:00 PM VA-TOBACCO QUIT 15 YRS OR MORE [facility] Apr 05, 2019 09:50 AM VA-TOBACCO FORMER USER [facility] Apr 05, 2019 09:50 AM VA-TOBACCO QUIT 15 YRS OR MORE [facility] Apr 12, 2018 09:36 AM VA-TOBACCO FORMER USER [facility] Apr 12, 2018 09:36 AM VA-TOBACCO QUIT 15 YRS OR MORE [facility] Apr 19, 2017 01:40 PM FORMER TOBACCO USER 7Y OR GREATE R [facility] Apr 17, 2016 10:49 AM FORMER TOBACCO USER 7Y OR GREATE R [facility] Mar 18, 2015 09:40 AM FORMER TOBACCO USER 7Y OR GREATE R [facility] Mar 07, 2014 09:45 AM FORMER TOBACCO USER 7Y OR GREATE R [facility] Jan 26, 2012 03:48 PM FORMER TOBACCO USER 7Y OR GREATE R [facility] Encounter Notes: All associated encounter notes This section contains the clinical notes associated to the Encounter. Date/Time Encounter Note(s) Provider Source Jan 14, 2023 01:14 PM MENTAL HEALTH DIAG NOSTIC STUDY NOTE: LOCAL TITLE: MENTAL HEALTH DIAGNOSTIC STUDY NOTE STANDARD TITLE: MENTAL HEALTH DIAGNOSTIC STUDY NOTE DATE OF NOTE: JAN 14, 2023@13:14:35 ENTRY DATE: JAN 14, 2023@13:14:27 AUTHOR: ALEXANDER HANSENIGNER: URGENCY: STATUS: COMPLETED Insomnia Severity Index Date Given: 01/14/2023 Clinician: Rex Hansen Location: [facility] Carlos Hills [id number] [place]: Lev Hardy SSN: [id number] : [birth year] ([birth year]) Gender: Male ALISTAIR score: 8 Score categories: 0 - 7 No clinically significant insomnia 8 - 14 Subthreshold insomnia 15 - 21 Clinical insomnia (moderate severity) 22 - 28 Clinical insomnia (severe) Questions and Answers 1. Difficulty falling asleep. Mild 2. Difficulty staying asleep. Moderate 3. Problems waking up too early. None [...] Generalized Anxiety Disorder, 7 items Date Given: 01/14/2023 Clinician: Rex Hansen Location: [facility] Carlos Jeana [id number] : HayleyLev [facility]: [id number] : [birth year] ([birth year]) Gender: Male [id number] [...] Health Questionnaire - 9 (PHQ-9) Date Given: 01/14/2023 Clinician: Rex Hansen Location: [facility] Carlos Hills [id number] [place]: Lev Hardy N: [id number] : [birth year] ([birth year]) Gender: Male PHQ-9 [...] all 2. Feeling down, depressed, or hopeless Not at all 3. Trouble falling or staying asleep, or sleeping too much More than half the days 4. Feeling tired or having little energy Several days 5. Poor appetite or overeating More than half the days 6. Feeling bad about yourself or [...] conjunction with other diagnostic activities. Copyright 2001 [employer]. All rights reserved. Reproduced with permission of [employer]. YOVANI is a trademark of [employer] /yolande/ REX HILLS PHD Staff Psychologist Signed: 01/14/2023 17:06 REX HANSEN [facility]
--- OUTSIDE RECORDS SUMMARY | 2023-08-30 08:51 | XMS_ITS | Encounter Summary ---
Author Name [facility] Address [address] [place] [address] Support Name Relationship Address Phone ALYSSA HARDY Next of Kin [address] [place] [address] ALYSSA HARDY Emergency Contact [phone] [place] [address] Insurance Providers: All historical and [...] Patient's Relationship to Policy Butts [facility] MEDICARE SUPPLEMEN NARCISA LISA R GOLD INDIV IDU Jul 19, 2016 [id number] P [id number] [phone] [facility] MEDICARE SUPPLEMEN NARCISA SENRUTH R GOLD INDIV IDU Jul 19, 2016 [id number] [phone] HAYLEYR BREANNAARD PATIENT MEDICARE (WNR) MEDICARE (M) PART B Aug 19, 2011 PART B [id number] HAYLEYR BREANNAARD PATIENT MEDICARE (WNR) MEDICARE (M) PART A Aug 19, 2011 PART A [id number] Estrella HARDY PATIENT Selected Encounter This section includes the information on record at [place] for the Encounter. Date/Time Encounter Type Encounter Description Reason Pro vider Source Jan 14, 2023 01:00 PM PSYTX W PT 45 MINUTES PSYCHOGERIATRIC - INDIVIDUAL ICD-10-CM F43.12 Post-traumati c stress disorder, chronic ALEJANDRO CANHI IHShelia Encounter Template Text not used by [place] Assessments - Encounter Diagnoses This section includes the primary and secondary diagnoses documented for the Encounter. Date/Time Primary/Secondary Diagnosis Diagnosis Name Provider Source Jan 25, 2023 12:21 PM PRIMARY Post-traumatic stress disorder, chronic ALEJANDRO CANHI [facility] Plan of Treatment: Future Appointments (+ 6 months) and Future Tests (+/- 45 days) The Plan of Treatment section includes future care activities for the patient from all [place] [facility]. This section includes future appointments and future orders which are active, pending or scheduled. Future Appointments This section includes appointments that were scheduled to occur 6 months from the date of the Encounter, up to a maximum of 20 appointments. The data comes from all [place] treatment facilities. Appointment Date/Time Appointment Type Appointme nt Facility Name Feb 03, 2023 02:00 PM AMBULATORY - PSYCHIATRY [facility] Feb 26, 2023 02:00 PM AMBULATORY - PSYCHIATRY [facility] Mar 11, 2023 02:30 PM AMBULATORY - SURGERY [facility] Apr 01, 2023 01:45 PM AMBULATORY - MEDICINE [facility] Apr 15, 2023 02:30 PM AMBULATORY - SURGERY [facility] Apr 20, 2023 02:30 PM AMBULATORY - SURGERY [facility] May 25, 2023 09:40 AM AMBULATORY - SURGERY [facility] Social History: Smoking Status (Most current) and Tobacco Use (All prior to encounter date) This section includes the most current, and the historical, smoking and tobacco- related health factors from the [place] facility where the Encounter took place. Current Smoking Status This section includes the most current smoking, or tobacco-related health factor, from the [place] facility where the Encounter took place. Date/Time Current Smoking Status Comment Armando ity Aug 20, 2022 03:30 PM VA-TOBACCO FORMER USER [facility] Tobacco Use History This section includes a history of the smoking, or tobacco-related health factors, that were collected on or before the date of the Encounter. The data comes from the [place] facility where the Encounter took place. Date/Time Smoking Status/Tobacco Use Comment F acility Aug 20, 2022 03:30 PM VA-TOBACCO QUIT [address] [facility] Jul 22, 2021 02:00 PM VA-TOBACCO FORMER USER [facility] Jul 22, 2021 02:00 PM VA-TOBACCO QUIT [address] [facility] Apr 05, 2019 09:50 AM VA-TOBACCO FORMER USER [facility] Apr 05, 2019 09:50 AM VA-TOBACCO QUIT [address] [facility] Apr 12, 2018 09:36 AM VA-TOBACCO FORMER USER [facility] Apr 12, 2018 09:36 AM VA-TOBACCO QUIT [address] [facility] Apr 19, 2017 01:40 PM FORMER TOBACCO USER 7Y OR GRE[address] R [facility] Apr 17, 2016 10:49 AM FORMER TOBACCO USER 7Y OR GRE[address] [facility] Mar 18, 2015 09:40 AM FORMER TOBACCO USER 7Y OR [facility] [facility] Mar 07, 2014 09:45 AM FORMER TOBACCO USER 7Y OR GRE[address] R [facility] Jan 26, 2012 03:48 PM FORMER TOBACCO USER 7Y OR [facility] [facility] Encounter Notes: All associated encounter notes This section contains the clinical notes associated to the Encounter. Date/Time Encounter Note(s) Provider Source Jan 14, 2023 01:00 PM MENTAL HEALTH NOTE : LOCAL TITLE: MH PROGRESS NOTE STANDARD TITLE: MENTAL HEALTH NOTE DATE OF NOTE: JAN 14, 2023@13:00 ENTRY DATE: JAN 14, 2023@17:04:13 AUTHOR: ALEXANDER MILLER: URGENCY: STATUS: COMPLETED Team A Psychotherapy Session 3 Date/time: 01/14/2023; 1300 Visit Length: 50 minutes S/O: Wyckoff returned for follow-up psychotherapy to address concerns regarding PTSD, mood, and sleep. Drawbridge Tender and reviewed the following treatment goals: 1. Improve management of anger 2. Manage reactions to intrusive thoughts, memories, and nightmares 3. Enjoy more peace within myself Reviewed self-report measures and discussed interim changes and contributors. Wyckoff reported overeating after dinner. Engaged in brief problem-solving and discussed eating fruit/nuts during day to decrease hunger at night. endorsed decline in nightmares in interval but endorsed ongoing sleep disruption (initial/middle), nighttime worry, hypervigilance, and daytime sleepiness. Discussed contribution of MAE and lack of PAP use to sleep disruption and daytime sleepiness. reported he had discussed PAP use with friends/fellow Veterans and had been encouraged by their normalization of PAP use, report of positive outcomes, and recommendations for PAP use. Revisited Wyckoff's concerns about his ability to balance his work schedule with regular attendance and between-sessions practice and desire to prioritize medical conditions (e.g., PAP adherence group). Revisited treatment options discussed at previous session and desire to delay participation in PAP group to a time when work is less busy. Discussed potential treatment options and targets. expressed interest in individual CBT-based PAP adherence work, with eventual plan to transition to trauma processing. Offered handout and discussed PAP psychoeducation. Collaboratively discussed pros/cons of either continuing with PAP nonadherence or taking steps toward wearing PAP (used decisional balance). Introduced cognitive-behavioral model and discussed cognitive, emotional, physiological, and behavioral factors in the context of PAP adherence. Discussed examples of thoughts around PAP adherence (e.g., Wearing a PAP will restrict me, I won't be able to keep myself safe,) and connection with emotions, physiological sensations, and behaviors. Introduced behavioral steps toward PAP desensitization, and expressed commitment to action toward Step 1 (wearing PAP during daytime, disconnected from machine). Discussed monitoring of associated thoughts/emotions, as well as utility of relaxation exercises. Engaged in in-session practice of Peaceful Place Visualization and debriefed. Invited to practice behavioral Step 1, guided imagery, and monitoring of PAP-related thoughts between sessions. Drawbridge Tender and debriefed at conclusion of session, discussing [...] MEASURES: PHQ-9: 02/11 (mild depression symptoms) FALGUNI-7: 03/08 (mild anxiety symptoms) ALISTAIR: 03/15 (subthreshold clinical insomnia symptoms) PATIENT EDUCATION: indicated readiness to learn [...] at increased risk for suicide (older White male/Wyckoff status) Protective factors: Access to and engagement with health care; Reports motivation for medical treatment; Access to and engagement with mental health care; Reports motivation for mental health treatment; Meaningful family relationships; Significant other; Hope for the future; Protective personal traits or beliefs; Faith or spiritual beliefs/connections; Connections to cultural group(s); Social support system; Strong desire to live/reasons for living; Coping skills Overall Assessment: Based on risk and protective factors, the patient is considered to be at low acute risk for committing harm-related acts and at low chronic/long-term risk. MH TREATMENT PLAN: Next RTC entered for approx. 3 weeks ('s preference, due to schedule) in- clinic ('s preferred modality). Treatment will target improving sleep, [...] making appropriate comments. ++++++++++ /yolande/ HI CAN PHD Staff Psychologist Signed: 01/14/2023 17:[address] [facility]
--- OUTSIDE RECORDS SUMMARY | 2023-08-30 08:52 | XMS_ITS | Encounter Summary ---
Author Name [facility] Organization [facility] Address [address] [place] [address] Support Name Relationship Address Phone ALYSSA HARDY Next of Kin [address] [place] [address] ALYSSA HARDY Emergency Contact [address] [place] [address] Insurance Providers: All historical and [...] Butts's Name Patient's Relationship to Policy Butts [facility] MEDICARE SUPPLEMEN NARCISA LISA R GOLD INDIV IDU Jul 19, 2016 [id number] P [id number] [phone] Estrella HARDY PATIENT [facility] MEDICARE SUPPLEMEN NARCISA SENIO R GOLD INDIV IDU Jul 19, 2016 [id number] Estrella HARDY PATIENT MEDICARE (WNR) MEDICARE (M) PART A Aug 19, 2011 PART A [id number] CT81 [phone] Estrella HARDY PATIENT MEDICARE (WNR) MEDICARE (M) PART B Aug 19, 2011 PART B [id number] CT81 [phone] Estrella HARDY PATIENT Selected Encounter This section includes the information on record at [place] for the Encounter. Date/Time Encounter Type Encounter Description Reason Provider Source Jan 14, 2023 09:00 AM Outpatient Encounter GENERAL INTERNAL MEDICINE ICD-10-CM Z77.29 Contact with and exposure to other hazardous substances ANTONIA,AMY J Shelia Encounter Template Text not used by [place] Assessments - Encounter Diagnoses This section includes the primary and secondary diagnoses documented for the Encounter. Date/Time Primary/Secondary Diagnosis Diagnosis Name Provider Source Feb 10, 2023 08:10 AM PRIMARY Contact with and exposure to other hazardous substances JACLYN MILAN [facility] Plan of Treatment: Future Appointments (+ 6 months) and Future Tests (+/- 45 days) The Plan of Treatment section includes future care activities for the patient from all [place] treatmentfacilities. This section includes future appointments and future orders which are active, pending or scheduled. Future Appointments This section includes appointments that were scheduled to occur 6 months from the date of the Encounter, up to a maximum of 20 appointments. The data comes from all [place] treatment facilities. Appointment Date/Time Appointment Type Appointme nt Facility Name Feb 03, 2023 02:00 PM AMBULATORY - PSYCHIATRY [facility] Feb 26, 2023 02:00 PM AMBULATORY - PSYCHIATRY [facility] Mar 11, 2023 02:30 PM AMBULATORY - SURGERY [facility] Apr 01, 2023 01:45 PM AMBULATORY - MEDICINE [facility] Apr 15, 2023 02:30 PM AMBULATORY - SURGERY [facility] Apr 20, 2023 02:30 PM AMBULATORY - SURGERY [facility] May 25, 2023 09:40 AM AMBULATORY - SURGERY [facility]
--- OUTSIDE RECORDS SUMMARY | 2023-08-30 08:52 | XMS_ITS | Encounter Summary ---
Author Name [facility] Organization [facility] Address [address] [place] [address] Support Name Relationship Address Phone ALYSSA HARDY Next of Kin [address] [place] [address] ALYSSA HARDY Emergency Contact [phone] [place] [address] Insurance Providers: All historical and [...] Policy Butts [facility] MEDICARE SUPPLEMEN NARCISA LISA R GOLD INDIV IDU Jul 19, 2016 [id number] [phone] Estrella HARDY PATIENT [facility] MEDICARE SUPPLEMEN NARCISA SENRUTH R GOLD INDIV IDU Jul 19, 2016 [id number] [phone] Estrella HARDY PATIENT MEDICARE (WNR) MEDICARE (M) PART A Aug 19, 2011 PART A [id number] [phone] Estrella HARDY PATIENT MEDICARE (WNR) MEDICARE (M) PART B Aug 19, 2011 PART B [id number] [id number] [phone] sEtrella HARDY PATIENT Selected Encounter This section includes the information on record at [place] for the Encounter. Date/Time Encounter Type Encounter Description Reason Pro vider Source Mar 26, 2023 02:00 PM Outpatient Encounter PSYCHOGERIATRIC - INDIVIDUAL IHE Encounter Template Text not used by [place] Plan of Treatment: Future Appointments (+ 6 months) and Future Tests (+/- 45 days) The Plan of Treatment section includes future care activities for the patient from all [place] [facility]. This section includes future appointments and future orders which are active, pending or scheduled. Future Appointments This section includes appointments that were scheduled to occur 6 months from the date of the Encounter, up to a maximum of 20 appointments. The data comes from all [facility] facilities. Appointment Date/Time Appointment Type Appointme nt Facility Name Apr 01, 2023 01:45 PM [facility] Apr 15, 2023 02:30 PM [facility] SUR[facility] Apr 20, 2023 02:30 PM AMBULATORY - SURGERY [facility] May 25, 2023 09:40 AM AMBULATORY - SURG[facility] Aug 17, 2023 09:00 AM [facility] Aug 17, 2023 10:00 AM AMBULATORY - MEDICINE [facility] Social History: Smoking Status (Most current) and Tobacco Use (All prior to encounter date) This section includes the most current, and the historical, smoking and tobacco- related health factors from the [place] facility where the Encounter took place. Current Smoking Status This section includes the most current smoking, or tobacco-related health factor, from the [place] facility where the Encounter took place. Date/Time Current Smoking Status Comment Armando lutz Aug 20, 2022 03:30 PM VA-TOBACCO FORMER USER [facility] Tobacco Use History This section includes a history of the smoking, or tobacco-related health factors, that were collected on or before the date of the Encounter. The data comes from the [place] facility where the Encounter took place. Date/Time Smoking Status/Tobacco Use Comment F imani Aug 20, 2022 03:30 PM VA-TOBACCO QUIT 15 YRS OR MORE [facility] Jul 22, 2021 02:00 PM VA-TOBACCO FORMER USER [facility] Jul 22, 2021 02:00 PM VA-TOBACCO QUIT 15 YRS OR MORE [facility] Apr 05, 2019 09:50 AM VA-TOBACCO FORMER USER [facility] Apr 05, 2019 09:50 AM VA-TOBACCO QUIT 15 YRS OR MORE [facility] Apr 12, 2018 09:36 AM VA-TOBACCO FORMER USER [facility] Apr 12, 2018 09:36 AM VA-TOBACCO QUIT 15 YRS OR MORE [facility] Apr 19, 2017 01:40 PM FORMER TOBACCO USER 7Y OR GREATE R [facility] Apr 17, 2016 10:49 AM FORMER TOBACCO USER 7Y OR GREATE R [facility] Mar 18, 2015 09:40 AM FORMER TOBACCO USER 7Y OR GREATE R [facility] Mar 07, 2014 09:45 AM FORMER TOBACCO USER 7Y OR GREATE R [facility] Jan 26, 2012 03:48 PM FORMER TOBACCO USER 7Y OR GREATE R [facility] Encounter Notes: All associated encounter notes This section contains the clinical notes associated to the Encounter. Date/Time Encounter Note(s) Provider Source Mar 26, 2023 03:54 PM REPORT OF CONTACT: LOCAL TITLE: APPOINTMENT SCHEDULING NOTE STANDARD TITLE: REPORT OF CONTACT DATE OF NOTE: MAR 26, 2023@15:54 ENTRY DATE: MAR 26, 2023@15:54:36 AUTHOR: ESTER GLOVER EXP COSIGNER: URGENCY: STATUS: COMPLETED APPOINTMENT SCHEDULING NOTE Has ADDENDA Attempted to schedule Return to clinic (RTC) Left [facility] for pt to call [phone]. Sent letter. /jimmy GLOVER CHAIN SPLITTER Signed: 03/26/2023 15:55 03/29/2023 ADDENDUM STATUS: COMPLETED 3rd Attempt- Called to (re)schedule appointment with provider. No answer, LVM to call [phone]. /jimmy GLOVER CHAIN SPLITTER Signed: 03/29/2023 13:25 03/31/2023 ADDENDUM STATUS: COMPLETED 4th Attempt- Called to (re)schedule appointment with provider. No answer, LVM to call [phone]. No further attempts will be made to contact . /jimmy GLOVER CHAIN SPLITTER Signed: 03/31/2023 07:41 ESTER GLOVER [facility] Mar 26, 2023 02:00 PM NO SHOW NOTE: LOCAL TITLE: NO SHOW/CANCELLATION CLINIC NOTE STANDARD TITLE: NO SHOW NOTE DATE OF NOTE: MAR 26, 2023@14:00 ENTRY DATE: MAR 26, 2023@14:18:03 AUTHOR: ALEXANDER MILLER EXP COSIGNER: URGENCY: STATUS: COMPLETED [place] not seen for scheduled appointment due to: [place] cancelled; spoke with via telephone. 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 [place]'s work is seasonal, and he expressed preference to prioritize work at this time. Reported stability in mood and adequate support. Ensured [place] has web content writer's/clinic contact information and invited [place] to call with interim needs. Appointment Rescheduled: No declined to tentatively schedule f/u session for later in the fall, stating he would rather call in a few weeks to schedule. There were no indicators of acute distress in current encounter. No [...] the future; Protective personal traits or beliefs; Shinto or spiritual beliefs/connections; Connections to cultural group(s); Social support system; Strong desire to live/reasons for living; Coping skills Overall Assessment: Based on risk and protective factors, the patient is considered to be at low acute risk for committing harm-related acts and at low chronic/long-term risk. /yolande/ HI CAN PHD, Staff Psychologist Signed: 03/26/2023 14:20 HI MILLER [facility]
--- OUTSIDE RECORDS SUMMARY | 2023-08-30 08:52 | XMS_ITS | Encounter Summary ---
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 Address [address] [place] [address] Support Name Relationship Address Phone ALYSSA HARDY Next of Kin [address] [place] [address] ALYSSA HARDY Emergency Contact [address] [place] [address] Insurance Providers: All historical and [...] Policy Butts [place] SUPPLEMEN NARCISA GONZALEZ R GOLD INDIV IDU Jul 19, 2016 [id number] 1A Estrella HARDY PATIENT [facility] MEDICARE SUPPLEMEN NARCISA LISA R GOLD INDIV IDU Jul 19, 2016 [id number] [phone] HAYLEYR ICHARD PATIENT MEDICARE (WNR) MEDICARE (M) PART A Aug 19, 2011 PART A [id number] HAYLEYR BREANNAARD PATIENT MEDICARE (WN) MEDICARE (M) PART B Aug 19, 2011 PART B [id number] Estrella HARDY PATIENT Selected Encounter This section includes the information on record at [place] for the Encounter. Date/Time Encounter Type Encounter Description Reason Provider Source Mar 11, 2023 02:30 PM HEARING AID FITTING/CHECKIN G AUDIOLOGY ICD-10-CM Z46.1 Encounter for fitting and adjustment of hearing aid MARY PURVIS Shelia Encounter Template Text not used by [place] Assessments - Encounter Diagnoses This section includes the primary and secondary diagnoses documented for the Encounter. Date/Time Primary/Secondary Diagnosis Diagnosis Name Provider Source Mar 11, 2023 03:57 PM PRIMARY Encounter for fitting and adjustment of hearing aid JACQUELYN PURVIS [facility] Mar 11, 2023 03:57 PM SECONDARY Sensorineural hearing loss, bilateral JACQUELYN PURVIS [facility] Mar 11, 2023 03:57 PM SECONDARY Tinnitus, bilateral JACQUELYN PURVIS [facility] Plan of Treatment: Future Appointments (+ 6 months) and Future Tests (+/- 45 days) The Plan of Treatment section includes future care activities for the patient from [facility] This section includes future appointments and future orders which are active, pending or scheduled. Future Appointments This section includes appointments that were scheduled to occur 6 months from the date of the Encounter, up to a maximum of 20 appointments. The data comes from all [place] treatment facilities. Appointment Date/Time Appointment Type Appointme nt Facility Name Apr 01, 2023 01:45 PM AMBULATORY - MEDICINE [facility] Apr 15, 2023 02:30 PM AMBULATORY - SURGERY [facility] Apr 20, 2023 02:30 PM AMBULATORY - SURGERY [facility] May 25, 2023 09:40 AM AMBULATORY - SURGERY [facility] Aug 17, 2023 09:00 AM AMBULATORY - NONE [facility] Aug 17, 2023 10:00 AM AMBULATORY - MEDICINE [facility] Social History: Smoking Status (Most current) and Tobacco Use (All prior to encounter date) This section includes the most current, and the historical, smoking and tobacco- related health factors from the [place] facility where the Encounter took place. Current Smoking Status This section includes the most current smoking, or tobacco-related health factor, from the [place] facility where the Encounter took place. Date/Time Current Smoking Status Comment Armando lutz Aug 20, 2022 03:30 PM VA-TOBACCO QUIT 15 YRS OR MORE [facility] Tobacco Use History This section includes a history of the smoking, or tobacco-related health factors, that were collected on or before the date of the Encounter. The data comes from the [place] facility where the Encounter took place. Date/Time Smoking Status/Tobacco Use Comment F acility Aug 20, 2022 03:30 PM VA-TOBACCO QUIT 15 YRS OR MORE [facility] Jul 22, 2021 02:00 PM VA-TOBACCO FORMER USER [facility] Jul 22, 2021 02:00 PM VA-TOBACCO QUIT 15 YRS OR MORE [facility] Apr 05, 2019 09:50 AM VA-TOBACCO FORMER USER [facility] Apr 05, 2019 09:50 AM VA-TOBACCO QUIT 15 YRS OR MORE [facility] Apr 12, 2018 09:36 AM VA-TOBACCO FORMER USER [facility] Apr 12, 2018 09:36 AM VA-TOBACCO QUIT 15 YRS OR MORE [facility] Apr 19, 2017 01:40 PM FORMER TOBACCO USER 7Y OR GREATE R [facility] Apr 17, 2016 10:49 AM FORMER TOBACCO USER 7Y OR GREATE R [facility] Mar 18, 2015 09:40 AM FORMER TOBACCO USER 7Y OR GREATE R [facility] Mar 07, 2014 09:45 AM FORMER TOBACCO USER 7Y OR GREATE R [facility] Jan 26, 2012 03:48 PM FORMER TOBACCO USER 7Y OR GREATE R [facility] Encounter Notes: All associated encounter notes This section contains the clinical notes associated to the Encounter. Date/Time Encounter Note(s) Provider Source Mar 11, 2023 07:35 AM AUDIOLOGY NOTE: LOCAL TITLE: AUDIOLOGY CLINIC NOTE STANDARD TITLE: AUDIOLOGY NOTE DATE OF NOTE: MAR 11, 2023@07:35 ENTRY DATE: MAR 11, 2023@07:36:01 AUTHOR: LUCY PURVIS COSIGNER: URGENCY: STATUS: COMPLETED SUBJECT: HEARING EVALUATION DIAGNOSIS: BILATERAL SENSORINEURAL HEARING LOSS, BILATERAL TINNITUS REASON FOR VISIT: THERAPEUTIC: HEARING AID EVALUATION, 60 minutes. Kimberly was seen in this clinic today for an updated hearing evaluation and new hearing aid selection. He was last seen in this clinic on 05/26/2019 for a hearing aid fitting. Kimberly is Service Connected for Hearing Loss and Tinnitus. Kimberly was unaccompanied today. SUBJECTIVE/HISTORY: reported that he has noticed increased difficulty hearing. 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 He reported that it has recently gotten embarrassing to talk on the phone, as he often mishears things. Mabscott reported that his hearing aids did help quite well for a while, but no longer provide him with much benefit. Mabscott has bilateral tinnitus that has not changed. He reported some problems with balance in general, as well as a history of a few vertigo spells. He denied otalgia, aural fullness, and drainage today. has a history of heart problems, including heart attack and placement of stents. Hearing aid-right/left; Date Fit: 05/26/19 Make: Phonak Model: MORROO M90-R Style: [facility] Serial #: [id number] Date Night Sitter Size: 2M Dome: small vented OBJECTIVE/PROCEDURES: AUDIOMETRICS: Air conduction, Bone conduction, Speech testing Transducer: Circumaural headphones and inserts Reliability: Good *See results via Audiogram display under Tools->Audiology->ROES or see [facility] database. OTOSCOPY: Right: minimal non-occluding cerumen and normal appearing tympanic membrane. Left: minimal non-occluding cerumen and normal appearing tympanic membrane. TYMPANOMETRY: RIGHT EAR: Type A Pressure: Normal Compliance: Normal Volume: Normal LEFT EAR: Type A Pressure: Normal Compliance: Normal Volume: Normal SPEECH RECOGNITION THRESHOLD (SRT): Spondees Right: 55 dB HL Left: 45 dB HL Pure tone results were consistent with speech medical office receptionist thresholds. WORD RECOGNITION: /-22 word list Right Ear: 56% Level: 80* dB Left Ear: 64% Level: 80* dB *Completed with headphones on prior to switching to inserts. I suspect there was some ear canal collapse occurring, and these scores would likely be higher if tested with inserts. Mabscott also noted that 80 dB HL was comfortable for both ears. SUMMARY: Hearing has changed when compared to the previous evaluation completed on 04/14/2019. Specifically, pure tone thresholds have decreased by 10-25 dB HL, bilaterally. RIGHT EAR: Mild sloping to severe sensorineural hearing loss. Word recognition ability rated as poor. Type A tympanogram consistent with normal tympanic membrane mobility. LEFT EAR: Mild sloping to severe sensorineural hearing loss. Word recognition ability rated as moderately impaired. Type A tympanogram consistent with normal tympanic membrane mobility. ACTION/AMPLIFICATION: - remains a good candidate for hearing aid use. - Mabscott was counseled on their type, degree and configuration of hearing loss. - Different styles/technologies were reviewed with consideration given to Mabscott's listening situations and lifestyle needs. We discussed using a remote microphone for more challenging listening environments, at work, etc. would like to try this. - The has good vision, memory, and dexterity for hearing aid use. We discussed c-shells for improved audibility. is not ready to try these quite yet. - Hearing aids ordered: Phonak L90-RL RICs (color: P6/silver milner, 2-M, small vented domes). - Accessory: Musa IVY [place] utilizes a smartphone and is interested in Bluetooth connectivity. He has his current aids paired to his phone. STANDARD CURRICULUM OF COUNSELING: - Mabscott counseled using a standard curriculum on effective communication strategies such as maintaining face to face contact when speaking, eliminating background noise when possible, and talking at a close distance. - Mabscott counseled using a standard curriculum on tinnitus, its physiologic basis, potential triggers, and treatment options/management strategies such as using a fan at night, avoiding silence, and trying to habituate to the sound. - counseled using a standard curriculum on hearing protection in noise. HEARING AID PROGRAMMING/SERVICE: - Hearing aids cleaned and checked. Biologic listening check revealed good sound quality from aids. Visual inspection revealed aids in good condition overall, though wax traps were upside down in both receivers. - Aids cleaned, filters, domes, and sports' locks changed. - Aids connected to software and programmed to today's hearing evaluation. Firmware update was prompted and ran. Mabscott reported much improved sound quality, that was slightly too loud. Feedback assistant guest services manager ran, overall gain decreased slightly, and occlusion compensation set to medium bilaterally. reported comfort from aids. - was re-counseled on changing his wax filters. He expressed understanding. PLAN: - Mabscott will be scheduled for a 60-minute hearing aid fitting appointment. - Mabscott is in agreement with this plan. /yolande/ LUCY PURVIS Patternmaker Apprentice Metal Signed: 03/11/2023 16:09 LUCY PURVIS [facility]
--- OUTSIDE RECORDS SUMMARY | 2023-08-30 08:53 | XMS_ITS | Encounter Summary ---
Author Name [facility] of 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 Address [address] [place] [address] Support Name Relationship Address Phone ALYSSA HARDY Next of [place] [address] [place] [address] ALYSSA HARDY Emergency Contact [address] [place] [address] Insurance Providers: All historical and [...] Butts's Name Patient's Relationship to Policy Butts [facility] MEDICARE SUPPLEMEN NARCISA MUÑOZRUTH R GOLD INDIV IDU Jul 19, 2016 [id number] [phone] HAYLEYEstrellaASHLEY PATIENT [place] MEDICARE SUPPLEMEN NARCISA TONIRUTH R GOLD INDIV IDU Jul 19, 2016 [id number] 1A HAYLEY,R ICHARD PATIENT MEDICARE (WNR) MEDICARE (M) PART A Aug 19, 2011 PART A [id number] HAYLEY,R ICHARD PATIENT MEDICARE (WNR) MEDICARE (M) PART B Aug 19, 2011 PART B [id number] [phone] Estrella HARDY PATIENT Selected Encounter This section includes the information on record at [place] for the Encounter. Date/Time Encounter Type Encounter Description Reason Provider Source Mar 31, 2023 08:32 AM Outpatient Encounter TELEPHONE TRIAGE ALFIE INGRAM Encounter Template Text not used by [place] Plan of Treatment: Future Appointments (+ 6 months) and Future Tests (+/- 45 days) The Plan of Treatment section includes future care activities for the patient from all [place] [facility]. This section includes future appointments and future orders which are active, pending or scheduled. Future Appointments This section includes appointments that were scheduled to occur 6 months from the date of the Encounter, up to a maximum of 20 appointments. The data comes from all [facility]. Appointment Date/Time Appointment Type Appointme nt Facility Name Apr 01, 2023 01:45 PM [facility] Apr 15, 2023 02:30 PM AMBULATORY - SURGERY [facility] Apr 20, 2023 02:30 PM AMBULATORY - SURGERY [facility] May 25, 2023 09:40 AM AMBULATORY - SURGERY [facility] Aug 17, 2023 09:00 AM AMBULATORY - NONE [facility] Aug 17, 2023 10:00 AM AMBULATORY - MEDICINE [facility] Sep 27, 2023 02:00 PM AMBULATORY - SURGERY [facility] Social History: Smoking Status (Most current) and Tobacco Use (All prior to encounter date) This section includes the most current, and the historical, smoking and tobacco- related health factors from the [place] facility where the Encounter took place. Current Smoking Status This section includes the most current smoking, or tobacco-related health factor, from the [place] facility where the Encounter took place. Date/Time Current Smoking Status Comment Armando ity Aug 20, 2022 03:30 PM VA-TOBACCO QUIT 15 YRS OR MORE [facility] Tobacco Use History This section includes a history of the smoking, or tobacco-related health factors, that were collected on or before the date of the Encounter. The data comes from the [place] facility where the Encounter took place. Date/Time Smoking Status/Tobacco Use Comment F acility Aug 20, 2022 03:30 PM VA-TOBACCO QUIT 15 YRS OR MORE [facility] Jul 22, 2021 02:00 PM VA-TOBACCO FORMER USER [facility] Jul 22, 2021 02:00 PM VA-TOBACCO QUIT 15 YRS OR MORE [facility] Apr 05, 2019 09:50 AM VA-TOBACCO FORMER USER [facility] Apr 05, 2019 09:50 AM VA-TOBACCO QUIT 15 YRS OR MORE [facility] Apr 12, 2018 09:36 AM VA-TOBACCO FORMER USER [facility] Apr 12, 2018 09:36 AM VA-TOBACCO QUIT 15 YRS OR MORE [facility] Apr 19, 2017 01:40 PM FORMER TOBACCO USER 7Y OR GREATE R [facility] Apr 17, 2016 10:49 AM FORMER TOBACCO USER 7Y OR GREATE R [facility] Mar 18, 2015 09:40 AM FORMER TOBACCO USER 7Y OR GREATE R [facility] Mar 07, 2014 09:45 AM FORMER TOBACCO USER 7Y OR GREATE R [facility] Jan 26, 2012 03:48 PM FORMER TOBACCO USER 7Y OR GREATE R [facility] Encounter Notes: All associated encounter notes This section contains the clinical notes associated to the Encounter. Date/Time Encounter Note(s) Provider Source Mar 31, 2023 08:32 AM RN PROGRESS NOTE: LOCAL TITLE: [facility]: CLINICAL TRIAGE STANDARD TITLE: RN PROGRESS NOTE DATE OF NOTE: MAR 31, 2023@08:32:53 ENTRY DATE: MAR 31, 2023@08:32:53 AUTHOR: ALFIE INGRAM EXP COSIGNER: URGENCY: STATUS: COMPLETED Patient Demographics Patient Name: DOMINGA HARDY SSN: [id number] Patient Primary Address: [address] [place] [address]
[place] [address] Patient Primary Phone: [phone] Patient : 1945 Patient Age: 77 Caller/Recipient Relation to Patient: Self Emergency Contact: ALYSSA HAYLEY Triage Summary Conducted triage/discussed symptoms Pain Score: 0 (No Pain) Utilized the Triage Tool: Yes Chief Complaint: Skin Lesion System WHEN: Within 2 Weeks Nurse's Recommendation / WHEN: Within 2 Weeks Nurse's Recommendation / WHERE: Clinic/[facility] System WHERE: Clinic Patient Disposition Patient/Caregiver agrees to plan of care: Yes Nursing Plan and Disposition Referred Patient for In-Person Appt Other course(s) of action Other Other Description: appt per [facility]SA Provided guidance for worsening symptoms: *Caller/Patient* advised to call facilities [place] Clinical Contact Center or seek immediate medical attention for new or worsening symptoms Nurse Summary Nurse Summary: ########################### ############ NURSES NOTES PATIENT CONCERN/DURATION/ONSET: called with skin lesion on the bridge of his nose that he is concerned may be skin cancer due to his history. It has been present for about a month, and it is not oozing, draining or itchy. It is slightly reddish brown. He states that is is ''kind of'' tender if he really pushes on it, but otherwise is not painful. 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 Appt per [facility] MSA. directed to call back or seek care immediately in ER/UC if he develops CP, SOB, dizziness or any other symptoms requiring medical care. verbalized understanding and agreement with plan of care. Best contact for is (Verified). This note was created by a [facility] paleology teacher.?? Please do not alert this nurse by adding as a signer for future communications.?? Alerts are not monitored by this user, if further assistance needed please email . (Caller could accurately summarize the agreed upon plan of care as discussed in the education log portion of this note.) Per policy, automated recommendations for an ?appointment? indicates an interaction (virtual or in-person) with the care team. ########################### ################## Clinical Contact Center Codes Clinic/Location: [address] PHONE CCC RN TXCC Triage Complete Triage Note: Phone Triage Wed, 31 Mar 2023 13:21:29 +0000 [facility] Demographics 77 y/o Male Results CC: Skin Lesion Software suggested: Within 2 Weeks Software suggested follow-up location: Clinic, consider virtual care Values and Measures Duration of CC: 1 Months Positive Responses HPI: mole, enlarging VS: temperature not taken Negative Responses Denies: HPI: skin erythema, around skin lump or bump /yolande/ ALFIE INGRAM RN VISN 23 Daytime photoengraving sketch maker Signed: 03/31/2023 08:32 ALFIE INGRAM [facility]
--- OUTSIDE RECORDS SUMMARY | 2023-08-30 08:53 | XMS_ITS | Encounter Summary ---
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 Address [address] [place] [address] Support Name Relationship Address Phone ALYSSA HARDY Next of Kin [address] [place] [address] ALYSSA HARDY Emergency Contact [phone] [place] [address] Insurance Providers: All historical and [...] Butts's Name Patient's Relationship to Policy Butts [facility] MEDICARE SUPPLEMEN NARCISA MUÑOZRUTH R HIGINIO INDIV IDU Jul 19, 2016 [id number] Estrella HARDY PATIENT [facility] MEDICARE SUPPLEMEN NARCISA TONIRUTH R GOLD INDIV IDU Jul 19, 2016 [id number] [phone] Estrella HARDY PATIENT MEDICARE (WNR) MEDICARE (M) PART B Aug 19, 2011 PART B [id number] [phone] Estrella HARDY PATIENT MEDICARE (WNR) MEDICARE (M) PART A Aug 19, 2011 PART A [id number] [phone] Estrella HARDY PATIENT Selected Encounter This section includes the information on record at [place] for the Encounter. Date/Time Encounter Type Encounter Description Reason Provider Source Apr 01, 2023 01:45 PM OFFICE O/P EST LOW 20-29 MIN PRIMARY CARE/MEDICINE ICD-10-CM L98.9 Disorder of the skin and subcutaneous tissue, unspecified JASON HAYNES [facility] Encounter Template Text not used by [place] Assessments - Encounter Diagnoses This section includes the primary and secondary diagnoses documented for the Encounter. Date/Time Primary/Secondary Diagnosis Diagnosis Name Provider Source Apr 02, 2023 08:58 AM PRIMARY Disorder of the skin and subcutaneous tissue, unspecified EDMONDSDARREN [facility] Apr 02, 2023 08:58 AM SECONDARY Bit/stung by nonvenom insect & oth nonvenom arthropods, init GREYDARREN [facility] Apr 02, 2023 08:58 AM SECONDARY Insect bite (nonvenomous) of left index finger, inamari encntr GREYDARREN [facility] Plan of Treatment: Future Appointments (+ 6 months) and Future Tests (+/- 45 days) The Plan of Treatment section includes future care activities for the patient from all [place] treatmentfacilities. This section includes future appointments and future orders which are active, pending or scheduled. Future Appointments This section includes appointments that were scheduled to occur 6 months from the date of the Encounter, up to a maximum of 20 appointments. The data comes from all [place] treatment facilities. Appointment Date/Time Appointment Type Appointme nt Facility Name Apr 15, 2023 02:30 PM AMBULATORY - SURGERY [facility] Apr 20, 2023 02:30 PM AMBULATORY - SURGERY [facility] May 25, 2023 09:40 AM AMBULATORY - SURGERY [facility] Aug 17, 2023 09:00 AM AMBULATORY - NONE [facility] Aug 17, 2023 10:00 AM [facility] Sep 27, 2023 02:00 PM AMBULATORY - SURGERY [facility] Vital Signs: All taken on the encounter date This section contains inpatient and outpatient Vital Signs collected on the date of the Encounter. Date/Time Temperature Pulse Blood Pressure Respiratory Rate SP02 Pain Height Weight Body Mass Index Source Apr 01, 2023 01:40 PM 98.8 F 91 /min 131/83 mm[Hg] 16 /min 96 % 5 174.5 lb 25 [facility] Social History: Smoking Status (Most current) and Tobacco Use (All prior to encounter date) This section includes the most current, and the historical, smoking and tobacco- related health factors from the [facility] where the Encounter took place. Current Smoking Status This section includes the most current smoking, or tobacco-related health factor, from the [place] facility where the Encounter took place. Date/Time Current Smoking Status Comment Facil ity Aug 20, 2022 03:30 PM VA-TOBACCO FORMER USER [facility] Tobacco Use History This section includes a history of the smoking, or tobacco-related health factors, that were collected on or before the date of the Encounter. The data comes from the [facility] where the Encounter took place. Date/Time [...] the Encounter. Date/Time Encounter Note(s) Provider Source Aug 16, 2023 03:18 PM ADDENDUM: LOCAL TITLE: Addendum STANDARD TITLE: ADDENDUM DATE OF NOTE: AUG 16, 2023@15:18:34 ENTRY DATE: AUG 16, 2023@15:18:36 AUTHOR: LAI NGUYEN COSIGNER: URGENCY: STATUS: COMPLETED This administrative underwriter (previous PCP) is respectfully alerting current PCP to lab results done today. Appears pt has appt with current PCP pending 08/17/23. This administrative underwriter appreciatively defers pt notification/follow up plan for these lab results to Dr. Jerome. /yolande/ LAI NGUYEN MD STAFF PHYSICIAN Signed: 08/16/2023 15:19 Receipt Acknowledged By: 08/17/2023 07:24 /yolande/ RETA JEROME MD PHYSICIAN ====== --- Original Document --- 04/01/23 MEDICINE CLINIC NOTE: PROGRESS NOTE PATIENT: DOMINGA HARDY SSN: [id number] : 1945 MEDICINE CLINIC NOTE DICTATED BY: JOHN HAYNES M.D. DATE AND TIME OF APPOINTMENT: 04/01/2023@8923 SUBJECTIVE: The patient presents today with 2 concerns: He states he has a spot on the bridge of his nose that has been there for at least 30 days, and it has not improved or changed. He reports no known injury to the area. He does not wear glasses. He does wear sunglasses but states they have not been rubbing on the area. He does have a history of basal cell carcinoma, and so is concerned about the possibility of that. He also reports left index finger soreness. He states 2 weeks ago he got stung by many hornets all over, but especially 3 or 4 times on the left index finger. He still has some soreness on the dorsal surface in the area of the proximal phalanx. He does have full range of motion. OBJECTIVE: Vital signs: Temperature 98.8, blood pressure 131/83, pulse 91, respiratory rate 16. General: He is seated on the exam table in no acute distress. Skin: A 2 mm erythematous ulcer on the bridge of the nose without surrounding erythema. Musculoskeletal: Left index finger has full active range of motion of all joints in flexion and extension. No erythema, no soft tissue swelling, minimally tender to palpation on the dorsal surface of the proximal phalanx. ASSESSMENT AND PLAN: 1. Nonhealing ulceration of skin over the nasal bridge. While this is small, the fact that it has not healed for at least a month, and his history of previous skin cancer, I recommend a TeleDerm consult, and appreciate Dermatology's input on this. 2. Multiple hornet stings with some continued soreness of the left index finger. I do not see any signs of infection, foreign body, or injury to soft tissue. I recommend he monitor it and if his symptoms do not completely resolve over the next 2 to 4 weeks, to let me know and we can consider imaging at that time. @ 1423 @ 1744 MT: [facility] JOB# [id number] /es/ JOHN HAYNES MD Signed: 04/02/2023 08:58 HAZLETONLAI [facility] Apr 01, 2023 01:45 PM INTERNAL MEDICINE NOTE: LOCAL TITLE: MEDICINE CLINIC NOTE STANDARD TITLE: INTERNAL MEDICINE NOTE DATE OF NOTE: APR 01, 2023@13:45 ENTRY DATE: APR 02, 2023@08:48:02 AUTHOR: JOHN HAYNES EXP COSIGNER: URGENCY: STATUS: COMPLETED MEDICINE CLINIC NOTE Has ADDENDA PROGRESS NOTE PATIENT: DOMINGA HARDY SSN: [id number] : 1945 MEDICINE CLINIC NOTE DICTATED BY: JOHN HAYNES M.D. DATE AND TIME OF APPOINTMENT: 04/01/2023@1345 SUBJECTIVE: The patient presents today with 2 concerns: He states he has a spot on the bridge of his nose that has been there for at least 30 days, and it has not improved or changed. He reports no known injury to the area. He does not wear glasses. He does wear sunglasses but states they have not been rubbing on the area. He does have a history of basal cell carcinoma, and so is concerned about the possibility of that. He also reports left index finger soreness. He states 2 weeks ago he got stung by many hornets all over, but especially 3 or 4 times on the left index finger. He still has some soreness on the dorsal surface in the area of the proximal phalanx. He does have full range of motion. OBJECTIVE: Vital signs: Temperature 98.8, blood pressure 131/83, pulse 91, respiratory rate 16. General: He is seated on the exam table in no acute distress. Skin: A 2 mm erythematous ulcer on the bridge of the nose without surrounding erythema. Musculoskeletal: Left index finger has full active range of motion of all joints in flexion and extension. No erythema, no soft tissue swelling, minimally tender to palpation on the dorsal surface of the proximal phalanx. ASSESSMENT AND PLAN: 1. Nonhealing ulceration of skin over the nasal bridge. While this is small, the fact that it has not healed for at least a month, and his history of previous skin cancer, I recommend a TeleDerm consult, and appreciate Dermatology's input on this. 2. Multiple hornet stings with some continued soreness of the left index finger. I do not see any signs of infection, foreign body, or injury to soft tissue. I recommend he monitor it and if his symptoms do not completely resolve over the next 2 to 4 weeks, to let me know and we can consider imaging at that time. @ 1423 @ 1744 MT: [facility] JOB# [id number] /yolande/ JOHN HAYNES MD Signed: 04/02/2023 08:58 08/16/2023 ADDENDUM STATUS: COMPLETED This administrative underwriter (previous PCP) is respectfully alerting current PCP to lab results done today. Appears pt has appt with current PCP pending 08/17/23. This administrative underwriter appreciatively defers pt notification/follow up plan for these lab results to Dr. Jerome. /yolande/ LAI NGUYEN MD STAFF PHYSICIAN Signed: 08/16/2023 15:19 Receipt Acknowledged By: * AWAITING SIGNATURE * RETA JEROME DOUGLAS PETER [facility] Apr 01, 2023 01:43 PM INTERNAL MEDICINE OUTPATIENT NOTE: LOCAL TITLE: MEDICINE CLINIC NURSING NOTE STANDARD TITLE: INTERNAL MEDICINE OUTPATIENT NOTE DATE OF NOTE: APR 01, 2023@13:43 ENTRY DATE: APR 01, 2023@13:43:18 AUTHOR: TANJA GERMAN EXP COSIGNER: URGENCY: STATUS: COMPLETED TYPE OF VISIT: Appointment Check In Type of appointment: In-person appointment REASON FOR VISIT: Skin Lesion ALLERGIES: EGGS (May 01, 2016) VITAL SIGNS: Blood Pressure: 131/83 (04/01/2023 13:40) Pulse: 91 (04/01/2023 13:40) Respiration: 16 (04/01/2023 13:40) Temperature: 98.8 F [37.1 C] (04/01/2023 13:40) Weight: 174.5 lb [79.15 kg] (04/01/2023 13:40) Height: 69.5 in [176.5 cm] (08/20/2022 15:51) BMI: 25.5 O2 Sat: 96% (04/01/2023 13:40) Pain: 5 (04/01/2023 13:40) PAIN SCREEN: Patient is having significant pain that they would like to talk to their provider about today. Acute pain is new pain, which as been present for less than 6 months Words used to describe pain: achy Number that best describes pain intensity on average in the past week: 5 Pain located in the following location(s): other: forehead Pain has been happening for: 1-4 weeks Pain is worse when: other: there all the time Pain is better when: other: none at this time Influenza Immunization: The patient declines to receive the recommended dose of seasonal influenza vaccine. Immunization: INFLUENZA, UNSPECIFIED FORMULATION Refusal Reason: PATIENT DECISION Patient refuses all immunization(s) in the FLU group Date Documented: 04/01/23 13:47 /yolande/ ATNJA GERMAN LPN [facility] Signed: 04/01/2023 13:47 TANJA GERMAN [facility]
--- OUTSIDE RECORDS SUMMARY | 2023-08-30 08:53 | XMS_ITS | Encounter Summary ---
Author Name Department of [facility]a [facility] Organization [facility] of Veter[facility] ns Affairs Address [address] [place] [address] Support Name Relationship Address Phone ALYSSA HARDY Next of [place] [address] [place] [address] ALYSSA HARDY Emergency Contact [address] [place] [address] Insurance Providers: All historical and [...] R GOLD INDIV IDU Jul 19, 2016 [id number] [phone] Estrella HARDY PATIENT [employer] MEDICARE SUPPLEMEN NARCISA GONZALEZ R GOLD INDIV IDU Jul 19, 2016 [id number] 1A HAYLEY,R ICHARD PATIENT MEDICARE (WNR) MEDICARE (M) PART A Aug 19, 2011 PART A [id number] HAYLEY,R ICHARD PATIENT MEDICARE (WN) MEDICARE (M) PART B Aug 19, 2011 PART B [id number] HAYLEYR BREANNAARD PATIENT Selected Encounter This section includes the information on record at [place] for the Encounter. 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 This section includes future appointments and future orders which are active, pending or scheduled. Future Appointments This section includes appointments that were scheduled to occur 6 months from the date of the Encounter, up to a maximum of 20 appointments. The data comes from all [place] treatment facilities. Appointment Date/Time Appointment Type Appointme nt Facility Name Apr 15, 2023 02:30 PM AMBULATORY - SURGERY [facility] Apr 20, 2023 02:30 PM AMBULATORY - SURGERY [facility] May 25, 2023 09:40 AM AMBULATORY - SURGERY [facility] Aug 17, 2023 09:00 AM AMBULATORY - NONE [facility] Aug 17, 2023 10:00 AM AMBULATORY - MEDICINE [facility] Sep 27, 2023 02:00 PM AMBULATORY - SURGERY [facility] Vital Signs: All taken on the encounter date This section contains inpatient and outpatient Vital Signs collected on the date of the Encounter. Date/Time Temperature Pulse Blood Pressure Respiratory Rate SP02 Pain Height Weight Body Mass Index Source Apr 01, 2023 01:40 PM 98.8 F 91 /min 131/83 mm[Hg] 16 /min 96 % 5 174.5 lb 25 [facility] Social History: Smoking Status (Most [...] 20, 2022 03:30 PM VA-TOBACCO FORMER USER [facility] Tobacco Use History This section [...] the Encounter. Date/Time Encounter Note(s) Provider Source Apr 01, 2023 02:46 PM TELEIMAGING NOTE: LOCAL TITLE: TELEDERMATOLOGY IMAGING REQUEST CONSULT STANDARD TITLE: TELEIMAGING NOTE DATE OF NOTE: APR 01, 2023@14:46 ENTRY DATE: APR 01, 2023@14:46:26 AUTHOR: JED FRANK COSIGNER: URGENCY: STATUS: COMPLETED Teledermatology Consult Request The patient was educated regarding the Teledermatology process at this encounter. Patient DOES consent to have images taken, viewed, and interpreted using the Teledermatology process. This consult addresses: A new condition Images: The images were acquired in clinic through traditional TeleDermatology Image acquisition. HISTORY: Prior skin history: Yes BCC Have you had a skin cancer before? Basal Cell Carcinoma (BCC) Patient reports no family history of melanoma. Taking new med/supplements: None reported Immunosuppression history: None reported Other significant history: None reported Chief Complaint: unhealing skin macule for 30 days PROBLEM A LOCATION(S): Head/Neck - bridge of nose DURATION: 30 days ago SYMPTOMS: Bleeding History, Other:not healing CHANGES: None TREATMENT: No BIOPSY: No Telesales Consultant's comments: /yolande/ Solitario Roberts [facility]/Telehealth Telesales Consultant Signed: 04/01/2023 14:48 JED FRANK [facility]
--- OUTSIDE RECORDS SUMMARY | 2023-08-30 08:53 | XMS_ITS | Encounter Summary ---
Author Name Department of [facility] Organization [facility] of [facility] Address [address] [place] [address] Support Name Relationship Address Phone ALYSSA HARDY Next of Kin [address] [place] [address] ALYSSA HARDY Emergency Contact [address] [place] [address] Insurance Providers: All historical and [...] R GOLD INDIV IDU Jul 19, 2016 [id number] [phone] Estrella HARDY PATIENT [facility] MEDICARE SUPPLEMEN NARCISA SENIO R GOLD INDIV IDU Jul 19, 2016 [id number] Estrella HARDY ICHARD PATIENT MEDICARE (WNR) MEDICARE (M) PART A Aug 19, 2011 PART A [id number] [phone] Estrella HARDYARD PATIENT MEDICARE (WNR) MEDICARE (M) PART B Aug 19, 2011 PART B [id number] [id number] [phone] Estrella HARDY PATIENT Selected Encounter This section includes the information on record at [place] for the Encounter. Date/Time Encounter Type Encounter Description Reason Pro vider Source Apr 01, 2023 01:45 PM Outpatient Encounter PRIMARY CARE/MEDICINE IHE Encounter Template Text not used by [place] Plan of Treatment: Future Appointments (+ 6 months) and Future Tests (+/- 45 days) The Plan of Treatment section includes future care activities for the patient from [facility] [place] [facility] This section includes future appointments and future orders which are active, pending or scheduled. Future Appointments This section includes appointments that were scheduled to occur 6 months from the date of the Encounter, up to a maximum of 20 appointments. The data comes from all [facility] facilities. Appointment Date/Time Appointment Type Appointme nt Facility Name Apr 15, 2023 02:30 PM AMBULATORY - SURGERY [facility] Apr 20, 2023 02:30 PM AMBULATORY - SURGERY [facility] May 25, 2023 09:40 AM AMBULATORY - SURGERY [facility] Aug 17, 2023 09:00 AM [facility] Aug 17, 2023 10:00 AM [facility] Sep 27, 2023 02:00 PM AMBULATORY - SURGERY [facility] Vital Signs: All taken on the encounter date This section contains inpatient and outpatient Vital Signs collected on the date of the Encounter. Date/Time Temperature Pulse Blood Pressure Respiratory Rate SP02 Pain Height Weight Body Mass Index Source Apr 01, 2023 01:40 PM 98.8 F 91 /min 131/83 mm[Hg] 16 /min 96 % 5 174.5 lb 25 [facility] Social History: Smoking Status (Most current) [...] 03:30 PM VA-TOBACCO FORMER USER [facility] Tobacco Use History This section includes a history of the smoking, or tobacco-related health factors, that were collected on or before the date of the Encounter. The data comes from the [place] facility where the Encounter took place. Date/Time Smoking Status/Tobacco Use Comment F acility Aug 20, 2022 03:30 PM VA-TOBACCO QUIT [address] [facility] Jul 22, 2021 02:00 PM VA-TOBACCO FORMER USER [facility] Jul 22, 2021 02:00 PM VA-TOBACCO QUIT [address] [facility] Apr 05, 2019 09:50 AM VA-TOBACCO FORMER USER [facility] Apr 05, 2019 09:50 AM VA-TOBACCO QUIT [address] [facility] Apr 12, 2018 09:36 AM VA-TOBACCO FORMER USER [facility] Apr 12, 2018 09:36 AM VA-TOBACCO QUIT [address] [facility] Apr 19, 2017 01:40 PM FORMER TOBACCO USER 7Y OR GREATE R [facility] Apr 17, 2016 10:49 AM FORMER TOBACCO USER 7Y OR GRE[address] R [facility] Mar 18, 2015 09:40 AM FORMER TOBACCO USER 7Y OR GRE[address] R [facility] Mar 07, 2014 09:45 AM FORMER TOBACCO USER 7Y OR GRE[address] R [facility] Jan 26, 2012 03:48 PM FORMER TOBACCO USER 7Y OR GRE[address] R [facility] Encounter Notes: All associated encounter notes This section contains the clinical notes associated to the Encounter. Date/Time Encounter Note(s) Provider Source Mar 31, 2023 01:59 PM ADMINISTRATIVE NOT E: LOCAL TITLE: PRE VISIT SUMMARY NOTE STANDARD TITLE: ADMINISTRATIVE NOTE DICT DATE: MAR 31, 2023@13:59:23 ENTRY DATE: MAR 31, 2023@13:59:23 DICTATED BY: ANGIE,BENJAMIN EXP COSIGNER: URGENCY: STATUS: COMPLETED INCLUDED IN THIS LIST: Alphabetical list of active outpatient prescriptions dispensed from this [place] (local) and dispensed from another [place] or [facility] facility (remote) as well as inpatient orders (local pending and active), local clinic medications, locally documented non-VA medications, and local prescriptions that have or been discontinued in the past 90 days. NOTE The display of VA prescriptions dispensed from another [place] or [facility] facility (remote) is limited to active outpatient prescription entries matched to National Drug File at the originating site and may not include some items such as investigational drugs, compounds, etc. MEDICATIONS Cetirizine Hcl 10mg Tab TAKE ONE TABLET BY MOUTH EVERY DAY ALLERGIC CONJUNCTIVITIS Indication: ALLERGIC CONJUNCTIVITIS Rx #: [id number] Pharmacy: [facility] Ordering Provider: DEJAN VANEGAS V Status: ACTIVE Quantity: 90 for 90 days Refills Remainin Expires: Oct 01, 2023 Last Filled: Mar 21, 2023 Cholecalcif 10mcg (D3-400unit) Tab TAKE ONE TABLET BY MOUTH EVERY DAY THIS IS VITAMIN DROP Rx #: [id number] Pharmacy: [facility] Ordering Provider: LAI NGUYEN Status: ACTIVE Quantity: 100 for 90 days Refills Remainin Expires: Oct 04, 2023 Last Filled: Jan 18, 2023 Clopidogrel Bisulfate 75mg Tab TAKE ONE TABLET BY MOUTH EVERY DAY FOR HEART DISEASE INDEFINITELY Indication: FOR HEART DISEASE Rx #: [id number] Pharmacy: [facility] Ordering Provider: RANJITH BENITEZ Status: ACTIVE Quantity: 90 for 90 days Refills Remainin Expires: Jul 08, 2023 Last Filled: Dec 22, 2022 Famotidine 20mg Tab TAKE ONE TABLET BY MOUTH TWICE A DAY TO DECREASE STOMACH ACID Rx #: [id number] Pharmacy: [facility] Ordering Provider: CHAPARRITA PORTER Status: ACTIVE Quantity: 60 for 30 days Refills Remainin Expires: Feb 22, 2024 Last Filled: Mar 15, 2023 Famotidine 20mg Tab TAKE ONE TABLET BY MOUTH TWICE A DAY TO DECREASE STOMACH ACID Rx #: [id number] Pharmacy: [facility] Ordering Provider: UJAN POWER Status: DISCONTINUED Quantity: 60 for 30 days Refills Remainin Expires: December 08, 2023 Discontinued: Feb 23, 2023 Last Filled: Jan 25, 2023 Finasteride 5mg Tab TAKE ONE TABLET BY MOUTH EVERY DAY FOR PROSTATE Rx #: [id number] Pharmacy: [facility] Ordering Provider: ROSARIO DHALIWAL Status: ACTIVE Quantity: 90 for 90 days Refills Remainin Expires: Dec 22, 2023 Last Filled: Mar 13, 2023 Fluorometholone 0.1% Oph Susp INSTILL 1 DROP IN BOTH EYES FOUR TIMES A DAY FOR INFLAMMATION Indication: FOR INFLAMMATION Rx #: [id number] Pharmacy: [facility] Ordering Provider: JESSICA OROZCO Status: ACTIVE Quantity: 5 for 30 days Refills Remainin Expires: 2023 Last Filled: Sep 09, 2022 Ketotifen 0.025% Oph Soln INSTILL 1 DROP IN BOTH EYES TWICE A DAY ALLERGIC CONJUNCTIVITIS Indication: ALLERGIC CONJUNCTIVITIS Rx #: [id number] Pharmacy: [facility] Ordering Provider: DEJAN VANEGAS V Status: ACTIVE Quantity: 5 for 30 days Refills Remainin Expires: Oct 01, 2023 Last Filled: Oct 02, 2022 Melatonin 3mg Cap/Tab TAKE 1 TABLET BY MOUTH EVERY EVENING FOR RESTFUL SLEEP ONE HOUR BEFORE BEDTIME. MAY INCREASE TO 2 TABLETS AFTER ONE WEEK IF STILL HAVING RESTLESS SLEEP. Indication: FOR RESTFUL SLEEP Rx #: [id number] Pharmacy: [facility] Ordering Provider: ALFIE VILLALTA Status: ACTIVE Quantity: 120 for 60 days Refills Remainin Expires: Sep 12, 2023 Last Filled: Mar 05, 2023 Rosuvastatin Ca 40mg Tab TAKE ONE TABLET BY MOUTH EVERY DAY FOR CHOLESTEROL Rx #: [id number] Pharmacy: [facility] Ordering Provider: ROSARIO DHALIWAL Status: ACTIVE Quantity: 90 for 90 days Refills Remainin Expires: Dec 22, 2023 Last Filled: Mar 05, 2023 Sertraline Hcl 50mg Tab TAKE THREE TABLETS BY MOUTH EVERY DAY FOR ANGER/IRRITABILITY NOTE CHANGE IN PILL STRENGTH/INSTRUCTIONS Indication: FOR ANGER/IRRITABILITY Rx #: [id number] Pharmacy: [facility] Ordering Provider: ALFIE VILLALTA Status: ACTIVE Quantity: 270 for 90 days Refills Remainin Expires: November 17, 2023 Last Filled: November 17, 2022 Aspirin Tab,Ec Sig: TAKE 81MG BY MOUTH Comment: Patient wants to buy from Non-VA pharmacy. Documenting Facility & Provider: [facility]; LAI NGUYEN Start Date: Jul 22, 2022 Multivitamins/Minerals Tab Sig: TAKE 1 TABLET BY MOUTH EVERY DAY Comment: Non-VA medication that patient takes on their own. Documenting Facility & Provider: [facility]; ANANTH STEVENS Non-VA Meds Last Documented On: Jul 22, 2022 FOR NURSING USE ONLY: [] SHOWER DOORS AND PANELS FABRICATOR review of medications completed completed: printed list is correct: PUT THIS SHEET IN RED DOG. [] SHOWER DOORS AND PANELS FABRICATOR review of medications completed: corrections made below: PUT THIS SHEET IN RED DOG [] SHOWER DOORS AND PANELS FABRICATOR review of medications not completed: GIVE THIS SHEET TO PATIENT TO REVIEW END OF NURSING USE SECTION SCANNED DOCUMENT SIGNATURE NOT REQUIRED Electronically Filed: 03/31/2023 by: BENJAMIN LOMBARDI [facility]
--- OUTSIDE RECORDS SUMMARY | 2023-08-30 08:54 | XMS_ITS | Encounter Summary ---
Author Name Department of [facility] Organization Department of [facility] Address [address] [place] [address] Support Name Relationship Address Phone ALYSSA HARDY Next of Kin [address] [place] [address] ALYSSA HARDY Emergency Contact [phone] [place] [address] Insurance Providers: All historical and [...] Butts's Name Patient's Relationship to Policy Butts [facility] MEDICARE SUPPLEMEN NARCISA GONZALEZ R GOLD INDIV IDU Jul 19, 2016 [id number] Estrella HARDY PATIENT [facility] MEDICARE SUPPLEMEN NARCISA LISA R GOLD INDIV IDU Jul 19, 2016 [id number] Estrella HARDYARD PATIENT MEDICARE (WNR) MEDICARE (M) PART A Aug 19, 2011 PART A [id number] [id number] [phone] Estrella HARDY PATIENT MEDICARE (WNR) MEDICARE (M) PART B Aug 19, 2011 PART B [id number] [id number] [phone] Estrella HARDY PATIENT Selected Encounter This section includes the information on record at [place] for the Encounter. Date/Time Encounter Type Encounter Description Reason Provider Source Apr 15, 2023 02:30 PM Outpatient Encounter AUDIOLOGY ICD-10-CM Z02.89 Encounter for other administrative examinations LIYA MAYO ON PV IHE Encounter Template Text not used by ID Assessments - Encounter Diagnoses This section includes the primary and secondary diagnoses documented for the Encounter. Date/Time Primary/Secondary Diagnosis Diagnosis Name Provider Source Apr 28, 2023 07:02 AM PRIMARY Encounter for other administrative examinations OLIVIA MAYO [facility] Plan of Treatment: Future Appointments (+ 6 months) and Future Tests (+/- 45 days) The Plan of Treatment section includes future care activities for the patient from all [place] treatmentfacilities. This section includes future appointments and future orders which are active, pending or scheduled. Future Appointments This section includes appointments that were scheduled to occur 6 months from the date of the Encounter, up to a maximum of 20 appointments. The data comes from all [place] treatment facilities. Appointment Date/Time Appointment Type Appointme nt Facility Name Apr 20, 2023 02:30 PM AMBULATORY - SURGERY [facility] May 25, 2023 09:40 AM AMBULATORY - SURGERY [facility] Aug 17, 2023 09:00 AM AMBULATORY - NONE [facility] Aug 17, 2023 10:00 AM AMBULATORY - MEDICINE [facility] Sep 27, 2023 02:00 PM AMBULATORY - SURGERY [facility] Encounter Notes: All associated encounter notes This section contains the clinical notes associated to the Encounter. Date/Time Encounter Note(s) Provider Source Apr 15, 2023 02:30 PM C & P EXAMINATION NOTE: LOCAL TITLE: C&P EXAMINATION STANDARD TITLE: C & P EXAMINATION NOTE DATE OF NOTE: APR 15, 2023@14:30 ENTRY DATE: APR 15, 2023@15:18:32 AUTHOR: ANUM MAYO EXP COSIGNER: URGENCY: STATUS: COMPLETED Hearing Loss and Tinnitus Disability Benefits Questionnaire Name of patient/Smiley: Dominga Hardy Is this DBQ being completed in conjunction with a ID [id number], C&P Examination Request? [X] Yes [ ] No How was the examination completed? (check all that apply) [X] In-person examination [X] Records reviewed [ ] Examination via approved video telehealth [ ] Other, please specify in comments box Comments: SCOTT and Evidence Review Indicate method used to obtain medical information to complete this document: [ ] Review of available records (without in-person or video telehealth examination) using the Acceptable Clinical Evidence (SCOTT) process because the existing medical evidence provided sufficient information on which to prepare the questionnaire and such an examination will likely provide no additional relevant evidence. [ ] Review of available records in conjunction with an interview with the Smiley (without in-person or telehealth examination) using the SCOTT process because the existing medical evidence supplemented with an interview provided sufficient information on which to prepare the questionnaire and such an examination would likely provide no additional relevant evidence. 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 Objective Findings a. Puretone thresholds in decibels (air conduction): RIGHT EAR + + A B C D E F G ========+========+======= =+========+========+====== ==+========+========+ 500 1000 2000 3000 4000 6000 8000 Avg Hz Hz* Hz Hz Hz Hz Hz Hz (B-E) ========+========+======= =+========+========+====== ==+========+======== 45 40 75 85 80 75 75 [id number] + + LEFT EAR + + A B C D E F G ========+========+======= =+========+========+====== ==+========+========+ 500 1000 2000 3000 4000 6000 8000 Avg Hz Hz* Hz Hz Hz Hz Hz Hz (B-E) ========+========+======= =+========+========+====== ==+========+======== 45 40 65 75 75 75 70 [id number] + + * The puretone threshold at 500 Hz is not used in determining the evaluation but is used in determining whether or not a ratable hearing loss exists. The average of B, C, D, and E. CNT - Could Not Test b. Were there one or more frequency(ies) that could not be tested: No c. Validity of puretone test results: Test results are valid for rating purposes. d. Speech Discrimination Score ([place] [facility] word list): + + RIGHT EAR 44% +========= LEFT EAR 52% + + e. Appropriateness of Use of Word Recognition Score ([facility] word list): Right Ear: Is Word Discrimination Score available? Yes Word Discrimination Score appropriateness: Use of speech recognition score is appropriate for this Smiley. Left Ear: Is Word Discrimination Score available? Yes Word Discrimination Score appropriateness: Use of word recognition score is appropriate for this Smiley. f. Audiologic Findings Summary of Immittance (Tympanometry) Findings: + + RIGHT EAR LEFT EAR +=== += Acoustic immittance [ ] Normal [ ] Abnormal [ ] Normal [ ] Abnormal +=== += Ipsilateral Acoustic Reflexes [ ] Normal [ ] Abnormal [ ] Normal [ ] Abnormal +=== += Contralateral Acoustic Reflexes [ ] Normal [ ] Abnormal [ ] Normal [ ] Abnormal +=== += Unable to interpret reflexes due to [ ] [ ] artifact +=== += Unable to obtain/ maintain seal [X] [X] + + 2. Diagnosis RIGHT EAR --------- [ ] Normal hearing [ ] Conductive hearing loss ICD code: [ ] Mixed hearing loss ICD code: [X] Sensorineural hearing loss (in the frequency range of 500-4000 Hz)* ICD code: H90.3 [X] Sensorineural hearing loss (in the frequency range of 6000 Hz or higher frequencies) ICD code: H90.3 [ ] Significant changes in hearing thresholds in service LEFT EAR -------- [ ] Normal hearing [ ] Conductive hearing loss ICD code: [ ] Mixed hearing loss ICD code: [X] Sensorineural hearing loss (in the frequency range of 500-4000 Hz)* ICD code: H90.3 [X] Sensorineural hearing loss (in the frequency range of 6000 Hz or higher frequencies) ICD code: H90.3 [ ] Significant changes in hearing thresholds in service NOTES: * The may have hearing loss at a level that is not considered to be a disability for VA purposes. This can occur when the auditory thresholds are greater than 25 dB at one or more frequencies in the 500-4000 Hz range. The may have impaired hearing, but it does not meet the criteria to be considered a disability for VA purposes. For VA purposes, the diagnosis of hearing impairment is based upon testing at frequency ranges of 500, 1000, 2000, 3000, and 4000 Hz. If there is no HL in the 500-4000 Hz range, but there is HL above 4000 Hz, check this box. The Smiley may have a significant change in hearing threshold in service, but it does not meet the criteria to be considered a disability for VA purposes. (A significant change in hearing threshold may indicate noise exposure or acoustic trauma.) 3. Etiology [X] Etiology opinion not indicated as: [X] Service connected condition 4. Functional impact of hearing loss Does the 's hearing loss impact ordinary conditions of daily life, including ability to work: No 5. Remarks, if any, pertaining to hearing loss: No response provided SECTION 2: TINNITUS 1. Medical history Does the report recurrent tinnitus: Yes Date and circumstances of onset of tinnitus: Service connected condition. 2. Etiology of tinnitus [X] Etiology opinion not indicated as: [X] Service connected condition 3. Functional impact of tinnitus ------ Does the 's tinnitus impact ordinary conditions of daily life, including ability to work: No 4. Remarks, if any, pertaining to tinnitus:: No response provided NOTE: VA may request additional medical information, including additional examinations if necessary to complete VA's review of the 's application. /yolande/ YESENIA PRITCHARD STAFF RESEARCH WORKER KITCHEN Signed: 04/15/2023 15:18 ANUM MAYO [facility]
--- OUTSIDE RECORDS SUMMARY | 2023-08-30 08:54 | XMS_ITS | Encounter Summary ---
Author Name Department of [facility] Organization [facility] of [facility] Address [address] [place] [address] Support Name Relationship Address Phone ALYSSA HARDY Next of Kin [address] [place] [address] ALYSSA HARDY Emergency Contact [phone] [place] [address] Insurance Providers: All historical and [...] Butts's Name Patient's Relationship to Policy Butts [facility] MEDICARE SUPPLEMEN NARCISA TONIRUTH R GOLD INDIV IDU Jul 19, 2016 [id number] [phone] HAYLEYEstrellaASHLEY PATIENT [facility] MEDICARE SUPPLEMEN NARCISA SENIO R GOLD INDIV IDU Jul 19, 2016 [id number] [phone] HAYLEY,R ICHARD PATIENT MEDICARE (WNR) MEDICARE (M) PART A Aug 19, 2011 PART A [id number] [phone] HAYLEYR ICHARD PATIENT MEDICARE (WNR) MEDICARE (M) PART B Aug 19, 2011 PART B [id number] [id number] [phone] Estrella HARDY PATIENT Selected Encounter This section includes the information on record at [place] for the Encounter. Date/Time Encounter Type Encounter Description Reason Pro vider Source Apr 06, 2023 12:14 PM Outpatient Encounter DERMATOLOGY IHE Encounter Template Text not used by [place] Plan of Treatment: Future Appointments (+ 6 months) and Future Tests (+/- 45 days) The Plan of Treatment section includes future care activities for the patient from [facility] [place] [facility] This section includes future [...] 15, 2023 02:30 PM [facility] Apr 20, 2023 02:30 PM AMBULATORY - SURGERY [facility] May 25, 2023 09:40 AM AMBULATORY - SURGERY [facility] Aug 17, 2023 09:00 AM AMBULATORY - NONE [facility] Aug 17, 2023 10:00 AM AMBULATORY - MEDICINE [facility] Sep 27, 2023 02:00 PM AMBULATORY - SURGERY [facility] Social History: Smoking Status (Most current) and Tobacco Use (All prior to encounter date) This section includes the most current, and the historical, smoking and tobacco- related health factors from the [place] facility where the Encounter took place. Current Smoking Status This section includes the most current smoking, or tobacco-related health factor, from the [place] facility where the Encounter took place. Date/Time Current Smoking Status Comment Armando ity Aug 20, 2022 03:30 PM VA-TOBACCO FORMER USER [facility] Tobacco Use History This section includes a history of the smoking, or tobacco-related health factors, that were collected on or before the date of the Encounter. The data comes from the [place] facility where the Encounter took place. Date/Time Smoking Status/Tobacco Use Comment F acility Aug 20, 2022 03:30 PM VA-TOBACCO QUIT 15 YRS OR MORE [facility] Jul 22, 2021 02:00 PM VA-TOBACCO FORMER USER [facility] Jul 22, 2021 02:00 PM VA-TOBACCO QUIT 15 YRS OR MORE [facility] Apr 05, 2019 09:50 AM VA-TOBACCO FORMER USER [facility] Apr 05, 2019 09:50 AM VA-TOBACCO QUIT 15 YRS OR MORE [facility] Apr 12, 2018 09:36 AM VA-TOBACCO FORMER USER [facility] Apr 12, 2018 09:36 AM VA-TOBACCO QUIT 15 YRS OR MORE [facility] Apr 19, 2017 01:40 PM FORMER TOBACCO USER 7Y OR GREATE R [facility] Apr 17, 2016 10:49 AM FORMER TOBACCO USER 7Y OR GREATE R [facility] Mar 18, 2015 09:40 AM FORMER TOBACCO USER 7Y OR GREATE R [facility] Mar 07, 2014 09:45 AM FORMER TOBACCO USER 7Y OR GREATE R [facility] Jan 26, 2012 03:48 PM FORMER TOBACCO USER 7Y OR GREATE R [facility] Encounter Notes: All associated encounter notes This section contains the clinical notes associated to the Encounter. Date/Time Encounter Note(s) Provider Source Apr 06, 2023 12:14 PM REPORT OF CONTACT: LOCAL TITLE: APPOINTMENT SCHEDULING NOTE STANDARD TITLE: REPORT OF CONTACT DATE OF NOTE: APR 06, 2023@12:14 ENTRY DATE: APR 06, 2023@12:14:57 AUTHOR: COLIN ALVAREZ COSIGNER: URGENCY: STATUS: COMPLETED Attempted to schedule Return to clinic (RTC) Contact attempt made to 1st attempt Telephone 2nd attempt Letter Disposition order request after Apr Left message on voice mail to call back to this number [phone] If calls back, schedule appt for: Return to [facility] on or around ( Jun 01, 2023 ) for a total of 1 appointment(s) demi f/gentry /yolande/ COLIN ALVAREZ ADVANCED MSA Signed: 04/06/2023 12:16 COLIN ALVAREZ [facility]
--- OUTSIDE RECORDS SUMMARY | 2023-08-30 08:54 | XMS_ITS | Encounter Summary ---
Author Name Department of Vetera [facility] Organization Department of Vetera ns Affairs Address [address] [place] [address] Support Name Relationship Address Phone ALYSSA HARDY Next of [place] [address] [place] [address] ALYSSA HARDY Emergency Contact [address] [place] [address] Insurance Providers: All historical and [...] Butts's Name Patient's Relationship to Policy Butts [facility] MEDICARE SUPPLEMEN NARCISA SENIO R GOLD INDIV IDU Jul 19, 2016 [id number] P [id number] 1A HAYLEYR ICHASHLEY PATIENT [facility] MEDICARE SUPPLEMEN NARCISA SENIO R GOLD INDIV IDU Jul 19, 2016 [id number] [phone] HAYLEY,R ICHARD PATIENT MEDICARE (WNR) MEDICARE (M) PART A Aug 19, 2011 PART A [id number] [phone] HAYLEY,R ICHARD PATIENT MEDICARE (WNR) MEDICARE (M) PART B Aug 19, 2011 PART B [id number] [phone] HAYLEY,R ICHARD PATIENT Selected Encounter This section includes the information on record at [place] for the Encounter. Date/Time Encounter Type Encounter Description Reason Provider Source Apr 02, 2023 08:10 AM Outpatient Encounter DERMATOLOGY ICD-10-CM D48.5 Neoplasm of uncertain behavior of skin CHERISE,AUDRE Y ZION IHE Encounter Template Text not used by [place] Assessments - Encounter Diagnoses This section includes the primary and secondary diagnoses documented for the Encounter. Date/Time Primary/Secondary Diagnosis Diagnosis Name Provider Source Apr 02, 2023 08:13 AM PRIMARY Neoplasm of uncertain behavior of skin HEMANT LONDON [facility] Plan of Treatment: Future Appointments (+ 6 months) and Future Tests (+/- 45 days) The Plan of Treatment section includes future care activities for the patient from all [place] [facility]. This section includes future appointments and future orders which are active, pending or scheduled. Future Appointments This section includes appointments that were scheduled to occur 6 months from the date of the Encounter, up to a maximum of 20 appointments. The data comes from all [place] treatment facilities. Appointment Date/Time Appointment Type Appointme nt Facility Name Apr 15, 2023 02:30 PM AMBULATORY - SURGERY [facility] Apr 20, 2023 02:30 PM AMBULATORY - SURGERY [facility] May 25, 2023 09:40 AM AMBULATORY - SURGERY [facility] Aug 17, 2023 09:00 AM [facility] Aug 17, 2023 10:00 AM [facility] - [facility]IC[facility] Sep 27, 2023 02:00 PM AMBULATORY - SURGERY [facility] Social History: Smoking Status (Most current) and Tobacco Use (All prior to encounter date) This section includes the most current, and the historical, smoking and tobacco- related health factors from the [place] facility where the Encounter took place. Current Smoking Status This section includes the most current smoking, or tobacco-related health factor, from the [place] facility where the Encounter took place. Date/Time Current Smoking Status Comment Armando lutz Aug 20, 2022 03:30 PM VA-TOBACCO FORMER USER [facility] Tobacco Use History This section includes a history of the smoking, or tobacco-related health factors, that were collected on or before the date of the Encounter. The data comes from the [place] facility where the Encounter took place. Date/Time Smoking Status/Tobacco Use Comment F imani Aug 20, 2022 03:30 PM VA-TOBACCO QUIT 15 YRS OR MORE [facility] Jul 22, 2021 02:00 PM VA-TOBACCO FORMER USER [facility] Jul 22, 2021 02:00 PM VA-TOBACCO QUIT 15 YRS OR MORE [facility] Apr 05, 2019 09:50 AM VA-TOBACCO FORMER USER [facility] Apr 05, 2019 09:50 AM VA-TOBACCO QUIT 15 YRS OR MORE [facility] Apr 12, 2018 09:36 AM VA-TOBACCO FORMER USER [facility] Apr 12, 2018 09:36 AM VA-TOBACCO QUIT 15 YRS OR MORE [facility] Apr 19, 2017 01:40 PM FORMER TOBACCO USER 7Y OR GREATE R [facility] Apr 17, 2016 10:49 AM FORMER TOBACCO USER 7Y OR GREATE R [facility] Mar 18, 2015 09:40 AM FORMER TOBACCO USER 7Y OR GREATE R [facility] Mar 07, 2014 09:45 AM FORMER TOBACCO USER 7Y OR GREATE R [facility] Jan 26, 2012 03:48 PM FORMER TOBACCO USER 7Y OR GREATE R [facility] Encounter Notes: All associated encounter notes This section contains the clinical notes associated to the Encounter. Date/Time Encounter Note(s) Provider Source Apr 02, 2023 08:10 AM TELEIMAGING REPORT: LOCAL TITLE: TELEDERMATOLOGY IMAGING REPORT CONSULT STANDARD TITLE: TELEIMAGING REPORT DATE OF NOTE: APR 02, 2023@08:10 ENTRY DATE: APR 02, 2023@08:10:18 AUTHOR: SULTANA LUONG EXP COSIGNER: URGENCY: STATUS: COMPLETED HISTORY: HISTORY: Prior skin history: Yes BCC Have [...] healing CHANGES: None TREATMENT: No BIOPSY: No OVERALL CONSULT/IMAGE QUALITY: Fully satisfactory EXAM: 4mm pink papule with hemorrhagic crust on the inferior glabella IMPRESSION BASED ON IMAGES AND INFORMATION REVIEWED: PROBLEM A: Diagnosis: Neoplasm uncertain behavior, DDx includes basal cell skin cancer versus less likely acanthoma fissuratum (normally on the lateral bridge of nose where there is pressure from something like glasses, not glabella) versus non- specific inflammatory papule RECOMMENDATIONS FOR REFERRING PROVIDER: PROBLEM A: Biopsy: will schedule in derm clinic for follow up RECOMMENDED FOLLOW-UP: Consult to Dermatology clinic for follow up (ordered for you) URIAH: T+2m Cumulative time of review and management: 5 minutes or more /es/ SULTANA LUONG MD STAFF SURGEON Signed: 04/02/2023 08:13 SULTANA LUONG [facility]
--- OUTSIDE RECORDS SUMMARY | 2023-08-30 08:54 | XMS_ITS | Encounter Summary ---
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 Address [address] [place] [address] Support Name Relationship Address Phone ALYSSA HARDY Next of Kin [address] [place] [address] ALYSSA HARDY Emergency Contact [address] [place] [address] Insurance Providers: All historical and [...] Butts's Name Patient's Relationship to Policy Butts [facility] MEDICARE SUPPLEMEN NARCISA De La Rosa HIGINIO INDIV IDU Jul 19, 2016 [id number] [phone] Estrella HARDY PATIENT [facility] MEDICARE SUPPLEMEN NARCISA MUÑOZRUTH R GOLD INDIV IDU Jul 19, 2016 [id number] Estrella HARDY PATIENT MEDICARE (WNR) MEDICARE (M) PART A Aug 19, 2011 PART A [id number] [id number] [phone] Estrella HARDY PATIENT MEDICARE (WNR) MEDICARE (M) PART B Aug 19, 2011 PART B [id number] [id number] [phone] Estrella HARDY PATIENT Selected Encounter This section includes the information on record at [place] for the Encounter. Date/Time Encounter Type Encounter Description Reason Provider Source May 25, 2023 09:40 AM OFFICE O/P EST SF 10-19 MIN DERMATOLOGY ICD-10-CM L91.8 Other hypertrophic disorders of the skin HORACIO JACKSON IHE Encounter Template Text not used by [place] Assessments - Encounter Diagnoses This section includes the primary and secondary diagnoses documented for the Encounter. Date/Time Primary/Secondary Diagnosis Diagnosis Name Provider Source Jun 07, 2023 03:22 PM PRIMARY Other hypertrophic disorders of the skin VASQUEZEMMETT Bass [facility] Jun 07, 2023 03:22 PM SECONDARY Inflamed seborrheic keratosis EMMETT OVALLE Shelia [facility] Plan of Treatment: Future Appointments (+ 6 months) and Future Tests (+/- 45 days) The Plan of Treatment section includes future care activities for the patient from all [place] [facility]. This section includes future appointments and future orders which are active, pending or scheduled. Future Appointments This section includes appointments that were scheduled to occur 6 months from the date of the Encounter, up to a maximum of 20 appointments. The data comes from all [place] treatment facilities. Appointment Date/Time Appointment Type Appointme nt Facility Name Aug 17, 2023 09:00 AM AMBULATORY - NONE [facility] Aug 17, 2023 10:00 AM [facility] Sep 27, 2023 02:00 PM [facility] SUR[facility] Social History: Smoking Status (Most current) and Tobacco Use (All prior to encounter date) This section includes the most current, and the historical, smoking and tobacco- related health factors from the [place] facility where the Encounter took place. Current Smoking Status This section includes the most current smoking, or tobacco-related health factor, from the [place] facility where the Encounter took place. Date/Time Current Smoking Status Comment Armando lutz Aug 20, 2022 03:30 PM VA-TOBACCO QUIT 15 YRS OR MORE [facility] Tobacco Use History This section includes a history of the smoking, or tobacco-related health factors, that were collected on or before the date of the Encounter. The data comes from the [place] facility where the Encounter took place. Date/Time Smoking Status/Tobacco Use Comment Masha actg Aug 20, 2022 03:30 PM VA-TOBACCO QUIT 15 YRS OR MORE [facility] Jul 22, 2021 02:00 PM VA-TOBACCO FORMER USER [facility] Jul 22, 2021 02:00 PM VA-TOBACCO QUIT 15 YRS OR MORE [facility] Apr 05, 2019 09:50 AM VA-TOBACCO FORMER USER [facility] Apr 05, 2019 09:50 AM VA-TOBACCO QUIT 15 YRS OR MORE [facility] Apr 12, 2018 09:36 AM VA-TOBACCO FORMER USER [facility] Apr 12, 2018 09:36 AM VA-TOBACCO QUIT 15 YRS OR MORE [facility] Apr 19, 2017 01:40 PM FORMER TOBACCO USER 7Y OR GREATE R [facility] Apr 17, 2016 10:49 AM FORMER TOBACCO USER 7Y OR GREATE R [facility] Mar 18, 2015 09:40 AM FORMER TOBACCO USER 7Y OR GREATE R [facility] Mar 07, 2014 09:45 AM FORMER TOBACCO USER 7Y OR GREATE R [facility] Jan 26, 2012 03:48 PM FORMER TOBACCO USER 7Y OR GREATE R [facility] Encounter Notes: All associated encounter notes This section contains the clinical notes associated to the Encounter. Date/Time Encounter Note(s) Provider Source May 25, 2023 09:59 AM DERMATOLOGY ATTEND ING NOTE: LOCAL TITLE: DERMATOLOGY CLINIC NOTE STANDARD TITLE: DERMATOLOGY ATTENDING NOTE DATE OF NOTE: MAY 25, 2023@09:59 ENTRY DATE: MAY 25, 2023@09:59:36 AUTHOR: EMMETT OVALLE EXP COSIGNER: URGENCY: STATUS: COMPLETED DERMATOLOGY CLINIC NOTE Has ADDENDA Dr. Jackson saw and evaluated the patient with me, and agrees with the findings, assessment and plan as outlined. Clinic Note Dermatology Problem List: UBSE 05/25/2023 # Hx of NMSC - reports BCC # Sebaceous hyperplasia # iSK - LN2, L mormon # Acrochordons - LN2, L neck # benign biopsies - x 2 in 2013, solar lentigos SUBJECTIVE: DOMINGA HARDY is a 77 year old MALE who presents today for skin check. - feeling well today - reports lots of agent orange exposure - had a bump on the nasal bridge, resolved wo treatment - skin tag on L neck gets caught in shirts Otherwise no new, tender, non-healing,or bleeding lesions. Wears sunscreen sometimes. No other concerns today. Review of systems: CONST: Otherwise in baseline state of health. SKIN: As above in HPI, no additional skin concerns. OBJECTIVE: GEN: No acute distress. SKIN: UBSE (head/neck, trunk, arms, hands/fingernails) - On the trunk and extremities, there are flesh-colored to light brown, waxy, stuck on papules and plaques. - On the trunk and extremities with accentuation in sun-exposed areas, there are light brown macules with uniform appearance. - On trunk and extremities, there are firm red papules. - brown pedunculated papule on L neck ASSESSMENT & PLAN: # History of NMSC. NERD. - Sun protection, including daily SPF 30+, advised # Seborrheic keratoses, chairez angiomas, acrochordons, sebaceous hyperplasia. Reassured of benign etiology. - Symptomatic/irritated lesions on L neck and L mormon (3 total) were treated with 1-2 freeze-thaw cycles of liquid nitrogen cryotherapy. Counseled that lesions will become red, may blister, and then heal in 1-2 weeks. Risks including recurrence and scar discussed. Discharge to PCP. Advised to call clinic for any tender, painful, bleeding, rapidly changing, or otherwise concerning lesions. Total encounter time (including chart review, counseling, documentation, ordering of labs/meds): 30-39 min /jimmy OVALLE MD RESIDENT Signed: 05/25/2023 10:22 Receipt Acknowledged By: 06/01/2023 16:52 /jimmy JACKSON MD CLOTH FOLDER MACHINE 06/01/2023 ADDENDUM STATUS: COMPLETED I saw and evaluated the patient with the resident, and agree with the assessment and plan as written in the resident's note. /jimmy JACKSON MD CLOTH FOLDER MACHINE Signed: 06/01/2023 16:52 EMMETT OVALLE [facility]
--- OUTSIDE RECORDS SUMMARY | 2023-08-30 08:54 | XMS_ITS | Encounter Summary ---
Author Name Department of Vetera [facility] Organization Department of Vetera ns Affairs Address [address] [place] [address] Support Name Relationship Address Phone ALYSSA HARDY Next of [place] [address] [place] [address] ALYSSA HARDY Emergency Contact [address] [place] [address] Insurance Providers: All historical and [...] Patient's Relationship to Policy Butts [facility] MEDICARE SUPPLEMEN NARCISA GONZALEZ R GOLD INDIV IDU Jul 19, 2016 [id number] P [id number] Estrella HARDY PATIENT [facility] MEDICARE SUPPLEMEN NARCISA SENRUTH R GOLD INDIV IDU Jul 19, 2016 [id number] HAYLEY,R ICHARD PATIENT MEDICARE (WNR) MEDICARE (M) PART A Aug 19, 2011 PART A [id number] CT81 [phone] HAYLEYR BREANNAARD PATIENT MEDICARE (WNR) MEDICARE (M) PART B Aug 19, 2011 PART B [id number] [id number] [phone] Estrella HARDY PATIENT Selected Encounter This section includes the information on record at [place] for the Encounter. Date/Time Encounter Type Encounter Description Reason Provider Source Apr 20, 2023 02:30 PM CONFORMITY EVALUATION AUDIOLOGY ICD-10-CM Z46.1 Encounter for fitting and adjustment of hearing aid MARY PURVIS Shelia Encounter Template Text not used by [place] Assessments - Encounter Diagnoses This section includes the primary and secondary diagnoses documented for the Encounter. Date/Time Primary/Secondary Diagnosis Diagnosis Name Provider Source Apr 20, 2023 02:52 PM PRIMARY Encounter for fitting and adjustment of hearing aid JACQUELYN PURVIS [facility] Apr 20, 2023 02:52 PM SECONDARY Sensorineural hearing loss, bilateral SUHAJACQUELYN THRASHER [facility] Apr 20, 2023 02:52 PM SECONDARY Tinnitus, bilateral JACQUELYN PURVIS [facility] Plan of Treatment: Future Appointments (+ 6 months) and Future Tests (+/- 45 days) The Plan of Treatment section includes future care activities for the patient from all [place] [facility]. This section includes future appointments and future orders which are active, pending or scheduled. Future Appointments This section includes appointments that were scheduled to occur 6 months from the date of the Encounter, up to a maximum of 20 appointments. The data comes from all [place] treatment facilities. Appointment Date/Time Appointment Type Appointme nt Facility Name May 25, 2023 09:40 AM AMBULATORY - SURGERY [facility] Aug 17, 2023 09:00 AM AMBULATORY - NONE [facility] Aug 17, 2023 10:00 AM [facility]UL[facility] - [facility] Sep 27, 2023 02:00 PM AMBULATORY - SURGERY [facility] Social History: Smoking Status (Most [...] Encounter. Date/Time Encounter Note(s) Provider Source Apr 20, 2023 01:48 PM AUDIOLOGY NOTE: LOCAL TITLE: AUDIOLOGY CLINIC NOTE STANDARD TITLE: AUDIOLOGY NOTE DATE OF NOTE: APR 20, 2023@13:48 ENTRY DATE: APR 20, 2023@13:48:21 AUTHOR: LUCY PURVIS COSIGNER: URGENCY: STATUS: COMPLETED SUBJECT: HEARING AID FITTING DIAGNOSIS: Encounter for Fitting and Adjustment of Hearing Aid, Bilateral Sensorineural Hearing Loss, Bilateral Tinnitus REASON FOR VISIT: Therapeutic - hearing aid fitting, conformity evaluation/real-ear measures, orientation and counseling using a standard curriculum (60 minutes). SUBJECTIVE/HISTORY: is an experienced hearing aid user. Recommended he keep his old hearing aids (2019 Phonak M90 RICs) as a backup/spare as needed. reported that the aids have sounded good following the adjustments we made last time. OBJECTIVE: Hearing aids right/left; Date Fit: 04/20/2023 Make: Phonak Model: L90-RL Style: RICs Serial #: [id number] Acoustics: 2-M, small vented domes CONFORMITY EVALUATION (VERIFICATION OF HEARING AID FUNCTION): Real Ear Aided Response (REAR) was measured using the Euroffice 2 system. According to the NAL-NL2 fitting method, the patient's hearing aids are meeting target for soft, average, and loud speech. Loudness intolerance was measured using a 90 dB MPO tone sweep and the patient was able to tolerate the output of the hearing devices. The fit was found to be satisfactory. ACTION: Hearing aids are a good physical fit. Hearing aids were programmed to prescriptive targets, which were derived from the Veterans hearing loss. Veterans subjective impressions were considered while adjusting the hearing aids. The frequency response is set at 100% of target gain. Feedback test was completed and feedback manager security was activated. Volume control enabled Synchronized [email or web address] cell phone was paired to the hearing aids. Education and counseling was completed regarding streaming capabilities. The radiological technologist phone application was reviewed with the . [place] paired to the hearing aids. was educated and counseled on use and features of the device as well as how to connect them. The device was demonstrated in the office to ensure both device functionality and understanding. was counseled on the following: -Full-time hearing aid use and acclimating to amplification -Realistic expectations for hearing aid use -Appropriate communication strategies -Rechargeability -Location and operation of all controls -Proper care and maintenance -Protecting hearing in high noise levels -[employer] [facility] and Call Center contact information and services, including the trial period reported good sound quality and equal balance between ears after adjustments were made. reported a comfortable fit. [place] demonstrated understanding of the new aids and was able to insert the hearing aids appropriately, as well as manipulate the volume control. Prognosis for success is good given the 's response to the hearing aids. Hearing aids were issued and supplies ([employer], small vented domes) were mailed. PLAN: Salem will return to clinic as needed for service. Patient is in agreement with this plan. /yolande/ LUCY PURVIS Associate Consulting Engineer Signed: 04/20/2023 15:[address] [facility]
--- OUTSIDE RECORDS SUMMARY | 2023-08-30 08:55 | XMS_ITS | Encounter Summary ---
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 Address [address] [place] [address] Support Name Relationship Address Phone ALYSSA HARDY Next of Kin [address] [place] [address] ALYSSA HARDY Emergency Contact [address] [place] [address] Insurance Providers: All historical and [...] Butts's Name Patient's Relationship to Policy Butts [facility] MEDICARE SUPPLEMEN NARCISA SENIO R GOLD INDIV IDU Jul 19, 2016 [id number] [phone] HAYLEYR ICHASHLEY PATIENT [facility] MEDICARE SUPPLEMEN NARCISA SENIO R GOLD INDIV IDU Jul 19, 2016 [id number] [phone] HAYLEY,R ICHARD PATIENT MEDICARE (WNR) MEDICARE (M) PART A Aug 19, 2011 PART A [id number] [phone] HAYLEY,R ICHARD PATIENT MEDICARE (WN) MEDICARE (M) PART B Aug 19, 2011 PART B [id number] [phone] HAYLEY,R ICHARD PATIENT Selected Encounter This section includes the information on record at [place] for the Encounter. Date/Time Encounter Type Encounter Description Reason Provider Source Aug 17, 2023 10:58 AM UNLISTED SPEC DERM SVC/PX DERMATOLOGY ICD-10-CM L98.9 Disorder of the skin and subcutaneous tissue, unspecified JED FRANK [facility] Encounter Template Text not used by [place] Assessments - Encounter Diagnoses This section includes the primary and secondary diagnoses documented for the Encounter. Date/Time Primary/Secondary Diagnosis Diagnosis Name Provider Source Aug 26, 2023 01:02 PM PRIMARY Disorder of the skin and subcutaneous tissue, unspecified ZACJED Pereira [facility] Plan of Treatment: Future Appointments (+ 6 months) and Future Tests (+/- 45 days) The Plan of Treatment section includes future care activities for the patient from all [place] treatmentfacilities. This section includes future appointments and future orders which are active, pending or scheduled. Future Appointments This section includes appointments that were scheduled to occur 6 months from the date of the Encounter, up to a maximum of 20 appointments. The data comes from all [place] treatment facilities. Appointment Date/Time Appointment Type Appointme nt Facility Name Sep 27, 2023 02:00 PM AMBULATORY - SURGERY [facility] Lab Results: +/- 30 days of the encounter This section includes the Chemistry and Hematology Lab Results on record with [place] for the patient. Radiology Reports and Pathology Reports are provided separately, in subsequent sections. Lab Results This section contains the Chemistry/Hematology Results that were resulted 30 days before or 30 daysafter the date of the Encounter. Date/Time Source Result Type Result - Unit Interpretation Reference Range Comment Aug 16, 2023 08:55 AM [facility] CREATININE(INCLUDES EGFR) Specimen Type: PLASMA No comment entered. Ordering Provider: LAI NGUYEN Report Released Date/Time: Aug 23, 2022 03:30 PM Reporting Lab: [facility] [id number] Performing Lab: [facility] Aug 16, 2023 08:55 AM [facility] ELECTROLYTES/ANION GAP Specimen Type: PLASMA No comment entered. Ordering Provider: LAI NGUYEN Report Released Date/Time: Aug 23, 2022 03:30 PM Reporting Lab: [facility] [id number] Performing Lab: [facility] Aug 16, 2023 08:55 AM [facility] AST/SGOT Specimen Type: PLASMA No comment entered. Ordering Provider: LAI NGUYEN Report Released Date/Time: Aug 23, 2022 03:30 PM Reporting Lab: [facility] [id number] Performing Lab: [facility] [id number] AST/SGOT 22 <34 Aug 16, 2023 08:55 AM [facility] CBC Specimen Type: BLOOD No comment entered. Ordering Provider: LAI NGUYEN Report Released Date/Time: Aug 23, 2022 03:30 PM Reporting Lab: [facility] [id number] Performing Lab: [facility] [id number] WBC 6.97 4.0-11.0 RBC 4.65 4.6-6.2 HGB 14.3 13.5-17.9 HCT 41.8 41-54 MCV 89.9 80-100 MCH 30.8 27-33 MCHC 34.2 32.0-37.5 PLT 214 150-400 MPV 9.4 7.4-10.4 RDW 13.6 11.5-14.5 Aug 16, 2023 08:55 AM [facility] GLUCOSE Specimen Type: PLASMA No comment entered. Ordering Provider: LAI NGUYEN Report Released Date/Time: Aug 23, 2022 03:30 PM Reporting Lab: [facility] [phone] Performing Lab: [facility] [address] GLUCOSE 105 H 70-100 Aug 16, 2023 08:55 AM [facility] HEMOGLOBIN A1C Specimen Type: BLOOD Comment: Values obtained from A1C measurements can vary. For typical A1C assays, a reported value of 7.0 could actually be between 6.7 and 7.3 if measured by a reference method. A reported value of 9.0 could actually be between 8.7 and 9.3. Ref: http://www.ngs p.org/CAPdata. asp Ordering Provider: LAI NGUYEN Report Released Date/Time: Aug 23, 2022 03:30 PM Reporting Lab: [facility] [id number] Performing Lab: [facility] [address] HEMOGLOBIN A1C 5.4 4.0-6.0 Aug 16, 2023 08:55 AM [facility] ALT/SGPT Specimen Type: PLASMA No comment entered. Ordering Provider: LAI NGUYEN Report Released Date/Time: Aug 23, 2022 03:30 PM Reporting Lab: [facility] [id number] Performing Lab: [facility] [id number] ALT/SGPT 24 <55 Aug 16, 2023 08:55 AM [facility] LIPID PANEL,NON-FASTING Specimen Type: PLASMA No comment entered. Ordering Provider: LAI NGUYEN Report Released Date/Time: Aug 23, 2022 03:30 PM Reporting Lab: [facility] [phone] Performing Lab: [facility] Aug 16, 2023 08:55 AM [facility] TSH W/REFLEX TO FREE T4 Specimen Type: PLASMA No comment entered. Ordering Provider: LAI NGUYEN Report Released Date/Time: Aug 23, 2022 03:30 PM Reporting Lab: [facility] [id number] Performing Lab: [facility] [id number] TSH 1.09 0.35-4.94 Vital Signs: All taken on the encounter date This section contains inpatient and outpatient Vital Signs collected on the date of the Encounter. Date/Time Temperature Pulse Blood Pressure Respiratory Rate SP02 Pain Height Weight Body Mass Index Source Aug 17, 2023 10:22 AM 175/96 mm[Hg] [facility] Aug 17, 2023 10:02 AM 98 F 84 /min 167/89 mm[Hg] 18 /min 96 % [address] 181[address] [facility] Social History: Smoking Status (Most current) [...] Current Smoking Status Comment Armando lutz Aug 17, 2023 10:00 AM VA-TOBACCO FORMER USER [facility] Tobacco Use History This section includes a history of the smoking, or tobacco-related health factors, that were collected on or before the date of the Encounter. The data comes from the [place] facility where the Encounter took place. Date/Time Smoking Status/Tobacco Use Comment F acility Aug 17, 2023 10:00 AM [place]-TO[place]AC[place] QUIT 15 YRS OR MORE [facility] Aug 20, 2022 03:30 PM VA-TOBACCO FORMER USER [facility] Aug 20, 2022 03:30 PM VA-TOBACCO QUIT 15 YRS OR MORE [facility] Jul 22, 2021 02:00 PM VA-TOBACCO FORMER USER [facility] Jul 22, 2021 02:00 PM VA-TOBACCO QUIT 15 YRS OR MORE [facility] Apr 05, 2019 09:50 AM VA-TOBACCO FORMER USER [facility] Apr 05, 2019 09:50 AM VA-TOBACCO QUIT 15 YRS OR MORE [facility] Apr 12, 2018 09:36 AM VA-TOBACCO FORMER USER [facility] Apr 12, 2018 09:36 AM VA-TOBACCO QUIT 15 YRS OR MORE [facility] Apr 19, 2017 01:40 PM FORMER TOBACCO USER 7Y OR GREATE R [facility] Apr 17, 2016 10:49 AM FORMER TOBACCO USER 7Y OR GREATE R [facility] Mar 18, 2015 09:40 AM FORMER TOBACCO USER 7Y OR GREATE R [facility] Mar 07, 2014 09:45 AM FORMER TOBACCO USER 7Y OR GREATE R [facility] Jan 26, 2012 03:48 PM FORMER TOBACCO USER 7Y OR GREATE R [facility] Encounter Notes: All associated encounter notes This section contains the clinical notes associated to the Encounter. Date/Time Encounter Note(s) Provider Source Aug 17, 2023 10:58 AM TELEIMAGING NOTE: LOCAL TITLE: TELEDERMATOLOGY IMAGING REQUEST CONSULT STANDARD TITLE: TELEIMAGING NOTE DATE OF NOTE: AUG 17, 2023@10:58 ENTRY DATE: AUG 17, 2023@10:58:52 AUTHOR: JED FRANK COSIGNER: URGENCY: STATUS: COMPLETED Teledermatology Consult Request The patient was educated regarding the Teledermatology process at this encounter. Patient DOES consent to have images taken, viewed, and interpreted using the Teledermatology process. This consult addresses: A new condition Images were acquired: In clinic HISTORY: Prior skin history: Yes BCC, SK, solar lentigo Have you had a skin cancer before? Basal Cell Carcinoma (BCC) Patient reports no family history of melanoma. Taking new med/supplements: None reported Immunosuppression history: None reported Other significant history: None reported Chief Complaint: Two lesion on right side of face and one on left side of neck. Thinksthat they are growing. PROBLEM A LOCATION(S): Head/Neck - right cheek #1 DURATION: over 6 months ago SYMPTOMS: No Symptoms CHANGES: Size - growing TREATMENT: No BIOPSY: No PROBLEM B: LOCATION(S): Head/Neck - right cheek #2 DURATION: over 6 months ago SYMPTOMS: No Symptoms CHANGES: Size - growing TREATMENT: No BIOPSY: No PROBLEM C: LOCATION(S): Head/Neck - left side of neck DURATION: 1 month ago SYMPTOMS: No Symptoms CHANGES: None TREATMENT: No BIOPSY: No Guide Visitor's comments: Guide Visitor split lesions into Problems A, B & C /es/ [facility] Guide Visitor Signed: 08/17/2023 11:02 JED FRANK [facility]
--- OUTSIDE RECORDS SUMMARY | 2023-08-30 08:55 | XMS_ITS | Encounter Summary ---
Author Name [facility] Organization [facility] of [facility] Address [address] [place] [address] Support Name Relationship Address Phone ALYSSA HARDY Next of Kin [address] [place] [address] ALYSSA HARDY Emergency Contact [address] [place] [address] Insurance Providers: All historical and [...] R GOLD INDIV IDU Jul 19, 2016 [id number] Estrella HARDY PATIENT [facility] MEDICARE SUPPLEMEN NARCISA LISA R GOLD INDIV IDU Jul 19, 2016 [id number] [phone] Estrella HARDYARD PATIENT MEDICARE (WNR) MEDICARE (M) PART A Aug 19, 2011 PART A [id number] [phone] Estrella HARDYARD PATIENT MEDICARE (WNR) MEDICARE (M) PART B Aug 19, 2011 PART B [id number] [phone] Estrella HARDY PATIENT Selected Encounter This section includes the information on record at [place] for the Encounter. Date/Time Encounter Type Encounter Description Reason Pro vider Source May 27, 2023 10:11 AM Outpatient Encounter GI ENDOSCOPY IHE Encounter Template Text not used by [place] Plan of Treatment: Future Appointments (+ 6 months) and Future Tests (+/- 45 days) The Plan of Treatment section includes future care activities for the [facility] [place] [facility] This section includes future appointments and future orders which are active, pending or scheduled. Future Appointments This section includes appointments that were scheduled to occur 6 months from the date of the Encounter, up to a maximum of 20 appointments. The data comes from all [place] treatment facilities. Appointment Date/Time Appointment Type Appointme nt Facility Name Aug 17, 2023 09:00 AM AMBULATORY - NONE BRENDEN GARLAND [facility] Aug 17, 2023 10:00 AM AMBULATORY - MEDICINE ARIEL MENDEZ [facility] Sep 27, 2023 02:00 PM AMBULATORY - SURGERY DION ZAMUDIO [facility] Social History: Smoking Status (Most [...] 09:45 AM FORMER TOBACCO USER 7Y OR [facility] Jan 26, 2012 03:48 PM FORMER TOBACCO USER 7Y OR [facility] Encounter Notes: All associated encounter notes This section contains the clinical notes associated to the Encounter. Date/Time Encounter Note(s) Provider Source May 27, 2023 10:11 AM RESEARCH NOTE: LOCAL TITLE: RESEARCH PROGRESS NOTE STANDARD TITLE: RESEARCH NOTE DATE OF NOTE: MAY 27, 2023@10:11 ENTRY DATE: MAY 27, 2023@10:11:35 AUTHOR: WADE CASAS EXP COSIGNER: URGENCY: STATUS: COMPLETED This [place] is enrolled in the CONFIRM study (Colonoscopy vs Fecal Immunochemical Test in Reducing Mortality from Colorectal Cancer, CSP #[id number]). This [place] has been non-adherent to the Colorectal Cancer (CRC) screening arm to which they were randomized. This [place] was randomized to annual FIT screening. The study investigators hope that the will be screened by their assigned CRC screening arm, if appropriate, as soon as possible. However, if alternate screening tests are desired, then the should discuss this with their primary care provider (PCP). As part of the study, letters will be sent to the encouraging them to be screened. The [place] remains a participant in the CONFIRM study. If there are any questions, please contact the CONFIRM study at . The PCP is being notified that the [place] was non-adherent to their assigned CRC screening arm by being asked to co-sign this note. /es/ WADE CASAS BA, RN REGISTERED NURSE Signed: 05/27/2023 10:11 Receipt Acknowledged By: 05/27/2023 10:13 /es/ RETA JEROME MD PHYSICIAN WADE CASAS [facility]
--- OUTSIDE RECORDS SUMMARY | 2023-08-30 08:55 | XMS_ITS | Encounter Summary ---
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 Address [address] [place] [address] Support Name Relationship Address Phone ALYSSA HARDY Next of Kin [address] [place] [address] ALYSSA HARDY Emergency Contact [address] [place] [address] Insurance Providers: All historical and [...] [facility] SUPPLEMEN NARCISA LISA R HIGINIO INDIV IDU Jul 19, 2016 [id number] [phone] Estrella HARDY PATIENT [facility] SUPPLEMEN NARCISA LISA R GOLD INDIV IDU Jul 19, 2016 [id number] [phone] Estrella HARDY PATIENT MEDICARE (WNR) MEDICARE (M) PART A Aug 19, 2011 PART A [id number] [phone] Estrella HARDY PATIENT MEDICARE (WNR) MEDICARE (M) PART B Aug 19, 2011 PART B [id number] [phone] Estrella HARDY PATIENT Selected Encounter This section includes the information on record at [facility] for the Encounter. Date/Time Encounter Type Encounter Description Reason Provider Source Aug 17, 2023 10:00 AM OFFICE O/P EST HI 40 MIN PRIMARY CARE/MEDICINE ICD-10-CM I10 Essential (primary) hypertension RETA JEROME [facility] Encounter Template Text not used by [place] Assessments - Encounter Diagnoses This section includes the primary and secondary diagnoses documented for the Encounter. Date/Time Primary/Secondary Diagnosis Diagnosis Name Provider Source Aug 30, 2023 08:18 AM PRIMARY Essential (primary) hypertension RETA JEROME [facility] Aug 30, 2023 08:18 AM SECONDARY Disorder of the skin and subcutaneous tissue, unspecified RETA JEROME [facility] Aug 30, 2023 08:18 AM SECONDARY Hyperlipidemia, unspecified RETA JEROME [facility] Plan of Treatment: Future Appointments (+ 6 months) and Future Tests (+/- 45 days) The Plan of Treatment section includes future care activities for the [facility] This section includes future appointments and [...] 27, 2023 02:00 PM AMBULATORY - SURGERY [facility] Lab Results: +/- 30 days of the encounter This section includes the Chemistry and Hematology Lab Results on record with [facility] for the patient. Radiology Reports and Pathology Reports are provided separately, in subsequent sections. Lab Results This section contains the Chemistry/Hematology Results that were resulted 30 days before or 30 daysafter the date of the Encounter. Date/Time Source Result Type Result - Unit Interpretation Reference Range Comment Aug 16, 2023 08:55 AM [facility] CREATININE(INCLUDES EGFR) Specimen Type: PLASMA No comment entered. Ordering Provider: LAI NGUYEN Report Released Date/Time: Aug 23, 2022 03:30 PM Reporting Lab: [facility] [id number] Performing Lab: [facility] Aug 16, 2023 08:55 AM [facility] ELECTROLYTES/ANION GAP Specimen Type: PLASMA No comment entered. Ordering Provider: LAI NGUYEN Report Released Date/Time: Aug 23, 2022 03:30 PM Reporting Lab: [facility] [id number] Performing Lab: [facility] Aug 16, 2023 08:55 AM [facility] GLUCOSE Specimen Type: PLASMA No comment entered. Ordering Provider: LAI NGUYEN Report Released Date/Time: Aug 23, 2022 03:30 PM Reporting Lab: [facility] [address] Performing Lab: [facility] [address] GLUCOSE 105 H 70-100 Aug 16, 2023 08:55 AM [facility] HEMOGLOBIN A1C Specimen Type: BLOOD Comment: [...] Aug 23, 2022 03:30 PM Reporting Lab: [facility] [id number] Performing Lab: [facility] [address] HEMOGLOBIN A1C 5.4 4.0-6.0 Aug 16, 2023 08:55 AM [facility] CBC Specimen Type: BLOOD No comment entered. Ordering Provider: LAI NGUYEN Report Released Date/Time: Aug 23, 2022 03:30 PM Reporting Lab: [facility] [address] Performing Lab: [facility] [address] WBC 6.97 4.0-11.0 RBC 4.65 4.6-6.2 HGB 14.3 13.5-17.9 HCT 41.8 41-54 MCV 89.9 80-100 MCH 30.8 27-33 MCHC 34.2 32.0-37.5 PLT 214 150-400 MPV 9.4 7.4-10.4 RDW 13.6 11.5-14.5 Aug 16, 2023 08:55 AM [facility] AST/SGOT Specimen Type: PLASMA No comment entered. Ordering Provider: LAI NGUYEN Report Released Date/Time: Aug 23, 2022 03:30 PM Reporting Lab: [facility] [address] Performing Lab: [facility] [address] AST/SGOT 22 <34 Aug 16, 2023 08:55 AM [facility] ALT/SGPT Specimen Type: PLASMA No comment entered. Ordering Provider: LAI NGUYEN Report Released Date/Time: Aug 23, 2022 03:30 PM Reporting Lab: [facility] [address] Performing Lab: [facility] [address] ALT/SGPT 24 <55 Aug 16, 2023 08:55 AM [facility] LIPID PANEL,NON-FASTING Specimen Type: PLASMA No comment entered. Ordering Provider: LAI NGUYEN Report Released Date/Time: Aug 23, 2022 03:30 PM Reporting Lab: [facility] [address] Performing Lab: [facility] Aug 16, 2023 08:55 AM [facility] TSH W/REFLEX TO FREE T4 Specimen Type: PLASMA No comment entered. Ordering Provider: LAI NGUYEN Report Released Date/Time: Aug 23, 2022 03:30 PM Reporting Lab: [facility] [address] Performing Lab: [facility] [address] TSH 1.09 0.35-4.94 Vital Signs: All taken [...] 17, 2023 10:00 AM VA-TOBACCO FORMER USER [facility] Tobacco Use History This section includes a history of the smoking, or tobacco-related health factors, that were collected on or before the date of the Encounter. The data comes from the [place] facility where the Encounter took place. Date/Time Smoking Status/Tobacco Use Comment F acility Aug 17, 2023 10:00 AM VA-TOBACCO QUIT 15 YRS OR MORE [facility] Aug 20, 2022 03:30 PM VA-TOBACCO FORMER USER [facility] Aug 20, 2022 03:30 PM VA-TOBACCO QUIT 15 YRS OR MORE [facility] Jul 22, 2021 02:00 PM VA-TOBACCO FORMER USER [facility] Jul 22, 2021 02:00 PM VA-TOBACCO QUIT 15 YRS OR MORE [facility] Apr 05, 2019 09:50 AM VA-TOBACCO FORMER USER [facility] Apr 05, 2019 09:50 AM VA-TOBACCO QUIT 15 YRS OR MORE [facility] Apr 12, 2018 09:36 AM VA-TOBACCO FORMER USER [facility] Apr 12, 2018 09:36 AM VA-TOBACCO QUIT 15 YRS OR MORE [facility] Apr 19, 2017 01:40 PM FORMER TOBACCO USER 7Y OR GREATE R [facility] Apr 17, 2016 10:49 AM FORMER TOBACCO USER 7Y OR GREATE R [facility] Mar 18, 2015 09:40 AM FORMER TOBACCO USER 7Y OR GREATE R [facility] Mar 07, 2014 09:45 AM FORMER TOBACCO USER 7Y OR GREATE R [facility] Jan 26, 2012 03:48 PM FORMER TOBACCO USER 7Y OR GREATE R [facility] Encounter Notes: All associated encounter notes This section contains the clinical notes associated to the Encounter. Date/Time Encounter Note(s) Provider Source Aug 19, 2023 10:52 AM LETTERS: LOCAL TITLE: FOLLOW UP RESULTS LETTER STANDARD TITLE: LETTERS DATE OF NOTE: AUG 19, 2023@10:52 ENTRY DATE: AUG 19, 2023@10:52:23 AUTHOR: RETA JEROME COSIGNER: URGENCY: STATUS: COMPLETED [facility] [address] [place] [address] Aug DOMINGA HARDY [address] [facility] [address] Dear : I am writing to inform you of the results of testing that you had done recently at the [facility]. # # # # # # # # # # # # # # # # # # # # # # # # # # # # # # # # # # # # Diagnosis: The spots on your cheek and your neck are called seborrheic keratoses. This is a type of normal skin growth that occurs with age. This is not a skin cancer and cannot turn into a cancer, although sometimes they do grow larger over time. Treatment: Treatment is not needed for these spots Follow up: Follow-up is not needed for these spots /es/ HI JON MD CHIEF DERMATOLOGY Signed: 08/19/2023 10:50 Additional Comments: Please find above the rsponsee to the requested Teledermatology consult. If you have any further questions or problems, please contact our nursing staff or provider at the following number: [phone]. Sincerely, RETA JEROME MD PHYSICIAN RETA JEROME [facility] Aug 17, 2023 10:44 AM LETTERS: LOCAL TITLE: FOLLOW UP RESULTS LETTER STANDARD TITLE: LETTERS DATE OF NOTE: AUG 17, 2023@10:44 ENTRY DATE: AUG 17, 2023@10:44:14 AUTHOR: RETA JEROME EXP COSIGNER: URGENCY: STATUS: COMPLETED [facility] [address] [place] [address] Jul DOMINGA HARDY [address] [facility] [id number] Dear : I am writing to inform you of the results of testing that you had done recently at the [facility]. - Cholesterol Tests (HDL = good and LDL = bad) CHOLESTEROL 153 (08/16/23) (prefer less than 200) HDL 61 (08/16/23) (prefer more than 39) LDL CALCULATION 70 (08/16/23) (prefer less than 100) MEASURED LDL____ (prefer less than 100) TRIGLYCERIDE____ (prefer less than 150) - Complete Blood Count (red/white blood cell counts and platelets) White count: WBC 6.97 (08/16/23) (normal is 4.0-11.0) Hemoglobin: HGB 14.3 (08/16/23) (normal Male is 13.5-17.9; Female is 11.5-16) Hematocrit: HCT 41.8 (08/16/23) (normal Male is 41-54; Female is 34.5- 48) Platelets: PLT 214 (08/16/23) (normal is 150-400) - Electrolytes including sodium and potassium SODIUM 140 (08/16/23) (normal is 136-145) POTASSIUM 4.0 (08/16/23) (normal is 3.5-5.1) - Kidney function CREATININE 0.8 (08/16/23)(normal Male = less than 1.2; normal Female = less than 1.0)) UREA NITROGEN____ (normal Male is 8-26; normal Female is 10-20) - Blood Sugar GLUCOSE 105 H (08/16/23) (normal is 70 - 100 if fasting) - Liver function Tests AST/SGOT 22 (08/16/23) (normal 15-37) ALT/SGPT 24 (08/16/23) (normal 13-61) ALK PHOSPHATASE____ (normal 45-117) BILIRUBIN, TOTAL____ (normal 0.2-1.0) - Thyroid Function: TSH 1.09 (08/16/23) (normal 0.3-5.0) If you have any further questions or problems, please contact our nursing staff or provider at the following number: [phone]. Sincerely, RETA JEROME MD PHYSICIAN RETA JEROME [facility] Aug 17, 2023 10:34 AM ADMINISTRATIVE NOT E: LOCAL TITLE: AFTER VISIT SUMMARY NOTE STANDARD TITLE: ADMINISTRATIVE NOTE DICT DATE: AUG 17, 2023@10:34:28 ENTRY DATE: AUG 17, 2023@10:34:28 DICTATED BY: RETA JEROME EXP COSIGNER: URGENCY: STATUS: COMPLETED The patient was provided with a copy of an after-visit summary at the conclusion of the visit. A copy of the after-visit summary provided to the patient is available in [employer]. SCANNED DOCUMENT SIGNATURE NOT REQUIRED Electronically Filed: 08/17/2023 by: RETA JEROME MD PHYSICIAN RETA JEROME [facility] Aug 17, 2023 10:08 AM INTERNAL MEDICINE NOTE: LOCAL TITLE: MEDICINE CLINIC NOTE STANDARD TITLE: INTERNAL MEDICINE NOTE DATE OF NOTE: AUG 17, 2023@10:08 ENTRY DATE: AUG 17, 2023@10:08:34 AUTHOR: RETA JEROME EXP COSIGNER: URGENCY: STATUS: COMPLETED MEDICINE CLINIC NOTE Has ADDENDA Nurses notes from today reviewed. DOMINGA HARDY is a 77 year old MALE. Reason for the visit:annual HPI: - Fell 3 weeks ago at his garage, hit head, no LOC. Went to [facility] ER and had head CT. - Pain on upper legs and waist. Happens in the morning goes away after walking. - Urinary frequency: about 6 mos. - BP at home 140/80 usually. - Facial skin lesions. Possibly growing. For years. ROS: Feels well No weight loss No fevers or chills No Chest Pain No Shortness of breath No orthopnea or PND No peripherial edema No nausea or vomiting No change in bowel habits or stools No diarrhea or constipation No bleeding No urinary hesitancy or frequency No hypoglycemia Remainder of review of systems negative. Other/Comments:as above Active problems - Computerized Problem List is the source for the followin. Hypertension 2. Hyperlipidemia (SNOMED CT 54508311) 3. Arthritis * 4. Coronary arteriosclerosis (SNOMED CT 59723024) - S/P SC in 2008. - S/P PCI x 3 [...] valve in situ 19. Posttraumatic stress disorder Allergies: EGGS (May 01, 2016) Medications: Active and Recently Outpatient Medications (excluding Supplies): Active Outpatient Medications Status 1) CETIRIZINE HCL 10MG TAB TAKE ONE TABLET BY MOUTH ACTIVE EVERY DAY ALLERGIC CONJUNCTIVITIS 2) CHOLECALCIF 10MCG (D3-400UNIT) TAB TAKE ONE TABLET BY ACTIVE MOUTH EVERY DAY THIS IS VITAMIN DROP 3) CLOPIDOGREL BISULFATE 75MG TAB TAKE ONE TABLET BY ACTIVE MOUTH EVERY DAY FOR HEART DISEASE 4) FAMOTIDINE 20MG TAB TAKE ONE TABLET BY MOUTH TWICE A ACTIVE DAY TO DECREASE STOMACH ACID 5) FINASTERIDE 5MG TAB TAKE ONE TABLET BY MOUTH EVERY ACTIVE (S) DAY FOR PROSTATE 6) FLUOROMETHOLONE 0.1% OPH [...] TABLET MOUTH EVERY DAY 12 Total Medications Family /Social hx (x ) not applicable to todays visit. Tobacco: () Pt smokes or uses tobacco products and was counseled to d/c. The patient was offered medication to assist with smoking cessation. The patient was also offered a referral to a smoking cessation program. () Pt is not using tobacco products now but has used them in the past year. (Pt counseled to remain abstinent.) () Pt hasn't used tobacco products for a year or more. () Pt has never used tobacco products. () ETOH use () Other substance use () adviced to quit EXAM: VS Temp: 98 F [36.7 C] (08/17/2023 10:02) BP: 167/89 (08/17/2023 10:02) HR: 84 (08/17/2023 10:02) RR: 18 (08/17/2023 10:02) Pain: 0 (08/17/2023 10:02) Weight:WEIGHTS IN LAST 6 MONTHS: 181.5 (AUG 17, 2023@10:02:31) 174.5 (APR 01, 2023@13:40:37) GRAL: NAD MENTAL STATUS:alert/cooperative/ej ented SKIN: two elevated, slightly pigmented lesions on righ facial area. One similar on R side of neck. HEENT:nc/at, perrl/eomi/no scleral jaundice/ no congested conjunctiva. Moist oral mucosa w/o lesions/ TMs w/o perforation bilat, no wax impaction. NECK:supple, no jvd, no m/LAD, + carotid pulses w/o bruits bilat, no tmg CHEST/T-SPINE: non tender on palpation over spine and rib cage. LUNGS:bs+ bilat, no rales/rhonchi/wheezes. CV:s1/s2, no gallops/rub/m. ABDOMEN:bs+, non tender, no hsm, no m, no bruits, no pulsatile mass. EXT:no cce. MSK:neg NEURO:grossly intact, no asymmetries, gait steady w/o assistance. 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 ( ) Result letter will be sent. Assessment and plan: 1) HTN: Uncontrolled. Pt on no meds. Plan to start Amlodipine 5 mg daily. 2) Hyperlipidemia: Stable. Continue current management. 3) CAD stable 4) Skin lesions: Telederm consult requested. ( x) Patient/Caregiver indicates readiness to learn, verbalizes understanding, agreement and satisfaction with the treatment plan. Patient/Caregiver doesn't have any further questions today. Total time spent on patient care including chart/diagnostic/test review, patient interview/examination, ordering medications/tests, interpreting results,and counseling/documentation was minutes. Medication Reconciliation: Education Evaluations *Was medication education provided for NEW medications or CHANGES to medications? (including medication name, dose, route, reason for use, and potential side effects). Yes. Verbal education was provided to patient/caregiver and patient/caregiver verbalized understanding. TERATOGENIC MED & CONTRACEPTION REVIEW (Optional)... === MEDICATION RECONCILIATION === List Given: An updated medication list was provided to the patient/caregiver. Review Done: The medication list shown below was verified for accuracy and it includes all pending medications/active medications/all medications or discontinued within the last 90 days/all remote medications and non-VA medications. If a given category (i.e. remote meds) is not shown, that means that a patient doesn't have a medication(s) in that category. Allergies listed below were also reviewed/updated for accuracy. Allergies/ADR from [facility] may not display in CPRS. Use JLV MRT5 - Allergies/ADRs FACILITY ALLERGY/ADR -------- No Remote Allergy/ADR Data available for this patient [facility] EGGS Active and Recently Outpatient Medications (including Supplies): Issue Date Status Last Fill Active Outpatient Medications Refills Expiration 1) CETIRIZINE HCL 10MG TAB Qty: 90 for 90 ACTIVE Issu:09-30-22 days Sig: TAKE ONE TABLET BY MOUTH Refills: 0 Last:07-05-23 EVERY DAY ALLERGIC CONJUNCTIVITIS Expr:10-01-23 2) CHOLECALCIF 10MCG (D3-400UNIT) TAB Qty: ACTIVE Issu:10-03-22 100 for 90 days Sig: TAKE ONE TABLET Refills: 0 Last:08-12-23 BY MOUTH EVERY DAY THIS IS VITAMIN Expr:10-04-23 DROP 3) CLOPIDOGREL BISULFATE 75MG TAB Qty: 90 ACTIVE Issu:07-21-23 for 90 days Sig: TAKE ONE TABLET BY Refills: 2 Last:07-22-23 MOUTH EVERY DAY FOR HEART DISEASE Expr:07-21-24 4) FAMOTIDINE 20MG TAB Qty: 60 for 30 days ACTIVE Issu:07-21-23 Sig: TAKE ONE TABLET BY MOUTH TWICE A Refills: 1 Last:07-21-23 DAY TO DECREASE STOMACH ACID Expr:07-21-24 5) FINASTERIDE 5MG TAB Qty: 90 for 90 days ACTIVE (S) Issu:12-21-22 Sig: TAKE ONE TABLET BY MOUTH EVERY Refills: 0 Last:09-09-23 DAY FOR PROSTATE Expr:12-22-23 6) FLUOROMETHOLONE 0.1% OPH SUSP Qty: 5 ACTIVE Issu:09-09-22 for 30 days Sig: INSTILL 1 DROP IN Refills: 1 Last:02-22-23 BOTH EYES FOUR TIMES A DAY FOR Expr:09-10-23 INFLAMMATION 7) KETOTIFEN 0.025% OPH SOLN Qty: 5 for 30 ACTIVE Issu:09-30-22 days Sig: INSTILL 1 DROP IN BOTH EYES Refills: 11 Last:10-02-22 TWICE A DAY ALLERGIC CONJUNCTIVITIS Expr:10-01-23 8) MELATONIN 3MG CAP/TAB Qty: 120 for 60 ACTIVE Issu:09-11-22 days Sig: TAKE 1 TABLET BY MOUTH Refills: 0 Last:07-05-23 EVERY EVENING FOR RESTFUL SLEEP ONE Expr:09-12-23 HOUR BEFORE BEDTIME. MAY INCREASE TO 2 TABLETS AFTER ONE WEEK IF STILL HAVING RESTLESS SLEEP. 9) ROSUVASTATIN CA 40MG TAB Qty: 90 for 90 ACTIVE (S) Issu:12-21-22 days Sig: TAKE ONE TABLET BY MOUTH Refills: 1 Last:09-02-23 EVERY DAY FOR CHOLESTEROL Expr:12-22-23 10) SERTRALINE HCL 50MG TAB Qty: 270 for 90 ACTIVE Issu:11-16-22 days Sig: TAKE THREE TABLETS BY MOUTH Refills: 1 Last:08-02-23 EVERY DAY FOR ANGER/IRRITABILITY Expr:11-17-23 NOTE CHANGE IN PILL STRENGTH/INSTRUCTIONS Issue Date Status Last Fill Inactive Outpatient Medications Refills Expiration 1) CHOLECALCIF 10MCG (D3-400UNIT) TAB Qty: DISCONTINUED Issu:10-03-22 100 for 90 days Sig: TAKE ONE TABLET (EDIT) Last:10-13-22 BY MOUTH EVERY DAY THIS IS VITAMIN Refills: 3 Expr:10-04-23 DROP 2) CLOPIDOGREL BISULFATE 75MG TAB Qty: 98 DISCONTINUED Issu:07-07-22 for 90 days Sig: TAKE EIGHT TABLETS Refills: 3 Last:07-10-22 BY MOUTH ONCE FOR 1 DAY, THEN TAKE ONE Expr:07-08-23 TABLET EVERY DAY FOR HEART DISEASE START LOADING DOSE OF 600MG THE FOLLOWING DAY AFTER FINISHING TICAGRELOR, THEN FOLLOWED BY 75MG DAILY INDEFINITELY 3) CLOPIDOGREL BISULFATE 75MG TAB Qty: 90 Issu:07-07-22 for 90 days Sig: TAKE ONE TABLET BY Refills: 0 Last:04-05-23 MOUTH EVERY DAY FOR HEART DISEASE Expr:07-08-23 INDEFINITELY 4) FAMOTIDINE 20MG TAB Qty: 60 for 30 days DISCONTINUED Issu:04-29-23 Sig: TAKE ONE TABLET BY MOUTH TWICE A Refills: 0 Last:07-05-23 DAY TO DECREASE STOMACH ACID Expr:04-29-24 5) SERTRALINE HCL 100MG TAB Qty: 90 for 90 DISCONTINUED Issu:04-20-22 days Sig: TAKE ONE TABLET BY MOUTH (EDIT) Last:10-08-22 EVERY DAY FOR ANGER/IRRITABILITY Refills: 1 Expr:04-21-23 Start Date Active Non-VA Medications Refills Expiration 1) Non-VA ASPIRIN 81MG EC TAB SiMG ACTIVE MOUTH 2) Non-VA MULTIVITAMIN/MINERALS SENIOR ACTIVE FORMULA TAB Si TABLET MOUTH EVERY DAY 17 Total Medications Fell 3 weeks ago. Slipped on lose carpet. HTN Assess for Elevated BP>=140/90: Repeat blood pressure: 175/96 Patient reported blood pressure Systolic BP 140 Diastolic BP 80 /yolande/ RETA JEROME MD PHYSICIAN Signed: 08/17/2023 10:41 08/17/2023 ADDENDUM STATUS: COMPLETED Time used in visit 40 min. /yolande/ RETA JEROME MD PHYSICIAN Signed: 08/17/2023 10:42 RETA JEROME [facility] Aug 17, 2023 09:59 AM INTERNAL MEDICINE OUTPATIENT NOTE: LOCAL TITLE: MEDICINE CLINIC NURSING NOTE STANDARD TITLE: INTERNAL MEDICINE OUTPATIENT NOTE DATE OF NOTE: AUG 17, 2023@09:59 ENTRY DATE: AUG 17, 2023@09:59:15 AUTHOR: LAU,SARAH A EXP COSIGNER: URGENCY: STATUS: COMPLETED TYPE OF VISIT: Appointment Check In Type of appointment: In-person appointment REASON FOR VISIT: check-up ALLERGIES: EGGS (May 01, 2016) Vital Signs: Blood Pressure: 167/89 (08/17/2023 10:02) recheck b/p 176/96 Pulse: 84 (08/17/2023 10:02) Respiration: 18 (08/17/2023 10:02) Temperature: 98 F [36.7 C] (08/17/2023 10:02) Weight: 181.5 lb [82.33 kg] (08/17/2023 10:02) Height: 69.5 in [176.5 cm] (08/20/2022 15:51) BMI: 26.5 Pain: 0 (08/17/2023 10:02) PAIN SCREEN: Patient is not having significant pain that they wish to discuss with their provider today. MEDICATION Active Outpatient Medications (including Supplies): CETIRIZINE HCL 10MG TAB TAKE ONE TABLET BY MOUTH EVERY DAY ACTIVE ALLERGIC CONJUNCTIVITIS CHOLECALCIF 10MCG (D3-400UNIT) TAB TAKE ONE TABLET BY ACTIVE MOUTH EVERY DAY THIS IS VITAMIN DROP CLOPIDOGREL BISULFATE 75MG TAB TAKE ONE TABLET BY MOUTH ACTIVE EVERY DAY FOR HEART DISEASE FAMOTIDINE 20MG TAB TAKE ONE TABLET BY MOUTH TWICE A DAY ACTIVE TO DECREASE STOMACH ACID FINASTERIDE 5MG TAB TAKE ONE TABLET BY MOUTH EVERY DAY FOR ACTIVE (S) PROSTATE FLUOROMETHOLONE 0.1% OPH SUSP INSTILL 1 DROP IN BOTH EYES ACTIVE FOUR TIMES A DAY FOR INFLAMMATION KETOTIFEN 0.025% OPH SOLN INSTILL 1 DROP IN BOTH EYES ACTIVE TWICE A DAY ALLERGIC CONJUNCTIVITIS MELATONIN 3MG CAP/TAB TAKE 1 TABLET BY MOUTH EVERY EVENING ACTIVE FOR RESTFUL SLEEP ONE HOUR BEFORE BEDTIME. MAY INCREASE TO 2 TABLETS AFTER ONE WEEK IF STILL HAVING RESTLESS SLEEP. ROSUVASTATIN CA 40MG TAB TAKE ONE TABLET BY MOUTH EVERY ACTIVE (S) DAY FOR CHOLESTEROL SERTRALINE HCL 50MG TAB TAKE THREE TABLETS BY MOUTH EVERY ACTIVE DAY FOR ANGER/IRRITABILITY NOTE CHANGE IN PILL STRENGTH/INSTRUCTIONS Non-VA ASPIRIN 81MG EC TAB 81MG MOUTH ACTIVE Non-VA MULTIVITAMIN/MINERALS SENIOR FORMULA TAB 1 TABLET ACTIVE MOUTH EVERY DAY Over the Counter/Herbal Medications: The patient states that they take some outside medications and/or herbals. Influenza Immunization: The patient declines to receive the recommended dose of seasonal influenza vaccine. Immunization: INFLUENZA, UNSPECIFIED FORMULATION Refusal Reason: PATIENT DECISION Patient refuses all immunization(s) in the FLU group Date Documented: 08/17/23 10:00 Alcohol Use Screen (AUDIT-C): Alcohol Screen: SCREEN FOR ALCOHOL (AUDIT-C) An alcohol screening test (AUDIT-C) was negative (score=2). 1. How often did you have a drink containing alcohol in the past year? Consider a drink to be a 12 ounce can or bottle of regular beer, 8 ounces of malt liquor, a 5 ounce glass of table wine, or a 1.5 ounce shot of liquor (like scotch, gin, or vodka). Two to four times a month 2. How many drinks containing alcohol did you have on a typical day when you were drinking in the past year? One or two drinks 3. How often did you have six or more drinks on one occasion in the past year? Never Nursing Annual Screening: Fall History Screen During the past 12 months, have you had any falls? Patient reports one fall with injury requiring treatment in the past 12 months. MEDICATIONS: Patient is on one of the following medication classes: Antihypertensives, Antidepressants, Antipsychotics, Diuretics, or Controlled substance medication used for pain. FALL RISK ADVICE: Fall Risk Advice provided. Handout entitled Fall Prevention At Home reviewed and given to patient and/or significant other. Script Talk Screen Are you able to read your prescription bottles with your glasses, magnifiers or other aids? Yes or patient not taking any prescriptions. Skin Screen Patient reports any current pressure ulcers, a history of pressure ulcers, or a wound from a medical diagnostic radiographer or Patient is bed-confined or a wheelchair-user or Patient requires assistance to transfer/change position No, Skin Screen is Negative Home Abuse/Violence Screen Is your home free of abuse and violence? Yes MOVE! Program Screen Body Mass Index (BMI)= 25.5 [place]: Collection DT Specimen Test Name Result Units Ref Range 08/16/2023 08:55 BLOOD !! HEMOGLOBIN A1C 5.4 % 4.0 - 6.0 !! Indicates COMMENTS AVAILABLE...Refer to Interim Lab Report. [place] Hgb A1C: No data available [place] Hgb A1C: No data available Point of Care Hgb A1C: POC HGB A1C____ Outpatient Nutrition Screen Body Mass Index (BMI)= 25.5 [place]: Collection DT Specimen Test Name Result Units Ref Range 08/16/2023 08:55 BLOOD !! HEMOGLOBIN A1C 5.4 % 4.0 - 6.0 !! Indicates COMMENTS AVAILABLE...Refer to Interim Lab Report. [place] Hgb A1C: No data available [place] Hgb A1C: No data available Point of Care Hgb A1C: POC HGB A1C____ Is patient's BMI less than 18.5? No Does patient have swallowing, coughing, or chewing problems affecting oral intake? No Has patient experienced unplanned weight loss or gain greater than 10 pounds over the last 2 months? No Is patient's Hgb A1C (Glycosylated Hemoglobin) greater than 9.5? No Is patient receiving Total Parenteral Nutrition (TPN) or Tube Feedings? No Patient Health Education Screen BARRIERS/SPECIAL NEEDS: No barriers identified PREFERRED STYLE OF LEARNING: Watching something Client Assistive Service (KEV) Screen Does the patient require assistance with outpatient visit? No Tobacco Use Screening: The patient is a former tobacco user. The patient quit fifteen or more years ago. Homelessness/Food Insecurity Screen: In the past 2 months, have you been living in stable housing that you own, rent, or stay in as part of a household? Yes - Living in stable housing. Are you worried or concerned that in the next 2 months you may NOT have stable housing that you own, rent, or stay in as part of a household? No - Not worried about housing near future The reports the following: Within the past 12 months, you worried whether your food would run out before you got money to buy more. Never true Within the past 12 months, the food you bought just didn't last and you didn't have money to get more. Never true Food Insecurity Resources /es/ SARAH LAU LPN LPN Signed: 08/17/2023 10:05 SARAH LAU [facility]
--- OUTSIDE RECORDS SUMMARY | 2023-08-30 08:55 | XMS_ITS | Encounter Summary ---
Author Name [facility] Organization [facility] Address [address] [place] [address] Support Name Relationship Address Phone ALYSSA HARDY Next of Kin [address] [place] [address] ALYSSA HARDY Emergency Contact [phone] [place] [address] Insurance Providers: All historical and [...] Patient's Relationship to Policy Butts [facility] MEDICARE SUPPLEMEN NARCISA LISA R GOLD INDIV IDU Jul 19, 2016 [id number] Estrella HARDY PATIENT [facility] MEDICARE SUPPLEMEN NARCISA SENIO R GOLD INDIV IDU Jul 19, 2016 [id number] [phone] HAYLEY,R ICHARD PATIENT MEDICARE (WNR) MEDICARE (M) PART A Aug 19, 2011 PART A [id number] HAYLEY,R ICHARD PATIENT MEDICARE (WNR) MEDICARE (M) PART B Aug 19, 2011 PART B [id number] [phone] Estrella HARDY PATIENT Selected Encounter This section includes the information on record at [place] for the Encounter. Date/Time Encounter Type Encounter Description Reason Provider Source May 25, 2023 10:39 AM ADMN SARSCOV2 VACC 1 DOSE GENERAL INTERNAL MEDICINE ICD-10-CM Z23 Encounter for immunization HASEEB WARD [facility] Encounter Template Text not used by [place] Assessments - Encounter Diagnoses This section includes the primary and secondary diagnoses documented for the Encounter. Date/Time Primary/Secondary Diagnosis Diagnosis Name Provider Source May 25, 2023 10:40 AM PRIMARY Encounter for immunization HASEEB WARD [facility] Plan of Treatment: Future Appointments (+ 6 months) and Future Tests (+/- 45 days) The Plan of Treatment section includes future care activities for the patient from all [place] treatmentfacilities. This section includes future appointments and future orders which are active, pending or scheduled. Future Appointments This section includes appointments that were scheduled to occur 6 months from the date of the Encounter, up to a maximum of 20 appointments. The data comes from all [place] treatment facilities. Appointment Date/Time Appointment Type Appointme nt Facility Name Aug 17, 2023 09:00 AM AMBULATORY - NONE [facility] Aug 17, 2023 10:00 AM [facility] Sep 27, 2023 02:00 PM AMBULATORY - SURGERY [facility] Immunizations: All administered on the encounter date This section contains immunizations associated to the Encounter. Immunization Series Date Issued Reaction Comments COVID-19 (PFIZER), MRNA, LNP -S, PF, ROSAS-SUCROSE, 30 MCG/0.3 ML (AGES 12+ YEARS) 1 May 25, 2023 Social History: Smoking Status (Most current) and Tobacco Use (All prior to encounter date) This section includes the most current, and the historical, smoking and tobacco- related health factors from the [place] facility where the Encounter took place. Current Smoking Status This section includes the most current smoking, or tobacco-related health factor, from the [place] facility where the Encounter took place. Date/Time Current Smoking Status Comment Armando lutz Aug 20, 2022 03:30 PM VA-TOBACCO FORMER USER [facility] Tobacco Use History This section includes a history of the smoking, or tobacco-related health factors, that were collected on or before the date of the Encounter. The data comes from the [place] facility where the Encounter took place. Date/Time Smoking Status/Tobacco Use Comment Masha actg Aug 20, 2022 03:30 PM VA-TOBACCO QUIT [address] [facility] Jul 22, 2021 02:00 PM VA-TOBACCO FORMER USER [facility] Jul 22, 2021 02:00 PM VA-TOBACCO QUIT [address] [facility] Apr 05, 2019 09:50 AM VA-TOBACCO FORMER USER [facility] Apr 05, 2019 09:50 AM VA-TOBACCO QUIT [address] [facility] Apr 12, 2018 09:36 AM VA-TOBACCO FORMER USER [facility] Apr 12, 2018 09:36 AM VA-TOBACCO QUIT [address] [facility] Apr 19, 2017 01:40 PM FORMER TOBACCO USER 7Y OR GREATE R [facility] Apr 17, 2016 10:49 AM FORMER TOBACCO USER 7Y OR GRE[address] [facility] Mar 18, 2015 09:40 AM FORMER TOBACCO USER 7Y OR GRE[address] [facility] Mar 07, 2014 09:45 AM FORMER TOBACCO USER 7Y OR GRE[address] R [facility] Jan 26, 2012 03:48 PM FORMER TOBACCO USER 7Y OR [facility] [facility] Encounter Notes: All associated encounter notes This section contains the clinical notes associated to the Encounter. Date/Time Encounter Note(s) Provider Source May 25, 2023 10:39 AM NURSING IMMUNIZATI ON NOTE: LOCAL TITLE: [facility] OUTPATIENT COVID VACCINE ADMINISTRATION STANDARD TITLE: NURSING IMMUNIZATION NOTE DATE OF NOTE: MAY 25, 2023@10:39 ENTRY DATE: MAY 25, 2023@10:39:35 AUTHOR: LINDSAY WARD EXP COSIGNER: URGENCY: STATUS: COMPLETED Pfizer Monovalent (Comirnaty) Vaccine information reviewed with the patient.The patient denied any prior severe reaction to this vaccine or its components or a severe allergic reaction such as anaphylaxis to any vaccine or to any injectable therapy.The patient gave verbal consent to receive vaccine. Administered: COVID-19 (PFIZER), MRNA, LNP-S, PF, ROSAS-SUCROSE, 30 MCG/0.3 ML (AGES 12+ YEARS) Date Administered: May 25, 2023 10:39 Series: Series 1 Electron Beam Operator: [email or web address] Lot: [id number] Exp Date: Aug 18, 2023 ND: [id number] Admin Route/Site: INTRAMUSCULAR/LEFT DELTOID Dosage: 0.3mL Vaccine Information Statement(s): COVID-19 MRNA VACCINE (12+ YRS) VACCINE VIS May 06, 2023 ([facility]) Order By: Policy Administered By: Lindsay Ward Vaccine administered without complications. The patient was advised to remain in the facility for 15 minutes post vaccination. /es/ LINDSAY WARD RN Signed: 05/25/2023 10:[address] [facility]
--- OUTSIDE RECORDS SUMMARY | 2023-08-30 08:55 | XMS_ITS | Encounter Summary ---
Author Name [facility] Organization [facility] Address [address] [place] [address] Support Name Relationship Address Phone ALYSSA HARDY Next of Kin [address] [place] [address] ALYSSA HARDY Emergency Contact [phone] [place] [address] Insurance Providers: All historical and [...] Butts's Name Patient's Relationship to Policy Butts [facility] MEDICARE SUPPLEMEN NARCISA SENIO R GOLD INDIV IDU Jul 19, 2016 [id number] P [id number] HAYLEY,R ICHARD PATIENT [facility] MEDICARE SUPPLEMEN NARCISA SENIO R GOLD INDIV IDU Jul 19, 2016 [id number] [phone] HAYLEY,R ICHARD PATIENT MEDICARE (WNR) MEDICARE (M) PART A Aug 19, 2011 PART A [id number] [id number] [phone] HAYLEY,R ICHARD PATIENT MEDICARE (WN) MEDICARE (M) PART B Aug 19, 2011 PART B [id number] [id number] [phone] HAYLEY,R ICHARD PATIENT Selected Encounter This section includes the information on record at [place] for the Encounter. Date/Time Encounter Type Encounter Description Reason Provider Source Aug 18, 2023 04:32 PM Outpatient Encounter DERMATOLOGY ICD-10-CM L82.1 Other seborrheic keratosis HI JON IHE Encounter Template Text not used by [place] Assessments - Encounter Diagnoses This section includes the primary and secondary diagnoses documented for the Encounter. Date/Time Primary/Secondary Diagnosis Diagnosis Name Provider Source Aug 25, 2023 02:23 PM PRIMARY Other seborrheic keratosis HI JON [facility] Plan of Treatment: Future Appointments (+ 6 months) and Future Tests (+/- 45 days) The Plan of Treatment section includes future care activities for the patient from all [place] treatmentfacilities. This section includes future appointments and [...] 27, 2023 02:00 PM AMBULATORY - SURGERY [facility] Lab Results: +/- 30 days of the encounter This section includes the Chemistry and Hematology Lab Results on record with [place] for the patient. Radiology Reports and Pathology Reports are provided separately, in subsequent sections. Lab Results This section contains the Chemistry/Hematology Results that were resulted 30 days before or 30 daysafter the date of the Encounter. Date/Time Source Result Type Result - Unit Interpretation Reference Range Comment Aug 16, 2023 08:55 AM [facility] ELECTROLYTES/ANION GAP Specimen Type: PLASMA No comment entered. Ordering Provider: LAI NGUYEN Report Released Date/Time: Aug 23, 2022 03:30 PM Reporting Lab: [facility] [id number] Performing Lab: [facility] Aug 16, 2023 08:55 AM [facility] CREATININE(INCLUDES EGFR) Specimen Type: PLASMA No comment entered. Ordering Provider: LAI NGUYEN Report Released Date/Time: Aug 23, 2022 03:30 PM Reporting Lab: [facility] [id number] Performing Lab: [facility] Aug 16, 2023 08:55 AM [facility] GLUCOSE Specimen Type: PLASMA No comment entered. Ordering Provider: LAI NGUYEN Report Released Date/Time: Aug 23, 2022 03:30 PM Reporting Lab: [facility] [phone] Performing Lab: [facility] [phone] GLUCOSE 105 H 70-100 Aug 16, 2023 08:55 AM [facility] ALT/SGPT Specimen Type: PLASMA No comment entered. Ordering Provider: LAI NGUYEN Report Released Date/Time: Aug 23, 2022 03:30 PM Reporting Lab: [facility] [phone] Performing Lab: [facility] [phone] ALT/SGPT 24 <55 Aug 16, 2023 08:55 AM [facility] AST/SGOT Specimen Type: PLASMA No comment entered. Ordering Provider: LAI NGUYEN Report Released Date/Time: Aug 23, 2022 03:30 PM Reporting Lab: [facility] [phone] Performing Lab: [facility] [id number] AST/SGOT 22 <34 Aug 16, 2023 08:55 AM [facility] LIPID PANEL,NON-FASTING Specimen Type: PLASMA No comment entered. Ordering Provider: LAI NGUYEN Report Released Date/Time: Aug 23, 2022 03:30 PM Reporting Lab: [facility] [phone] Performing Lab: [facility] Aug 16, 2023 08:55 AM [facility] HEMOGLOBIN A1C Specimen Type: BLOOD Comment: [...] Aug 23, 2022 03:30 PM Reporting Lab: [facility] [phone] Performing Lab: [facility] [phone] HEMOGLOBIN A1C 5.4 4.0-6.0 Aug 16, 2023 08:55 AM [facility] CBC Specimen Type: BLOOD No comment entered. Ordering Provider: LAI NGUYEN Report Released Date/Time: Aug 23, 2022 03:30 PM Reporting Lab: [facility] [phone] Performing Lab: [facility] [phone] WBC 6.97 4.0-11.0 RBC 4.65 4.6-6.2 HGB 14.3 13.5-17.9 HCT 41.8 41-54 MCV 89.9 80-100 MCH 30.8 27-33 MCHC 34.2 32.0-37.5 PLT 214 150-400 MPV 9.4 7.4-10.4 RDW 13.6 11.5-14.5 Aug 16, 2023 08:55 AM [facility] TSH W/REFLEX TO FREE T4 Specimen Type: PLASMA No comment entered. Ordering Provider: LAI NGUYEN Report Released Date/Time: Aug 23, 2022 03:30 PM Reporting Lab: [facility] [phone] Performing Lab: [facility] [phone] TSH 1.09 0.35-4.94 Social History: Smoking Status (Most current) and [...] lutz Aug 17, 2023 10:00 AM VA-TOBACCO QUIT 15 YRS OR MORE [facility] Tobacco Use History This section includes a history of the smoking, or tobacco-related health factors, that were collected on or before the date of the Encounter. The data comes from the [place] facility where the Encounter took place. Date/Time Smoking Status/Tobacco Use Comment F acility Aug 17, 2023 10:00 AM VA-TOBACCO QUIT 15 YRS OR MORE [facility] Aug 20, 2022 03:30 PM VA-TOBACCO FORMER USER [facility] Aug 20, 2022 03:30 PM VA-TOBACCO [...] Encounter. Date/Time Encounter Note(s) Provider Source Aug 18, 2023 04:32 PM TELEIMAGING REPORT : LOCAL TITLE: TELEDERMATOLOGY IMAGING REPORT CONSULT STANDARD TITLE: TELEIMAGING REPORT DATE OF NOTE: AUG 18, 2023@16:32 ENTRY DATE: AUG 18, 2023@16:32:11 AUTHOR: HI JON COSIGNER: URGENCY: STATUS: COMPLETED HISTORY: HISTORY: Prior skin history: Yes BCC, SK, [...] Symptoms CHANGES: None TREATMENT: No BIOPSY: No OVERALL CONSULT/IMAGE QUALITY: Fully satisfactory EXAM: Right cheek and left neck with well-circumscribed, palacio, verrucous, slightly scaly papules. No concerning features on dermoscopy. IMPRESSION BASED ON IMAGES AND INFORMATION REVIEWED: PROBLEM A: Diagnosis: Seborrheic Keratosis PROBLEM B: Diagnosis: Seborrheic Keratosis PROBLEM C: Diagnosis: Seborrheic Keratosis RECOMMENDATIONS FOR REFERRING PROVIDER: PROBLEM A: No recommendations PROBLEM B: No recommendations PROBLEM C: No recommendations RECOMMENDED FOLLOW-UP: Follow up not required Treatment is not needed for these benign lesions Cumulative time of review and management: 5 minutes or more # # # # # # # [...] JON MD CHIEF DERMATOLOGY Signed: 08/19/2023 10:50 HI JON [facility]
== END 2023-08-30 08:32 | disposition home or self-care (01) ==
PROVIDERS: PCP Chiropractor; Visit Provider Chiropractor
DX: I25.10 Atherosclerotic heart disease of native coronary artery without angina pectoris (principal); I34.0 Nonrheumatic mitral (valve) insufficiency
CPT/HCPCS: 93306